=== PATIENT | female | born 1965 | race African-American/Black ===

== ENCOUNTER 2017-07-22 17:46 | Observation (INO) | payer SELFPAY ==
[2017-07-22] MEDS ORDERED: ASPIRIN CHEW 81 MG TABLET PO STA (18:01)
--- NOTE | 2017-07-22 18:03 | ED Physician Documentation ---
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 She has no personal Of coronary disease or other issues. She has had elevated blood pressures before at times intermittently but usually it is actually on the low side.) - Additional information Additional information: Several years ago she was on metformin and hydrochlorothiazide but lost weight and did not need to be on them anymore. Review of Systems Ten Systems: 10 systems reviewed and negative Constitutional: denies: Fever, Chills Cardiac: reports: Chest pain / pressure. denies: Palpitations, Pedal edema, Calf pain Respiratory: denies: Dyspnea, Cough GI: denies: Abdominal Pain, Nausea, Vomiting PD PAST MEDICAL HISTORY - Past Medical History Past Medical History: No - Past Surgical History Past Surgical History: No - Present Medications Home Medications: Ambulatory Orders Medication Instructions Recorded Confirmed Aspirin 07/22/17 - Allergies Allergies/Adverse Reactions: Allergies Allergy/AdvReac Type Severity Reaction Status Date / Time No Known Drug Allergies Allergy Verified 07/22/17 17:54 - Social History Does the pt smoke?: No Smoking Status: Never smoker - Family History Family history: reports: DM (and HTN) PD ED PE NORMAL - Vitals Vital signs reviewed: Yes - General General: Alert and oriented X 3, No acute distress - HEENT HEENT: PERRL, EOMI - Neck Neck: Supple, no meningeal sign, No bony TTP - Cardiac Cardiac: RRR, Other (2 out of 6 decrescendo holosystolic murmur heard best at the left upper sternal border) - Respiratory Respiratory: No respiratory distress, Clear bilaterally - Abdomen Abdomen: Normal bowel sounds, Soft, Non tender - Derm Derm: Normal color, Warm and dry - Extremities Extremities: No edema, No calf tenderness / cord, Other (Equal and strong pedal and radial pulses bilaterally) - Neuro Neuro: Alert and oriented X 3, Normal speech - Psych Psych: Normal mood, Normal affect Results - Vitals Vitals: Vital Signs - 24 hr 07/22/17 07/22/17 17:50 18:27 Temperature 37.1 C Heart Rate 101 H 77 Respiratory 17 18 Rate Blood Pressure 215/110 H 174/94 H O2 Saturation 98 99 Oxygen O2 Source Room air - EKG (time done) 1754 Rate: Rate (enter#) (90) Rhythm: NSR [place]: Normal QRS: LVH Ischemia: Normal ST segments Computer interpretation: Agree with computer - Labs Labs: Laboratory Tests 07/22/17 07/22/17 07/22/17 18:06 18:06 18:06 WBC 9.1 RBC 4.46 Hgb 13.1 Hct 38.9 MCV 87.1 MCH 29.3 MCHC 33.6 RDW 13.3 Plt Count 270 MPV 8.4 Neut # Not Reportable Lymph # Not Reportable Warrick # Not Reportable Eos # Not Reportable Baso # Not Reportable Absolute Nucleated RBC Not Reportable Total Counted 100 Band Neuts % (Manual) 0 Reactive Lymphs % (Man) 7 Abnorm Lymph % (Manual) 0 Nucleated RBC % Not Reportable Neutrophils # (Manual) 5.7 Lymphocytes # (Manual) 3.0 Monocytes # (Manual) 0.3 Eosinophils # (Manual) 0.1 Basophils # (Manual) 0.0 Manual Slide Review Indicated Platelet Estimate NORMAL (130-450,000) Platelet Morphology NORMAL APPEARANCE RBC Morph Micro Appear NORMAL APPEARANCE Sodium 134 L Potassium 3.8 Chloride 94 L Carbon Dioxide 29 Anion Gap 11.0 BUN 14 Creatinine 0.7 Estimated GFR (MDRD) 87 L Glucose 459 H Calcium 9.9 Total Bilirubin 0.3 AST 17 ALT 19 Alkaline Phosphatase 112 Total Creatine Kinase 81 CK-MB (CK-2) 1.2 Troponin I 0.17 Total Protein 7.7 Albumin 4.0 Globulin 3.7 Albumin/Globulin Ratio 1.1 Lipase 57 H 07/22/17 19:10 WBC RBC Hgb Hct MCV MCH MCHC RDW Plt Count MPV Neut # Lymph # Warrick # Eos # Baso # Absolute Nucleated RBC Total Counted Band Neuts % (Manual) Reactive Lymphs % (Man) Abnorm Lymph % (Manual) Nucleated RBC % Neutrophils # (Manual) Lymphocytes # (Manual) Monocytes # (Manual) Eosinophils # (Manual) Basophils # (Manual) Manual Slide Review Platelet Estimate Platelet Morphology RBC Morph Micro Appear Sodium Potassium Chloride Carbon Dioxide Anion Gap BUN Creatinine Estimated GFR (MDRD) Glucose Calcium Total Bilirubin AST ALT Alkaline Phosphatase Total Creatine Kinase CK-MB (CK-2) Troponin I 0.15 Total Protein Albumin Globulin Albumin/Globulin Ratio Lipase - Rads (name of study) CT Angio Radiology: EMP read contemporaneously PD MEDICAL DECISION MAKING - ED course ED course: 52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 Blood pressure came down to about 160-170 systolic without specific intervention. She was administered aspirin. Because of the neurologic symptoms and angiogram of the chest was done, also the murmur, this was negative. Her troponin was in her intermediate at 0.17 and this was repeated in short order to make sure was not shooting up, the second 1 is only 0.15. Her blood sugar is fairly high as well. She was administered IV fluids, insulin, beta blockers. She needs a more formal rule out, but her troponin anemia may be due to her blood pressure. Spoke with Dr. Emerson for observation at 7:51 PM. Departure - Departure Disposition: ED Place in Observation Clinical Impression: Elevated troponin Chest pain Qualifiers: Chest pain type: unspecified Qualified Code(s): R07.9 - Chest pain, unspecified Hypertension Qualifiers: Hypertension type: unspecified Qualified Code(s): I10 - Essential (primary) hypertension Uncontrolled diabetes mellitus Qualifiers: Diabetes mellitus type: type 2 Diabetes mellitus complication status: with hyperglycemia Diabetes mellitus residential insulin use: without spreader operator use Qualified Code(s): E11.65 - Type 2 diabetes mellitus with hyperglycemia Condition: Stable
[2017-07-22 18:11] LABS: HGB - HEMOGLOBIN 13.1 g/dL (12.0-16.0); PLT - PLATELET COUNT 270 10^3/uL (130-450)
[2017-07-22 18:14] LABS: BASOPHILS % (AUTO) 0.8 %; EOSINOPHILS % (AUTO) 2.8 %; LYMPHOCYTES % (AUTO) 32.1 %; MEAN CORPUSCULAR HEMOGLOBIN 29.3 pg (27.0-31.0); MEAN CORPUSCULAR HGB CONC 33.6 g/dL (32.0-36.0); MEAN CORPUSCULAR VOLUME 87.1 fL (81.0-99.0); MEAN PLATELET VOLUME 8.4 fL (7.9-10.8); NEUTROPHILS % (AUTO) 59.3 %; RED BLOOD COUNT 4.46 10^6/uL (4.20-5.40); RED CELL DISTRIBUTION WIDTH 13.3 % (12.0-15.0); WHITE BLOOD COUNT 9.1 x10^3/uL (4.8-10.8)
[2017-07-22] MEDS ORDERED: IOPAMIDOL-300 100 ML VIAL ONE (18:20)
[2017-07-22 18:21] LABS: ALBUMIN/GLOBULIN RATIO 1.1 (1.0-2.2); BILIRUBIN,TOTAL 0.3 mg/dL (0.2-1.0); CALCIUM 9.9 mg/dL (8.5-10.3); CREATININE 0.7 mg/dL (0.4-1.0); TOTAL PROTEIN 7.7 g/dL (6.7-8.2)
[2017-07-22 18:27] LABS: TROPONIN I 0.17 ng/mL (<0.49)
[2017-07-22 18:29] LABS: CREATINE KINASE MB 1.2 ng/mL (0.6-6.3)
[2017-07-22 18:34] LABS: ABNORMAL LYMPHS % (MANUAL) 0 %; BAND NEUTROPHILS % (MANUAL) 0 %
[2017-07-22 18:40] LABS: EOSINOPHILS # (MANUAL) 0.1 10^3/uL (0-0.7); LYMPHOCYTES % (MANUAL) 26 %; MONOCYTES # (MANUAL) 0.3 10^3/uL (0.0-1.0); NEUTROPHILS # (MANUAL) 5.7 10^3/uL (1.5-6.6); NEUTROPHILS % (MANUAL) 63 %
[2017-07-22 18:41] LABS: PLATELET ESTIMATE, MANUAL NORMAL (130-450,000) (NORMAL); PLATELET MORPHOLOGY NORMAL APPEARANCE (NORMAL); RBC MORPHOLOGY (MULTIPLE) NORMAL APPEARANCE (NORMAL)
[2017-07-22] MEDS ORDERED: IOPAMIDOL-300 100 ML VIAL IVP ONE (19:13)
[2017-07-22] MEDS ORDERED: INSULIN REGULAR HUMAN 100 UNIT/1 ML 10 ML MDV IVP STA (19:18)
[2017-07-22] MEDS ORDERED: SODIUM CHLORIDE 0.9% 1,000 ML IV ONE (19:18)
--- NOTE | 2017-07-22 19:31 | CT Report ---
EXAM: CT ANGIOGRAM CHEST EXAM DATE: 07/22/2017 06:45 PM. CLINICAL HISTORY: Chest pain. COMPARISON: None. TECHNIQUE: Routine helical imaging was performed through the chest in the arterial phase. IV Contrast : 100 cc Isovue 300. Reconstructions: Coronal 3-D MIP reconstructions.Sagittal and coronal. In accordance with CT protocol optimization, one or more of the following dose reduction techniques w ere utilized for this exam: automated exposure control, adjustment of mA and/or KV based on patient s ize, or use of iterative reconstructive technique. FINDINGS: Thoracic Aorta: The proximal great vessels are unremarkable. Thoracic aorta is normal in caliber with out evidence of aneurysm or dissection. No periaortic hematoma. Pulmonary artery unremarkable save fo r some slight air in the pulmonary artery, presumed introduced from injection. Lungs/pleura: No consolidation, nodules, or edema. No effusions or pneumothorax. Mediastinum: The thyroid gland is unremarkable. There are no enlarged mediastinal lymph nodes. No per icardial effusion. Other: None. IMPRESSION: Unremarkable CTA chest. No evidence of aneurysm or dissection. [facility] Referring Provider Line: [phone] SITE ID: [id number]
[2017-07-22] MEDS ORDERED: oxyCODONE 5 MG TABLET PO PRN (19:50)
[2017-07-22] MEDS ORDERED: ONDANSETRON ODT 4 MG TABLET TL PRN (19:50)
[2017-07-22] MEDS ORDERED: ONDANSETRON 4 MG/2 ML VIAL IVP PRN (19:50)
[2017-07-22] MEDS ORDERED: SODIUM CHLORIDE FLUSH 0.9% 10 ML SYRINGE IVP PRN (19:50)
--- NOTE | 2017-07-22 19:50 | CT Report ---
EXAM: CT ANGIOGRAM ABDOMEN AND PELVIS WITH CONTRAST EXAM DATE: 07/22/2017 07:13 PM. CLINICAL HISTORY: Chest pain, murmur. COMPARISONS: None. TECHNIQUE: Routine helical CT angiogram imaging was performed through the abdomen and pelvis in the a rterial phase. IV contrast: 100 cc Isovue-300. Enteric contrast: No. Reconstructions: Coronal, sagitt al, and 3D MIP reconstructions. In accordance with CT protocol optimization, one or more of the following dose reduction techniques w ere utilized for this exam: automated exposure control, adjustment of mA and/or KV based on patient s ize, or use of iterative reconstructive technique. FINDINGS: Vasculature: Normal. No aneurysm, dissection, or significant atherosclerotic disease of the abdominal aorta and iliac arteries. The visualized mesenteric and solid organ vascular structures are also wit hin normal limits. Abdominal Solid Organs: Liver is normal in contour without focal intrahepatic lesion. The gallbladder is contracted and unremarkable. The spleen and pancreas are within normal limits. Adrenal glands unr emarkable. Symmetric renal enhancement with mild right pelviectasis. Left renal cyst measuring 12 mm. Peritoneal Cavity: The stomach is unremarkable. There are no dilated loops of large or small intestin e. No focal inflammation. No enlarged mesenteric lymph nodes. Pelvic Organs: Moderate distention of the bladder. Uterus and adnexa unremarkable. Bones: No significant abnormality. Other: None. IMPRESSION: 1. No evidence of abdominal aortic aneurysm or dissection. 2. Essentially unremarkable CTA of the abdomen and pelvis. [facility] Referring Provider Line: [phone] SITE ID: [id number]
--- NOTE | 2017-07-22 19:50 | CT Preliminary Report ---
Exam: CT ABDOMEN/PELVIS ANGIO IMPRESSION: 1. No evidence of abdominal aortic aneurysm or dissection. 2. Essentially unremarkable CTA of the abdomen and pelvis. [facility] SITE ID: [id number]
[2017-07-22] MEDS ORDERED: METOPROLOL 5 MG/5 ML VIAL IVP STA (19:52)
[2017-07-22] MEDS ORDERED: NITROGLYCERIN SL 0.4 MG TABLET SL PRN (19:52)
[2017-07-22] MEDS ORDERED: METOPROLOL TARTRATE 50 MG TABLET PO STA (19:52)
[2017-07-22 20:45] LABS: HEMOGLOBIN A1C 1.85 g/dL; HEMOGLOBIN A1C % 14.2 % (4.6-6.2)
[2017-07-22] MEDS: SODIUM CHLORIDE 0.9% 1,000 ML IV SCH (21:02)
--- NOTE | 2017-07-22 21:14 | HISTORY & PHYSICAL EXAMINATION ---
Chief Complaint - Chief Complaint Chief Complaint: chest pain and burning feet History of Present Illness - Admitted From Admitted From:: ER/Home - History Obtained From Records Reviewed: [facility] History obtained from: Patient, Her , and Dr. 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 She has been on [facility] about 3 or 4 weeks, currently contracted with [facility] doing LTAC ventilator nursing management[place] have a primary care provider. The last time she was seen by physician was in the fall 2016, she thinks it was January. 3 years ago, she had already lost 60-70 pounds in an attempt to control her blood pressure and her diabetes. At that time she was on hydrochlorothiazide, metformin, and potassium. With the weight loss, her A1c became normal, and her medications were stopped. Her sugars have been checked only on a yearly basis with her physician, and her last January 2017 glucose was normal. In the last few weeks she has developed a burning dysesthesia of her feet. 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 She did not lengthen neuropathy with her diabetes. She has not had polyuria, polyphagia, polydipsia. She started developing some left arm aching yesterday. And today, 45 minutes before coming to the hospital, she developed substernal chest pressure. It was nonradiating. There was no shortness of breath, nausea, diaphoresis, or dizziness. No palpitations. She did have an episode of chest pain 3 years ago. She was observed overnight, but no stress test was done. She came to the emergency room and was noted to be hypertensive at 210 systolic. She received metoprolol 25 mg p.o., after receiving metoprolol 5 mg once. Her systolic went from 215/110 diastolic to 167/93. Chest pressure was gone by the time she got to the emergency room. Left arm ache was gone. Her initial troponin was 0.17. Repeat troponin an hour later was 0.15. Random glucose was 459. A1c is 14.2%. She is now placed in observation for rule out NJ. She has significant risk factors including hyperlipidemia, hypertension, diabetes, all of which are uncontrolled. She is not a smoker. She does have a family history with mom and dad both having cardiac issues and one brother dying of a massive heart attack. She is in nondrinker as well. 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 They had DM,HTN, chol, CAD at their deaths. She had 18 siblings. 3 sisters have of cancer; 1 was breast but the other two she doesn't know what kind of cancer. 1 brother of GSW. 1 brother of NJ. Her 3 children are healthy Living arrangement: At home Living Situation: With spouse/s.o. Social History Notes: she was born in [facility] and has lived all over the [facility] bc of work and family. She has been to her 2nd for 17 years. They met at her cousins house one night for dinner on a blind date and have been together even since. Her 3 children live in [facility]. She never smoked, and never really even socially drank since she doesn't like the taste of it. 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 [place] went on and now plan on being in [place] [facility] [place] - Substance History Use: Uses substance without health or social issues: NONE Abuse: Recurrent use of substance despite neg consequences: NONE Dependence: Experiences withdrawal or developed tolerances: NONE - POLST Patient has POLST: No POLST Status: Full Code Meds/Allgy - Home Medications Home Medications: Ambulatory Orders Medication Instructions Recorded Confirmed Aspirin 07/22/17 - Allergies Allergies/Adverse Reactions: Allergies Allergy/AdvReac Type Severity Reaction Status Date / Time No Known Drug Allergies Allergy Verified 07/22/17 17:54 Review of Systems - Constitutional Constitutional: denies: Fatigue, Fever, Chills, Malaise, Weight gain, Weight loss - Eyes Eyes: denies: Pain, Irritation, Blurred vision, Spots in vision, Field loss - Ears, Nose & Throat Ears, Nose & Throat: denies: Ear pain, Hearing loss, Hearing aids, Tinnitus, Vertigo, Nasal congestion, Mouth lesions - Cardiovascular Cariovascular: reports: Chest pain. denies: Irregular heart rate, Palpitations , Edema, Lightheadedness, Syncope, Exertional dyspnea, Decr. exercise tolerance - Respiratory Respiratory: denies: Cough, Sputum production, Wheezing, Snoring - Gastrointestinal Gastrointestinal: reports: Other (has never had a colonscopy). denies: Abdominal pain, Abdominal distention, Constipation, Diarrhea, Change in bowel habits - Genitourinary Genitourinary: denies: Dysuria, Frequency, Urgency, Hematuria - Musculoskeletal Musculoskeletal: reports: Other (" I dance on tables and feel great!"). denies : Muscle pain, Back pain, Muscle aches, Stiffness - Integumentary Integumentary: denies: Rash, Pruritis, Lesions, Dryness - Neurological Neurological: reports: Numbness (of feet these last few weeks). denies: General weakness, Focal weakness, Headache, Dizziness, Abnormal gait - Psychiatric Psychiatric: denies: Depression, Anxiety, Suicidal - Endocrine Endocrine: denies: Polyuria, Polydypsia, Polyphagia, Intolerance to cold - Hematologic/Lymphatic Hematologic/Lymphatic: denies: Anemia, Bruising, Petechiae Exam - Vital Signs Reviewed Vital Signs: Yes Vital Signs: Vital Signs x48h Temp Pulse Pulse Resp BP BP Pulse Ox 07/22/17 20:54 37 C 63 179/86 H 100 07/22/17 20:05 65 14 158/81 H 100 07/22/17 19:53 78 18 167/93 H 100 07/22/17 18:27 77 18 174/94 H 99 07/22/17 17:50 37.1 C 101 H 17 215/110 H 98 - Physical Exam General Appearance: positive: No acute distress, Alert, Other (Cheerful, black female who looks younger than stated age and at the bedside) Eyes Bilateral: positive: PERRL, EOMI ENT: positive: Pharynx nml Neck: positive: No JVD. negative: Stiff neck, Carotid bruit Respiratory: positive: Chest non-tender. negative: Wheezes, Rales, Rhonchi Cardiovascular: positive: Regular rate & rhythm. negative: Systolic murmur, Gallop/S4, Friction rub Peripheral Pulses: positive: 2+ Abdomen: positive: Non-tender, No organomegaly, Nml bowel sounds, No distention Skin: positive: Warm, Dry. negative: Diaphoresis Extremities: positive: Non-tender, Full ROM, No pedal edema Neurologic/Psychiatric: positive: Oriented x3, CN's nml (2-12), Motor nml, Sensation nml, Mood/affect nml Conclusion/Plan - Problem List (1) Chest pain Conclusion/Plan: In a patient who has all the risk factors for coronary artery disease: Diabetes , hypertension, hyperlipidemia, family history. First set of troponins show enzyme leak. May be from the severe hypertension. Plan: Place in observation Cardiac enzymes every 6 hours 2 more sets ECHO in am Check fasting lipid panel and start on a statin Aspirin daily Add lisinopril for blood pressure control Lexiscan stress test tomorrow a.m. If her next set of troponins are higher, I did explain that I may be calling [facility] for possible transfer. She and her are both aware. Subungual nitroglycerin as needed chest pain with morphine as needed chest pain Qualifiers: Chest pain type: unspecified Qualified Code(s): R07.9 - Chest pain, unspecified (2) Uncontrolled type 2 diabetes mellitus with complication, without long-term current use of insulin Conclusion/Plan: she really wants to do oral meds. But I suspect with a glucose of >400 and an A1c that is this high oral meds alone won't get her to her goal of <7% A1c. I will start lantus and SS novolog but will also start amaryl. she will need to establish herself w a PCP and then negotiate what her meds will be but for now it's insulin + oral meds. already has complication of peripheral neuropathy. will check TSH in case. (3) Essential hypertension with goal blood pressure less than 130/80 Conclusion/Plan: she will be started on lisinopril bc of the DM. She may end of needing two meds. I don't know if her previous PCP ever looks for renal artery hyperplasia that can be done as an outpt. Again, will need to be seen by a new PCP in the next 1-2 weeks after discharge. - Lab Results Lab results reviewed: Yes Fish Bones: 07/22/17 18:06 07/22/17 18:06 - Diagnostic Imaging Results Diagnostic Imaging Results: positive: Final report reviewed - EKG Results EKG Interpreted Independently: Yes Core Measures - Anticipated LOS I expect patient to be DC'd or transferred within 96 hours.: Yes - DVT/VTE - Prophylaxis VTE/DVT Device ordered at admit?: Yes - AMI - Statin at Admit Aspirin Prescribed on Admit: Yes
[2017-07-22] MEDS ORDERED: ATORVASTATIN 10 MG TABLET PO SCH (21:33)
[2017-07-22] MEDS: INSULIN GLARGINE 300 UNIT/3 ML PEN SUBQ SCH ×2 (21:54→22:04)
[2017-07-22] MEDS: INSULIN ASPART 300 UNIT/3 ML PEN SUBQ SCH (21:57)
[2017-07-22] MEDS ORDERED: GLIMEPIRIDE 2 MG TABLET PO SCH (22:00)
[2017-07-23] MEDS: SODIUM CHLORIDE FLUSH 0.9% 10 ML SYRINGE IVP SCH ×3 (00:10→17:17)
[2017-07-23] MEDS: MORPHINE 2 MG/ML SYRINGE IVP PRN ×2 (00:43→16:25)
[2017-07-23] MEDS: SODIUM CHLORIDE 0.9% 1,000 ML IV SCH ×2 (03:47→14:42)
[2017-07-23] MEDS ORDERED: GLIMEPIRIDE 2 MG TABLET PO SCH ×2 (07:00→08:30)
[2017-07-23 07:41] LABS: CHOL/HDL RATIO 5.4 (<4.4); CHOLESTEROL 227 mg/dL; HDL CHOLESTEROL 42 mg/dL; LDL CHOLESTEROL,CALCULATED 152 mg/dL; LDL/HDL RATIO 3.6 (<4.4); VLDL CHOLESTEROL 33 mg/dL
[2017-07-23] MEDS: ACETAMINOPHEN 325 MG TABLET PO PRN ×2 (07:57→16:25)
[2017-07-23] MEDS: INSULIN ASPART 300 UNIT/3 ML PEN SUBQ SCH ×3 (08:19→17:17)
[2017-07-23] MEDS ORDERED: LISINOPRIL 5 MG TABLET PO SCH (09:00)
[2017-07-23] MEDS ORDERED: POLYETHYLENE GLYCOL 3350 17 GM PACKET PO SCH (09:00)
[2017-07-23] MEDS ORDERED: ASPIRIN CHEW 81 MG TABLET PO SCH (09:00)
[2017-07-23] MEDS ORDERED: REGADENOSON 0.4 MG/5 ML SYRINGE IVP ONE (10:32)
--- NOTE | 2017-07-23 12:10 | PROCEDURE REPORT ---
Hospitalist Procedure Note - Procedure Note Procedure Note: Patient underwent a Lexiscan EKG stress test. The patient's initial blood pressure was 180/90 with a heart rate of 79 at rest. The patient did have some subtle T-wave inversions in the anterolateral leads and T-wave flattening in the inferior leads at rest. With induction of exercise the patient did not have any significant changes there was some mild worsening of T-wave inversions in V2 and V3. The patient did have chest pain at rest at around 2 out of 10 this chest pain did not worsen during the exercise phase however she did have slight worsening of the chest pain during the recovery phase. The patient had no significant changes in her EKG with worsening of the chest pain. She did however have increase in her blood pressure when she had chest pain. This is an inconclusive EKG stress test and we will await the results of the nuclear study.
--- NOTE | 2017-07-23 14:06 | Nuclear Medicine Prelim Report ---
Exam: NM MYOCARDIAL PERFUSION STR/RST IMPRESSION: 1. No convincing reversible perfusion deficits to indicate stress-induced ischemia. 2. No convincing fixed perfusion deficits. 3. Left ventricular ejection fraction of 61% (normal > 50%). [facility] SITE ID: [id number]
--- NOTE | 2017-07-23 14:06 | Nuclear Medicine Report ---
EXAM: SINGLE-ISOTOPE PHARMACOLOGICAL STRESS TEST WITH LEXISCAN. SINGLE-ISOTOPE AND SAME-DAY REST/STRESS CONRAD CARDIAL PERFUSION SCANS WITH TOMOGRAPHIC IMAGING, QUANTITATIVE ANALYSIS, WALL MOTION ANALYSIS AND CASSANDRA CULATION OF EJECTION FRACTION. EXAM DATE: 07/23/2017 1327 hrs. CLINICAL HISTORY: CHEST PAIN. COMPARISON: None. TECHNIQUE: Following the intravenous administration of 10.3 mCi of Tc-99m sestamibi, a rest myocardia l perfusion scan was done with tomography. Motion correction was applied when appropriate. After a delay of several hours on the same day, a pharmacological stress was performed with the infus ion of 0.4 mg of Lexiscan. According to protocol, 41.8 mCi of Tc-99m sestamibi was injected for stres s myocardial perfusion scan. Stress myocardial perfusion was done with tomography without attenuation correction. Motion correction was applied when appropriate. Gated tomographic images were obtained for wall motion analysis and computation of left ventricular ejection fraction. FINDINGS: Perfusion images: Left ventricular chamber size is normal at rest and unchanged at stress. No convincing fixed perfusion deficits. No convincing reversible perfusion deficits. Gated images: No convincing focal wall motion abnormality. The left ventricular ejection fraction is estimated at 61% (normal > 50%). IMPRESSION: 1. No convincing reversible perfusion deficits to indicate stress-induced ischemia. 2. No convincing fixed perfusion deficits. 3. Left ventricular ejection fraction of 61% (normal > 50%). [facility] Referring Provider Line: [phone] SITE ID: [id number]
[2017-07-23 16:06] VITALS: BP 157/78
--- NOTE | 2017-07-23 16:09 | Discharge Plan ---
Discharge Plan Disposition: 01 Home, Self Care Condition: Fair Prescriptions: Atorvastatin Calcium [Lipitor] 80 mg PO QPM #30 tablet Blood Sugar Diagnostic [Glucometer Strips] 1 each MC TIDWM #90 strip Blood-Glucose Meter [Glucometer] 1 each MC TIDWM #1 each Glimepiride [Amaryl] 2 mg PO DAILYWM #30 tablet Losartan [Cozaar] 50 mg PO DAILY #30 tablet metFORMIN [Glucophage] 850 mg PO TIDWM #90 tablet NIFEdipine [Nifedipine ER] 30 mg PO DAILY #30 tablet.er Diet: Diabetic Activity Restrictions: Activity as Tolerated Shower Restrictions: No Driving Restrictions: No Weight Bearing: Full Weight Additional Instructions or Follow Up instructions: The presents to the emergency department with chest pain. You were placed in observation and underwent serial troponins, telemetry monitoring and a stress test. Your troponins remained stable and your stress test was negative. We did however find that you are very hypertensive and that you are diabetic and your hemoglobin A1c is very poorly controlled. Also I found that you have high cholesterol. You have been prescribed to blood pressure medications nifedipine and Cozaar which you need to take daily. You have also been prescribed 2 medications for your diabetes metformin which she will take 3 times a day and glipizide which she will take once a day. You have also been prescribed 1 medication for your cholesterol called Lipitor which you need to be taking daily. I recommend that you use 1 of the PCPs from the list that was given to you and make an appointment within the next 2 weeks to follow-up. It is very likely that you will need to be started on insulin within the next couple of months if your blood sugars do not improve. Follow-Up Care: [facility] - Diabetes Ed No Smoking: If you smoke, Please STOP! Call for help.
--- NOTE | 2017-07-23 16:31 | DISCHARGE SUMMARY ---
Discharge Summary Admit Date: 07/22/17 Discharge Date: 07/23/17 Discharging Provider: Carlos A Jesus MD Primary Care Provider: None Code Status: Attempt Resuscitation Condition at Discharge: Fair Discharge Disposition: 01 Home, Self Care - DIAGNOSES Admission Diagnoses: 1. Chest pain 2. Uncontrolled type 2 diabetes mellitus with complication, without long-term current use of insulin 3. Essential hypertension with goal blood pressure less than 130/80 Discharge Diagnoses with Status of Each Condition: 1. Chest pain: Stable 2. Uncontrolled type 2 diabetes mellitus with complication, without long-term current use of insulin: Uncontrolled 3. Essential hypertension with goal blood pressure less than 130/80: Uncontrolled 4. 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 not have a primary care provider. The last time she was seen by physician was in the fall 2016, she thinks it was January. 3 years ago, she had already lost 60-70 pounds in an attempt to control her blood pressure and her diabetes. At that time she was on hydrochlorothiazide, metformin, and potassium. With the weight loss, her A1c became normal, and her medications were stopped. Her sugars have been checked only on a yearly basis with her physician, and her last January 2017 glucose was normal. In the last few weeks she has developed a burning dysesthesia of her feet. 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 She did not lengthen neuropathy with her diabetes. She has not had polyuria, polyphagia, polydipsia. She started developing some left arm aching yesterday. And today, 45 minutes before coming to the hospital, she developed substernal chest pressure. It was nonradiating. There was no shortness of breath, nausea, diaphoresis, or dizziness. No palpitations. She did have an episode of chest pain 3 years ago. She was observed overnight, but no stress test was done. She came to the emergency room and was noted to be hypertensive at 210 systolic. She received metoprolol 25 mg p.o., after receiving metoprolol 5 mg once. Her systolic went from 215/110 diastolic to 167/93. Chest pressure was gone by the time she got to the emergency room. Left arm ache was gone. Her initial troponin was 0.17. Repeat troponin an hour later was 0.15. Random glucose was 459. A1c is 14.2%. She is now placed in observation for rule out ND. She has significant risk factors including hyperlipidemia, hypertension, diabetes, all of which are uncontrolled. She is not a smoker. She does have a family history with mom and dad both having cardiac issues and one brother dying of a massive heart attack. She is in nondrinker as well. - HOSPITAL COURSE Hospital Course: Patient was admitted with chest pain her initial troponin was 0 0.17 and subsequent repeat troponins were 0.15. The patient's EKG did not show any ST elevations or acute ischemic changes did show left ventricular hypertrophy. On presentation patient was found to have uncontrolled hypertension with blood pressure of 215/110. Given the patient's risk factors of diabetes, hypertension , hyperlipidemia and family history the patient underwent a stress test. The patient underwent a Lexiscan EKG stress test which was inconclusive. The patient did have chest pain during the test however there was no significant changes on her EKG. The patient also underwent a myocardial perfusion scan which showed no convincing reversible perfusion deficit to indicate stress- induced ischemia. There was no convincing fixed perfusion deficits. In the left ventricular ejection fraction was 61%. The patient was discharged home with a prescription for metformin, glipizide, nifedipine, Cozaar and Lipitor. The patient's hemoglobin A1c was significantly elevated at 14.2. The patient however was not ready to start on insulin therefore we did prescribe metformin and glipizide. The patient will follow up with a primary care physician and will likely need to be started on insulin in the next couple of months. The patient was given a prescription for a glucometer and glucometer strips. The patient's blood pressure was better controlled when she was placed on blood pressure medications. The patient's LDL was elevated at 152 given her risk factors she was placed on Lipitor. It was stressed to the patient that is very important for her to get her medical problems controlled and to be very compliant with medications, diet and exercise. The patient seemed to understand this and seemed motivated to do well. - ALLERGIES Allergies/Adverse Reactions: Allergies Allergy/AdvReac Type Severity Reaction Status Date / Time No Known Drug Allergies Allergy Verified 07/22/17 17:54 - MEDICATIONS Home Medications: Ambulatory Orders Medication Instructions Recorded Confirmed Aspirin 81 mg PO DAILY 07/22/17 07/23/17 Atorvastatin Calcium [Lipitor] 80 mg PO QPM #30 tablet 07/23/17 Blood Sugar Diagnostic [Glucometer 1 each TIDWM #90 strip 07/23/17 Strips] Blood-Glucose Meter [Glucometer] 1 each TIDWM #1 each 07/23/17 Glimepiride [Amaryl] 2 mg PO DAILYWM #30 tablet 07/23/17 Losartan [Cozaar] 50 mg PO DAILY #30 tablet 07/23/17 Multivitamin [Theragran] 1 tab PO DAILY 07/23/17 07/23/17 NIFEdipine [Nifedipine ER] 30 mg PO DAILY #30 tablet.er 07/23/17 metFORMIN [Glucophage] 850 mg PO TIDWM #90 tablet 07/23/17 - PHYSICAL EXAM AT DISCHARGE General Appearance: positive: No acute distress, Alert Eyes Bilateral: positive: Normal inspection, PERRL, EOMI, No lid inflammation, Conjunctivae nml, No scleral icterus ENT: positive: ENT inspection nml, Pharynx nml, No signs of dehydration. negative: Purulent nasal drainage, Pharyngeal erythema, Oral lesions Neck: positive: Nml inspection, Thyroid nml, No JVD, Trachea midline. negative : Thyromegaly, Lymphadenopathy (R), Lymphadenopathy (L), Stiff neck, Carotid bruit, Tracheal deviation Respiratory: positive: Chest non-tender, No respiratory distress, Breath sounds nml. negative: Wheezes, Rales, Rhonchi Cardiovascular: positive: Regular rate & rhythm, No murmur, No gallop Peripheral Pulses: positive: 2+ Abdomen: positive: Non-tender, No organomegaly, Nml bowel sounds, No distention. negative: Guarding, Rebound, Hepatomegaly Skin: positive: Color nml, No rash, Warm Extremities: positive: Non-tender, Full ROM, Nml appearance, No pedal edema Neurologic/Psychiatric: positive: Oriented x3, CN's nml (2-12), Motor nml, Sensation nml - LABS Result Diagrams: 07/22/17 18:06 07/22/17 18:06 Other Lab Results: Laboratory Results WBC 9.1 x10^3/uL (4.8-10.8) 07/22/17 18:06 RBC 4.46 10^6/uL (4.20-5.40) 07/22/17 18:06 Hgb 13.1 g/dL (12.0-16.0) 07/22/17 18:06 Hct 38.9 % (37.0-47.0) 07/22/17 18:06 MCV 87.1 fL (81.0-99.0) 07/22/17 18:06 MCH 29.3 pg (27.0-31.0) 07/22/17 18:06 MCHC 33.6 g/dL (32.0-36.0) 07/22/17 18:06 RDW 13.3 % (12.0-15.0) 07/22/17 18:06 Plt Count 270 10^3/uL (130-450) 07/22/17 18:06 MPV 8.4 fL (7.9-10.8) 07/22/17 18:06 Neut # Not Reportable 07/22/17 18:06 Lymph # Not Reportable 07/22/17 18:06 [place] # Not Reportable 07/22/17 18:06 Eos # Not Reportable 07/22/17 18:06 Baso # Not Reportable 07/22/17 18:06 Absolute Nucleated RBC Not Reportable 07/22/17 18:06 Total Counted 100 07/22/17 18:06 Band Neuts % (Manual) 0 % (0-10) 07/22/17 18:06 Reactive Lymphs % (Man) 7 % 07/22/17 18:06 Abnorm Lymph % (Manual) 0 % 07/22/17 18:06 Nucleated RBC % Not Reportable 07/22/17 18:06 Neutrophils # (Manual) 5.7 10^3/uL (1.5-6.6) 07/22/17 18:06 Lymphocytes # (Manual) 3.0 10^3/uL (1.5-3.5) 07/22/17 18:06 Monocytes # (Manual) 0.3 10^3/uL (0.0-1.0) 07/22/17 18:06 Eosinophils # (Manual) 0.1 10^3/uL (0-0.7) 07/22/17 18:06 Basophils # (Manual) 0.0 10^3/uL (0-0.1) 07/22/17 18:06 Manual Slide Review Indicated 07/22/17 18:06 Platelet Estimate NORMAL (130-450,000) (NORMAL) 07/22/17 18:06 Platelet Morphology NORMAL APPEARANCE (NORMAL) 07/22/17 18:06 RBC Morph Micro Appear NORMAL APPEARANCE (NORMAL) 07/22/17 18:06 Sodium 134 mmol/L (135-145) L 07/22/17 18:06 Potassium 3.8 mmol/L (3.5-5.0) 07/22/17 18:06 Chloride 94 mmol/L (101-111) L 07/22/17 18:06 Carbon Dioxide 29 mmol/L (21-32) 07/22/17 18:06 Anion Gap 11.0 (6-13) 07/22/17 18: BUN 14 mg/dL (6-20) 07/22/17 18:06 Creatinine 0.7 mg/dL (0.4-1.0) 07/22/17 18:06 Estimated GFR (MDRD) 87 (>89) L 07/22/17 18:06 Glucose 459 mg/dL (70-100) H 07/22/17 18:06 POC Whole Bld Glucose 134 mg/dL (70 - 100) H 07/23/17 12:06 Glycated Hemoglobin 14.2 % (4.6-6.2) H 07/22/17 18:00 Estim Average Glucose 361 (70-100) H 07/22/17 18:00 Calcium 9.9 mg/dL (8.5-10.3) 07/22/17 18:06 Total Bilirubin 0.3 mg/dL (0.2-1.0) 07/22/17 18:06 AST 17 IU/L (10-42) 07/22/17 18:06 ALT 19 IU/L (10-60) 07/22/17 18:06 Alkaline Phosphatase 112 IU/L (42-121) 07/22/17 18:06 Total Creatine Kinase 81 IU/L (22-269) 07/22/17 18:06 CK-MB (CK-2) 1.2 ng/mL (0.6-6.3) 07/22/17 18:06 Troponin I 0.15 ng/mL (<0.49) 07/23/17 07:16 Total Protein 7.7 g/dL (6.7-8.2) 07/22/17 18:06 Albumin 4.0 g/dL (3.2-5.5) 07/22/17 18:06 Globulin 3.7 g/dL (2.1-4.2) 07/22/17 18:06 Albumin/Globulin Ratio 1.1 (1.0-2.2) 07/22/17 18:06 Triglycerides 165 mg/dL (-149) H 07/23/17 07:16 Cholesterol 227 mg/dL (-199) H 07/23/17 07:16 LDL Cholesterol, Calc 152 mg/dL (-129) H 07/23/17 07:16 VLDL Cholesterol 33 mg/dL 07/23/17 07:16 HDL Cholesterol 42 mg/dL (60-) L 07/23/17 07:16 LDL/HDL Ratio 3.6 (<4.4) 07/23/17 07:16 Cholesterol/HDL Ratio 5.4 (<4.4) 07/23/17 07:16 Lipase 57 U/L (22-51) H 07/22/17 18:06 - DIAGNOSTIC IMAGING Diagnostic Imaging Results: Final report reviewed Diagnostic Imaging Results Comments: EXAM: [id number] NM/MPS ([id number]) EXAM: SINGLE-ISOTOPE PHARMACOLOGICAL STRESS TEST WITH LEXISCAN. SINGLE-ISOTOPE AND SAME-DAY REST/STRESS MYOCARDIAL PERFUSION SCANS WITH TOMOGRAPHIC IMAGING, QUANTITATIVE ANALYSIS, WALL MOTION ANALYSIS AND CALCULATION OF EJECTION FRACTION. EXAM DATE: 07/23/2017 1327 hrs. CLINICAL HISTORY: CHEST PAIN. COMPARISON: None. TECHNIQUE: Following the intravenous administration of 10.3 mCi of Tc-99m sestamibi, a rest myocardial perfusion scan was done with tomography. Motion correction was applied when appropriate. After a delay of several hours on the same day, a pharmacological stress was performed with the infusion of 0.4 mg of Lexiscan. According to protocol, 41.8 mCi of Tc-99m sestamibi was injected for stress myocardial perfusion scan. Stress myocardial perfusion was done with tomography without attenuation correction. Motion correction was applied when appropriate. Gated tomographic images were obtained for wall motion analysis and computation of left ventricular ejection fraction. FINDINGS: Perfusion images: Left ventricular chamber size is normal at rest and unchanged at stress. No convincing fixed perfusion deficits. No convincing reversible perfusion deficits. Gated images: No convincing focal wall motion abnormality. The left ventricular ejection fraction is estimated at 61% (normal > 50%). IMPRESSION: 1. No convincing reversible perfusion deficits to indicate stress-induced ischemia. 2. No convincing fixed perfusion deficits. 3. Left ventricular ejection fraction of 61% (normal > 50%). EXAM: [id number] CT/TAN ([id number]) EXAM: CT ANGIOGRAM CHEST EXAM DATE: 07/22/2017 06:45 PM. CLINICAL HISTORY: Chest pain. COMPARISON: None. TECHNIQUE: Routine helical imaging was performed through the chest in the arterial phase. IV Contrast: 100 cc Isovue 300. Reconstructions: Coronal 3-D MIP reconstructions.Sagittal and coronal. In accordance with CT protocol optimization, one or more of the following dose reduction techniques were utilized for this exam: automated exposure control, adjustment of mA and/or KV based on patient size, or use of iterative reconstructive technique. FINDINGS: Thoracic Aorta: The proximal great vessels are unremarkable. Thoracic aorta is normal in caliber without evidence of aneurysm or dissection. No periaortic hematoma. Pulmonary artery unremarkable save for some slight air in the pulmonary artery, presumed introduced from injection. Lungs/pleura: No consolidation, nodules, or edema. No effusions or pneumothorax. Mediastinum: The thyroid gland is unremarkable. There are no enlarged mediastinal lymph nodes. No pericardial effusion. Other: None. IMPRESSION: Unremarkable CTA chest. No evidence of aneurysm or dissection. EXAM: [id number] CT/ABPEANG ([id number]) EXAM: CT ANGIOGRAM ABDOMEN AND PELVIS WITH CONTRAST EXAM DATE: 07/22/2017 07:13 PM. CLINICAL HISTORY: Chest pain, murmur. COMPARISONS: None. TECHNIQUE: Routine helical CT angiogram imaging was performed through the abdomen and pelvis in the arterial phase. IV contrast: 100 cc Isovue-300. Enteric contrast: No. Reconstructions: Coronal, sagittal, and 3D MIP reconstructions. In accordance with CT protocol optimization, one or more of the following dose reduction techniques were utilized for this exam: automated exposure control, adjustment of mA and/or KV based on patient size, or use of iterative reconstructive technique. FINDINGS: Vasculature: Normal. No aneurysm, dissection, or significant atherosclerotic disease of the abdominal aorta and iliac arteries. The visualized mesenteric and solid organ vascular structures are also within normal limits. Abdominal Solid Organs: Liver is normal in contour without focal intrahepatic lesion. The gallbladder is contracted and unremarkable. The spleen and pancreas are within normal limits. Adrenal glands unremarkable. Symmetric renal enhancement with mild right pelviectasis. Left renal cyst measuring 12 mm. Peritoneal Cavity: The stomach is unremarkable. There are no dilated loops of large or small intestine. No focal inflammation. No enlarged mesenteric lymph nodes. Pelvic Organs: Moderate distention of the bladder. Uterus and adnexa unremarkable. Bones: No significant abnormality. Other: None. IMPRESSION: 1. No evidence of abdominal aortic aneurysm or dissection. 2. Essentially unremarkable CTA of the abdomen and pelvis. - FOLLOW UP Follow Up: Patient will follow up with a primary care physician in the next 1-2 weeks. She does not currently have a primary care physician as she recently moved to the [place]. [place] realizes it is very important that she follows up given her poorly controlled hypertension and diabetes which may need additional adjustment of medications. - TIME SPENT Time Spent in Discharge (Minutes): 45
== END 2017-07-23 17:29 | disposition home or self-care (01) ==
LOC: ED 17:46 → OBS 19:50
PROVIDERS: ADMIT Specialist; ATTEND Internal Medicine
DX: R07.2 Precordial pain (principal); E11.65 Type 2 diabetes mellitus with hyperglycemia; I11.9 Hypertensive heart disease without heart failure; E78.5 Hyperlipidemia, unspecified; E11.42 Type 2 diabetes mellitus with diabetic polyneuropathy; Z83.3 Family history of diabetes mellitus; Z82.49 Family history of ischemic heart disease and other diseases of the circulatory system
CPT/HCPCS: 36415; 71275; 74174; 78452; 80053; 80061; 82550; 82553; 83036; 83690; 84484; 85025; 93005; 93017; 96361; 96374; 96375; 96376; 99284; 99285; A9270; A9500; G0378; J1815; J2270; J2785; Q9967; 80048; 83721

== ENCOUNTER 2017-10-24 18:54 | Emergency (ER) | payer OTHER ==
[2017-10-24 19:25] LABS: BASOPHILS # (AUTO) 0.1 10^3/uL (0.0-0.1); BASOPHILS % (AUTO) 0.9 %; EOSINOPHILS # (AUTO) 0.6 10^3/uL (0.0-0.7); EOSINOPHILS % (AUTO) 6.1 %; HGB - HEMOGLOBIN 11.4 g/dL (12.0-16.0); LYMPHOCYTES % (AUTO) 32.5 %; MEAN CORPUSCULAR HEMOGLOBIN 30.3 pg (27.0-31.0); MEAN CORPUSCULAR HGB CONC 33.2 g/dL (32.0-36.0); MEAN CORPUSCULAR VOLUME 91.1 fL (81.0-99.0); MEAN PLATELET VOLUME 7.2 fL (7.9-10.8); MONOCYTES # (AUTO) 0.6 10^3/uL (0.0-1.0); MONOCYTES % (AUTO) 6.4 %; NEUTROPHILS % (AUTO) 54.1 %; PLT - PLATELET COUNT 304 10^3/uL (130-450); RED BLOOD COUNT 3.76 10^6/uL (4.20-5.40); WHITE BLOOD COUNT 9.2 x10^3/uL (4.8-10.8)
[2017-10-24 19:38] LABS: ALBUMIN 3.6 g/dL (3.2-5.5); ALBUMIN/GLOBULIN RATIO 0.9 (1.0-2.2); BILIRUBIN,TOTAL 0.5 mg/dL (0.2-1.0); CALCIUM 9.4 mg/dL (8.5-10.3); CREATININE 0.8 mg/dL (0.4-1.0); TOTAL PROTEIN 7.7 g/dL (6.7-8.2)
--- NOTE | 2017-10-24 19:57 | XRAY Report ---
Procedure Date: 10/24/2017 Accession Number: [id number] / [id number] Procedure: XR - Chest 2 View X-Ray CPT Code: 95949 FULL RESULT: EXAM: CHEST RADIOGRAPHY EXAM DATE: 10/24/2017 07:40 PM. CLINICAL HISTORY: Chest pain. COMPARISON: 07/22/2017. TECHNIQUE: 2 views. FINDINGS: Lungs/Pleura: No focal opacities evident. No pleural effusion. No pneumothorax. Normal volumes. Mediastinum: Heart and mediastinal contours are unremarkable. Other: None. IMPRESSION: Normal 2-view chest radiography. RADIA
[2017-10-24] MEDS ORDERED: ASPIRIN CHEW 81 MG TABLET PO STA (21:37)
[2017-10-24] MEDS ORDERED: KETOROLAC 60 MG/2 ML VIAL IVP STA (21:37)
--- NOTE | 2017-10-24 21:38 | ED Physician Documentation ---
PD HPI CHEST PAIN - Stated complaint Stated Complaint: CHEST PX - Chief complaint Chief Complaint: Cardiac - History obtained from History obtained from: Patient, Family - History of Present Illness Timing - onset: How many hours ago (6) Timing - onset during: Rest Timing - duration: Hours (6) Timing - details: Gradual onset Pain level max: 7 Pain level now: 5 Quality: Aching, Sharp, Pain Location: Right chest, Right shoulder/arm Improved by: Rest Worsened by: Movement, Palpation Associated symptoms: No: Shortness of air, Diaphoresis, Nausea, Vomiting, Feeling faint / dizzy, General Weakness, Palpitations, Cough Similar symptoms before: Diagnosis (Chest wall pain) Recently seen: Admitted (Recently admitted for same. Negative cardiac stress test) Review of Systems Ten Systems: 10 systems reviewed and negative Constitutional: denies: Fever, Chills Ears: denies: Ear pain Nose: denies: Rhinorrhea / runny nose, Congestion Respiratory: denies: Dyspnea, Cough, Wheezing GI: denies: Abdominal Pain, Vomiting, Diarrhea Skin: denies: Rash Musculoskeletal: denies: Neck pain, Back pain, Extremity swelling Neurologic: denies: Focal weakness, Numbness PD PAST MEDICAL HISTORY - Past Medical History Past Medical History: Yes Cardiovascular: Hypertension, High cholesterol, Other Respiratory: None Endocrine/Autoimmune: Type 2 diabetes GI: None STRAW BALER: Other : None HEENT: Other Psych: None Musculoskeletal: None Derm: None - Past Surgical History Past Surgical History: Yes General: Other - Present Medications Home Medications: Ambulatory Orders Medication Instructions Recorded Confirmed Blood Sugar Diagnostic [Glucometer 1 each TIDWM #90 strip 07/23/17 Strips] Blood-Glucose Meter [Glucometer] 1 each TIDWM #1 each 07/23/17 Glimepiride [Amaryl] 2 mg PO DAILYWM #30 tablet 07/23/17 Losartan [Cozaar] 50 mg PO DAILY #30 tablet 07/23/17 Multivitamin [Theragran] 1 tab PO DAILY 07/23/17 07/23/17 NIFEdipine [Nifedipine ER] 30 mg PO DAILY #30 tablet.er 07/23/17 Gabapentin 300 mg PO 10/24/17 Meloxicam [Mobic] 7.5 mg PO BID PRN #20 tablet 10/24/17 Simvastatin 40 mg PO 10/24/17 metFORMIN [Glucophage] 1,000 mg PO TIDWM 10/24/17 10/24/17 - Allergies Allergies/Adverse Reactions: Allergies Allergy/AdvReac Type Severity Reaction Status Date / Time No Known Drug Allergies Allergy Verified 10/24/17 19:03 - Social History Does the pt smoke?: No Smoking Status: Never smoker Does the pt drink ETOH?: No Does the pt have substance abuse?: No - Immunizations Immunizations are current?: Yes - POLST Patient has POLST: No POLST Status: Full Code PD ED PE NORMAL - Vitals Vital signs reviewed: Yes - General General: Alert and oriented X 3, No acute distress - HEENT HEENT: Moist mucous membranes - Neck Neck: Supple, no meningeal sign - Cardiac Cardiac: RRR, No murmur, Strong equal pulses - Respiratory Respiratory: No respiratory distress, Clear bilaterally - Abdomen Abdomen: Soft, Non tender, Non distended - Back Back: No CVA TTP, No spinal TTP - Derm Derm: Warm and dry, No rash - Extremities Extremities: No edema, No calf tenderness / cord - Neuro Neuro: Alert and oriented X 3 - Psych Psych: Normal mood, Normal affect - Free text exam Free text exam: Tender to palpation over the right anterior chest wall, reproduces her pain Results - Vitals Vitals: Oxygen O2 Source Room air - EKG (time done) 1901 Rate: Rate (enter#) (80) Rhythm: NSR [place]: Normal Intervals: Normal ND QRS: Normal Ischemia: Non specific changes Compare to prior EKG: Unchanged from prior EKG - Labs Labs: Laboratory Tests 10/24/17 10/24/17 10/24/17 19:21 19:21 19:21 WBC 9.2 RBC 3.76 L Hgb 11.4 L Hct 34.3 L MCV 91.1 MCH 30.3 MCHC 33.2 RDW 14.0 Plt Count 304 MPV 7.2 L Neut # (Auto) 5.0 Lymph # (Auto) 3.0 [place] # (Auto) 0.6 Eos # (Auto) 0.6 Baso # (Auto) 0.1 Absolute Nucleated RBC 0.00 Nucleated RBC % 0.0 Sodium 137 Potassium 3.4 L Chloride 100 L Carbon Dioxide 31 Anion Gap 6.0 BUN 13 Creatinine 0.8 Estimated GFR (MDRD) 91 Glucose 174 H Calcium 9.4 Total Bilirubin 0.5 AST 18 ALT 17 Alkaline Phosphatase 73 Troponin I 0.16 Total Protein 7.7 Albumin 3.6 Globulin 4.1 Albumin/Globulin Ratio 0.9 L Lipase 31 10/24/17 22:11 WBC RBC Hgb Hct MCV MCH MCHC RDW Plt Count MPV Neut # (Auto) Lymph # (Auto) [place] # (Auto) Eos # (Auto) Baso # (Auto) Absolute Nucleated RBC Nucleated RBC % Sodium Potassium Chloride Carbon Dioxide Anion Gap BUN Creatinine Estimated GFR (MDRD) Glucose Calcium Total Bilirubin AST ALT Alkaline Phosphatase Troponin I 0.14 Total Protein Albumin Globulin Albumin/Globulin Ratio Lipase - Rads (name of study) cxr Radiology: Prelim report reviewed, EMP read contemporaneously, See rad report ( Normal) PD MEDICAL DECISION MAKING - ED course Complexity details: reviewed old records, reviewed results, re-evaluated patient , considered differential (No ST elevation KS, no aortic dissection, no PE, no tension pneumothorax, no aortic aneurysm), d/w patient ED course: Patient is a 52-year-old female with atypical right-sided chest pain. Appears to be chest wall pain. Always has a mildly elevated troponin and her troponin 2 are within her normal range. We will have her start on a baby aspirin at home. We will have her follow-up with her doctor. Feels much better after Toradol. Patient counseled regarding signs and symptoms for which I believe and urgent re-evaluation would be necessary. Patient with good understanding of and agreement to plan and is comfortable going home at this time This document was made in part using voice recognition software. While efforts are made to proofread this document, sound alike and grammatical errors may occur. - Sepsis Event Vital Signs: Oxygen O2 Source Room air Departure - Departure Disposition: 01 Home, Self Care Clinical Impression: Chest pain Qualifiers: Chest pain type: unspecified Qualified Code(s): R07.9 - Chest pain, unspecified Condition: Good Instructions: ED Chest Pain Pleurisy Follow-Up: Camila Saha ARNP [Primary Care Provider] - Within 1 week Prescriptions: Meloxicam [Mobic] 7.5 mg PO BID PRN #20 tablet PRN Reason: Pain Comments: Return if you worsen. The cause of your symptoms may be related to inflammation in your ribs/chest wall. This should improve over the next few days. Follow up with your doctor for further care. You should start on aspirin 81mg by mouth daily as well. Forms: Activity restrictions Discharge Date/Time: 10/24/17 23:02
[2017-10-24 22:53] VITALS: BP 163/82
== END 2017-10-24 23:02 | disposition home or self-care (01) ==
LOC: ED 18:54
DX: R07.9 Chest pain, unspecified (principal); I10 Essential (primary) hypertension; E78.00 Pure hypercholesterolemia, unspecified; E11.9 Type 2 diabetes mellitus without complications; Z79.84 Long term (current) use of oral hypoglycemic drugs
CPT/HCPCS: 36415; 71046; 80053; 83690; 84484; 85025; 93005; 96374; 99283; 99284; A9270

== ENCOUNTER 2020-02-12 08:00 | Outpatient (CLI) | payer OTHER ==
[2020-02-12 18:26] LABS: ALBUMIN 3.8 g/dL (3.2-5.5); ALKALINE PHOSPHATASE 114 IU/L (42-121); ALT ALANINE AMINOTRANSFERASE 18 IU/L (10-60); AST ASPARTATE AMINOTRANSFERASE 20 IU/L (10-42); BILIRUBIN,TOTAL 0.8 mg/dL (0.2-1.0); BUN - BLOOD UREA NITROGEN 11 mg/dL (6-20); CALCIUM 9.6 mg/dL (8.5-10.3); CARBON DIOXIDE - CO2 30 mmol/L (21-32); CHLORIDE 96 mmol/L (101-111); CHOL/HDL RATIO 9.2 (<4.4); CHOLESTEROL 359 mg/dL; CREATININE 0.7 mg/dL (0.4-1.0); GLUCOSE 411 mg/dL (70-100); HDL CHOLESTEROL 39 mg/dL; LDL CHOLESTEROL,CALCULATED 245 mg/dL; LDL/HDL RATIO 6.3 (<4.4); SODIUM 136 mmol/L (135-145); TOTAL PROTEIN 7.5 g/dL (6.7-8.2); VLDL CHOLESTEROL 75 mg/dL
[2020-02-12 20:09] LABS: HEMOGLOBIN A1c% 14.8 % (4.27-6.07)
== END 2020-02-12 23:59 | disposition home or self-care (01) ==
LOC: LAB.WCP 08:00
PROVIDERS: ATTEND Internal Medicine
DX: I10 Essential (primary) hypertension (principal); E78.5 Hyperlipidemia, unspecified; E11.40 Type 2 diabetes mellitus with diabetic neuropathy, unspecified
CPT/HCPCS: 36415; 80053; 80061; 83036; 83721

== ENCOUNTER 2020-08-18 12:25 | Inpatient (IN) | payer OTHER ==
--- OUTSIDE RECORDS SUMMARY | 2020-08-18 12:28 | EXTERNAL MEDICAL SUMMARY RPT | Continuity of Care Document ---
:1965 Demographics Phone Unavailable Preferred Language Unknown Marital Status Unknown Rastafarian Affiliation Unknown Race Unknown Ethnic Group Unknown Author Organization [facility] Address [address] [place] [address] Phone Social History date description facility [phone]
[2020-08-18 13:15] LABS: BASOPHILS % (AUTO) 0.4 %; EOSINOPHILS # (AUTO) 0.2 10^3/uL (0.0-0.7); EOSINOPHILS % (AUTO) 1.5 %; HCT - HEMATOCRIT 31.9 % (37.0-47.0); HGB - HEMOGLOBIN 10.3 g/dL (12.0-16.0); LYMPHOCYTES # (AUTO) 1.3 10^3/uL (1.5-3.5); LYMPHOCYTES % (AUTO) 12.1 %; MEAN CORPUSCULAR HEMOGLOBIN 29.6 pg (27.0-31.0); MEAN CORPUSCULAR HGB CONC 32.3 g/dL (32.0-36.0); MEAN CORPUSCULAR VOLUME 91.7 fL (81.0-99.0); MEAN PLATELET VOLUME 10.3 fL (7.9-10.8); MONOCYTES # (AUTO) 1.6 10^3/uL (0.0-1.0); MONOCYTES % (AUTO) 15.1 %; NEUTROPHILS # (AUTO) 7.3 10^3/uL (1.5-6.6); NEUTROPHILS % (AUTO) 70.5 %; PLT - PLATELET COUNT 229 10^3/uL (130-450); RED BLOOD COUNT 3.48 10^6/uL (4.20-5.40); WHITE BLOOD COUNT 10.3 x10^3/uL (4.8-10.8)
--- OUTSIDE RECORDS SUMMARY | 2020-08-18 13:23 | EXTERNAL MEDICAL SUMMARY RPT | Continuity of Care Document ---
:1965 Demographics Phone Unavailable Preferred Language Unknown Marital Status Unknown Gnosticist Affiliation Unknown Race Unknown Ethnic Group Unknown Author Organization [facility] Address [address] [id number] Phone Social History date description facility [phone]
--- NOTE | 2020-08-18 13:27 | XRAY Report ---
PROCEDURE: Chest 1 View X-Ray INDICATIONS: Chest pain TECHNIQUE: One view of the chest was acquired. COMPARISON: 10/24/2017 FINDINGS: Surgical changes and devices: None. Lungs and pleura: No pleural effusions or pneumothorax. Lungs are clear. Mediastinum: Mediastinal contours appear normal. Heart size is normal. Bones and chest wall: No suspicious bony lesions. Overlying soft tissues appear unremarkable. IMPRESSION: No evidence acute pulmonary process. Reviewed by: Chaz Muniz MD on 08/18/2020 1:25 PM PDT Approved by: Chaz Muniz MD on 08/18/2020 1:25 PM PDT Station ID: [id number]
[2020-08-18 13:33] LABS: ALBUMIN 3.2 g/dL (3.2-5.5); ALBUMIN/GLOBULIN RATIO 0.6 (1.0-2.2); BILIRUBIN,TOTAL 0.5 mg/dL (0.2-1.0); CALCIUM 9.2 mg/dL (8.5-10.3); CREATININE 1.1 mg/dL (0.4-1.0); POTASSIUM 3.8 mmol/L (3.5-5.0); TOTAL PROTEIN 8.2 g/dL (6.7-8.2)
[2020-08-18] MEDS ORDERED: SODIUM CHLORIDE 0.9% 1,000 ML IV STA ×2 (13:46)
[2020-08-18 14:04] LABS: VBG HCO3 28.8 mmol/L (23-28); VBG OXYGEN SATURATION 46.8 % (60-80); VBG PCO2 49.2 mmHg (41-51); VBG PH 7.385 (7.31-7.41); VBG PO2 24.2 mmHg (25-47); VBG TOTAL CO2 30.3 mmol/L (24-29)
[2020-08-18] MEDS ORDERED: INSULIN REGULAR HUMAN 100 UNIT/1 ML 10 ML MDV IVP STA (14:12)
--- NOTE | 2020-08-18 14:24 | ED Physician Documentation ---
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 She states it was hard to care for herself and that she also did not eat very well during that time. Patient also notes that she felt as though she could not taste anything a couple of days ago, so she made a number of strong-tasting beverages, such as lemonade, to try to detect some flavor. Patient denies any loss of sense of smell. She did have both her Covid vaccines already. Patient states she began to notice that she was urinating a lot, but did not check her blood sugar. Patient is a diabetes patient and takes Actos, which she has been on for some time. She denies recent dose changes. Today, patient collapsed on the floor and found it hard to get up and her insisted she come to the emergency department. She denies chest pain or shortness of breath. No focal weakness. No nausea or vomiting. No other complaints at this time. Review of Systems Ten Systems: 10 systems reviewed and negative Constitutional: reports: Fatigue Eyes: reports: Reviewed and negative Ears: reports: Reviewed and negative Nose: reports: Reviewed and negative Throat: reports: Reviewed and negative Cardiac: reports: Reviewed and negative Respiratory: reports: Reviewed and negative GI: reports: Reviewed and negative : reports: Reviewed and negative Skin: reports: Reviewed and negative Musculoskeletal: reports: Reviewed and negative Neurologic: reports: Generalized weakness, Near syncope Psychiatric: reports: Reviewed and negative Endocrine: reports: Polyuria Immunocompromised: reports: Reviewed and negative PD PAST MEDICAL HISTORY - Past Medical History Cardiovascular: Hypertension, High cholesterol, Other Respiratory: None Endocrine/Autoimmune: Type 2 diabetes GI: None 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 HEENT: Other Psych: None Musculoskeletal: None Derm: None - Past Surgical History Past Surgical History: Yes General: Other - Present Medications Home Medications: Ambulatory Orders Medication Instructions Recorded Confirmed Glimepiride [Amaryl] 2 mg PO DAILYWM #30 tablet 07/23/17 08/18/20 Losartan [Cozaar] 50 mg PO DAILY #30 tablet 07/23/17 08/18/20 NIFEdipine [Nifedipine ER] 30 mg PO DAILY #30 tablet.er 07/23/17 08/18/20 Gabapentin 1,200 mg PO BID 10/24/17 08/18/20 Simvastatin 40 mg PO QPM 10/24/17 08/18/20 Gabapentin [Neurontin] 600 mg PO 1200 08/18/20 08/18/20 Pioglitazone HCl [Actos] 30 mg PO DAILY 08/18/20 08/18/20 - Allergies Allergies/Adverse Reactions: Allergies Allergy/AdvReac Type Severity Reaction Status Date / Time No Known Drug Allergies Allergy Verified 08/18/20 12:47 - Social History Does the pt smoke?: No Smoking Status: Never smoker Does the pt drink ETOH?: No Does the pt have substance abuse?: No - Immunizations Immunizations are current?: Yes - POLST Patient has POLST: No POLST Status: Full Code PD ED PE NORMAL - Vitals Vital signs reviewed: Yes - General General: Alert and oriented X 3, No acute distress, Well developed/nourished - HEENT HEENT: Atraumatic, PERRL, EOMI, Moist mucous membranes - Neck Neck: Supple, no meningeal sign - Cardiac Cardiac: RRR, No murmur, Strong equal pulses - Respiratory Respiratory: No respiratory distress, Clear bilaterally - Abdomen Abdomen: Soft, Non tender, Non distended - Derm Derm: Normal color, Warm and dry, No rash - Extremities Extremities: No deformity, No edema, No calf tenderness / cord - Neuro Neuro: Alert and oriented X 3, line mover 2-12 intact, Normal speech, Other (Grossly intact otherwise) - Psych Psych: Normal mood, Normal affect Results - Vitals Vitals: Vital Signs - 24 hr 08/18/20 08/18/20 08/18/20 12:40 13:30 14:00 Temperature 36.4 C L Heart Rate 100 100 102 H Respiratory 16 16 16 Rate Blood Pressure 115/102 H 143/79 H 135/109 H O2 Saturation 100 96 96 Oxygen O2 Source Room air - Labs Labs: Laboratory Tests 08/18/20 08/18/20 08/18/20 13:07 13:07 13:07 WBC 10.3 RBC 3.48 L Hgb 10.3 L Hct 31.9 L MCV 91.7 MCH 29.6 MCHC 32.3 RDW 13.0 Plt Count 229 MPV 10.3 Neut # (Auto) 7.3 H Lymph # (Auto) 1.3 L [place] # (Auto) 1.6 H Eos # (Auto) 0.2 Baso # (Auto) 0.0 Absolute Nucleated RBC 0.00 Nucleated RBC % 0.0 PT INR VBG pH VBG pCO2 VBG pO2 VBG HCO3 VBG Total CO2 VBG O2 Saturation VBG Base Excess Sodium 129 L Potassium 3.8 Chloride 90 L Carbon Dioxide 25 Anion Gap 14.0 H BUN 16 Creatinine 1.1 H Estimated GFR (MDRD) 62 L Glucose 710 H* Calcium 9.2 Total Bilirubin 0.5 AST 30 ALT 22 Alkaline Phosphatase 88 Troponin I High Sens 6.1 Total Protein 8.2 Albumin 3.2 Globulin 5.0 H Albumin/Globulin Ratio 0.6 L Lipase 26 Urine Color Urine Clarity Urine pH Ur Specific [place] Urine Protein Urine Glucose (UA) Urine Ketones Urine Occult Blood Urine Nitrite Urine Bilirubin Urine Urobilinogen Ur Leukocyte Esterase Ur Microscopic Review Urine Culture Comments Serum Ketones 08/18/20 08/18/20 08/18/20 13:07 13:07 13:59 WBC RBC Hgb Hct MCV MCH MCHC RDW Plt Count MPV Neut # (Auto) Lymph # (Auto) [place] # (Auto) Eos # (Auto) Baso # (Auto) Absolute Nucleated RBC Nucleated RBC % PT 13.2 H INR 1.2 VBG pH 7.385 VBG pCO2 49.2 VBG pO2 24.2 L VBG HCO3 28.8 H VBG Total CO2 30.3 H VBG O2 Saturation 46.8 L VBG Base Excess 3.0 H Sodium Potassium Chloride Carbon Dioxide Anion Gap BUN Creatinine Estimated GFR (MDRD) Glucose Calcium Total Bilirubin AST ALT Alkaline Phosphatase Troponin I High Sens Total Protein Albumin Globulin Albumin/Globulin Ratio Lipase Urine Color Urine Clarity Urine pH Ur Specific [place] Urine Protein Urine Glucose (UA) Urine Ketones Urine Occult Blood Urine Nitrite Urine Bilirubin Urine Urobilinogen Ur Leukocyte Esterase Ur Microscopic Review Urine Culture Comments Serum Ketones NEGATIVE 08/18/20 14:38 WBC RBC Hgb Hct MCV MCH MCHC RDW Plt Count MPV Neut # (Auto) Lymph # (Auto) [place] # (Auto) Eos # (Auto) Baso # (Auto) Absolute Nucleated RBC Nucleated RBC % PT INR VBG pH VBG pCO2 VBG pO2 VBG HCO3 VBG Total CO2 VBG O2 Saturation VBG Base Excess Sodium Potassium Chloride Carbon Dioxide Anion Gap BUN Creatinine Estimated GFR (MDRD) Glucose Calcium Total Bilirubin AST ALT Alkaline Phosphatase Troponin I High Sens Total Protein Albumin Globulin Albumin/Globulin Ratio Lipase Urine Color YELLOW Urine Clarity CLEAR Urine pH 6.0 Ur Specific [place] <=1.005 Urine Protein NEGATIVE Urine Glucose (UA) >=1000 H Urine Ketones NEGATIVE Urine Occult Blood NEGATIVE Urine Nitrite NEGATIVE Urine Bilirubin NEGATIVE Urine Urobilinogen 0.2 (NORMAL) Ur Leukocyte Esterase NEGATIVE Ur Microscopic Review NOT INDICATED Urine Culture Comments NOT INDICATED Serum Ketones PD MEDICAL DECISION MAKING - ED course Complexity details: reviewed results, re-evaluated patient, considered differential, d/w patient ED course: The patient was worked up with laboratory studies and found to have a blood sugar of 710. Her ABG did not show acidosis, and she did not have an anion gap. Patient was given 2 L of 0.9 normal saline as well as 12 units of regular insulin IV. I discussed the case with Dr. Martinez, who agreed to admit the pt to her service. She requested insulin drip, which was ordered from the ED, and plan will be ICU admission. Departure - Departure Disposition: ED Place in Observation Clinical Impression: Uncontrolled diabetes mellitus Qualifiers: Diabetes mellitus type: type 2 Glycemic state: with hyperglycemia Qualified Code(s): E11.65 - Type 2 diabetes mellitus with hyperglycemia Condition: Serious Discharge Date/Time: 08/18/20 15:25
[2020-08-18] MEDS ORDERED: INSULIN REGULAR HUMAN 100 UNIT in SODIUM CHLORIDE 0.9% 100ML 99 ML IV STA (14:37)
[2020-08-18] MEDS ORDERED: SODIUM CHLORIDE FLUSH 0.9% 10 ML SYRINGE IVP PRN (14:45)
[2020-08-18] MEDS ORDERED: ONDANSETRON 4 MG/2 ML VIAL IVP PRN (14:45)
[2020-08-18] MEDS ORDERED: INSULIN REGULAR HUMAN 100 UNIT in SODIUM CHLORIDE 0.9% 100ML 99 ML IV SCH (15:00)
--- OUTSIDE RECORDS SUMMARY | 2020-08-18 15:07 | EXTERNAL MEDICAL SUMMARY RPT | Continuity of Care Document ---
:1965 Demographics Phone Unavailable Preferred Language Unknown Marital Status Unknown Islam Affiliation Unknown Race Unknown Ethnic Group Unknown Author Organization [facility] Address [address] [id number] Phone Social History date description facility [phone]
[2020-08-18 15:43] LABS: B. PARAPERTUSSIS- RESP PCR PAN NOT DETECTED; B. PERTUSSIS- RESP PCR PANEL NOT DETECTED; C. PNEUMONIAE- RESP PCR PANEL NOT DETECTED; CORONAVIRUS 229E-RESP PCR NOT DETECTED; CORONAVIRUS HKU1-RESP PCR NOT DETECTED; CORONAVIRUS NL63-RESP PCR NOT DETECTED; CORONAVIRUS OC43-RESP PCR NOT DETECTED; HUMAN METAPNEUMOVIRUS NOT DETECTED; INFLUENZA A- RESP PCR PANEL NOT DETECTED; INFLUENZA B - RESP PCR PANEL NOT DETECTED; M. PNEUMONIAE- RESP PCR PANEL NOT DETECTED; PARAINFLUENZA VIRUS 1 NOT DETECTED; PARAINFLUENZA VIRUS 2 NOT DETECTED; PARAINFLUENZA VIRUS 3 NOT DETECTED; PARAINFLUENZA VIRUS 4 NOT DETECTED; RHINOVIRUS/ENTEROVIRUS NOT DETECTED; RSV- RESP PCR PANEL NOT DETECTED; SARS-CoV-2 -RESP PCR PANEL NOT DETECTED
[2020-08-18] MEDS: SODIUM CHLORIDE 0.9% 1,000 ML IV SCH ×2 (15:45→23:33)
[2020-08-18 15:50] LABS: CALCIUM 9.6 mg/dL (8.5-10.3); MAGNESIUM 2.2 mg/dL (1.7-2.8); POTASSIUM 3.2 mmol/L (3.5-5.0)
--- NOTE | 2020-08-18 16:00 | HISTORY & PHYSICAL EXAMINATION ---
Chief Complaint - Chief Complaint Chief Complaint: Weakness and collapse History of Present Illness - Admitted From Admitted From:: ER - History of Present Illness HPI Comment/Other: This is a 55-year-old black female with a history of Diabetes, on metformin, actos and glimiperide, HTN and hyperlipidemia, who has been working 12-hour shifts for 8 days straight, has been feeling very fatigued, has received her 2 Covid vaccines and then noticed a change in her taste. She states her diet of solids has not been its usual because of the loss of taste and she admits to drinking more sodas with sugar and lemonade with sugar than usual, to see if her taste was really affected. At home she collapsed onto the floor today while walking, where she laid for a while, and her had to pick her up and he urged her to come to the ER. There was no syncope. She remembers the entire event. There had been dizziness and weakness especially worse today. She denies a fever, cough, shortness of breath, or chest pain. She has noticed polyuria and was even incontinent of urine twice in the past 3 days, but has had no dysuria. She is compliant with her medications including actos and glimiperide, but she took herself off metformin when Dr Navarro added actos several mos ago, she said, when her last A1c was 14 in 01/2020. She was checking her blood sugars, which were running 180-200, but no checks for 1 week. In the ER she was found to have a serum glucose of 710, normal serum pH of 7.39 and low sodium of 127. She is presented for management of very high glucose and dehydration and is being placed in Observation status. I did discuss her code wishes with her and she wishes to be a DNR, DNI. 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 They had DM,HTN, chol, CAD at their deaths. She had 18 siblings. 3 sisters have of cancer; 1 was breast but the other two she doesn't know what kind of cancer. 1 brother of GSW. 1 brother of AR. Her 3 children are healthy Living arrangement: At home Living Situation: With spouse/s.o. Social History Notes: she was born in [facility] and has lived all over the [facility] bc of work and family. She has been to her 2nd for 17 years. They met at her cousins house one night for dinner on a blind date and have been together even since. Her 3 children live in [facility]. She never smoked, and never really even socially drank since she doesn't like the taste of it. 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 [place] went on and now plan on being in the [facility] for a while. They live on the [place]. - Substance History Use: Uses substance without health or social issues: NONE Abuse: Recurrent use of substance despite neg consequences: NONE - POLST Patient has POLST: No POLST Status: DNR Meds/Allgy - Home Medications Home Medications: Ambulatory Orders Medication Instructions Recorded Confirmed Glimepiride [Amaryl] 2 mg PO DAILYWM #30 tablet 07/23/17 08/18/20 Losartan [Cozaar] 50 mg PO DAILY #30 tablet 07/23/17 08/18/20 NIFEdipine [Nifedipine ER] 30 mg PO DAILY #30 tablet.er 07/23/17 08/18/20 Gabapentin 1,200 mg PO BID 10/24/17 08/18/20 Simvastatin 40 mg PO QPM 10/24/17 08/18/20 Gabapentin [Neurontin] 600 mg PO 1200 08/18/20 08/18/20 Pioglitazone HCl [Actos] 30 mg PO DAILY 08/18/20 08/18/20 - Allergies Allergies/Adverse Reactions: Allergies Allergy/AdvReac Type Severity Reaction Status Date / Time No Known Drug Allergies Allergy Verified 08/18/20 12:47 Review of Systems - Constitutional Constitutional: reports: Fatigue, Weakness, Other (Loss of taste, for which she started drinking more cola and lemonade with sugar than usual.) - Cardiovascular Cariovascular: reports: Other (Had stress test here in 2018 to mevaluate chest pain, was normal) - All Other Systems All Other Systems: reports: Reviewed and negative - Other Findings Other Findings: She never smoked cigarettes, she very rarely drinks any alcohol Exam - Vital Signs Vital Signs: Vital Signs x48h Temp Pulse Pulse Resp BP BP Pulse Ox 08/18/20 15:39 38 C H 102 H 23 135/109 H 99 08/18/20 14:00 102 H 16 135/109 H 96 08/18/20 13:30 100 16 143/79 H 96 08/18/20 12:40 36.4 C L 100 16 115/102 H 100 Conclusion/Plan - Problem List (1) Uncontrolled diabetes mellitus Conclusion/Plan: Etiology for such poor control is unclear, possibly partly because of her increased lemonade and cola intake, or a subtle infection We will look for a possible infection, or acute AR for reason for such high serum glucose. Start low-dose regular insulin drip in the ICU and frequent glu checks, plus before meals and at bedtime glucose checks, start a diabetic diet, transition to iv with D5 when serum glucose is less than 200, and then sliding scale insulin eventually. Will resume her Glimiperide, but hold metformin. Check HbA1c. Since she was already on 3 oral diabetic agents, she may now need insulin dosing going forward after this hospital visit. Will obtain a Policy Analyst consult. Qualifiers: Diabetes mellitus type: type 2 Glycemic state: with hyperglycemia Qualified Code(s): E11.65 - Type 2 diabetes mellitus with hyperglycemia (2) [place] Conclusion/Plan: This occurred after her second Covid vaccination was given, which is not a typical vaccination side effect but rather a side effect after the Covid infection. There are no other focal neurologic changes I will reach out to infectious disease dept regarding this unexpected symptom, since she has tested negative for Covid on the respiratory panel/bio fire test today. (3) Hyponatremia Conclusion/Plan: This is likely pseudohyponatremia, very low because of the extremely high glucose. We will start IV normal saline hydration. Follow BMP daily (4) Collapse Conclusion/Plan: This is likely from dehydration related to the hyperglycemia. Begin IV saline for re hydration. Check orthostatic vital signs. Will check troponin empirically and also obtain a full Echo, to evaluate a reason for her collapse. playground monitor. (5) Hypertension Qualifiers: Hypertension type: unspecified Qualified Code(s): I10 - Essential (primary) hypertension (6) Hypokalemia Conclusion/Plan: Related to poor p.o. intake for 1 week. Replace potassium with K riders and in her rehydration fluids. Follow BMP day (7) Anemia Conclusion/Plan: Her Hemoglobin is already low at 10 despite being dehydrated therefore she is likely very anemic. This may also be adding to her weakness. We will check B12, folate levels and iron stores and replace if low. If iron is low, will check stool guaiac. (8) Abnormal EKG Conclusion/Plan: She had an abnormal EKG at her 2018 stress test, which came out normal. We will obtain a resting echo to evaluate LV and RV contractility - Lab Results Fish Bones: 08/18/20 13:07 08/18/20 17:00 Core Measures - Anticipated LOS I expect patient to be DC'd or transferred within 96 hours.: Yes - DVT/VTE - Prophylaxis VTE/DVT Device ordered at admit?: Yes
--- NOTE | 2020-08-18 16:12 | PHARMACY PROGRESS NOTE ---
- Best Possible Medication History Admit Date and Time: 08/18/20 1444 Processed by: Pharmacy Medication History completed: Yes Patient Interview: Completed Secondary Source(s): Physician records, Pharmacy records, Insurance records (PATIENT INTERVIEWED BY PHARMACY. PATIENT ABLE TO CONFIRM HOME MEDICATIONS ) As the person ultimately responsible for medication therapy, providers are able to order a medication from an existing home medication list in [facility] via the "Reconcile Routine" prior to Confirmation of that medication by application support lead. Such practice is discouraged except when the physician, in their clinical judgment, deems that a medical need exists for a medication without regard to previous use.
[2020-08-18 16:19] LABS: BILIRUBIN,URINE NEGATIVE (NEGATIVE); GLUCOSE, URINE (UA) >=1000 mg/dL (NEGATIVE); KETONES,URINE (UA) NEGATIVE (NEGATIVE); LEUKOCYTE ESTERASE, URINE NEGATIVE (NEGATIVE); NITRITE,URINE NEGATIVE (NEGATIVE); OCCULT BLOOD,URINE NEGATIVE (NEGATIVE); PROTEIN,URINE NEGATIVE (NEGATIVE); UROBILINOGEN,URINE 0.2 (NORMAL) E.U./dL (NORMAL)
[2020-08-18 16:35] LABS: CLARITY,URINE CLEAR (CLEAR)
[2020-08-18] MEDS ORDERED: POTASSIUM CHLOR 10 MEQ/100 ML 10 MEQ/100 ML BAG IV ONE (16:37)
[2020-08-18] MEDS ORDERED: D5NS W/20 MEQ KCL 1,000 ML IV SCH (17:00)
[2020-08-18 17:03] LABS: INR 1.2 (0.8-1.2); PT - PROTHROMBIN TIME 13.2 secs (9.9-12.6)
[2020-08-18] MEDS: SODIUM CHLORIDE FLUSH 0.9% 10 ML SYRINGE IVP SCH (17:07)
[2020-08-18 17:14] LABS: CALCIUM 9.5 mg/dL (8.5-10.3); CREATININE 0.9 mg/dL (0.4-1.0); MAGNESIUM 2.2 mg/dL (1.7-2.8); POTASSIUM 3.3 mmol/L (3.5-5.0)
[2020-08-18 18:38] LABS: CALCIUM 9.1 mg/dL (8.5-10.3); CREATININE 0.8 mg/dL (0.4-1.0); POTASSIUM 3.5 mmol/L (3.5-5.0)
[2020-08-18] MEDS: ethyl alcohoL 62% SWAB AMPULE NAS SCH (20:31)
[2020-08-18] MEDS: FAMOTIDINE 20 MG TABLET PO SCH (20:31)
[2020-08-18] MEDS: GABAPENTIN 300 MG CAPSULE PO SCH (21:32)
[2020-08-18] MEDS: ACETAMINOPHEN 325 MG TABLET PO PRN (21:55)
[2020-08-18] MEDS: INSULIN GLARGINE 300 UNIT/3 ML PEN SUBQ SCH (22:57)
[2020-08-19] MEDS: SODIUM CHLORIDE FLUSH 0.9% 10 ML SYRINGE IVP SCH ×3 (01:27→16:57)
[2020-08-19 05:00] LABS: BASOPHILS % (AUTO) 0.3 %; EOSINOPHILS # (AUTO) 0.4 10^3/uL (0.0-0.7); HCT - HEMATOCRIT 35.5 % (37.0-47.0); HGB - HEMOGLOBIN 11.1 g/dL (12.0-16.0); LYMPHOCYTES # (AUTO) 2.9 10^3/uL (1.5-3.5); LYMPHOCYTES % (AUTO) 24.7 %; MEAN CORPUSCULAR HGB CONC 31.3 g/dL (32.0-36.0); MEAN CORPUSCULAR VOLUME 92.7 fL (81.0-99.0); MEAN PLATELET VOLUME 10.7 fL (7.9-10.8); MONOCYTES # (AUTO) 1.4 10^3/uL (0.0-1.0); NEUTROPHILS # (AUTO) 6.9 10^3/uL (1.5-6.6); NEUTROPHILS % (AUTO) 59.6 %; PLT - PLATELET COUNT 240 10^3/uL (130-450); RED BLOOD COUNT 3.83 10^6/uL (4.20-5.40); RED CELL DISTRIBUTION WIDTH 13.1 % (12.0-15.0); WHITE BLOOD COUNT 11.6 x10^3/uL (4.8-10.8)
[2020-08-19 05:19] LABS: CALCIUM 9.3 mg/dL (8.5-10.3); CREATININE 0.7 mg/dL (0.4-1.0); POTASSIUM 3.7 mmol/L (3.5-5.0)
[2020-08-19 05:38] LABS: FOLATE 17.72 ng/mL (5.90 - >24.8)
[2020-08-19] MEDS: GABAPENTIN 300 MG CAPSULE PO SCH ×3 (08:09→20:01)
[2020-08-19] MEDS: FAMOTIDINE 20 MG TABLET PO SCH ×2 (08:09→20:02)
[2020-08-19] MEDS: ethyl alcohoL 62% SWAB AMPULE NAS SCH ×2 (08:15→20:02)
[2020-08-19] MEDS: INSULIN ASPART 300 UNIT/3 ML PEN SUBQ SCH ×4 (08:25→20:06)
--- NOTE | 2020-08-19 10:18 | PROVIDER PROGRESS NOTE ---
Assessment/Plan - Problem List (1) Fever Assessment/Plan: Her U/A came back after in bed in ICU, as clean. Her WBC rebeka slightly since admission. Today, she has a cough and rhonchi, possible pneumonia. An infection could be the cause of very elevated glu and change in taste. Will order blood cx, sputum cx and get CXR, also will start antibx if she has infiltrate. (2) Uncontrolled diabetes mellitus Qualifiers: Diabetes mellitus type: type 2 Glycemic state: with hyperglycemia Qualified Code(s): E11.65 - Type 2 diabetes mellitus with hyperglycemia Assessment/Plan: The fever and an infection somewhere is the likely cause of her very high glucoses. She is off Insulin drip. Glu running in high 200's-300's. A1c is 12.1 indicating longstanding poor glu control. Will transfer out of ICU to a med-surg bed, telemetry not needed if Echo within normal limits. Cattle Examiner to meet with her today. Started Lantus at hs and I discuss possibly she will need to start tnew Insulin management as an outpt; she will think about it. Cont cc diet, ss Insulin coverage, POC glu checks. (3) [place] Assessment/Plan: Possible Zinc deficit due to poor po intake for 8 days. Zinc level was sent off (but is a send-out and will take several days). Cattle Examiner advised to treat with Zinc empirically. Also, her DM itself may be the cause of taste change, and her covid vaccine timing was just serendipity. (4) Collapse Assessment/Plan: Dehydration from elev glu and a fever are the likley cause of collapse. Orthostatic VS were done this morning and she had slight 10 mmHg drop[ between each position and was tachy (heart rate 96>> 101). Still holding her home BP meds for now. She got iv fluids and transitioning to oral liquids today. Echo still pending. (5) Hypertension Qualifiers: Hypertension type: unspecified Qualified Code(s): I10 - Essential (primary) hypertension Assessment/Plan: Holding her BP meds still today, due to dehydration and borderline orthostasis. (6) Anemia Assessment/Plan: Hgb was 10 at admission and is 11 today, despite iv hydration. B12 and Folate serum levels are normal. Iron panel shows low Iron and low % sat. Will order stool guaic and discuss her menstrual Hx with her. Will start oral Iron. (7) MRSA carrier Assessment/Plan: She is ordered to get alcohol nasal swabs for treatment. (8) Abnormal EKG Assessment/Plan: Awaiting Echo to be done today. (9) Hyponatremia Assessment/Plan: Resolved with lower serum glu. IV fluids stopped as she is taking liquids orally. (10) Hypokalemia Assessment/Plan: Resolved with replacement. Follow BMP daily. - Current Meds Current Meds: Current Medications Generic Name Dose Route Start Last Admin Trade Name Freq PRN Reason Stop Dose Admin Acetaminophen 650 mg 08/18/20 14:45 08/18/20 21:55 Acetaminophen 325 Mg Tablet PO 650 mg Q4HR PRN Administration Pain or Fever > 38C (100.4F) Alcohol 1 amp 08/18/20 21:00 08/19/20 08:15 Ethyl Alcohol 62% Swab Ampule ELIJAH 1 amp BID COLT Administration Famotidine 20 mg 08/18/20 21:00 08/19/20 08:09 Famotidine 20 Mg Tablet PO 20 mg BID COLT Administration Gabapentin 1,200 mg 08/18/20 21:00 08/19/20 08:09 Gabapentin 300 Mg Capsule PO 1,200 mg BID COLT Administration Sodium Chloride 1,000 mls @ 100 mls/hr 08/18/20 15:00 08/18/20 23:33 Normal Saline 0.9% IV Not Given .Q10H COLT Insulin Aspart 1 - 5 unit 08/19/20 08:00 08/19/20 08:25 Insulin Aspart 300 Unit/3 Ml Pen SUBQ 5 unit 0800,1200,1700,2100 COLT Administration Protocol Insulin Glargine 10 unit 08/18/20 22:46 08/18/20 22:57 Insulin Glargine 300 Unit/3 Ml Pen SUBQ 10 unit QPM COLT Administration Sodium Chloride 10 ml 08/18/20 17:00 08/19/20 08:27 Sodium Chloride Flush 0.9% 10 Ml Syringe IVP 10 ml 0100,0900,1700 COLT Administration - Lab Result Fish Bone Diagrams: 08/19/20 04:05 08/19/20 04:05 - Additional Planning My Orders: My Active Orders 08/18/20 14:45 Activity Orders [RC] Q2HR Daily Weight [RC] 0600 IO [RC] Q1HR IV Insert [RC] ONCE Initiate Bowel Care Protocol [RC] QSHIFT Initiate ICU Electrolyte Prot. [RC] .protocol Initiate Line Care Protocol [RC] .protocol Initiate Personal Care Protoco [RC] .protocol Turn and Reposition [RC] PRN Vital Signs [RC] Q3HR Acetaminophen [Tylenol] 650 mg PO Q4HR PRN Ondansetron Inj [Zofran Inj] 4 mg IVP Q6HR PRN Sodium Chloride Flush 0.9% [Normal Saline Flush 0.9%] 10 ml IVP PRN PRN Code Status [OTHERS] Routine Condition of Patient [OTHERS] Routine DVT Prophylaxis [OTHERS] Routine 08/18/20 14:47 Oxygen Therapy [RC] .PRN SCDs [RC] QSHIFT Telemetry- [RC] Q4HR 08/18/20 14:48 Initiate Line Care Protocol [RC] QSHIFT 08/18/20 14:54 Initiate DKA RN Protocol [RC] .protocol Initiate Hypoglycemia Protocol [RC] .protocol Initiate ICU Electrolyte Prot. [RC] .protocol HCG QUALITATIVE, URINE [URIN] Routine 08/18/20 14:59 Notify Provider - Specific Ins [RC] PRN 08/18/20 15:00 Sodium Chloride 0.9% [Normal Saline 0.9%] 1,000 ml IV 100 mls/hr 08/18/20 Dinner Carb-controlled Diet [DIET] 08/18/20 17:00 Sodium Chloride Flush 0.9% [Normal Saline Flush 0.9%] 10 ml IVP 0100,0900,1700 08/18/20 21:00 Famotidine [Pepcid] 20 mg PO BID ethyl alcohoL 62% swab [NoZin] 1 amp ELIJAH BID 08/19/20 04:05 HEMOGLOBIN A1c% [CHEM] Urgent 08/19/20 08:00 Orthostatic [Vital Signs - Orthostatic] [RC] DAILY Echo Transthoracic Complete [ECHO] Routine 08/19/20 08:50 ZINC, PLASMA [REFLAB] Routine 08/19/20 11:00 Zinc Sulfate 220 mg PO DAILY 08/20/20 05:00 BMP - BASIC METABOLIC PANEL [CHEM] DAILYLAB Subjective - Subjective Patient Reports: Resting Comfortably, Cough (feels like she cannot bring anything up), Fatigue, Other Objective Vital Signs: Vital Signs - 24 hr 08/18/20 08/18/20 08/18/20 12:40 13:30 14:00 Temperature 36.4 C L Heart Rate 100 100 102 H Heart Rate [ Monitoring electrodes] Respiratory 16 16 16 Rate Blood Pressure 115/102 H 143/79 H 135/109 H Blood Pressure [Left Brachial artery] Blood Pressure [Right Brachial artery] O2 Saturation 100 96 96 08/18/20 08/18/20 08/18/20 15:39 18:00 21:00 Temperature 38 C H 38.7 C H Heart Rate Heart Rate [ 102 H 108 H 103 H Monitoring electrodes] Respiratory 23 22 22 Rate Blood Pressure Blood Pressure 135/109 H 130/109 H 132/93 H [Left Brachial artery] Blood Pressure [Right Brachial artery] O2 Saturation 99 94 97 08/18/20 08/19/20 08/19/20 22:36 00:00 02:00 Temperature 37.7 C Heart Rate Heart Rate [ 93 96 Monitoring electrodes] Respiratory 19 16 Rate Blood Pressure Blood Pressure 122/68 116/66 [Left Brachial artery] Blood Pressure [Right Brachial artery] O2 Saturation 92 95 08/19/20 08/19/20 08/19/20 03:49 06:00 08:17 Temperature 37.0 C 37.6 C Heart Rate Heart Rate [ 94 93 Monitoring electrodes] Respiratory 22 13 Rate Blood Pressure Blood Pressure 120/82 H [Left Brachial artery] Blood Pressure 138/65 H [Right Brachial artery] O2 Saturation 97 98 Oxygen O2 Source Room air I&O (Last 24 Hrs): Intake and Output Totals x24h 08/17/20 08/18/20 08/19/20 23:59 23:59 23:59 Intake Total 2540.000 600 Output Total 50 Balance 2490.000 600 General: Alert, Oriented x3 HEENT: Mucous membr. moist/pink, Other (appears very tired) Neck: Supple, No JVD Neuro: Alert, Non Focal Cardiovascular: Regular rate, No murmurs Respiratory: Rhonchi (L base posteriorly) Abdomen: Soft, No tenderness Extremities: No edema Skin: No rashes - Results Results: Laboratory Results WBC 11.6 x10^3/uL (4.8-10.8) H 08/19/20 04:05 RBC 3.83 10^6/uL (4.20-5.40) L 08/19/20 04:05 Hgb 11.1 g/dL (12.0-16.0) L 08/19/20 04:05 Hct 35.5 % (37.0-47.0) L 08/19/20 04:05 MCV 92.7 fL (81.0-99.0) 08/19/20 04:05 MCH 29.0 pg (27.0-31.0) 08/19/20 04:05 MCHC 31.3 g/dL (32.0-36.0) L 08/19/20 04:05 RDW 13.1 % (12.0-15.0) 08/19/20 04:05 Plt Count 240 10^3/uL (130-450) 08/19/20 04:05 MPV 10.7 fL (7.9-10.8) 08/19/20 04:05 Neut # (Auto) 6.9 10^3/uL (1.5-6.6) H 08/19/20 04:05 Lymph # (Auto) 2.9 10^3/uL (1.5-3.5) 08/19/20 04:05 [place] # (Auto) 1.4 10^3/uL (0.0-1.0) H 08/19/20 04:05 Eos # (Auto) 0.4 10^3/uL (0.0-0.7) 08/19/20 04:05 Baso # (Auto) 0.0 10^3/uL (0.0-0.1) 08/19/20 04:05 Absolute Nucleated RBC 0.00 x10^3/uL 08/19/20 04:05 Nucleated RBC % 0.0 /100WBC 08/19/20 04:05 PT 13.2 secs (9.9-12.6) H 08/18/20 13:07 INR 1.2 (0.8-1.2) 08/18/20 13:07 VBG pH 7.385 (7.31-7.41) 08/18/20 13:59 VBG pCO2 49.2 mmHg (41-51) 08/18/20 13:59 VBG pO2 24.2 mmHg (25-47) L 08/18/20 13:59 VBG HCO3 28.8 mmol/L (23-28) H 08/18/20 13:59 VBG Total CO2 30.3 mmol/L (24-29) H 08/18/20 13:59 VBG O2 Saturation 46.8 % (60-80) L 08/18/20 13:59 VBG Base Excess 3.0 mmol/L (-2 - +2) H 08/18/20 13:59 Sodium 137 mmol/L (135-145) 08/19/20 04:05 Potassium 3.7 mmol/L (3.5-5.0) 08/19/20 04:05 Chloride 96 mmol/L (101-111) L 08/19/20 04:05 Carbon Dioxide 28 mmol/L (21-32) 08/19/20 04:05 Anion Gap 13.0 (6-13) 08/19/20 04:05 BUN 12 mg/dL (6-20) 08/19/20 04:05 Creatinine 0.7 mg/dL (0.4-1.0) 08/19/20 04:05 Estimated GFR (MDRD) 105 (>89) 08/19/20 04:05 Glucose 215 mg/dL (70-100) H 08/19/20 04:05 POC Whole Bld Glucose 328 mg/dL (70 - 100) H 08/19/20 08:13 Calcium 9.3 mg/dL (8.5-10.3) 08/19/20 04:05 Phosphorus 3.2 mg/dL (2.5-4.6) 08/18/20 15:32 Magnesium 2.0 mg/dL (1.7-2.8) 08/18/20 18:19 Iron 8 ug/dL (28-170) L 08/19/20 04:05 TIBC 300 ug/dL (250-450) 08/19/20 04:05 % Saturation 3 % (20-50) L 08/19/20 04:05 Transferrin 214 mg/dL (192-382) 08/19/20 04:05 Ferritin 154.7 ng/mL (11.0-306.8) 08/19/20 04:05 Total Bilirubin 0.5 mg/dL (0.2-1.0) 08/18/20 13:07 AST 30 IU/L (10-42) 08/18/20 13:07 ALT 22 IU/L (10-60) 08/18/20 13:07 Alkaline Phosphatase 88 IU/L (42-121) 08/18/20 13:07 Troponin I High Sens 8.0 ng/L (2.3-14.8) 08/18/20 17:00 Total Protein 8.2 g/dL (6.7-8.2) 08/18/20 13:07 Albumin 3.2 g/dL (3.2-5.5) 08/18/20 13:07 Globulin 5.0 g/dL (2.1-4.2) H 08/18/20 13:07 Albumin/Globulin Ratio 0.6 (1.0-2.2) L 08/18/20 13:07 Lipase 26 U/L (22-51) 08/18/20 13:07 Vitamin B12 408 pg/mL (180-914) 08/19/20 04:05 Folate 17.72 ng/mL (5.90 - >24.8) 08/19/20 04:05 Urine Color YELLOW 08/18/20 14:38 Urine Clarity CLEAR (CLEAR) 08/18/20 14:38 Urine pH 6.0 PH (5.0-7.5) 08/18/20 14:38 Ur Specific [place] <=1.005 (1.002-1.030) 08/18/20 14:38 Urine Protein NEGATIVE mg/dL (NEGATIVE) 08/18/20 14:38 Urine Glucose (UA) >=1000 mg/dL (NEGATIVE) H 08/18/20 14:38 Urine Ketones NEGATIVE mg/dL (NEGATIVE) 08/18/20 14:38 Urine Occult Blood NEGATIVE (NEGATIVE) 08/18/20 14:38 Urine Nitrite NEGATIVE (NEGATIVE) 08/18/20 14:38 Urine Bilirubin NEGATIVE (NEGATIVE) 08/18/20 14:38 Urine Urobilinogen 0.2 (NORMAL) E.U./dL (NORMAL) 08/18/20 14:38 Ur Leukocyte Esterase NEGATIVE (NEGATIVE) 08/18/20 14:38 Ur Microscopic Review NOT INDICATED 08/18/20 14:38 Urine Culture Comments NOT INDICATED 08/18/20 14:38 Nasal Adenovirus (PCR) NOT DETECTED 08/18/20 14:44 Nasal B. parapertussis DNA (PCR) NOT DETECTED 08/18/20 14:44 Nasal Coronavir 229E PCR NOT DETECTED 08/18/20 14:44 Nasal Coronavir HKU1 PCR NOT DETECTED 08/18/20 14:44 Nasal Coronavir NL63 PCR NOT DETECTED 08/18/20 14:44 Nasal Coronavir OC43 PCR NOT DETECTED 08/18/20 14:44 Nasal Enterovir/Rhinovir PCR NOT DETECTED 08/18/20 14:44 Nasal Influenza B PCR NOT DETECTED 08/18/20 14:44 Nasal Influenza A PCR NOT DETECTED 08/18/20 14:44 Nasal Parainfluen 1 PCR NOT DETECTED 08/18/20 14:44 Nasal Parainfluen 2 PCR NOT DETECTED 08/18/20 14:44 Nasal Parainfluen 3 PCR NOT DETECTED 08/18/20 14:44 Nasal Parainfluen 4 PCR NOT DETECTED 08/18/20 14:44 Nasal RSV (PCR) NOT DETECTED 08/18/20 14:44 Nasal Screen MRSA (PCR) POSITIVE (NEGATIVE) A* 08/18/20 15:30 Nasal B.pertussis DNA PCR NOT DETECTED 08/18/20 14:44 Nasal C.pneumoniae (PCR) NOT DETECTED 08/18/20 14:44 [place] Human Metapneumo PCR NOT DETECTED 08/18/20 14:44 Nasal M.pneumoniae (PCR) NOT DETECTED 08/18/20 14:44 Nasal SARS-CoV-2 (PCR) NOT DETECTED 08/18/20 14:44 Serum Ketones NEGATIVE (NEGATIVE) 08/18/20 13:07
[2020-08-19 10:40] LABS: ESTIMATED AVERAGE GLUCOSE 301 mg/dL (70-100); HEMOGLOBIN A1c% 12.1 % (4.27-6.07)
[2020-08-19] MEDS: ZINC SULFATE 220 MG CAPSULE PO SCH (11:12)
[2020-08-19] MEDS: SODIUM CHLORIDE 0.9% 1,000 ML IV SCH ×2 (11:57→21:29)
--- NOTE | 2020-08-19 13:24 | XRAY Report ---
PROCEDURE: Chest 1 View X-Ray INDICATIONS: fever, new cough TECHNIQUE: One view of the chest was acquired. COMPARISON: 08/18/2020 FINDINGS: Surgical changes and devices: None. Lungs and pleura: No pleural effusions or pneumothorax. Subtle increased opacity in right perihilar region and right upper lung field is seen concerning for developing right-sided infiltrates. Left carolyn g remains clear. Mediastinum: Mediastinal contours appear normal. Heart size is mildly enlarged. Bones and chest wall: No suspicious bony lesions. Overlying soft tissues appear unremarkable. IMPRESSION: Finding is concerning for developing right upper lobe and right perihilar infiltrates. No pleural eff usion or pneumothorax. Reviewed by: Miah Maldonado MD on 08/19/2020 1:23 PM PDT Approved by: Miah Maldonado MD on 08/19/2020 1:23 PM PDT Station ID: [id number]
[2020-08-19] MEDS ORDERED: AZITHROMYCIN 250 MG TABLET PO STA (14:20)
[2020-08-19] MEDS: ACETAMINOPHEN 325 MG TABLET PO PRN (16:10)
[2020-08-19] MEDS: cefTRIAXone 2 GM in SODIUM CHLORIDE 0.9% MINIBAG 100 ML IV SCH (16:30)
[2020-08-19] MEDS: INSULIN GLARGINE 300 UNIT/3 ML PEN SUBQ SCH (20:03)
[2020-08-20] MEDS: SODIUM CHLORIDE FLUSH 0.9% 10 ML SYRINGE IVP SCH ×3 (01:33→17:02)
[2020-08-20] MEDS: ACETAMINOPHEN 325 MG TABLET PO PRN (01:40)
[2020-08-20 05:25] LABS: CALCIUM 9.1 mg/dL (8.5-10.3); CREATININE 0.8 mg/dL (0.4-1.0); POTASSIUM 3.5 mmol/L (3.5-5.0)
[2020-08-20] MEDS: SODIUM CHLORIDE 0.9% 1,000 ML IV SCH (06:25)
[2020-08-20] MEDS: INSULIN ASPART 300 UNIT/3 ML PEN SUBQ SCH ×4 (07:53→21:34)
[2020-08-20] MEDS: FERROUS SULFATE 300 MG/5 ML UDC PO SCH (07:55)
[2020-08-20] MEDS: ethyl alcohoL 62% SWAB AMPULE NAS SCH ×2 (08:00→21:29)
[2020-08-20] MEDS: GABAPENTIN 300 MG CAPSULE PO SCH ×3 (08:01→21:29)
[2020-08-20] MEDS: ZINC SULFATE 220 MG CAPSULE PO SCH (08:01)
[2020-08-20] MEDS: FAMOTIDINE 20 MG TABLET PO SCH ×2 (08:01→21:29)
[2020-08-20] MEDS: cefTRIAXone 2 GM in SODIUM CHLORIDE 0.9% MINIBAG 100 ML IV SCH (08:07)
[2020-08-20] MEDS: AZITHROMYCIN 250 MG TABLET PO SCH (08:17)
[2020-08-20 08:38] LABS: BASOPHILS # (AUTO) 0.1 10^3/uL (0.0-0.1); BASOPHILS % (AUTO) 0.5 %; EOSINOPHILS # (AUTO) 0.3 10^3/uL (0.0-0.7); EOSINOPHILS % (AUTO) 3.2 %; HCT - HEMATOCRIT 33.5 % (37.0-47.0); HGB - HEMOGLOBIN 10.9 g/dL (12.0-16.0); LYMPHOCYTES # (AUTO) 1.5 10^3/uL (1.5-3.5); LYMPHOCYTES % (AUTO) 16.8 %; MEAN CORPUSCULAR HEMOGLOBIN 29.7 pg (27.0-31.0); MEAN CORPUSCULAR HGB CONC 32.5 g/dL (32.0-36.0); MEAN CORPUSCULAR VOLUME 91.3 fL (81.0-99.0); MEAN PLATELET VOLUME 9.8 fL (7.9-10.8); MONOCYTES # (AUTO) 1.1 10^3/uL (0.0-1.0); MONOCYTES % (AUTO) 12.3 %; NEUTROPHILS # (AUTO) 6.1 10^3/uL (1.5-6.6); NEUTROPHILS % (AUTO) 66.9 %; PLT - PLATELET COUNT 287 10^3/uL (130-450); RED BLOOD COUNT 3.67 10^6/uL (4.20-5.40); WHITE BLOOD COUNT 9.1 x10^3/uL (4.8-10.8)
[2020-08-20 08:48] LABS: CALCIUM 9.2 mg/dL (8.5-10.3); CREATININE 0.8 mg/dL (0.4-1.0); PHOSPHORUS 3.7 mg/dL (2.5-4.6); POTASSIUM 3.4 mmol/L (3.5-5.0)
[2020-08-20] MEDS: PIOGLITAZONE 15 MG TABLET PO SCH (11:41)
[2020-08-20] MEDS: GLIMEPIRIDE 2 MG TABLET PO SCH (11:41)
--- NOTE | 2020-08-20 17:42 | PROVIDER PROGRESS NOTE ---
Assessment/Plan - Problem List (1) Fever Assessment/Plan: He spiked a fever again overnight at 0200 today. The source is probably the pneumonia. We now have several sets of blood cultures that are pending. Continue Zithromax and Ceftriaxone She will be admitted from Observation to full Inpatient status. No discharge until she is afebrile for at least 24 hours. (2) CAP (community acquired pneumonia) Assessment/Plan: As above in #1. This infection is probably the cause of the very elevated serum glucose and poor diabetic control We will add Mucinex for expectoration. (3) Uncontrolled diabetes mellitus Qualifiers: Diabetes mellitus type: type 2 Glycemic state: with hyperglycemia Qualified Code(s): E11.65 - Type 2 diabetes mellitus with hyperglycemia Assessment/Plan: A1c is 12.1 indicating longstanding poor glu control. Garden Machinery Mechanic met with her yesterday. We started Lantus at hs. The patient is not interested in starting Insulin, despite such poor 3 mos glu control. Cont cc diet, ss Insulin coverage, POC glu checks. (4) [place] Assessment/Plan: Possible Zinc deficit due to poor po intake for 8 days. Zinc level was sent off (but is a send-out and will take several days). Garden Machinery Mechanic advised to treat with Zinc empirically. Also, her DM itself may be the cause of taste change, and her covid vaccine timing was just serendipity. (5) Collapse Assessment/Plan: Dehydration from elev glu and a fever are the likley cause of collapse. Orthostatic VS were done and she had slight 20 mmHg drop We are still holding her home BP meds for now. She got iv fluids and has transitioned to oral liquids to stay hydrtated. Echo was essentially WNL. (6) Hypertension Qualifiers: Hypertension type: unspecified Qualified Code(s): I10 - Essential (primary) hypertension Assessment/Plan: Holding her BP meds still today, due to orthostasis. (7) Anemia Assessment/Plan: Hgb was 10 at admission B12 and Folate serum levels are normal. Iron panel shows low Iron and low % sat. Will order stool guaic and discuss her menstrual Hx with her. We started oral Iron replacement. (8) MRSA carrier Assessment/Plan: She is ordered to get alcohol nasal swabs for treatment. (9) Abnormal EKG Assessment/Plan: Echo was normal. (10) Hyponatremia Assessment/Plan: Resolved (11) Hypokalemia Assessment/Plan: Resolved - Current Meds Current Meds: Current Medications Generic Name Dose Route Start Last Admin Trade Name Freq PRN Reason Stop Dose Admin Acetaminophen 650 mg 08/18/20 14:45 08/20/20 01:40 Acetaminophen 325 Mg Tablet PO 650 mg Q4HR PRN Administration Pain or Fever > 38C (100.4F) Alcohol 1 amp 08/18/20 21:00 08/20/20 08:00 Ethyl Alcohol 62% Swab Ampule ELIJAH 1 amp BID COLT Administration Azithromycin 250 mg 08/20/20 09:00 08/20/20 08:17 Azithromycin 250 Mg Tablet PO 08/23/20 09:01 250 mg DAILY COLT Administration Famotidine 20 mg 08/18/20 21:00 08/20/20 08:01 Famotidine 20 Mg Tablet PO 20 mg BID COLT Administration Ferrous Sulfate 300 mg 08/20/20 08:00 08/20/20 07:55 Ferrous Sulfate 300 Mg/5 Ml Udc PO 300 mg DAILYWM COLT Administration Gabapentin 1,200 mg 08/18/20 21:00 08/20/20 08:01 Gabapentin 300 Mg Capsule PO 1,200 mg BID COLT Administration Gabapentin 600 mg 08/19/20 12:00 08/20/20 11:40 Gabapentin 300 Mg Capsule PO 600 mg 1200 COLT Administration Glimepiride 2 mg 08/20/20 11:00 08/20/20 11:41 Glimepiride 2 Mg Tablet PO 2 mg DAILYWM COLT Administration Ceftriaxone Sodium 2 gm/ 100 mls @ 200 mls/hr 08/19/20 14:13 08/20/20 08:37 Sodium Chloride IV 08/23/20 09:29 Infused DAILY COLT Infusion Insulin Aspart 2 - 10 unit 08/20/20 17:00 08/20/20 17:37 Insulin Aspart 300 Unit/3 Ml Pen SUBQ 4 unit 0800,1200,1700,2100 COLT Administration Protocol Insulin Glargine 10 unit 08/18/20 22:46 08/19/20 20:03 Insulin Glargine 300 Unit/3 Ml Pen SUBQ 10 unit QPM COLT Administration Ondansetron HCl 4 mg 08/18/20 14:45 08/20/20 17:02 Ondansetron 4 Mg/2 Ml Vial IVP 4 mg Q6HR PRN Administration Nausea / Vomiting Pioglitazone HCl 30 mg 08/20/20 11:00 08/20/20 11:41 Pioglitazone 15 Mg Tablet PO 30 mg DAILY COLT Administration Sodium Chloride 10 ml 08/18/20 17:00 08/20/20 17:02 Sodium Chloride Flush 0.9% 10 Ml Syringe IVP 10 ml 0100,0900,1700 COLT Administration Zinc Sulfate 220 mg 08/19/20 11:00 08/20/20 08:01 Zinc Sulfate 220 Mg Capsule PO 08/24/20 11:00 220 mg DAILY COLT Administration - Lab Result Fish Bone Diagrams: 08/20/20 08:30 08/20/20 08:30 - Additional Planning My Orders: My Active Orders 08/19/20 18:06 CULTURE, BLOOD #1 [RM] Stat 08/19/20 18:16 CULTURE, BLOOD #2 [RM] Stat 08/20/20 08:00 Ferrous Sulfate Liquid [Feosol Liquid] 300 mg PO DAILYWM 08/20/20 09:00 Azithromycin [Zithromax] 250 mg PO DAILY 08/20/20 11:00 Glimepiride [Amaryl] 2 mg PO DAILYWM Pioglitazone [Actos] 30 mg PO DAILY 08/20/20 17:00 Insulin Aspart [NovoLOG] 2 - 10 unit SUBQ 0800,1200,1700,2100 Subjective - Subjective Patient Reports: Feeling Better (Less cough, still tired, after having another fever spike last night), Fatigue Objective Vital Signs: Vital Signs - 24 hr 08/19/20 08/19/20 08/19/20 18:00 19:15 23:32 Temperature 36.9 C 36.8 C 38.1 C H Heart Rate [ 88 83 95 Monitoring electrodes] Respiratory 16 20 20 Rate Blood Pressure 130/66 132/69 H 155/79 H [Right Brachial artery] O2 Saturation 96 95 98 08/20/20 08/20/20 08/20/20 01:41 02:52 03:00 Temperature 38.7 C H 38.5 C H 37.3 C Heart Rate [ 95 88 87 Monitoring electrodes] Respiratory 20 Rate Blood Pressure 135/75 H [Right Brachial artery] O2 Saturation 95 08/20/20 08/20/20 08/20/20 06:00 08:16 11:38 Temperature 37.1 C 36.7 C 36.6 C Heart Rate [ 88 82 85 Monitoring electrodes] Respiratory 10 L 18 18 Rate Blood Pressure 145/85 H 158/71 H 120/57 L [Right Brachial artery] O2 Saturation 97 94 95 08/20/20 08/20/20 11:59 15:00 Temperature 36.6 C 37.7 C Heart Rate [ 85 Monitoring electrodes] Respiratory 18 Rate Blood Pressure 131/61 H [Right Brachial artery] O2 Saturation 96 Oxygen O2 Source Room air I&O (Last 24 Hrs): Intake and Output Totals x24h 08/18/20 08/19/20 08/20/20 23:59 23:59 23:59 Intake Total 2540.000 1680 1150 Output Total 50 0 Balance 2490.000 1680 1150 General: Alert, Oriented x3 HEENT: EOMI, Mucous membr. moist/pink Neck: Supple, No JVD Neuro: Alert, Non Focal Cardiovascular: Regular rate, No murmurs Respiratory: No respiratory distress, Rhonchi (both bases) Abdomen: Soft, No tenderness Extremities: No edema - Results Results: Laboratory Results WBC 9.1 x10^3/uL (4.8-10.8) 08/20/20 08:30 RBC 3.67 10^6/uL (4.20-5.40) L 08/20/20 08:30 Hgb 10.9 g/dL (12.0-16.0) L 08/20/20 08:30 Hct 33.5 % (37.0-47.0) L 08/20/20 08:30 MCV 91.3 fL (81.0-99.0) 08/20/20 08:30 MCH 29.7 pg (27.0-31.0) 08/20/20 08:30 MCHC 32.5 g/dL (32.0-36.0) 08/20/20 08:30 RDW 13.0 % (12.0-15.0) 08/20/20 08:30 Plt Count 287 10^3/uL (130-450) 08/20/20 08:30 MPV 9.8 fL (7.9-10.8) 08/20/20 08:30 Neut # (Auto) 6.1 10^3/uL (1.5-6.6) 08/20/20 08:30 Lymph # (Auto) 1.5 10^3/uL (1.5-3.5) 08/20/20 08:30 [place] # (Auto) 1.1 10^3/uL (0.0-1.0) H 08/20/20 08:30 Eos # (Auto) 0.3 10^3/uL (0.0-0.7) 08/20/20 08:30 Baso # (Auto) 0.1 10^3/uL (0.0-0.1) 08/20/20 08:30 Absolute Nucleated RBC 0.00 x10^3/uL 08/20/20 08:30 Nucleated RBC % 0.0 /100WBC 08/20/20 08:30 PT 13.2 secs (9.9-12.6) H 08/18/20 13:07 INR 1.2 (0.8-1.2) 08/18/20 13:07 VBG pH 7.385 (7.31-7.41) 08/18/20 13:59 VBG pCO2 49.2 mmHg (41-51) 08/18/20 13:59 VBG pO2 24.2 mmHg (25-47) L 08/18/20 13:59 VBG HCO3 28.8 mmol/L (23-28) H 08/18/20 13:59 VBG Total CO2 30.3 mmol/L (24-29) H 08/18/20 13:59 VBG O2 Saturation 46.8 % (60-80) L 08/18/20 13:59 VBG Base Excess 3.0 mmol/L (-2 - +2) H 08/18/20 13:59 Sodium 137 mmol/L (135-145) 08/20/20 08:30 Potassium 3.4 mmol/L (3.5-5.0) L 08/20/20 08:30 Chloride 94 mmol/L (101-111) L 08/20/20 08:30 Carbon Dioxide 29 mmol/L (21-32) 08/20/20 08:30 Anion Gap 14.0 (6-13) H 08/20/20 08:30 BUN 12 mg/dL (6-20) 08/20/20 08:30 Creatinine 0.8 mg/dL (0.4-1.0) 08/20/20 08:30 Estimated GFR (MDRD) 90 (>89) 08/20/20 08:30 Glucose 418 mg/dL (70-100) H 08/20/20 08:30 POC Whole Bld Glucose 201 mg/dL (70 - 100) H 08/20/20 16:51 Estimat Average Glucose 301 mg/dL (70-100) H 08/19/20 04:05 Hemoglobin A1c % 12.1 % (4.27-6.07) H 08/19/20 04:05 Calcium 9.2 mg/dL (8.5-10.3) 08/20/20 08:30 Phosphorus 3.7 mg/dL (2.5-4.6) 08/20/20 08:30 Magnesium 1.9 mg/dL (1.7-2.8) 08/20/20 08:30 Iron 8 ug/dL (28-170) L 08/19/20 04:05 TIBC 300 ug/dL (250-450) 08/19/20 04:05 % Saturation 3 % (20-50) L 08/19/20 04:05 Transferrin 214 mg/dL (192-382) 08/19/20 04:05 Ferritin 154.7 ng/mL (11.0-306.8) 08/19/20 04:05 Total Bilirubin 0.5 mg/dL (0.2-1.0) 08/18/20 13:07 AST 30 IU/L (10-42) 08/18/20 13:07 ALT 22 IU/L (10-60) 08/18/20 13:07 Alkaline Phosphatase 88 IU/L (42-121) 08/18/20 13:07 Troponin I High Sens 8.0 ng/L (2.3-14.8) 08/18/20 17:00 Total Protein 8.2 g/dL (6.7-8.2) 08/18/20 13:07 Albumin 3.2 g/dL (3.2-5.5) 08/18/20 13:07 Globulin 5.0 g/dL (2.1-4.2) H 08/18/20 13:07 Albumin/Globulin Ratio 0.6 (1.0-2.2) L 08/18/20 13:07 Lipase 26 U/L (22-51) 08/18/20 13:07 Vitamin B12 408 pg/mL (180-914) 08/19/20 04:05 Folate 17.72 ng/mL (5.90 - >24.8) 08/19/20 04:05 Urine Color YELLOW 08/18/20 14:38 Urine Clarity CLEAR (CLEAR) 08/18/20 14:38 Urine pH 6.0 PH (5.0-7.5) 08/18/20 14:38 Ur Specific [place] <=1.005 (1.002-1.030) 08/18/20 14:38 Urine Protein NEGATIVE mg/dL (NEGATIVE) 08/18/20 14:38 Urine Glucose (UA) >=1000 mg/dL (NEGATIVE) H 08/18/20 14:38 Urine Ketones NEGATIVE mg/dL (NEGATIVE) 08/18/20 14:38 Urine Occult Blood NEGATIVE (NEGATIVE) 08/18/20 14:38 Urine Nitrite NEGATIVE (NEGATIVE) 08/18/20 14:38 Urine Bilirubin NEGATIVE (NEGATIVE) 08/18/20 14:38 Urine Urobilinogen 0.2 (NORMAL) E.U./dL (NORMAL) 08/18/20 14:38 Ur Leukocyte Esterase NEGATIVE (NEGATIVE) 08/18/20 14:38 Ur Microscopic Review NOT INDICATED 08/18/20 14:38 Urine Culture Comments NOT INDICATED 08/18/20 14:38 Nasal Adenovirus (PCR) NOT DETECTED 08/18/20 14:44 Nasal B. parapertussis DNA (PCR) NOT DETECTED 08/18/20 14:44 Nasal Coronavir 229E PCR NOT DETECTED 08/18/20 14:44 Nasal Coronavir HKU1 PCR NOT DETECTED 08/18/20 14:44 Nasal Coronavir NL63 PCR NOT DETECTED 08/18/20 14:44 Nasal Coronavir OC43 PCR NOT DETECTED 08/18/20 14:44 Nasal Enterovir/Rhinovir PCR NOT DETECTED 08/18/20 14:44 Nasal Influenza B PCR NOT DETECTED 08/18/20 14:44 Nasal Influenza A PCR NOT DETECTED 08/18/20 14:44 Nasal Parainfluen 1 PCR NOT DETECTED 08/18/20 14:44 Nasal Parainfluen 2 PCR NOT DETECTED 08/18/20 14:44 Nasal Parainfluen 3 PCR NOT DETECTED 08/18/20 14:44 Nasal Parainfluen 4 PCR NOT DETECTED 08/18/20 14:44 Nasal RSV (PCR) NOT DETECTED 08/18/20 14:44 Nasal Screen MRSA (PCR) POSITIVE (NEGATIVE) A* 08/18/20 15:30 Nasal B.pertussis DNA PCR NOT DETECTED 08/18/20 14:44 Nasal C.pneumoniae (PCR) NOT DETECTED 08/18/20 14:44 [place] Human Metapneumo PCR NOT DETECTED 08/18/20 14:44 Nasal M.pneumoniae (PCR) NOT DETECTED 08/18/20 14:44 Nasal SARS-CoV-2 (PCR) NOT DETECTED 08/18/20 14:44 Serum Ketones NEGATIVE (NEGATIVE) 08/18/20 13:07
[2020-08-20] MEDS: INSULIN GLARGINE 300 UNIT/3 ML PEN SUBQ SCH (21:33)
[2020-08-21] MEDS: SODIUM CHLORIDE FLUSH 0.9% 10 ML SYRINGE IVP SCH ×3 (04:29→16:52)
[2020-08-21 07:38] LABS: CALCIUM 9.2 mg/dL (8.5-10.3); CREATININE 0.7 mg/dL (0.4-1.0); MAGNESIUM 1.8 mg/dL (1.7-2.8); POTASSIUM 3.6 mmol/L (3.5-5.0)
[2020-08-21 07:55] LABS: BASOPHILS # (AUTO) 0.1 10^3/uL (0.0-0.1); BASOPHILS % (AUTO) 0.5 %; EOSINOPHILS # (AUTO) 0.5 10^3/uL (0.0-0.7); EOSINOPHILS % (AUTO) 4.9 %; HCT - HEMATOCRIT 31.5 % (37.0-47.0); HGB - HEMOGLOBIN 10.4 g/dL (12.0-16.0); LYMPHOCYTES # (AUTO) 1.9 10^3/uL (1.5-3.5); MEAN CORPUSCULAR HEMOGLOBIN 29.4 pg (27.0-31.0); MEAN PLATELET VOLUME 10.6 fL (7.9-10.8); MONOCYTES # (AUTO) 1.1 10^3/uL (0.0-1.0); MONOCYTES % (AUTO) 10.9 %; NEUTROPHILS # (AUTO) 6.3 10^3/uL (1.5-6.6); NEUTROPHILS % (AUTO) 64.1 %; NRBC ABSOLUTE COUNT (AUTO) 0.02 x10^3/uL; NUCLEATED RED BLOOD CELLS AUTO 0.2 /100WBC; PLT - PLATELET COUNT 267 10^3/uL (130-450); RED BLOOD COUNT 3.54 10^6/uL (4.20-5.40); RED CELL DISTRIBUTION WIDTH 12.8 % (12.0-15.0); WHITE BLOOD COUNT 9.8 x10^3/uL (4.8-10.8)
[2020-08-21] MEDS: GABAPENTIN 300 MG CAPSULE PO SCH ×3 (08:09→20:54)
[2020-08-21] MEDS: INSULIN ASPART 300 UNIT/3 ML PEN SUBQ SCH ×4 (08:11→21:19)
[2020-08-21] MEDS: FERROUS SULFATE 300 MG/5 ML UDC PO SCH (08:15)
[2020-08-21] MEDS: PIOGLITAZONE 15 MG TABLET PO SCH (08:15)
[2020-08-21] MEDS: ZINC SULFATE 220 MG CAPSULE PO SCH (08:16)
[2020-08-21] MEDS: GLIMEPIRIDE 2 MG TABLET PO SCH (08:16)
[2020-08-21] MEDS: AZITHROMYCIN 250 MG TABLET PO SCH (08:16)
[2020-08-21] MEDS: FAMOTIDINE 20 MG TABLET PO SCH ×2 (08:16→20:55)
[2020-08-21] MEDS: cefTRIAXone 2 GM in SODIUM CHLORIDE 0.9% MINIBAG 100 ML IV SCH (09:43)
[2020-08-21] MEDS: ethyl alcohoL 62% SWAB AMPULE NAS SCH ×2 (10:33→20:55)
--- NOTE | 2020-08-21 11:42 | PROVIDER PROGRESS NOTE ---
Assessment/Plan - Problem List (1) CAP (community acquired pneumonia) Assessment/Plan: She continues to have good oxygen saturations on room air. She is coughing less and much less short of breath. Continue with empiric IV antibiotics. Will order for her to be overall bed for every meal and walk daily. (2) Uncontrolled diabetes mellitus Qualifiers: Diabetes mellitus type: type 2 Glycemic state: with hyperglycemia Qual ified Code(s): E11.65 - Type 2 diabetes mellitus with hyperglycemia Assessment/Plan: Patient has told us she does not want to start insulin. Her glucose is much better this morning after resuming her to home oral meds on top of the at bedtime Lantus that we have used for several days here. We will stop the Lantus. Continue Actos and Amaryl. Resume metformin twice daily to assess if this is adequate glucose control. Anticipate discharge tomorrow (3) [place] Assessment/Plan: She is getting some of her taste back she said and is taking 100% of her tray. Continue with current plan and management (4) Collapse Assessment/Plan: She was dizzy with getting up to walk to bathroom and sat down, the blood pressure at that point was 109/60. Today her vital signs did show a 27 mmHg drop in systolic blood pressure. Patient not ready for discharge yet. Will give 1 additional liter of saline IV today. Anticipate discharge tomorrow. (5) Hypertension Qualifiers: Hypertension type: unspecified Qualified Code(s): I10 - Essential (primary) hypertension Assessment/Plan: We are still holding her blood pressure meds since she is orthostatic today. (6) Anemia Qualifiers: Anemia type: iron deficiency Assessment/Plan: She was admitted with anemia and found to have iron deficiency. Today guaiac test was finally done which is negative. Continue with oral iron replacement (7) MRSA carrier Assessment/Plan: Adding alcohol nasal swabs for treatment (8) Abnormal EKG Assessment/Plan: As per history. There was a remote stress test which was within normal limits (9) Hyponatremia Assessment/Plan: Resolved (10) Hypokalemia Assessment/Plan: Resolved (11) Fever Assessment/Plan: Resolved - Current Meds Current Meds: Current Medications Generic Name Dose Route Start Last Admin Trade Name Freq PRN Reason Stop Dose Admin Acetaminophen 650 mg 08/18/20 14:45 08/20/20 01:40 Acetaminophen 325 Mg Tablet PO 650 mg Q4HR PRN Administration Pain or Fever > 38C (100.4F) Alcohol 1 amp 08/18/20 21:00 08/21/20 10:33 Ethyl Alcohol 62% Swab Ampule ELIJAH 1 amp BID COLT Administration Azithromycin 250 mg 08/20/20 09:00 08/21/20 08:16 Azithromycin 250 Mg Tablet PO 08/23/20 09:01 250 mg DAILY COLT Administration Famotidine 20 mg 08/18/20 21:00 08/21/20 08:16 Famotidine 20 Mg Tablet PO 20 mg BID COLT Administration Ferrous Sulfate 300 mg 08/20/20 08:00 08/21/20 08:15 Ferrous Sulfate 300 Mg/5 Ml Udc PO 300 mg DAILYWM COLT Administration Gabapentin 1,200 mg 08/18/20 21:00 08/21/20 08:09 Gabapentin 300 Mg Capsule PO 1,200 mg BID COLT Administration Gabapentin 600 mg 08/19/20 12:00 08/20/20 11:40 Gabapentin 300 Mg Capsule PO 600 mg 1200 COLT Administration Glimepiride 2 mg 08/20/20 11:00 08/21/20 08:16 Glimepiride 2 Mg Tablet PO 2 mg DAILYWM COLT Administration Ceftriaxone Sodium 2 gm/ 100 mls @ 200 mls/hr 08/19/20 14:13 08/21/20 10:15 Sodium Chloride IV 08/23/20 09:29 Infused DAILY COLT Infusion Insulin Aspart 2 - 10 unit 08/20/20 17:00 08/21/20 08:11 Insulin Aspart 300 Unit/3 Ml Pen SUBQ 2 unit 0800,1200,1700,2100 COLT Administration Protocol Ondansetron HCl 4 mg 08/18/20 14:45 08/20/20 17:02 Ondansetron 4 Mg/2 Ml Vial IVP 4 mg Q6HR PRN Administration Nausea / Vomiting Pioglitazone HCl 30 mg 08/20/20 11:00 08/21/20 08:15 Pioglitazone 15 Mg Tablet PO 30 mg DAILY COLT Administration Sodium Chloride 10 ml 08/18/20 17:00 08/21/20 08:18 Sodium Chloride Flush 0.9% 10 Ml Syringe IVP 10 ml 0100,0900,1700 COLT Administration Zinc Sulfate 220 mg 08/19/20 11:00 08/21/20 08:16 Zinc Sulfate 220 Mg Capsule PO 08/24/20 11:00 220 mg DAILY COLT Administration - Lab Result Fish Bone Diagrams: 08/21/20 07:26 08/21/20 07:26 - Additional Planning My Orders: My Active Orders 08/20/20 11:00 Glimepiride [Amaryl] 2 mg PO DAILYWM Pioglitazone [Actos] 30 mg PO DAILY 08/20/20 17:00 Insulin Aspart [NovoLOG] 2 - 10 unit SUBQ 0800,1200,1700,2100 08/21/20 12:00 metFORMIN [Glucophage] 500 mg PO BIDWM Objective Vital Signs: Vital Signs - 24 hr 08/20/20 08/20/20 08/20/20 11:59 15:00 18:00 Temperature 36.6 C 37.7 C 37.4 C Heart Rate [ 85 88 Monitoring electrodes] Respiratory 18 18 Rate Blood Pressure 131/61 H 156/76 H [Right Brachial artery] O2 Saturation 96 94 08/20/20 08/21/20 08/21/20 21:00 00:00 05:40 Temperature 36.8 C 36.9 C 37.5 C Heart Rate [ 76 87 Monitoring electrodes] Respiratory 16 15 Rate Blood Pressure 142/80 H 136/73 H [Right Brachial artery] O2 Saturation 94 93 08/21/20 08/21/20 08:00 11:39 Temperature 36.4 C L 36.8 C Heart Rate [ 81 79 Monitoring electrodes] Respiratory 16 18 Rate Blood Pressure 139/71 H 134/64 H [Right Brachial artery] O2 Saturation 94 94 Oxygen O2 Source Room air I&O (Last 24 Hrs): Intake and Output Totals x24h 08/19/20 08/20/20 08/21/20 23:59 23:59 23:59 Intake Total 1680 1630 340 Output Total 0 Balance 1680 1630 340 - Results Results: Laboratory Results WBC 9.8 x10^3/uL (4.8-10.8) 08/21/20 07:26 RBC 3.54 10^6/uL (4.20-5.40) L 08/21/20 07:26 Hgb 10.4 g/dL (12.0-16.0) L 08/21/20 07:26 Hct 31.5 % (37.0-47.0) L 08/21/20 07:26 MCV 89.0 fL (81.0-99.0) 08/21/20 07: MCH 29.4 pg (27.0-31.0) 08/21/20 07: MCHC 33.0 g/dL (32.0-36.0) 08/21/20 07: RDW 12.8 % (12.0-15.0) 08/21/20 07:26 Plt Count 267 10^3/uL (130-450) 08/21/20 07: MPV 10.6 fL (7.9-10.8) 08/21/20 07: Neut # (Auto) 6.3 10^3/uL (1.5-6.6) 08/21/20 07: Lymph # (Auto) 1.9 10^3/uL (1.5-3.5) 08/21/20 07: Fleming # (Auto) 1.1 10^3/uL (0.0-1.0) H 08/21/20 07: Eos # (Auto) 0.5 10^3/uL (0.0-0.7) 08/21/20 07: Baso # (Auto) 0.1 10^3/uL (0.0-0.1) 08/21/20 07: Absolute Nucleated RBC 0.02 x10^3/uL 08/21/20 07: Nucleated RBC % 0.2 /100WBC 08/21/20 07: PT 13.2 secs (9.9-12.6) H 08/18/20 13:07 INR 1.2 (0.8-1.2) 08/18/20 13:07 VBG pH 7.385 (7.31-7.41) 08/18/20 13:59 VBG pCO2 49.2 mmHg (41-51) 08/18/20 13:59 VBG pO2 24.2 mmHg (25-47) L 08/18/20 13:59 VBG HCO3 28.8 mmol/L (23-28) H 08/18/20 13:59 VBG Total CO2 30.3 mmol/L (24-29) H 08/18/20 13:59 VBG O2 Saturation 46.8 % (60-80) L 08/18/20 13:59 VBG Base Excess 3.0 mmol/L (-2 - +2) H 08/18/20 13:59 Sodium 140 mmol/L (135-145) 08/21/20 07:26 Potassium 3.6 mmol/L (3.5-5.0) 08/21/20 07:26 Chloride 99 mmol/L (101-111) L 08/21/20 07:26 Carbon Dioxide 30 mmol/L (21-32) 08/21/20 07:26 Anion Gap 11.0 (6-13) 08/21/20 07:26 BUN 13 mg/dL (6-20) 08/21/20 07:26 Creatinine 0.7 mg/dL (0.4-1.0) 08/21/20 07:26 Estimated GFR (MDRD) 105 (>89) 08/21/20 07:26 Glucose 180 mg/dL (70-100) H 08/21/20 07:26 POC Whole Bld Glucose 397 mg/dL (70 - 100) H 08/21/20 11:20 Estimat Average Glucose 301 mg/dL (70-100) H 08/19/20 04:05 Hemoglobin A1c % 12.1 % (4.27-6.07) H 08/19/20 04:05 Calcium 9.2 mg/dL (8.5-10.3) 08/21/20 07:26 Phosphorus 3.7 mg/dL (2.5-4.6) 08/20/20 08:30 Magnesium 1.8 mg/dL (1.7-2.8) 08/21/20 07:26 Iron 8 ug/dL (28-170) L 08/19/20 04:05 TIBC 300 ug/dL (250-450) 08/19/20 04:05 % Saturation 3 % (20-50) L 08/19/20 04:05 Transferrin 214 mg/dL (192-382) 08/19/20 04:05 Ferritin 154.7 ng/mL (11.0-306.8) 08/19/20 04:05 Total Bilirubin 0.5 mg/dL (0.2-1.0) 08/18/20 13:07 AST 30 IU/L (10-42) 08/18/20 13:07 ALT 22 IU/L (10-60) 08/18/20 13:07 Alkaline Phosphatase 88 IU/L (42-121) 08/18/20 13:07 Troponin I High Sens 8.0 ng/L (2.3-14.8) 08/18/20 17:00 Total Protein 8.2 g/dL (6.7-8.2) 08/18/20 13:07 Albumin 3.2 g/dL (3.2-5.5) 08/18/20 13:07 Globulin 5.0 g/dL (2.1-4.2) H 08/18/20 13:07 Albumin/Globulin Ratio 0.6 (1.0-2.2) L 08/18/20 13:07 Lipase 26 U/L (22-51) 08/18/20 13:07 Vitamin B12 408 pg/mL (180-914) 08/19/20 04:05 Folate 17.72 ng/mL (5.90 - >24.8) 08/19/20 04:05 Urine Color YELLOW 08/18/20 14:38 Urine Clarity CLEAR (CLEAR) 08/18/20 14:38 Urine pH 6.0 PH (5.0-7.5) 08/18/20 14:38 Ur Specific [place] <=1.005 (1.002-1.030) 08/18/20 14:38 Urine Protein NEGATIVE mg/dL (NEGATIVE) 08/18/20 14:38 Urine Glucose (UA) >=1000 mg/dL (NEGATIVE) H 08/18/20 14:38 Urine Ketones NEGATIVE mg/dL (NEGATIVE) 08/18/20 14:38 Urine Occult Blood NEGATIVE (NEGATIVE) 08/18/20 14:38 Urine Nitrite NEGATIVE (NEGATIVE) 08/18/20 14:38 Urine Bilirubin NEGATIVE (NEGATIVE) 08/18/20 14:38 Urine Urobilinogen 0.2 (NORMAL) E.U./dL (NORMAL) 08/18/20 14:38 Ur Leukocyte Esterase NEGATIVE (NEGATIVE) 08/18/20 14:38 Ur Microscopic Review NOT INDICATED 08/18/20 14:38 Urine Culture Comments NOT INDICATED 08/18/20 14:38 Nasal Adenovirus (PCR) NOT DETECTED 08/18/20 14:44 Nasal B. parapertussis DNA (PCR) NOT DETECTED 08/18/20 14:44 Nasal Coronavir 229E PCR NOT DETECTED 08/18/20 14:44 Nasal Coronavir HKU1 PCR NOT DETECTED 08/18/20 14:44 Nasal Coronavir NL63 PCR NOT DETECTED 08/18/20 14:44 Nasal Coronavir OC43 PCR NOT DETECTED 08/18/20 14:44 Nasal Enterovir/Rhinovir PCR NOT DETECTED 08/18/20 14:44 Nasal Influenza B PCR NOT DETECTED 08/18/20 14:44 Nasal Influenza A PCR NOT DETECTED 08/18/20 14:44 Nasal Parainfluen 1 PCR NOT DETECTED 08/18/20 14:44 Nasal Parainfluen 2 PCR NOT DETECTED 08/18/20 14:44 Nasal Parainfluen 3 PCR NOT DETECTED 08/18/20 14:44 Nasal Parainfluen 4 PCR NOT DETECTED 08/18/20 14:44 Nasal RSV (PCR) NOT DETECTED 08/18/20 14:44 Nasal Screen MRSA (PCR) POSITIVE (NEGATIVE) A* 08/18/20 15:30 Nasal B.pertussis DNA PCR NOT DETECTED 08/18/20 14:44 Nasal C.pneumoniae (PCR) NOT DETECTED 08/18/20 14:44 Elijah Human Metapneumo PCR NOT DETECTED 08/18/20 14:44 Nasal M.pneumoniae (PCR) NOT DETECTED 08/18/20 14:44 Nasal SARS-CoV-2 (PCR) NOT DETECTED 08/18/20 14:44 Serum Ketones NEGATIVE (NEGATIVE) 08/18/20 13:07
[2020-08-21] MEDS: metFORMIN 500 MG TABLET PO SCH ×2 (12:12→16:51)
[2020-08-21] MEDS ORDERED: SODIUM CHLORIDE 0.9% 1,000 ML IV SCH (18:00)
[2020-08-22] MEDS: SODIUM CHLORIDE FLUSH 0.9% 10 ML SYRINGE IVP SCH ×2 (01:35→09:35)
[2020-08-22] MEDS: GABAPENTIN 300 MG CAPSULE PO SCH ×2 (08:03→11:41)
[2020-08-22] MEDS: FERROUS SULFATE 300 MG/5 ML UDC PO SCH (08:06)
[2020-08-22] MEDS: GLIMEPIRIDE 2 MG TABLET PO SCH (08:06)
[2020-08-22] MEDS: metFORMIN 500 MG TABLET PO SCH (08:06)
[2020-08-22] MEDS: INSULIN ASPART 300 UNIT/3 ML PEN SUBQ SCH ×2 (08:07→11:41)
--- NOTE | 2020-08-22 09:07 | Discharge Plan ---
Discharge Plan Problem Reviewed?: Yes Disposition: Home, Self Care Condition: Stable Prescriptions: Amox/Clav 875/125 [Augmentin 875/125 Tab] 1 tablet PO Q12H #8 tablet Ferric Citrate [Auryxia] 210 mg PO DAILY #30 tablet Metformin HCl [Metformin ER Osmotic] 500 mg PO DAILY #30 tab.sr Diet: Diabetic Activity Restrictions: Activity as Tolerated (No return to work until Sun08/27/20 at the earliest) Shower Restrictions: No Driving Restrictions: No Instruction Topics: Pneumonia, Diabetes Penitentiary Complications, Blood Sugar Check, Diabetes Healthy Meals Health Concerns: You were admitted for management of very high glucose over 700. We found that you had significant dehydration and fevers began and we found you had a pneumonia. You have completed several days of IV antibiotics and are being discharged to take several more days of oral antibiotics. We used Insulin while you were here for better glucose control. Because you do not want to start Insulin therapy as an outpatient, please continue your previous oral diabetic medications and restart taking Metformin (the long-acting form has been prescribed for you). We found that you have iron deficiency and are being prescribed iron replacement therapy. Your blood pressure was still low yesterday, and you needed IV hydration. Please do NOT resume taking your blood pressure medications for about another 5 days. All new prescriptions were electronically sent to your [facility] in [place]. A release from work has been provided for you. Please see your PCP in the upcoming week for hospital follow-up. Plan of Treatment: As above. Care Goals: Improvement in symptoms and stabilization are the goals. Assessment: Patient understands and is agreeable with the plan. Additional Instructions or Follow Up instructions: If you have new or worsening symptoms, call your PCP for advice or come to the ER. No Smoking: If you smoke, Please STOP! Call for help. Follow-up with: Kobe Navarro MD [Primary Care Provider] -
[2020-08-22] MEDS: PIOGLITAZONE 15 MG TABLET PO SCH (09:25)
[2020-08-22] MEDS: FAMOTIDINE 20 MG TABLET PO SCH (09:26)
[2020-08-22] MEDS: AZITHROMYCIN 250 MG TABLET PO SCH (09:26)
[2020-08-22] MEDS: ZINC SULFATE 220 MG CAPSULE PO SCH (09:26)
[2020-08-22] MEDS: ethyl alcohoL 62% SWAB AMPULE NAS SCH (09:26)
[2020-08-22] MEDS: cefTRIAXone 2 GM in SODIUM CHLORIDE 0.9% MINIBAG 100 ML IV SCH (09:27)
--- NOTE | 2020-08-22 11:07 | DISCHARGE SUMMARY ---
Discharge Summary Admit Date: 08/18/20 Discharge Date: 08/22/20 Discharging Provider: Dr Suellen Martinez Primary Care Provider: Dr Kobe Navarro Code Status: Do Not Attempt Resuscitation Condition at Discharge: Stable Discharge Disposition: 01 Home, Self Care - HPI History of Present Illness: This is a 55-year-old black female with a history of Diabetes, on metformin, actos and glimiperide, HTN and hyperlipidemia, who has been working 12-hour shifts for 8 days straight, has been feeling very fatigued, has received her 2 Covid vaccines and then noticed a loss of her taste. She states her diet of solids has not been its usual because of the loss of taste and she admits to drinking more sodas with sugar and lemonade with sugar than usual, to see if her taste was really affected. At home she collapsed onto the floor today while walking, where she laid for a while, and her had to pick her up and he urged her to come to the ER. There was no syncope. She remembers the entire event. There had been dizziness and weakness especially worse today. She denies a fever, cough, shortness of breath, or chest pain. She has noticed polyuria and was even incontinent of urine twice in the past 3 days, but has had no dysuria. She is compliant with her medications including actos and glimiperide, but she took herself off metformin when Dr Navarro added actos several mos ago, she said, when her last A1c was 14 in 01/2020. She was checking her blood sugars, which were running 180-200, but no checks for 1 week. In the ER she was found to have a serum glucose of 710, normal serum pH of 7.39 and low sodium of 127. She is presented for management of very high glucose and dehydration and is being placed in Observation status. I did discuss her code wishes with her and she wishes to be a DNR, DNI (there is no POLST however). - HOSPITAL COURSE Hospital Course: (1) Uncontrolled diabetes mellitus She received iv Insulin drip for 1 day. We also started Lantus Insulin at [facility] for glu control. Her A1c result was 12.1, indicating poor chcf control, not just recent. Patient told us she does not want to start Insulin use, therefore she was restarted on her Actos and Amaryl and agreed to restart Metformin long acting (which has less diarrhea side effects, which was why she had stopped Metformin on her own several months ago). She was discharged with a new prescription for Metformin ER 500 mg once a day. (2) CAP (community acquired pneumonia) On her second day, she spiked a fever, was lethargic and had a cough. CXR showed R upper lobe and perihilar infiltrates, which had blossomed after iv hydration. She had no desaturations on room air. She was started on empiric IV antibiotics Zithromax and Rocephin for a community acquired pneumonia. There were further fevers, blood cultures were done and remained neg. She was discharged to take several more days of Augmentin (since she reported sinus congestion). (3) [place] She started getting some of her taste back she said and was taking in 100% of her tray, and felt stronger. (4) Collapse Several days into her course, she was dizzy with getting up to walk to bathroom needed to sit down, and her blood pressure was 109/60. Her vital signs did show a 27 mmHg drop in systolic blood pressure and she was not ready for discharge yet. She received 1 additional liter of saline IV. Her BP meds were only resumed on the day of discharge. (5) Hypertension We were holding her blood pressure meds due to dehydration and orthostasis, which could be resumed only on the day of discharge. (6) Anemia, iron deficiency She was admitted with anemia, Hgb was 10.3 despite being dehydrated. We found her to have iron deficiency. A guaiac test was done which is negative. She was started on and discharged on oral iron replacement. (7) MRSA carrier She got topical alcohol nasal swabs for treatment. (8) Abnormal EKG As per history. There was a remote stress test which was within normal limits. (9) Hyponatremia Resolved when glu was controlled and with replacement using iv NS. (10) Hypokalemia Resolved with replacement. (11) Fever Resolved with treatment of pneumonia. - ALLERGIES Allergies/Adverse Reactions: Allergies Allergy/AdvReac Type Severity Reaction Status Date / Time No Known Drug Allergies Allergy Verified 08/18/20 12:47 - MEDICATIONS Home Medications: Ambulatory Orders Medication Instructions Recorded Confirmed Glimepiride [Amaryl] 2 mg PO DAILYWM #30 tablet 07/23/17 08/18/20 NIFEdipine [Nifedipine ER] 30 mg PO DAILY #30 tablet.er 07/23/17 08/18/20 Gabapentin 1,200 mg PO BID 10/24/17 08/18/20 Simvastatin 40 mg PO QPM 10/24/17 08/18/20 Gabapentin [Neurontin] 600 mg PO 1200 08/18/20 08/18/20 Pioglitazone HCl [Actos] 30 mg PO DAILY 08/18/20 08/18/20 Amox/Clav 875/125 [Augmentin 1 tablet PO Q12H #8 tablet 08/22/20 875/125 Tab] Ferric Citrate [Auryxia] 210 mg PO DAILY #30 tablet 08/22/20 Losartan [Cozaar] 50 mg PO DAILY #30 tablet 08/22/20 08/18/20 Metformin HCl [Metformin ER 500 mg PO DAILY #30 tab.sr 08/22/20 Osmotic] - PHYSICAL EXAM AT DISCHARGE General Appearance: positive: No acute distress, Alert Eyes Bilateral: positive: Normal inspection, EOMI ENT: positive: ENT inspection nml, No signs of dehydration Neck: positive: Nml inspection, No JVD Respiratory: positive: Chest non-tender, No respiratory distress, Breath sounds nml Cardiovascular: positive: Regular rate & rhythm, No murmur Abdomen: positive: Non-tender, Nml bowel sounds, No distention Skin: positive: Warm, Dry Extremities: positive: Non-tender, No pedal edema Neurologic/Psychiatric: positive: Oriented x3 (Non-focal ) - LABS Result Diagrams: 08/21/20 07:26 08/21/20 07:26 - DIAGNOSTIC IMAGING Diagnostic Imaging Results: Final report reviewed - FOLLOW UP Follow Up: See PCP in about 1 week for hospital follow-up. - TIME SPENT Time Spent in Discharge (Minutes): 60
[2020-08-22 12:54] VITALS: BP 138/83
[2020-08-22] MEDS ORDERED: ATORVASTATIN 10 MG TABLET PO SCH (21:00)
== END 2020-08-22 13:10 | disposition home or self-care (01) | DRG 194 ==
LOC: ED 12:25 → ICU 14:44 → MS2 08-20 06:01 → OBSVTOIN 08-20 10:18
PROVIDERS: ADMIT Internal Medicine; ATTEND Internal Medicine
DX: J18.9 Pneumonia, unspecified organism (principal); E87.1 Hypo-osmolality and hyponatremia; E11.65 Type 2 diabetes mellitus with hyperglycemia; R43.2 Parageusia; I10 Essential (primary) hypertension; E86.0 Dehydration; I95.1 Orthostatic hypotension; E87.6 Hypokalemia; D50.9 Iron deficiency anemia, unspecified; R94.31 Abnormal electrocardiogram [ECG] [EKG]; E78.00 Pure hypercholesterolemia, unspecified; Z20.822 Contact with and (suspected) exposure to COVID-19; Z22.322 Carrier or suspected carrier of Methicillin resistant Staphylococcus aureus; Z79.84 Long term (current) use of oral hypoglycemic drugs; Z79.899 Other long term (current) drug therapy
CPT/HCPCS: 0202U; 36415; 71045; 80048; 80053; 81003; 82009; 82272; 82607; 82728; 82746; 82803; 83036; 83540; 83690; 83735; 84100; 84132; 84466; 84484; 84630; 85025; 85610; 87040; 87150; 93005; 93306; 96361; 96365; 96366; 96367; 99285; A9270; G0378; J1815; J8499; 81001; 82947; 87086

== ENCOUNTER 2020-08-30 15:59 | Outpatient (CLI) | payer OTHER ==
[2020-08-30 19:21] LABS: ALBUMIN 3.5 g/dL (3.2-5.5); ALBUMIN/GLOBULIN RATIO 0.7 (1.0-2.2); BILIRUBIN,TOTAL 0.4 mg/dL (0.2-1.0); CALCIUM 9.8 mg/dL (8.5-10.3); CREATININE 0.8 mg/dL (0.4-1.0); POTASSIUM 3.8 mmol/L (3.5-5.0); TOTAL PROTEIN 8.3 g/dL (6.7-8.2)
[2020-08-30 19:28] LABS: BASOPHILS # (AUTO) 0.1 10^3/uL (0.0-0.1); BASOPHILS % (AUTO) 0.8 %; EOSINOPHILS # (AUTO) 0.3 10^3/uL (0.0-0.7); EOSINOPHILS % (AUTO) 3.7 %; HCT - HEMATOCRIT 34.1 % (37.0-47.0); HGB - HEMOGLOBIN 10.7 g/dL (12.0-16.0); LYMPHOCYTES # (AUTO) 2.7 10^3/uL (1.5-3.5); LYMPHOCYTES % (AUTO) 28.9 %; MEAN CORPUSCULAR HEMOGLOBIN 28.9 pg (27.0-31.0); MEAN CORPUSCULAR HGB CONC 31.4 g/dL (32.0-36.0); MEAN CORPUSCULAR VOLUME 92.2 fL (81.0-99.0); MEAN PLATELET VOLUME 10.8 fL (7.9-10.8); MONOCYTES # (AUTO) 0.5 10^3/uL (0.0-1.0); MONOCYTES % (AUTO) 5.1 %; NEUTROPHILS # (AUTO) 5.7 10^3/uL (1.5-6.6); NEUTROPHILS % (AUTO) 61.2 %; PLT - PLATELET COUNT 413 10^3/uL (130-450); RED CELL DISTRIBUTION WIDTH 13.2 % (12.0-15.0); WHITE BLOOD COUNT 9.3 x10^3/uL (4.8-10.8)
== END 2020-08-30 16:00 | disposition home or self-care (01) ==
LOC: LAB.N 15:59
PROVIDERS: ATTEND Internal Medicine
DX: I10 Essential (primary) hypertension (principal); D64.9 Anemia, unspecified
CPT/HCPCS: 36415; 80053; 82728; 83540; 84466; 85025

== ENCOUNTER 2020-09-01 11:24 | Outpatient (CLI) | payer OTHER | END 2020-09-01 11:25 | disposition critical access hospital (66) | LOC: EMS 11:24 | DX: R41.82 Altered mental status, unspecified (principal) | CPT/HCPCS: A0425; A0427 ==

== ENCOUNTER 2020-09-01 11:40 | Observation (INO) | payer OTHER ==
[2020-09-01 12:22] LABS: BASOPHILS # (AUTO) 0.1 10^3/uL (0.0-0.1); BASOPHILS % (AUTO) 0.8 %; EOSINOPHILS # (AUTO) 0.2 10^3/uL (0.0-0.7); EOSINOPHILS % (AUTO) 2.9 %; HCT - HEMATOCRIT 36.5 % (37.0-47.0); HGB - HEMOGLOBIN 11.5 g/dL (12.0-16.0); LYMPHOCYTES # (AUTO) 2.1 10^3/uL (1.5-3.5); LYMPHOCYTES % (AUTO) 26.6 %; MEAN CORPUSCULAR HEMOGLOBIN 28.4 pg (27.0-31.0); MEAN CORPUSCULAR HGB CONC 31.5 g/dL (32.0-36.0); MEAN CORPUSCULAR VOLUME 90.1 fL (81.0-99.0); MEAN PLATELET VOLUME 10.7 fL (7.9-10.8); MONOCYTES # (AUTO) 0.4 10^3/uL (0.0-1.0); MONOCYTES % (AUTO) 5.1 %; NEUTROPHILS # (AUTO) 5.1 10^3/uL (1.5-6.6); NEUTROPHILS % (AUTO) 64.2 %; PLT - PLATELET COUNT 202 10^3/uL (130-450); RED BLOOD COUNT 4.05 10^6/uL (4.20-5.40); RED CELL DISTRIBUTION WIDTH 13.3 % (12.0-15.0); WHITE BLOOD COUNT 7.9 x10^3/uL (4.8-10.8)
[2020-09-01 12:39] LABS: ALBUMIN 3.7 g/dL (3.2-5.5); ALBUMIN/GLOBULIN RATIO 0.7 (1.0-2.2); BILIRUBIN,TOTAL 0.6 mg/dL (0.2-1.0); CALCIUM 9.6 mg/dL (8.5-10.3); CREATININE 0.9 mg/dL (0.4-1.0); POTASSIUM 3.8 mmol/L (3.5-5.0); TOTAL PROTEIN 8.7 g/dL (6.7-8.2)
--- NOTE | 2020-09-01 12:52 | XRAY Report ---
PROCEDURE: Chest 1 View X-Ray INDICATIONS: Chest Pain TECHNIQUE: One view of the chest was acquired. COMPARISON: 08/19/2020 single view chest. FINDINGS: Surgical changes and devices: None. Lungs and pleura: No pleural effusions or pneumothorax. Lungs are clear. Mediastinum: Mediastinal contours appear normal. Heart size is normal. Bones and chest wall: No suspicious bony lesions. Overlying soft tissues appear unremarkable. IMPRESSION: Source of pain is not seen. Reviewed by: Felix Palencia MD on 09/01/2020 12:51 PM PDT Approved by: Felix Palencia MD on 09/01/2020 12:51 PM PDT Station ID: [id number]
[2020-09-01 12:59] LABS: VBG BASE EXCESS 2.2 mmol/L ({null, -2 - +2}); VBG HCO3 28.8 mmol/L (23-28); VBG PCO2 53.5 mmHg (41-51); VBG PH 7.349 (7.31-7.41); VBG PO2 30.8 mmHg (25-47); VBG TOTAL CO2 30.4 mmol/L (24-29)
[2020-09-01 13:00] LABS: VBG OXYGEN SATURATION 57.9 % (60-80)
--- NOTE | 2020-09-01 13:00 | CT Report ---
PROCEDURE: HEAD WO INDICATIONS: headache, syncope, +HT TECHNIQUE: Noncontrast 4.5 mm thick angled axial sections acquired from the foramen magnum to the vertex. For r adiation dose reduction, the following was used: automated exposure control, adjustment of mA and/or kV according to patient size. COMPARISON: None. FINDINGS: Image quality: Excellent. CSF spaces: Basal cisterns are patent. No extra-axial fluid collections. Ventricles are normal in size and shape. Brain: No midline shift. No intracranial masses or hemorrhage. Tello-white matter interface is norm al. Skull and face: Calvarium and visualized facial bones are intact, without suspicious lesions. Sinuses: Visualized sinuses and mastoids are clear. IMPRESSION: No source of severe headache is identified. Reviewed by: Felix Palencia MD on 09/01/2020 12:59 PM PDT Approved by: Felix Palencia MD on 09/01/2020 12:59 PM PDT Station ID: [id number]
[2020-09-01] MEDS ORDERED: SODIUM CHLORIDE 0.9% 1,000 ML IV STA (13:14)
--- NOTE | 2020-09-01 13:36 | ED Physician Documentation ---
History of Present Illness - Stated complaint Stated Complaint: WEAKNESS - Chief complaint Chief Complaint: Neuro - History obtained from History obtained from: Patient - Additonal information Additional information: 55-year-old woman with history of diabetes, high blood pressure, recent admission here to the ICU for uncontrolled blood sugar and MRSA pneumonia, presents with lightheadedness since discharge with syncopal episode at [facility] today during which she hit her head on the wall according to bystanders. She is now back to baseline but endorses a mild bilateral frontal headache that is nonradiating, aching, constant. No focal neurological deficits. She does have associated mild photophobia. 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 HEENT: Other Psych: None Musculoskeletal: None Derm: None - Past Surgical History Past Surgical History: Yes General: Other - Present Medications Home Medications: Ambulatory Orders Medication Instructions Recorded Confirmed Glimepiride [Amaryl] 2 mg PO DAILYWM #30 tablet 07/23/17 09/01/20 NIFEdipine [Nifedipine ER] 30 mg PO DAILY #30 tablet.er 07/23/17 09/01/20 Gabapentin 1,200 mg PO BID 10/24/17 09/01/20 Simvastatin 40 mg PO QPM 10/24/17 09/01/20 Gabapentin [Neurontin] 600 mg PO 1200 08/18/20 09/01/20 Pioglitazone HCl [Actos] 30 mg PO DAILY 08/18/20 09/01/20 Amox/Clav 875/125 [Augmentin 1 tablet PO Q12H #8 tablet 08/22/20 09/01/20 875/125 Tab] Ferric Citrate [Auryxia] 210 mg PO DAILY #30 tablet 08/22/20 09/01/20 Losartan [Cozaar] 50 mg PO DAILY #30 tablet 08/22/20 09/01/20 Metformin HCl [Metformin ER 500 mg PO DAILY #30 tab.sr 08/22/20 09/01/20 Osmotic] - Allergies Allergies/Adverse Reactions: Allergies Allergy/AdvReac Type Severity Reaction Status Date / Time No Known Drug Allergies Allergy Verified 09/01/20 11:46 - Social History Does the pt smoke?: No Smoking Status: Never smoker Does the pt drink ETOH?: No Does the pt have substance abuse?: No - Immunizations Immunizations are current?: Yes - POLST Patient has POLST: No POLST Status: Full Code PD ED PE NORMAL - Vitals Vital signs reviewed: Yes - General General: Alert and oriented X 3, No acute distress, Well developed/nourished - HEENT HEENT: Atraumatic, PERRL, EOMI - Neck Neck: Supple, no meningeal sign - Cardiac Cardiac: RRR - Respiratory Respiratory: No respiratory distress, Clear bilaterally - Abdomen Abdomen: Non tender, Non distended - Derm Derm: Normal color, Warm and dry - Extremities Extremities: No deformity - Neuro Neuro: Alert and oriented X 3, 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 kept her eyes closed unless asked to open them. ) Results - Vitals Vitals: Vital Signs - 24 hr 09/01/20 09/01/20 09/01/20 11:48 12:42 13:32 Temperature 36.8 C Heart Rate 80 75 85 Respiratory 18 15 16 Rate Blood Pressure 178/85 H 156/82 H 121/67 O2 Saturation 100 100 100 09/01/20 14:07 Temperature Heart Rate 83 Respiratory 14 Rate Blood Pressure 145/77 H O2 Saturation 99 Oxygen O2 Source Room air - Labs Labs: Laboratory Tests 09/01/20 09/01/20 09/01/20 12:03 12:03 12:03 WBC RBC Hgb Hct MCV MCH MCHC RDW Plt Count MPV Neut # (Auto) Lymph # (Auto) [place] # (Auto) Eos # (Auto) Baso # (Auto) Absolute Nucleated RBC Nucleated RBC % VBG pH VBG pCO2 VBG pO2 VBG HCO3 VBG Total CO2 VBG O2 Saturation VBG Base Excess Sodium 138 Potassium 3.8 Chloride 97 L Carbon Dioxide 27 Anion Gap 14.0 H BUN 17 Creatinine 0.9 Estimated GFR (MDRD) 78 L Glucose 352 H Estimat Average Glucose Hemoglobin A1c % Lactic Acid Calcium 9.6 Total Bilirubin 0.6 AST 16 ALT 19 Alkaline Phosphatase 91 Troponin I High Sens 3.9 Total Protein 8.7 H Albumin 3.7 Globulin 5.0 H Albumin/Globulin Ratio 0.7 L Lipase 112 H Nasal Adenovirus (PCR) Nasal B. parapertussis DNA (PCR) Nasal Coronavir 229E PCR Nasal Coronavir HKU1 PCR Nasal Coronavir NL63 PCR Nasal Coronavir OC43 PCR Nasal Enterovir/Rhinovir PCR Nasal Influenza B PCR Nasal Influenza A PCR Nasal Parainfluen 1 PCR Nasal Parainfluen 2 PCR Nasal Parainfluen 3 PCR Nasal Parainfluen 4 PCR Nasal RSV (PCR) Nasal B.pertussis DNA PCR Nasal C.pneumoniae (PCR) Adriano Human Metapneumo PCR Nasal M.pneumoniae (PCR) Nasal SARS-CoV-2 (PCR) Ethyl Alcohol Serum Ketones NEGATIVE 09/01/20 09/01/20 09/01/20 12:03 12:06 12:15 WBC 7.9 RBC 4.05 L Hgb 11.5 L Hct 36.5 L MCV 90.1 MCH 28.4 MCHC 31.5 L RDW 13.3 Plt Count 202 MPV 10.7 Neut # (Auto) 5.1 Lymph # (Auto) 2.1 [place] # (Auto) 0.4 Eos # (Auto) 0.2 Baso # (Auto) 0.1 Absolute Nucleated RBC 0.00 Nucleated RBC % 0.0 VBG pH VBG pCO2 VBG pO2 VBG HCO3 VBG Total CO2 VBG O2 Saturation VBG Base Excess Sodium Potassium Chloride Carbon Dioxide Anion Gap BUN Creatinine Estimated GFR (MDRD) Glucose Estimat Average Glucose Hemoglobin A1c % Lactic Acid Calcium Total Bilirubin AST ALT Alkaline Phosphatase Troponin I High Sens Total Protein Albumin Globulin Albumin/Globulin Ratio Lipase Nasal Adenovirus (PCR) NOT DETECTED Nasal B. parapertussis DNA (PCR) NOT DETECTED Nasal Coronavir 229E PCR NOT DETECTED Nasal Coronavir HKU1 PCR NOT DETECTED Nasal Coronavir NL63 PCR NOT DETECTED Nasal Coronavir OC43 PCR NOT DETECTED Nasal Enterovir/Rhinovir PCR NOT DETECTED Nasal Influenza B PCR NOT DETECTED Nasal Influenza A PCR NOT DETECTED Nasal Parainfluen 1 PCR NOT DETECTED Nasal Parainfluen 2 PCR NOT DETECTED Nasal Parainfluen 3 PCR NOT DETECTED Nasal Parainfluen 4 PCR NOT DETECTED Nasal RSV (PCR) NOT DETECTED Nasal B.pertussis DNA PCR NOT DETECTED Nasal C.pneumoniae (PCR) NOT DETECTED Adriano Human Metapneumo PCR NOT DETECTED Nasal M.pneumoniae (PCR) NOT DETECTED Nasal SARS-CoV-2 (PCR) NOT DETECTED Ethyl Alcohol 5.2 Serum Ketones 09/01/20 09/01/20 09/01/20 12:15 12:33 12:33 WBC RBC Hgb Hct MCV MCH MCHC RDW Plt Count MPV Neut # (Auto) Lymph # (Auto) [place] # (Auto) Eos # (Auto) Baso # (Auto) Absolute Nucleated RBC Nucleated RBC % VBG pH 7.349 VBG pCO2 53.5 H VBG pO2 30.8 VBG HCO3 28.8 H VBG Total CO2 30.4 H VBG O2 Saturation 57.9 L VBG Base Excess 2.2 H Sodium Potassium Chloride Carbon Dioxide Anion Gap BUN Creatinine Estimated GFR (MDRD) Glucose Estimat Average Glucose 301 H Hemoglobin A1c % 12.1 H Lactic Acid 2.7 H Calcium Total Bilirubin AST ALT Alkaline Phosphatase Troponin I High Sens Total Protein Albumin Globulin Albumin/Globulin Ratio Lipase Nasal Adenovirus (PCR) Nasal B. parapertussis DNA (PCR) Nasal Coronavir 229E PCR Nasal Coronavir HKU1 PCR Nasal Coronavir NL63 PCR Nasal Coronavir OC43 PCR Nasal Enterovir/Rhinovir PCR Nasal Influenza B PCR Nasal Influenza A PCR Nasal Parainfluen 1 PCR Nasal Parainfluen 2 PCR Nasal Parainfluen 3 PCR Nasal Parainfluen 4 PCR Nasal RSV (PCR) Nasal B.pertussis DNA PCR Nasal C.pneumoniae (PCR) Adriano Human Metapneumo PCR Nasal M.pneumoniae (PCR) Nasal SARS-CoV-2 (PCR) Ethyl Alcohol Serum Ketones PD MEDICAL DECISION MAKING - ED course ED course: approved for admission/obs by Dr. Wood Departure - Departure Disposition: ED Place in Observation Clinical Impression: Syncope, Headache Discharge Date/Time: 09/01/20 15:02
[2020-09-01] MEDS ORDERED: ACETAMINOPHEN 325 MG TABLET PO PRN (14:32)
[2020-09-01] MEDS ORDERED: ONDANSETRON 4 MG/2 ML VIAL IVP PRN (14:32)
[2020-09-01] MEDS ORDERED: SODIUM CHLORIDE FLUSH 0.9% 10 ML SYRINGE IVP PRN (14:32)
--- NOTE | 2020-09-01 14:44 | HISTORY & PHYSICAL EXAMINATION ---
Chief Complaint - Chief Complaint Chief Complaint: dizziness History of Present Illness - Admitted From Admitted From:: ER - History Obtained From Records Reviewed: [facility] History obtained from: Pt Exam Limitations: no - History of Present Illness HPI Comment/Other: This is a 55-year-old female with a history of uncontrolled Diabetes on metformin, actos and glimiperide, HTN and hyperlipidemia, who prese nt ER complain of dizziness in her PCP office. pt report she has been feeling not well for couple of days. she feel " I am like old lady to walk." Today she was in walk in clinic to check out. she feel very dizziness then she lean down the one side of her sitting chair. she report she was not lost consciousness. she report she know everything happened. she denies focal neurological deficits. CT of her head on today was unremarkable. pt was recent admitted here to the ICU for uncontrolled blood sugar, then she developed pneumonia. Also pt was found to have similar dizziness and collapse in the hospital which pt was found to have orthostatic hypotension. After pt was given IVF, her orthostatic hypotension was resolved. Today in ER, ER provider report she did orthostatic check for pt, pt has no orthostatic hypotension or intolerance. Remarkable, pt still present hyperglycemia in ER route lab test with mild elevated lactic acid. Patient's chest x-ray and urinalysis was not indication for infection. Patient has normal range WBC, patient has no fever. Patient did take Metformin in the home which could cause mild elevated lactic acid. Patient had a history of uncontrolled diabetic. Patient declined taking insulin in the before. She had A1c at the 14 then 12 in the before about 10 days. Also patient take 3000 mg gabapentin for her neuropathy. Gabapentin has side effect to cause people dizziness. Patient denies chest pain, fever, chill, shortness of breathing. Medical team was called by by ER provider for admission. Patient is at observation unit. 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 They had DM,HTN, chol, CAD at their deaths. She had 18 siblings. 3 sisters have of cancer; 1 was breast but the other two she doesn't know what kind of cancer. 1 brother of GSW. 1 brother of ID. Her 3 children are healthy Living Situation: With spouse/s.o. Social History Notes: she was born in [facility] and has lived all over the [facility] bc of work and family. She has been to her 2nd for 17 years. They met at her cousins house one night for dinner on a blind date and have been together even since. Her 3 children live in [facility]. She never smoked, and never really even socially drank since she doesn't like the taste of it. 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 [place] went on and now plan on being in the [facility] [place] - Substance History Use: Uses substance without health or social issues: NONE - POLST Patient has POLST: No POLST Status: Full Code Meds/Allgy - Home Medications Home Medications: Ambulatory Orders Medication Instructions Recorded Confirmed Glimepiride [Amaryl] 2 mg PO DAILYWM #30 tablet 07/23/17 09/01/20 NIFEdipine [Nifedipine ER] 30 mg PO DAILY #30 tablet.er 07/23/17 09/01/20 Gabapentin 1,200 mg PO BID 10/24/17 09/01/20 Simvastatin 40 mg PO QPM 10/24/17 09/01/20 Gabapentin [Neurontin] 600 mg PO 1200 08/18/20 09/01/20 Pioglitazone HCl [Actos] 30 mg PO DAILY 08/18/20 09/01/20 Amox/Clav 875/125 [Augmentin 1 tablet PO Q12H #8 tablet 08/22/20 09/01/20 875/125 Tab] Ferric Citrate [Auryxia] 210 mg PO DAILY #30 tablet 08/22/20 09/01/20 Losartan [Cozaar] 50 mg PO DAILY #30 tablet 08/22/20 09/01/20 Metformin HCl [Metformin ER 500 mg PO DAILY #30 tab.sr 08/22/20 09/01/20 Osmotic] - Allergies Allergies/Adverse Reactions: Allergies Allergy/AdvReac Type Severity Reaction Status Date / Time No Known Drug Allergies Allergy Verified 09/01/20 11:46 Review of Systems - Constitutional Constitutional: denies: Fatigue, Fever, Chills, Poor appetite, Diaphoresis - Eyes Eyes: denies: Pain, Blurred vision, Field loss, Vision loss - Ears, Nose & Throat Ears, Nose & Throat: denies: Ear pain, Tinnitus, Nosebleeds, Bleeding gums - Cardiovascular Cariovascular: reports: Lightheadedness. denies: Irregular heart rate, Palpitations, Chest pain, Syncope, Exertional dyspnea, Decr. exercise tolerance - Respiratory Respiratory: denies: Cough, Wheezing, Hemoptysis, Orthopnea, SOB at rest, SOB with exertion - Gastrointestinal Gastrointestinal: denies: Abdominal pain, Constipation, Diarrhea, Rectal bleeding, Black stools, Bloody stools, Nausea, Vomiting - Genitourinary Genitourinary: denies: Dysuria, Urgency, Incontinence - Musculoskeletal Musculoskeletal: denies: Muscle pain, Muscle aches, Limited range of motion - Integumentary Integumentary: denies: Rash, Lesions, Lumps - Neurological Neurological: reports: Dizziness. 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 negative: Lethargic Eyes Bilateral: positive: Normal inspection, PERRL, No lid inflammation ENT: positive: ENT inspection nml, No signs of dehydration. negative: Purulent nasal drainage Neck: positive: Nml inspection, Trachea midline. negative: Thyromegaly, Tracheal deviation Respiratory: positive: Chest non-tender, No respiratory distress, Breath sounds nml. negative: Wheezes, Rales Cardiovascular: positive: Regular rate & rhythm, No murmur. negative: Tachycardia, Bradycardia, Systolic murmur, Diastolic murmur Peripheral Pulses: positive: 2+ Abdomen: positive: Non-tender, Nml bowel sounds, No distention. negative: Tenderness Back: positive: Nml inspection Skin: positive: Color nml, Warm, Dry. negative: Cyanosis, Diaphoresis Extremities: positive: Non-tender, Full ROM, Nml appearance. negative: Calf tenderness Neurologic/Psychiatric: positive: Oriented x3, Motor nml, Sensation nml, Moo d/affect nml. negative: Weakness, Sensory loss, Facial droop, Slurred/abnml speech, Depressed mood/affect Sepsis Event Note (H) - Evaluation Current Stage of Sepsis: Ruled out Conclusion/Plan - Problem List (1) Dizziness, nonspecific Conclusion/Plan: Patient reported she feel dizziness and collapse but she denied loss of consciousness. This happened in the before in the hospital. she Had significantly elevated glucose level 352 today, she takes 3000 mg gabapentin in the home. Patient had echo done about 10 days ago Which was unremarkable. Troponin test is negative, EKG without significant change from previous. Patient had a negative orthostatic hypotension or intolerance in the ER per provider report. Plan:Patient had a 1 L normal saline intravenous in the ER, We will continue hydration with intravenous IV fluids for patient, We will give patient insulin to control patient hyperglycemia, We will reduce the patient gabapentin dosage after discussed with the patient for the side effect of gabapentin to cause people dizziness. (2) Uncontrolled diabetes mellitus Conclusion/Plan: Patient had A1c 14 then A1c become 12 reported 10 days ago. Patient declined take insulin in the home before. After discussed with the patient for Diabetic control, She agreed take insulin and possible take insulin d/c to home. We will put the patient in Lantus, sliding scale, check glucose level, hypoglycemia protocol (3) Elevated lactic acid level Conclusion/Plan: Patient had a lactic acid 2.7, after intravenous IV fluids lactic acid acid become normal range. Patient urinalysis and chest x-ray are not indicated infection. Patient had no fever, patient had a normal range WBC. Patient denies dysuria, clinically did not show patient has pneumonia symptoms. It is likely From patient recently take the Metformin which could have caused mild elevated lactic acid. We will hold Metformin, continue give patient intravenous IV fluids. 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
[2020-09-01] MEDS ORDERED: INSULIN ASPART 300 UNIT/3 ML PEN SUBQ ONE (15:00)
[2020-09-01 15:21] LABS: B. PARAPERTUSSIS- RESP PCR PAN NOT DETECTED; B. PERTUSSIS- RESP PCR PANEL NOT DETECTED; C. PNEUMONIAE- RESP PCR PANEL NOT DETECTED; CORONAVIRUS 229E-RESP PCR NOT DETECTED; CORONAVIRUS HKU1-RESP PCR NOT DETECTED; CORONAVIRUS NL63-RESP PCR NOT DETECTED; CORONAVIRUS OC43-RESP PCR NOT DETECTED; HUMAN METAPNEUMOVIRUS NOT DETECTED; INFLUENZA A- RESP PCR PANEL NOT DETECTED; INFLUENZA B - RESP PCR PANEL NOT DETECTED; M. PNEUMONIAE- RESP PCR PANEL NOT DETECTED; PARAINFLUENZA VIRUS 1 NOT DETECTED; PARAINFLUENZA VIRUS 2 NOT DETECTED; PARAINFLUENZA VIRUS 3 NOT DETECTED; PARAINFLUENZA VIRUS 4 NOT DETECTED; RHINOVIRUS/ENTEROVIRUS NOT DETECTED; RSV- RESP PCR PANEL NOT DETECTED; SARS-CoV-2 -RESP PCR PANEL NOT DETECTED
[2020-09-01 15:43] LABS: MUDS CUTOFF CONCENTRATIONS CUTOFF CONC BELOW:
[2020-09-01 15:46] LABS: BILIRUBIN,URINE NEGATIVE (NEGATIVE); GLUCOSE, URINE (UA) >=1000 mg/dL (NEGATIVE); KETONES,URINE (UA) NEGATIVE (NEGATIVE); LEUKOCYTE ESTERASE, URINE NEGATIVE (NEGATIVE); NITRITE,URINE NEGATIVE (NEGATIVE); OCCULT BLOOD,URINE NEGATIVE (NEGATIVE); PROTEIN,URINE NEGATIVE (NEGATIVE); UROBILINOGEN,URINE 0.2 (NORMAL) E.U./dL (NORMAL)
[2020-09-01] MEDS: SODIUM CHLORIDE 0.9% 1,000 ML IV SCH (15:48)
[2020-09-01 15:49] LABS: CLARITY,URINE CLEAR (CLEAR)
[2020-09-01 16:06] LABS: AMPHETAMINE SCREEN,URINE NEGATIVE (NEGATIVE); BARBITURATE SCREEN,UR NEGATIVE (NEGATIVE); BENZODIAZEPINES SCREEN, URINE NEGATIVE (NEGATIVE); COCAINE SCREEN URINE NEGATIVE (NEGATIVE); METHADONE SCREEN, URINE NEGATIVE (NEGATIVE); METHAMPHETAMINES SCREEN, URINE NEGATIVE (NEGATIVE); OPIATE SCREEN, URINE NEGATIVE (NEGATIVE); THC CANNABINOID SCREEN, URINE NEGATIVE (NEGATIVE); TRICYCLIC ANTIDEPRESSANT,URINE NEGATIVE (NEGATIVE)
[2020-09-01 16:07] LABS: OXYCODONE SCREEN, URINE NEGATIVE (NEGATIVE); PROPOXYPHENE SCREEN, URINE NEGATIVE (NEGATIVE)
[2020-09-01] MEDS: INSULIN ASPART 300 UNIT/3 ML PEN SUBQ SCH ×2 (17:46→20:47)
[2020-09-01] MEDS: SODIUM CHLORIDE FLUSH 0.9% 10 ML SYRINGE IVP SCH (17:46)
[2020-09-01] MEDS: GABAPENTIN 300 MG CAPSULE PO SCH ×4 (19:34→20:47)
[2020-09-01 19:41] LABS: ESTIMATED AVERAGE GLUCOSE 301 mg/dL (70-100); HEMOGLOBIN A1c% 12.1 % (4.27-6.07)
[2020-09-01] MEDS: INSULIN GLARGINE 300 UNIT/3 ML PEN SUBQ SCH (20:47)
[2020-09-01] MEDS ORDERED: GABAPENTIN 300 MG CAPSULE PO SCH (21:00)
[2020-09-02] MEDS: SODIUM CHLORIDE FLUSH 0.9% 10 ML SYRINGE IVP SCH ×6 (00:05→23:38)
[2020-09-02] MEDS: SODIUM CHLORIDE 0.9% 1,000 ML IV SCH ×3 (00:05→19:49)
[2020-09-02 05:16] LABS: BASOPHILS # (AUTO) 0.1 10^3/uL (0.0-0.1); BASOPHILS % (AUTO) 0.8 %; EOSINOPHILS # (AUTO) 0.3 10^3/uL (0.0-0.7); EOSINOPHILS % (AUTO) 4.2 %; HCT - HEMATOCRIT 32.7 % (37.0-47.0); HGB - HEMOGLOBIN 10.3 g/dL (12.0-16.0); LYMPHOCYTES # (AUTO) 2.8 10^3/uL (1.5-3.5); LYMPHOCYTES % (AUTO) 36.5 %; MEAN CORPUSCULAR HEMOGLOBIN 28.9 pg (27.0-31.0); MEAN CORPUSCULAR HGB CONC 31.5 g/dL (32.0-36.0); MEAN CORPUSCULAR VOLUME 91.9 fL (81.0-99.0); MEAN PLATELET VOLUME 9.7 fL (7.9-10.8); MONOCYTES # (AUTO) 0.4 10^3/uL (0.0-1.0); MONOCYTES % (AUTO) 5.2 %; PLT - PLATELET COUNT 348 10^3/uL (130-450); RED BLOOD COUNT 3.56 10^6/uL (4.20-5.40); RED CELL DISTRIBUTION WIDTH 13.5 % (12.0-15.0); WHITE BLOOD COUNT 7.6 x10^3/uL (4.8-10.8)
[2020-09-02 05:23] LABS: CALCIUM 8.8 mg/dL (8.5-10.3); CREATININE 0.7 mg/dL (0.4-1.0); POTASSIUM 3.5 mmol/L (3.5-5.0)
[2020-09-02] MEDS: INSULIN ASPART 300 UNIT/3 ML PEN SUBQ SCH ×4 (08:37→21:14)
[2020-09-02] MEDS: ENOXAPARIN 40 MG/0.4 ML SYRINGE SUBQ SCH (08:38)
[2020-09-02] MEDS: GLIMEPIRIDE 2 MG TABLET PO SCH (08:42)
[2020-09-02] MEDS: GABAPENTIN 300 MG CAPSULE PO SCH ×3 (08:42→19:45)
[2020-09-02] MEDS: FERRIC CITRATE 210 MG PO SCH (09:00)
[2020-09-02] MEDS: PIOGLITAZONE 15 MG TABLET PO SCH (09:53)
--- NOTE | 2020-09-02 12:14 | PROVIDER PROGRESS NOTE ---
Assessment/Plan - Problem List (1) Orthostatic intolerance Assessment/Plan: 5/6 Pt present orthostatic intolerance. pt has hx of uncontrolled diabetic, it is likely vasovagal. pt had ECHO done about 10 days ago which was unremarkable. EKG and troponin are unremarkable at this time. hold pt's BP meds, IVF for pt, fall precaution. tried to reduce pt's Gabapentin dosage but pt declined to do that. (2) Dizziness, nonspecific Conclusion/Plan: 09/02 pt still complain of dizziness when she try to stand up. pt has orthostatic intolerance. hold pt's BP meds, IVF for pt, fall precaution. tried to reduce pt's Gabapentin dosage but pt declined to do that. pt had ECHO done about 10 days ago which was unremarkable. Patient reported she feel dizziness and collapse but she denied loss of consciousness. This happened in the before in the hospital. she Had significantly elevated glucose level 352 today, she takes 3000 mg gabapentin in the home. Patient had echo done about 10 days ago Which was unremarkable. Troponin test is negative, EKG without significant change from previous. Patient had a negative orthostatic hypotension or intolerance in the ER per provider re port. Plan:Patient had a 1 L normal saline intravenous in the ER, We will continue hydration with intravenous IV fluids for patient, We will give patient insulin to control patient hyperglycemia, We will reduce the patient gabapentin dosage after discussed with the patient for the side effect of gabapentin to cause people dizziness. (3) Uncontrolled diabetes mellitus Conclusion/Plan: 09/02 her glucose is good control, today she has glucose 168, will continue lantus and slide scale. pt agree to have insulin for d/c Patient had A1c 14 then A1c become 12 reported 10 days ago. Patient declined take insulin in the home before. After discussed with the patient for Diabetic control, She agreed take insulin and possible take insulin d/c to home. We will put the patient in Lantus, sliding scale, check glucose level, hypoglycemia protocol (4) Elevated lactic acid level Conclusion/Plan: 09/02 resolved. Patient had a lactic acid 2.7, after intravenous IV fluids lactic acid acid become normal range. Patient urinalysis and chest x-ray are not indicated infection. Patient had no fever, patient had a normal range WBC. Patient denies dysuria, clinically did not show patient has pneumonia symptoms. It is likely From patient recently take the Metformin which could have caused mild elevated lactic acid. We will hold Metformin, continue give patient intravenous IV fluids. 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 (5) HTN (hypertension) Conclusion/Plan: Patient blood pressure is stable, patient takes her blood pressure medicine in the home, we will resume - Current Meds Current Meds: Current Medications Generic Name Dose Route Start Last Admin Trade Name Freq PRN Reason Stop Dose Admin Enoxaparin Sodium 40 mg 09/02/20 09:00 09/02/20 08:38 Enoxaparin 40 Mg/0.4 Ml Syringe SUBQ 40 mg DAILY COLT Administration Gabapentin 600 mg 09/01/20 19:30 09/01/20 20:47 Gabapentin 300 Mg Capsule PO 600 mg 1200 COLT Administration Gabapentin 1,200 mg 09/02/20 10:00 09/02/20 09:53 Gabapentin 300 Mg Capsule PO 1,200 mg BID COLT Administration Glimepiride 2 mg 09/02/20 08:00 09/02/20 08:42 Glimepiride 2 Mg Tablet PO 2 mg DAILYWM COLT Administration Sodium Chloride 1,000 mls @ 100 mls/hr 09/01/20 15:00 09/02/20 09:52 Normal Saline 0.9% IV 100 mls/hr .Q10H COLT Administration Insulin Aspart 2 - 10 unit 09/01/20 17:00 09/02/20 11:38 Insulin Aspart 300 Unit/3 Ml Pen SUBQ 6 unit 0800,1200,1700,2100 COLT Administration Protocol Insulin Glargine 10 unit 09/01/20 21:00 09/01/20 20:47 Insulin Glargine 300 Unit/3 Ml Pen SUBQ 10 unit QPM COLT Administration Ondansetron HCl 4 mg 09/01/20 14:32 09/02/20 08:31 Ondansetron 4 Mg/2 Ml Vial IVP 4 mg Q6HR PRN Administration Nausea / Vomiting Ferric Citrate [ 1 each 09/02/20 09:00 09/02/20 09:00 Auryxia] 210 Mg Tab PO Not Given DAILY COLT Pioglitazone HCl 30 mg 09/02/20 09:00 09/02/20 09:53 Pioglitazone 15 Mg Tablet PO 30 mg DAILY COLT Administration Sodium Chloride 10 ml 09/01/20 17:00 09/02/20 08:45 Sodium Chloride Flush 0.9% 10 Ml Syringe IVP 10 ml 0100,0900,1700 [facility] Administration - Lab Result Fish Bone Diagrams: 09/02/20 04:45 09/02/20 04:45 - Additional Planning My Orders: My Active Orders 09/01/20 14:32 Activity Orders [RC] Q2HR IO [RC] IOSHIFT Initiate Bowel Care Protocol [RC] .protocol Initiate Line Care Protocol [RC] QSHIFT Initiate Personal Care Protoco [RC] .protocol Telemetry- [RC] Q4HR Vital Signs [RC] Q4HR Acetaminophen [Tylenol] 650 mg PO Q4HR PRN Ondansetron Inj [Zofran Inj] 4 mg IVP Q6HR PRN Sodium Chloride Flush 0.9% [Normal Saline Flush 0.9%] 10 ml IVP PRN PRN Code Status [OTHERS] Routine Condition of Patient [OTHERS] Routine DVT Prophylaxis [OTHERS] Routine 09/01/20 14:36 IV Insert [RC] .ONCE SCDs [RC] QSHIFT 09/01/20 14:38 Blood Glucose Checks - Eating [RC] 0800,1200,1700,2100 Initiate Hypoglycemia Protocol [RC] .protocol 09/01/20 14:43 Orthostatic [Vital Signs - Orthostatic] [RC] DAILY 09/01/20 15:00 Sodium Chloride 0.9% [Normal Saline 0.9%] 1,000 ml IV 100 mls/hr 09/01/20 16:05 Code Status [OTHERS] Routine 09/01/20 Dinner Carb-controlled Diet [DIET] 09/01/20 17:00 Insulin Aspart [NovoLOG] 2 - 10 unit SUBQ 0800,1200,1700,2100 Sodium Chloride Flush 0.9% [Normal Saline Flush 0.9%] 10 ml IVP 0100,0900,1700 09/01/20 17:08 Out of bed 3+ hours today [RC] TID 09/01/20 19:30 Gabapentin [Neurontin] 600 mg PO 1200 09/01/20 21:00 Insulin Glargine [Lantus Solostar] 10 unit SUBQ QPM 09/02/20 international account executive Consult [CONS] Routine 09/02/20 07:47 Diabetic Education [RC] Q8H 09/02/20 08:00 Glimepiride [Amaryl] 2 mg PO DAILYWM 09/02/20 09:00 Enoxaparin [Lovenox] 40 mg SUBQ DAILY Patient Own Med [Patient Own Medication] 1 each PO DAILY Pioglitazone [Actos] 30 mg PO DAILY 09/02/20 10:00 Gabapentin [Neurontin] 1,200 mg PO BID 09/02/20 21:00 ethyl alcohoL 62% swab [NoZin] 1 amp ELIJAH BID 09/03/20 05:00 BMP - BASIC METABOLIC PANEL [CHEM] DAILYLAB CBC - COMP BLD CT W/AUTO DIFF [HEME] DAILYLAB 09/04/20 05:00 BMP - BASIC METABOLIC PANEL [CHEM] DAILYLAB CBC - COMP BLD CT W/AUTO DIFF [HEME] DAILYLAB 09/05/20 05:00 BMP - BASIC METABOLIC PANEL [CHEM] DAILYLAB CBC - COMP BLD CT W/AUTO DIFF [HEME] DAILYLAB 09/06/20 05:00 BMP - BASIC METABOLIC PANEL [CHEM] DAILYLAB CBC - COMP BLD CT W/AUTO DIFF [HEME] DAILYLAB Subjective - Subjective Patient Reports: Feeling Better Objective Vital Signs: Vital Signs - 24 hr 09/01/20 09/01/20 09/01/20 12:42 13:32 14:07 Temperature Heart Rate 75 85 83 Heart Rate [ Brachial] Respiratory 15 16 14 Rate Blood Pressure 156/82 H 121/67 145/77 H Blood Pressure [Right Brachial artery] O2 Saturation 100 100 99 09/01/20 09/01/20 09/01/20 14:38 15:10 23:53 Temperature 36.9 C 36.9 C 36.8 C Heart Rate 78 Heart Rate [ 81 79 Brachial] Respiratory 12 16 15 Rate Blood Pressure 137/71 H Blood Pressure 131/97 H 132/71 H [Right Brachial artery] O2 Saturation 97 96 95 09/02/20 09/02/20 09/02/20 05:00 07:32 11:20 Temperature 36.8 C 37.8 C 36.8 C Heart Rate Heart Rate [ 76 74 72 Brachial] Respiratory 17 16 16 Rate Blood Pressure Blood Pressure 148/71 H 148/82 H 153/75 H [Right Brachial artery] O2 Saturation 96 97 98 Oxygen O2 Source Room air I&O (Last 24 Hrs): Intake and Output Totals x24h 08/31/20 09/01/20 09/02/20 23:59 23:59 23:59 Intake Total 1390 2246.666 Output Total 1600 1200 Balance -210 1046.666 General: Alert, Oriented x3, Cooperative, No acute distress HEENT: Atraumatic Neck: Supple Lymphatic: no adenopathy Neuro: Alert, Non Focal, Oriented Times 3 Cardiovascular: Regular rate, Normal S1, Normal S2 Respiratory: Chest non-tender, No respiratory distress, Breath sounds nml Abdomen: Normal bowel sounds, Soft Extremities: Normal pulses - Results Results: Laboratory Results WBC 7.6 x10^3/uL (4.8-10.8) 09/02/20 04:45 RBC 3.56 10^6/uL (4.20-5.40) L 09/02/20 04:45 Hgb 10.3 g/dL (12.0-16.0) L 09/02/20 04:45 Hct 32.7 % (37.0-47.0) L 09/02/20 04:45 MCV 91.9 fL (81.0-99.0) 09/02/20 04:45 MCH 28.9 pg (27.0-31.0) 09/02/20 04:45 MCHC 31.5 g/dL (32.0-36.0) L 09/02/20 04:45 RDW 13.5 % (12.0-15.0) 09/02/20 04:45 Plt Count 348 10^3/uL (130-450) 09/02/20 04:45 MPV 9.7 fL (7.9-10.8) 09/02/20 04:45 Neut # (Auto) 4.0 10^3/uL (1.5-6.6) 09/02/20 04:45 Lymph # (Auto) 2.8 10^3/uL (1.5-3.5) 09/02/20 04:45 Roberts # (Auto) 0.4 10^3/uL (0.0-1.0) 09/02/20 04:45 Eos # (Auto) 0.3 10^3/uL (0.0-0.7) 09/02/20 04:45 Baso # (Auto) 0.1 10^3/uL (0.0-0.1) 09/02/20 04:45 Absolute Nucleated RBC 0.00 x10^3/uL 09/02/20 04:45 Nucleated RBC % 0.0 /100WBC 09/02/20 04:45 VBG pH 7.349 (7.31-7.41) 09/01/20 12:33 VBG pCO2 53.5 mmHg (41-51) H 09/01/20 12:33 VBG pO2 30.8 mmHg (25-47) 09/01/20 12:33 VBG HCO3 28.8 mmol/L (23-28) H 09/01/20 12:33 VBG Total CO2 30.4 mmol/L (24-29) H 09/01/20 12:33 VBG O2 Saturation 57.9 % (60-80) L 09/01/20 12:33 VBG Base Excess 2.2 mmol/L (-2 - +2) H 09/01/20 12:33 Sodium 141 mmol/L (135-145) 09/02/20 04:45 Potassium 3.5 mmol/L (3.5-5.0) 09/02/20 04:45 Chloride 103 mmol/L (101-111) 09/02/20 04:45 Carbon Dioxide 29 mmol/L (21-32) 09/02/20 04:45 Anion Gap 9.0 (6-13) 09/02/20 04:45 BUN 14 mg/dL (6-20) 09/02/20 04:45 Creatinine 0.7 mg/dL (0.4-1.0) 09/02/20 04:45 Estimated GFR (MDRD) 105 (>89) 09/02/20 04:45 Glucose 168 mg/dL (70-100) H 09/02/20 04:45 Estimat Average Glucose 301 mg/dL (70-100) H 09/01/20 12:15 Hemoglobin A1c % 12.1 % (4.27-6.07) H 09/01/20 12:15 Lactic Acid 1.8 mmol/L (0.5-2.2) 09/01/20 15:39 Calcium 8.8 mg/dL (8.5-10.3) 09/02/20 04:45 Total Bilirubin 0.6 mg/dL (0.2-1.0) 09/01/20 12:03 AST 16 IU/L (10-42) 09/01/20 12:03 ALT 19 IU/L (10-60) 09/01/20 12:03 Alkaline Phosphatase 91 IU/L (42-121) 09/01/20 12:03 Troponin I High Sens 3.9 ng/L (2.3-14.8) 09/01/20 12:03 Total Protein 8.7 g/dL (6.7-8.2) H 09/01/20 12:03 Albumin 3.7 g/dL (3.2-5.5) 09/01/20 12:03 Globulin 5.0 g/dL (2.1-4.2) H 09/01/20 12:03 Albumin/Globulin Ratio 0.7 (1.0-2.2) L 09/01/20 12:03 Lipase 112 U/L (22-51) H 09/01/20 12:03 Urine Color YELLOW 09/01/20 15:42 Urine Clarity CLEAR (CLEAR) 09/01/20 15:42 Urine pH 7.0 PH (5.0-7.5) 09/01/20 15:42 Ur Specific [place] 1.015 (1.002-1.030) 09/01/20 15:42 Urine Protein NEGATIVE mg/dL (NEGATIVE) 09/01/20 15:42 Urine Glucose (UA) >=1000 mg/dL (NEGATIVE) H 09/01/20 15:42 Urine Ketones NEGATIVE mg/dL (NEGATIVE) 09/01/20 15:42 Urine Occult Blood NEGATIVE (NEGATIVE) 09/01/20 15:42 Urine Nitrite NEGATIVE (NEGATIVE) 09/01/20 15:42 Urine Bilirubin NEGATIVE (NEGATIVE) 09/01/20 15:42 Urine Urobilinogen 0.2 (NORMAL) E.U./dL (NORMAL) 09/01/20 15:42 Ur Leukocyte Esterase NEGATIVE (NEGATIVE) 09/01/20 15:42 Ur Microscopic Review NOT INDICATED 09/01/20 15:42 Nasal Adenovirus (PCR) NOT DETECTED 09/01/20 12:06 Nasal B. parapertussis DNA (PCR) NOT DETECTED 09/01/20 12:06 Nasal Coronavir 229E PCR NOT DETECTED 09/01/20 12:06 Nasal Coronavir HKU1 PCR NOT DETECTED 09/01/20 12:06 Nasal Coronavir NL63 PCR NOT DETECTED 09/01/20 12:06 Nasal Coronavir OC43 PCR NOT DETECTED 09/01/20 12:06 Nasal Enterovir/Rhinovir PCR NOT DETECTED 09/01/20 12:06 Nasal Influenza B PCR NOT DETECTED 09/01/20 12:06 Nasal Influenza A PCR NOT DETECTED 09/01/20 12:06 Nasal Parainfluen 1 PCR NOT DETECTED 09/01/20 12:06 Nasal Parainfluen 2 PCR NOT DETECTED 09/01/20 12:06 Nasal Parainfluen 3 PCR NOT DETECTED 09/01/20 12:06 Nasal Parainfluen 4 PCR NOT DETECTED 09/01/20 12:06 Nasal RSV (PCR) NOT DETECTED 09/01/20 12:06 Nasal Screen MRSA (PCR) POSITIVE (NEGATIVE) A* 09/01/20 18:00 Nasal B.pertussis DNA PCR NOT DETECTED 09/01/20 12:06 Nasal C.pneumoniae (PCR) NOT DETECTED 09/01/20 12:06 Elijah Human Metapneumo PCR NOT DETECTED 09/01/20 12:06 Nasal M.pneumoniae (PCR) NOT DETECTED 09/01/20 12:06 Nasal SARS-CoV-2 (PCR) NOT DETECTED 09/01/20 12:06 Urine Opiates Screen NEGATIVE (NEGATIVE) 09/01/20 15:42 Ur Oxycodone Screen NEGATIVE (NEGATIVE) 09/01/20 15:42 Urine Methadone Screen NEGATIVE (NEGATIVE) 09/01/20 15:42 Ur Propoxyphene Screen NEGATIVE (NEGATIVE) 09/01/20 15:42 Ur Barbiturates Screen NEGATIVE (NEGATIVE) 09/01/20 15:42 Ur Tricyclics Screen NEGATIVE (NEGATIVE) 09/01/20 15:42 Ur Phencyclidine Scrn NEGATIVE (NEGATIVE) 09/01/20 15:42 Ur Amphetamine Screen NEGATIVE (NEGATIVE) 09/01/20 15:42 U Methamphetamines Scrn NEGATIVE (NEGATIVE) 09/01/20 15:42 U Benzodiazepines Scrn NEGATIVE (NEGATIVE) 09/01/20 15:42 Urine Cocaine Screen NEGATIVE (NEGATIVE) 09/01/20 15:42 U Cannabinoids Screen NEGATIVE (NEGATIVE) 09/01/20 15:42 Ethyl Alcohol 5.2 mg/dL 09/01/20 12:03 Serum Ketones NEGATIVE (NEGATIVE) 09/01/20 12:03 Sepsis Event Note (H) - Evaluation Current Stage of Sepsis: Ruled out ABX Reporting Has patient been on IV antibiotics over the past 48 hours?: No Current Medications - Current Medications Current Medications: Active Medications Acetaminophen (Acetaminophen 325 Mg Tablet) 650 mg PO Q4HR PRN PRN Reason: Pain 1 to 4 Alcohol (Ethyl Alcohol 62% Swab Ampule) 1 amp ELIJAH BID [facility] Enoxaparin Sodium (Enoxaparin 40 Mg/0.4 Ml Syringe) 40 mg SUBQ DAILY [facility] Last Admin: 09/02/20 08:38 Dose: 40 mg Documented by: Gabapentin (Gabapentin 300 Mg Capsule) 600 mg PO 1200 [facility] Last Admin: 09/01/20 20:47 Dose: 600 mg Documented by: Gabapentin (Gabapentin 300 Mg Capsule) 1,200 mg PO BID [facility] Last Admin: 09/02/20 09:53 Dose: 1,200 mg Documented by: Glimepiride (Glimepiride 2 Mg Tablet) 2 mg PO DAILYWM [facility] Last Admin: 09/02/20 08:42 Dose: 2 mg Documented by: Sodium Chloride (Normal Saline 0.9%) 1,000 mls @ 100 mls/hr IV .Q10H [facility] Last Admin: 09/02/20 09:52 Dose: 100 mls/hr Documented by: Insulin Aspart (Insulin Aspart 300 Unit/3 Ml Pen) 2 - 10 unit SUBQ 0800,1200,1700,2100 [facility]; Protocol Last Admin: 09/02/20 11:38 Dose: 6 unit Documented by: Insulin Glargine (Insulin Glargine 300 Unit/3 Ml Pen) 10 unit SUBQ QPM [facility] Last Admin: 09/01/20 20:47 Dose: 10 unit Documented by: Ondansetron HCl (Ondansetron 4 Mg/2 Ml Vial) 4 mg IVP Q6HR PRN PRN Reason: Nausea / Vomiting Last Admin: 09/02/20 08:31 Dose: 4 mg Documented by: Ferric Citrate [ (Auryxia] 210 Mg Tab) 1 each PO DAILY [facility] Last Admin: 09/02/20 09:00 Dose: Not Given Documented by: Pioglitazone HCl (Pioglitazone 15 Mg Tablet) 30 mg PO DAILY [facility] Last Admin: 09/02/20 09:53 Dose: 30 mg Documented by: Sodium Chloride (Sodium Chloride Flush 0.9% 10 Ml Syringe) 10 ml IVP PRN PRN PRN Reason: NEEDED PER PROVIDER ORDERS Sodium Chloride (Sodium Chloride Flush 0.9% 10 Ml Syringe) 10 ml IVP 0100,0900,1700 COLT Last Admin: 09/02/20 08:45 Dose: 10 ml Documented by: Gabapentin 1,200 mg PO BID 10/24/17 Simvastatin 40 mg PO QPM 10/24/17 Gabapentin [Neurontin] 600 mg PO 1200 08/18/20 Pioglitazone HCl [Actos] 30 mg PO DAILY 08/18/20
[2020-09-02] MEDS: ethyl alcohoL 62% SWAB AMPULE NAS SCH (21:14)
[2020-09-02] MEDS: INSULIN GLARGINE 300 UNIT/3 ML PEN SUBQ SCH (21:15)
[2020-09-03 05:05] LABS: BASOPHILS # (AUTO) 0.1 10^3/uL (0.0-0.1); BASOPHILS % (AUTO) 0.9 %; EOSINOPHILS # (AUTO) 0.5 10^3/uL (0.0-0.7); EOSINOPHILS % (AUTO) 7.6 %; HCT - HEMATOCRIT 33.6 % (37.0-47.0); HGB - HEMOGLOBIN 10.9 g/dL (12.0-16.0); LYMPHOCYTES # (AUTO) 2.6 10^3/uL (1.5-3.5); LYMPHOCYTES % (AUTO) 41.3 %; MEAN CORPUSCULAR HEMOGLOBIN 29.3 pg (27.0-31.0); MEAN CORPUSCULAR HGB CONC 32.4 g/dL (32.0-36.0); MEAN CORPUSCULAR VOLUME 90.3 fL (81.0-99.0); MEAN PLATELET VOLUME 9.7 fL (7.9-10.8); MONOCYTES # (AUTO) 0.4 10^3/uL (0.0-1.0); MONOCYTES % (AUTO) 6.8 %; NEUTROPHILS # (AUTO) 2.7 10^3/uL (1.5-6.6); NEUTROPHILS % (AUTO) 43.2 %; PLT - PLATELET COUNT 326 10^3/uL (130-450); RED BLOOD COUNT 3.72 10^6/uL (4.20-5.40); RED CELL DISTRIBUTION WIDTH 13.2 % (12.0-15.0); WHITE BLOOD COUNT 6.3 x10^3/uL (4.8-10.8)
[2020-09-03 05:09] LABS: CALCIUM 8.9 mg/dL (8.5-10.3); CREATININE 0.7 mg/dL (0.4-1.0); POTASSIUM 3.5 mmol/L (3.5-5.0)
[2020-09-03] MEDS: SODIUM CHLORIDE 0.9% 1,000 ML IV SCH (05:50)
[2020-09-03] MEDS: ethyl alcohoL 62% SWAB AMPULE NAS SCH (08:00)
[2020-09-03] MEDS: GLIMEPIRIDE 2 MG TABLET PO SCH (08:01)
[2020-09-03] MEDS: ENOXAPARIN 40 MG/0.4 ML SYRINGE SUBQ SCH (08:01)
[2020-09-03] MEDS: GABAPENTIN 300 MG CAPSULE PO SCH ×2 (08:01→11:46)
[2020-09-03] MEDS: SODIUM CHLORIDE FLUSH 0.9% 10 ML SYRINGE IVP SCH (08:02)
[2020-09-03] MEDS: INSULIN ASPART 300 UNIT/3 ML PEN SUBQ SCH ×2 (08:02→11:42)
[2020-09-03] MEDS: PIOGLITAZONE 15 MG TABLET PO SCH (08:18)
[2020-09-03] MEDS: FERRIC CITRATE 210 MG PO SCH (08:19)
[2020-09-03] MEDS ORDERED: polyethylene glycoL 3350 17 GM PACKET PO SCH (09:00)
[2020-09-03 11:36] VITALS: BP 130/73
--- NOTE | 2020-09-03 11:51 | Discharge Plan ---
Discharge Plan Problem Reviewed?: Yes Disposition: Home, Self Care Condition: Stable Prescriptions: Blood-Glucose Meter [Glucometer] 1 each QID #1 each Blood Sugar Diagnostic [Glucometer Strips] 1 each QID #200 strip Lancets 1 each QID #200 each Insulin Glargine [Lantus Solostar] 10 unit SUBQ QPM #5 Insulin Aspart [NovoLOG] 2 - 10 unit SUBQ 0800,1200,1700,2100 #10 Diet: Diabetic Activity Restrictions: Activity as Tolerated Shower Restrictions: No (fall precaution) Instruction Topics: Dizziness Balance Probs Fainting, Dizziness Fainting Poss Causes, ED Near Syncope Vasovagal, ED Dizziness Syncope Fainting W Pre, Log Blood Sugar, 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 you may keep hydration at home, hold your home BP meds Nifidipine now, fall precaution. You agree to start insulin for your diabetes. Insulin and device for insulin injection are prescribed for you, and you are educated how to use insulin management of your diabetes. You may hold your Metformin for your increased lactic acid. You may followup with your PCP in one week to continue management of your diabetes. Care Goals: stabilization and improvement of your medical conditions Assessment: discussed the care plan in detail with you, answered your questions, you understood and agreed. Additional Instructions or Follow Up instructions: You may followup with your PCP in one week. Should your symptoms return or worsen, you may present ER or call 911 for help. Follow-Up Care: [facility] [place] [facility] - Diabetes Ed No Smoking: If you smoke, Please STOP! Call for help. Follow-up with: Kobe Navarro MD [Primary Care Provider] -
--- NOTE | 2020-09-03 12:29 | DISCHARGE SUMMARY ---
Discharge Summary Admit Date: 09/01/20 Discharge Date: 09/03/20 Discharging Provider: Sam Bateman Primary Care Provider: Uvaldo Toure Condition at Discharge: Stable Discharge Disposition: 01 Home, Self Care Discharge Facility Name: home - DIAGNOSES Discharge Diagnoses with Status of Each Condition: (1) Orthostatic intolerance resolved. PT/OT also evaluated and treat pt. pt walked, good balance, and no dizziness. BP check show orthostatic intolerance is resolved. pt's home Nifidipine is hold, continue Losartan. (2) Dizziness, nonspecific resolved. pt had good balance to walk, no dizziness. keep hydration at home. BP check show orthostatic intolerance is resolved. pt's home Nifidipine is hold, continue Losartan. (3) Uncontrolled diabetes mellitus pt had A1C 12.1. pt agree to start insulin therapy. insulin, and insulin management device are all prescribed for pt. pt had education for insulin management in the hospital. pt may hold Metformin which is likely cause pt's elevated lactic acid level. (4) Elevated lactic acid level resolved. pt may hold Metformin which is likely cause pt's elevated lactic acid level. (5) HTN (hypertension) stable. - HPI History of Present Illness: This is a 55-year-old female with a history of uncontrolled Diabetes on metformin, actos and glimiperide, HTN and hyperlipidemia, who present ER complain of dizziness in her PCP office. pt report she has been feeling not well for couple of days. she feel " I am like old lady to walk." Today she was in walk in clinic to check out. she feel very dizziness then she lean down the one side of her sitting chair. she report she was not lost consciousness. she report she know everything happened. she denies focal neurological deficits. CT of her head on today was unremarkable. pt was recent admitted here to the ICU for uncontrolled blood sugar, then she developed pneumonia. Also pt was found to have similar dizziness and collapse in the hospital which pt was found to have orthostatic hypotension. After pt was given IVF, her orthostatic hypotension was resolved. Today in ER, ER provider report she did orthostatic check for pt, pt has no orthostatic hypotension or int olerance. Remarkable, pt still present hyperglycemia in ER route lab test with mild elevated lactic acid. Patient's chest x-ray and urinalysis was not indication for infection. Patient has normal range WBC, patient has no fever. Patient did take Metformin in the home which could cause mild elevated lactic acid. Patient had a history of uncontrolled diabetic. Patient declined taking insulin in the before. She had A1c at the 14 then 12 in the before about 10 days. Also patient take 3000 mg gabapentin for her neuropathy. Gabapentin has side effect to cause people dizziness. Patient denies chest pain, fever, chill, shortness of breathing. Medical team was called by by ER provider for admission. Patient is at observation unit. Discussed the care goal with the patient, patient clearly state she want DNR - HOSPITAL COURSE Hospital Course: Patient was admitted for dizziness, orthostatic intolerance, uncontrolled diabetic. After the patient was treated with intravenous IV fluids, hold patient blood pressure medications, sliding scale and Lantus insulins for patient, And PT and OT evaluation and treatment. Patient's dizziness and orthostatic intolerance was resolved. Patient walk with good balance and no dizziness. Patient agree to start with the insulin for her diabetic management. Patient is prescribed insulin, insulin management device, and pt had education for insulin management. - ALLERGIES Allergies/Adverse Reactions: Allergies Allergy/AdvReac Type Severity Reaction Status Date / Time No Known Drug Allergies Allergy Verified 09/01/20 11:46 - MEDICATIONS Home Medications: Ambulatory Orders Medication Instructions Recorded Confirmed Glimepiride [Amaryl] 2 mg PO DAILYWM #30 tablet 07/23/17 09/01/20 Gabapentin 1,200 mg PO BID 10/24/17 09/01/20 Simvastatin 40 mg PO QPM 10/24/17 09/01/20 Gabapentin [Neurontin] 600 mg PO 1200 08/18/20 09/01/20 Pioglitazone HCl [Actos] 30 mg PO DAILY 08/18/20 09/01/20 Amox/Clav 875/125 [Augmentin 1 tablet PO Q12H #8 tablet 08/22/20 09/01/20 875/125 Tab] Ferric Citrate [Auryxia] 210 mg PO DAILY #30 tablet 08/22/20 09/01/20 Losartan [Cozaar] 50 mg PO DAILY #30 tablet 08/22/20 09/01/20 Blood Sugar Diagnostic [Glucometer 1 each QID #200 strip 09/03/20 Strips] Blood-Glucose Meter [Glucometer] 1 each QID #1 each 09/03/20 Insulin Aspart [NovoLOG] 2 - 10 unit SUBQ 09/03/20 0800,1200,1700,2100 #10 Insulin Glargine [Lantus Solostar] 10 unit SUBQ QPM #5 09/03/20 Lancets 1 each QID #200 each 09/03/20 - PHYSICAL EXAM AT DISCHARGE General Appearance: positive: No acute distress, Alert. negative: Lethargic Eyes Bilateral: positive: Normal inspection, PERRL, No lid inflammation ENT: positive: ENT inspection nml, No signs of dehydration. negative: Purulent nasal drainage Neck: positive: Nml inspection, Trachea midline. negative: Thyromegaly, Tracheal deviation Respiratory: positive: Chest non-tender, No respiratory distress, Breath sounds nml. negative: Wheezes, Rales Cardiovascular: positive: Regular rate & rhythm, No murmur. negative: Tachycardia, Bradycardia, Systolic murmur, Diastolic murmur Peripheral Pulses: positive: 2+ Abdomen: positive: Non-tender, Nml bowel sounds, No distention. negative: Tenderness, Guarding Back: positive: Nml inspection Skin: positive: Color nml, Warm, Dry. negative: Cyanosis, Diaphoresis Extremities: positive: Non-tender, Full ROM, Nml appearance. negative: Calf tenderness Neurologic/Psychiatric: positive: Oriented x3, Motor nml, Sensation nml, Mood/affect nml. negative: Weakness, Sensory loss, Facial droop, Slurred/abnml speech, Depressed mood/affect - LABS Result Diagrams: 09/03/20 04:45 09/03/20 04:45 - SEPSIS Current Stage of Sepsis: Ruled out - FOLLOW UP Follow Up: your dizziness is resolved. you may keep hydration at home, hold your home BP meds Nifidipine now, fall precaution. You agree to start insulin for your diabetes. Insulin and device for insulin injection are prescribed for you, and you are educated how to use insulin management of your diabetes. You may hold your Metformin for your increased lactic acid. You may followup with your PCP in one week to continue management of your diabetes. You may followup with your PCP in one week. Should your symptoms return or worsen, you may present ER or call 911 for help. - TIME SPENT Time Spent in Discharge (Minutes): 30
== END 2020-09-03 13:55 | disposition home or self-care (01) ==
LOC: EDUNIT# → ED 11:40 → MS2 14:32
PROVIDERS: ADMIT Nurse Practitioner Gerontology; ATTEND Nurse Practitioner Gerontology
DX: I95.1 Orthostatic hypotension (principal); R42 Dizziness and giddiness; E11.65 Type 2 diabetes mellitus with hyperglycemia; R51.9 Headache, unspecified; E11.40 Type 2 diabetes mellitus with diabetic neuropathy, unspecified; I10 Essential (primary) hypertension; E78.5 Hyperlipidemia, unspecified; Z20.822 Contact with and (suspected) exposure to COVID-19; R74.02 Elevation of levels of lactic acid dehydrogenase [LDH]; Z66 Do not resuscitate; Z87.891 Personal history of nicotine dependence; Z79.899 Other long term (current) drug therapy; Z79.84 Long term (current) use of oral hypoglycemic drugs
CPT/HCPCS: 0202U; 36415; 70450; 71045; 80048; 80053; 80306; 80320; 81003; 82009; 82803; 83036; 83605; 83690; 84484; 85025; 87040; 87640; 93005; 96372; 96374; 97161; 97165; 99284; 99285; A9270; G0378; J1650; J1815; J8499; 81001

== ENCOUNTER 2020-09-09 05:28 | Observation (INO) | payer OTHER ==
[2020-09-09] MEDS ORDERED: SODIUM CHLORIDE 0.9% 1,000 ML IV STA (05:32)
[2020-09-09 05:48] LABS: BASOPHILS % (AUTO) 0.5 %; EOSINOPHILS # (AUTO) 0.5 10^3/uL (0.0-0.7); EOSINOPHILS % (AUTO) 5.9 %; HGB - HEMOGLOBIN 10.8 g/dL (12.0-16.0); LYMPHOCYTES # (AUTO) 2.6 10^3/uL (1.5-3.5); LYMPHOCYTES % (AUTO) 33.8 %; MEAN CORPUSCULAR HEMOGLOBIN 29.5 pg (27.0-31.0); MEAN CORPUSCULAR HGB CONC 31.8 g/dL (32.0-36.0); MEAN CORPUSCULAR VOLUME 92.9 fL (81.0-99.0); MEAN PLATELET VOLUME 12.8 fL (7.9-10.8); MONOCYTES # (AUTO) 0.6 10^3/uL (0.0-1.0); MONOCYTES % (AUTO) 7.1 %; NEUTROPHILS # (AUTO) 4.1 10^3/uL (1.5-6.6); NEUTROPHILS % (AUTO) 52.4 %; PLT - PLATELET COUNT 101 10^3/uL (130-450); RED BLOOD COUNT 3.66 10^6/uL (4.20-5.40); RED CELL DISTRIBUTION WIDTH 14.5 % (12.0-15.0); WHITE BLOOD COUNT 7.8 x10^3/uL (4.8-10.8)
[2020-09-09] MEDS ORDERED: IPRATROPIUM/ALBUTEROL 3 ML NEB INH STA (05:50)
[2020-09-09 06:04] LABS: BILIRUBIN,TOTAL 0.6 mg/dL (0.2-1.0); CALCIUM 9.3 mg/dL (8.5-10.3); CREATININE 0.7 mg/dL (0.4-1.0); POTASSIUM 3.8 mmol/L (3.5-5.0); TOTAL PROTEIN 8.2 g/dL (6.7-8.2)
[2020-09-09] MEDS ORDERED: DEXAMETHASONE 10 MG/ML VIAL IV STA (06:17)
--- NOTE | 2020-09-09 06:20 | ED Physician Documentation ---
PD HPI DYSPNEA - Stated complaint Stated Complaint: SOA - Chief complaint Chief Complaint: Resp - History obtained from History obtained from: Patient, Family - Additional information Additional information: Patient comes emergency department chief complaint of shortness of breath for the last 3 hours. She is not really sure what brought it on, although her states that she has recently had "fluid on her lungs" which was diagnosed here. Patient was actually seen here on August 18 for elevated blood sugar and was admitted for the same. At that point in time, she was found to have what appeared to be some small areas of pneumonia on chest x-ray and was treated for this. Patient then returned after a weeklong admission and discharge on September 01, due to a syncopal episode. At that point in time, patient had no respiratory complaints. The patient denies any history of asthma or COPD. No known cardiac issues. She has not been coughing or febrile recently. Patient states that she has not had any swelling down in her legs. No calf pain. Patient denies any other complaints at this time. Review of Systems Ten Systems: 10 systems reviewed and negative Constitutional: reports: Reviewed and negative Eyes: reports: Reviewed and negative Ears: reports: Reviewed and negative Nose: reports: Reviewed and negative Throat: reports: Reviewed and negative Cardiac: reports: Reviewed and negative Respiratory: reports: Dyspnea, Wheezing GI: reports: Reviewed and negative : reports: Reviewed and negative Skin: reports: Reviewed and negative Musculoskeletal: reports: Reviewed and negative. 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 HEENT: Other Psych: None Musculoskeletal: None Derm: None - Past Surgical History Past Surgical History: Yes General: Other - Present Medications Home Medications: Ambulatory Orders Medication Instructions Recorded Confirmed Glimepiride [Amaryl] 2 mg PO DAILYWM #30 tablet 07/23/17 09/09/20 Gabapentin 1,200 mg PO BID 10/24/17 09/09/20 Simvastatin 40 mg PO QPM 10/24/17 09/09/20 Gabapentin [Neurontin] 600 mg PO 1200 08/18/20 09/09/20 Pioglitazone HCl [Actos] 30 mg PO DAILY 08/18/20 09/09/20 Ferric Citrate [Auryxia] 210 mg PO DAILY #30 tablet 08/22/20 09/09/20 Losartan [Cozaar] 50 mg PO DAILY #30 tablet 08/22/20 09/09/20 Blood Sugar Diagnostic [Glucometer 1 each QID #200 strip 09/03/20 09/09/20 Strips] Blood-Glucose Meter [Glucometer] 1 each QID #1 each 09/03/20 09/09/20 Insulin Aspart [NovoLOG] 2 - 10 unit SUBQ 09/03/20 09/09/20 0800,1200,1700,2100 #10 Insulin Glargine [Lantus Solostar] 10 unit SUBQ QPM #5 09/03/20 09/09/20 Lancets 1 each QID #200 each 09/03/20 09/09/20 - Allergies Allergies/Adverse Reactions: Allergies Allergy/AdvReac Type Severity Reaction Status Date / Time No Known Drug Allergies Allergy Verified 09/09/20 05:52 - Social History Does the pt smoke?: No Smoking Status: Never smoker Does the pt drink ETOH?: No Does the pt have substance abuse?: No - Immunizations Immunizations are current?: Yes - POLST Patient has POLST: No POLST Status: Full Code PD ED PE NORMAL - Vitals Vital signs reviewed: Yes - General General: Alert and oriented X 3, Well developed/nourished, Other (Moderate respiratory distress.) - HEENT HEENT: Atraumatic, PERRL, EOMI, Moist mucous membranes - Neck Neck: Supple, no meningeal sign - Cardiac Cardiac: RRR, No murmur, Strong equal pulses - Respiratory Respiratory: Other (Bilateral wheezes/rhonchi, moderately decreased air movement, mild crackles throughout lower lung boyd bilaterally. Increased work of breathing, the patient can speak a few words at a time.) - Abdomen Abdomen: Soft, Non tender, Non distended - Derm Derm: Normal color, Warm and dry, No rash - Extremities Extremities: No deformity, No edema, No calf tenderness / cord - Neuro Neuro: Other (Patient is awake and answers questions appropriately, but lays in bed with eyes closed. Remainder of neuro exam grossly intact.) - Psych Psych: Normal mood, Normal affect Results - Vitals Vitals: Vital Signs - 24 hr 09/09/20 09/09/20 09/09/20 05:35 05:45 05:52 Temperature 37.4 C Heart Rate 88 82 87 Respiratory 16 27 H 28 H Rate Blood Pressure 204/101 H 196/92 H O2 Saturation 96 96 Oxygen O2 Source Room air - EKG (time done) 0557 Rate: Rate (enter#) (79) Rhythm: NSR [place]: Normal Intervals: Normal MA QRS: Low voltage Ischemia: ST elevation c/w repol Compare to prior EKG: Old EKG unavailable Computer interpretation: Agree with computer - Labs Labs: Laboratory Tests 09/09/20 09/09/20 09/09/20 05:42 05:42 05:42 WBC 7.8 RBC 3.66 L Hgb 10.8 L Hct 34.0 L MCV 92.9 MCH 29.5 MCHC 31.8 L RDW 14.5 Plt Count 101 L MPV 12.8 H Neut # (Auto) 4.1 Lymph # (Auto) 2.6 Baker # (Auto) 0.6 Eos # (Auto) 0.5 Baso # (Auto) 0.0 Absolute Nucleated RBC 0.00 Nucleated RBC % 0.0 APTT 31.1 Sodium 140 Potassium 3.8 Chloride 102 Carbon Dioxide 28 Anion Gap 10.0 BUN 13 Creatinine 0.7 Estimated GFR (MDRD) 105 Glucose 276 H Calcium 9.3 Total Bilirubin 0.6 AST 31 ALT 31 Alkaline Phosphatase 100 Troponin I High Sens B-Natriuretic Peptide Total Protein 8.2 Albumin 4.0 Globulin 4.2 Albumin/Globulin Ratio 1.0 Lipase 40 09/09/20 09/09/20 05:42 05:42 WBC RBC Hgb Hct MCV MCH MCHC RDW Plt Count MPV Neut # (Auto) Lymph # (Auto) Baker # (Auto) Eos # (Auto) Baso # (Auto) Absolute Nucleated RBC Nucleated RBC % APTT Sodium Potassium Chloride Carbon Dioxide Anion Gap BUN Creatinine Estimated GFR (MDRD) Glucose Calcium Total Bilirubin AST ALT Alkaline Phosphatase Troponin I High Sens 3.6 B-Natriuretic Peptide 99 Total Protein Albumin Globulin Albumin/Globulin Ratio Lipase PD MEDICAL DECISION MAKING - ED course Complexity details: reviewed results, re-evaluated patient, considered d ifferential, d/w patient ED course: The patient was worked up with labs, EKG, and chest x-ray, and was treated symptomatically initially with a DuoNeb and Decadron. Other than a moderately elevated blood sugar, remainder of labs were unremarkable, including a normal BNP and troponin. Patient reported feeling a little bit better after the DuoNeb. She was signed out to Dr. Talbert, pending remainder of symptomatic treatment and final disposition.
[2020-09-09] MEDS ORDERED: FUROSEMIDE 40 MG/4 ML VIAL IVP STA (06:27)
--- NOTE | 2020-09-09 06:33 | ED Physician Documentation ---
PD HPI DYSPNEA - Stated complaint Stated Complaint: SOA - Chief complaint Chief Complaint: Resp - History obtained from History obtained from: Patient, Family - History of Present Illness Timing - onset: Today Timing - onset during: Rest Timing - duration: Hours Timing - details: Abrupt onset, Still present Inciting event(s): URI Improved by: O2, Inhaler/neb, Rest, Sitting up Associated symptoms: Cough, Wheezing. No: Fever, Bilateral edema, Unilateral edema Similar symptoms before: Diagnosis (pneumonia) Recently seen: Admitted - Additional information Additional information: 55-year-old female with a history of type 2 diabetes has recently been admitted into the hospital for uncontrolled diabetes with a blood sugar of 710 in July of this year. She took 5 days in the hospital to clear and while she was here in the hospital she developed a pneumonia which was subsequently treated as MRSA. She subsequently has come back to the hospital with a syncopal episode was admitted again and treated for diabetes. This morning she developed acute shortness of breath with wheezing and has come to the ED with wheezing. 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: Other Psych: None Musculoskeletal: None Derm: None - Past Surgical History Past Surgical History: Yes General: Other - Present Medications Home Medications: Ambulatory Orders Medication Instructions Recorded Confirmed Glimepiride [Amaryl] 2 mg PO DAILYWM #30 tablet 07/23/17 09/09/20 Gabapentin 1,200 mg PO BID 10/24/17 09/09/20 Simvastatin 40 mg PO QPM 10/24/17 09/09/20 Gabapentin [Neurontin] 600 mg PO 1200 08/18/20 09/09/20 Pioglitazone HCl [Actos] 30 mg PO DAILY 08/18/20 09/09/20 Ferric Citrate [Auryxia] 210 mg PO DAILY #30 tablet 08/22/20 09/09/20 Losartan [Cozaar] 50 mg PO DAILY #30 tablet 08/22/20 09/09/20 Blood Sugar Diagnostic [Glucometer 1 each QID #200 strip 09/03/20 09/09/20 Strips] Blood-Glucose Meter [Glucometer] 1 each QID #1 each 09/03/20 09/09/20 Insulin Aspart [NovoLOG] 2 - 10 unit SUBQ 09/03/20 09/09/20 0800,1200,1700,2100 #10 Insulin Glargine [Lantus Solostar] 10 unit SUBQ QPM #5 09/03/20 09/09/20 Lancets 1 each QID #200 each 09/03/20 09/09/20 - Allergies Allergies/Adverse Reactions: Allergies Allergy/AdvReac Type Severity Reaction Status Date / Time No Known Drug Allergies Allergy Verified 09/09/20 05:52 - Social History Does the pt smoke?: No Smoking Status: Never smoker Does the pt drink ETOH?: No Does the pt have substance abuse?: No - Immunizations Immunizations are current?: Yes - POLST Patient has POLST: No POLST Status: Full Code PD ED PE NORMAL - Vitals Vital signs reviewed: Yes (Hypertensive marked) - General General: Alert and oriented X 3, Well developed/nourished, Other (Anxious with audible wheeze and respiratory distress.) - HEENT HEENT: Atraumatic, PERRL, EOMI - Neck Neck: Supple, no meningeal sign, No bony TTP, Other (There is jugular venous distention present. 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, No motor deficit, No sensory deficit, Normal speech Eye Opening: Spontaneous Motor: Obeys Commands Verbal: Oriented GCS Score: 15 - Psych Psych: Normal mood, Normal affect Results - Vitals Vitals: Vital Signs - 24 hr 09/09/20 09/09/20 09/09/20 05:35 05:45 05:52 Temperature 37.4 C Heart Rate 88 82 87 Respiratory 16 27 H 28 H Rate Blood Pressure 204/101 H 196/92 H O2 Saturation 96 96 09/09/20 09/09/20 09/09/20 06:13 06:33 07:13 Temperature 35.9 C L 36.5 C Heart Rate 90 88 87 Respiratory 26 H 29 H 28 H Rate Blood Pressure 185/84 H 195/100 H 188/96 H O2 Saturation 97 94 94 09/09/20 09/09/20 09/09/20 07:30 08:00 08:30 Temperature 36.5 C Heart Rate 78 84 80 Respiratory 16 16 16 Rate Blood Pressure 175/86 H 192/94 H 203/91 H O2 Saturation 96 97 96 09/09/20 09/09/20 09/09/20 08:37 09:00 09:30 Temperature 36.8 C Heart Rate 79 81 Respiratory 16 16 Rate Blood Pressure 177/93 H 188/90 H 182/82 H O2 Saturation 97 97 09/09/20 10:00 Temperature 36.8 C Heart Rate 84 Respiratory 16 Rate Blood Pressure 174/114 H O2 Saturation 95 Oxygen O2 Source Room air - Labs Labs: Laboratory Tests 09/09/20 09/09/20 09/09/20 05:42 05:42 05:42 WBC 7.8 RBC 3.66 L Hgb 10.8 L Hct 34.0 L MCV 92.9 MCH 29.5 MCHC 31.8 L RDW 14.5 Plt Count 101 L MPV 12.8 H Neut # (Auto) 4.1 Lymph # (Auto) 2.6 [place] # (Auto) 0.6 Eos # (Auto) 0.5 Baso # (Auto) 0.0 Absolute Nucleated RBC 0.00 Nucleated RBC % 0.0 APTT 31.1 D-Dimer Sodium 140 Potassium 3.8 Chloride 102 Carbon Dioxide 28 Anion Gap 10.0 BUN 13 Creatinine 0.7 Estimated GFR (MDRD) 105 Glucose 276 H Estimat Average Glucose Hemoglobin A1c % Calcium 9.3 Total Bilirubin 0.6 AST 31 ALT 31 Alkaline Phosphatase 100 Troponin I High Sens B-Natriuretic Peptide Total Protein 8.2 Albumin 4.0 Globulin 4.2 Albumin/Globulin Ratio 1.0 Lipase 40 05/13/21 05/13/21 05/13/21 05:42 05:42 05:42 WBC RBC Hgb Hct MCV MCH MCHC RDW Plt Count MPV Neut # (Auto) Lymph # (Auto) [place] # (Auto) Eos # (Auto) Baso # (Auto) Absolute Nucleated RBC Nucleated RBC % APTT D-Dimer < 200.0 L Sodium Potassium Chloride Carbon Dioxide Anion Gap BUN Creatinine Estimated GFR (MDRD) Glucose Estimat Average Glucose Hemoglobin A1c % Calcium Total Bilirubin AST ALT Alkaline Phosphatase Troponin I High Sens 3.6 B-Natriuretic Peptide 99 Total Protein Albumin Globulin Albumin/Globulin Ratio Lipase 09/09/20 05:42 WBC RBC Hgb Hct MCV MCH MCHC RDW Plt Count MPV Neut # (Auto) Lymph # (Auto) [place] # (Auto) Eos # (Auto) Baso # (Auto) Absolute Nucleated RBC Nucleated RBC % APTT D-Dimer Sodium Potassium Chloride Carbon Dioxide Anion Gap BUN Creatinine Estimated GFR (MDRD) Glucose Estimat Average Glucose 278 H Hemoglobin A1c % 11.3 H Calcium Total Bilirubin AST ALT Alkaline Phosphatase Troponin I High Sens B-Natriuretic Peptide Total Protein Albumin Globulin Albumin/Globulin Ratio Lipase - Rads (name of study) Chest x-ray Radiology: Prelim report reviewed (Impression: 1. Right lower lung zone airspace process. Consider pneumonia.), EMP read indepedently, See rad report Procedures - IVC sono (time) 0624 Bedside IVC sono: IVC measures (cm) (2.45), IVC collapsed c insp (cm) (1.88), Collapsibility index (0.23), High CVP 0818 Bedside IVC sono: IVC measures (cm) (1.81) PD MEDICAL DECISION MAKING - ED course Complexity details: reviewed old records, reviewed results, re-evaluated patient, considered differential, d/w patient, d/w family ED course: 55-year-old female who comes into the emergency department with a recent admission for uncontrolled diabetes with a blood sugar over 710 and a subsequent admission for syncope again with elevated blood sugar and dehydration. The patient on her initial admission stayed in the hospital for 5 days and had pneumonia on her exam as well. She was treated for pneumonia and returned to her home had a syncopal episode return to the hospital was admitted for 3 days and has returned. She has not returned to work and she is scheduled to return to work in 3 days. This morning she has developed acute shortness of breath and cough she is unable to lay flat and on presentation to the emergency department she is tachypneic and wheezing. She has mild improvement with use of a DuoNeb treatment chest x-ray shows what appears to be an infiltrate in the right base and the patient appears to be struggling for for air.The patient's care was turned over to me by Dr. Duarte this morning at shift change and on my initial evaluation the patient was in distress and evaluation of the inferior vena cava indicated the patient was in failure. This is directly opposed to what she has had previously with volume collapse. She was administered intravenous Lasix and promptly improved. On reevaluation her IVC has changed from 2.45 cm to 1.81 cm. She is breathing well has diminished rhonchi but continues to have bibasilar rhonchi. Her BNP and troponin were both negative. I am uncertain why the patient developed acute failure (had elevated blood pressure?) but she continues to have pneumonia and admission to observation is sought. Dr. Salas is consulted at 0850 and recommends ambulation and repeat CXR as there does not seem to be anything to admit the patient to the hospital for. Departure - Departure Disposition: ED Place in Observation Clinical Impression: HTN (hypertension) Qualifiers: Hypertension type: essential hypertension Qualified Code(s): I10 - Essential (primary) hypertension Pneumonia Qualifiers: Pneumonia type: due to unspecified organism Laterality: right Lung location: lower lobe of lung Qualified Code(s): J18.9 - Pneumonia, unspecified organism Congestive heart failure Qualifiers: Heart failure type: unspecified Heart failure chronicity: acute Qualified Code(s): I50.9 - Heart failure, unspecified Discharge Date/Time: 09/09/20 10:58
--- NOTE | 2020-09-09 09:11 | XRAY Report ---
PROCEDURE: Chest 1 View X-Ray INDICATIONS: Chest Pain TECHNIQUE: One view of the chest was acquired. COMPARISON: 09/01/2020 chest x-ray FINDINGS: Surgical changes and devices: None. Lungs and pleura: No pleural effusions or pneumothorax. Mild diffuse bilateral perihilar and right g reater than left bibasilar airspace opacities. Mediastinum: Mediastinal contours appear normal. Heart size is normal. Bones and chest wall: No suspicious bony lesions. Overlying soft tissues appear unremarkable. IMPRESSION: Mild atypical pneumonia. Concordant with preliminary interpretation. Reviewed by: Arvin Bonilla MD on 09/09/2020 9:09 AM PDT Approved by: Arvin Bonilla MD on 09/09/2020 9:09 AM PDT Station ID: [id number]
[2020-09-09] MEDS ORDERED: GABAPENTIN 100 MG CAPSULE PO STA (09:22)
[2020-09-09] MEDS ORDERED: cefTRIAXone 1 GM in SODIUM CHLORIDE 0.9% MINIBAG 100 ML IV STA (09:25)
--- NOTE | 2020-09-09 09:27 | XRAY Report ---
PROCEDURE: Chest 1 View X-Ray INDICATIONS: chest pain TECHNIQUE: One view of the chest was acquired. COMPARISON: 09/09/2020 chest rate at 0530 hours. FINDINGS: Surgical changes and devices: None. Lungs and pleura: No pleural effusions or pneumothorax. Decreased, mild bilateral perihilar and righ t greater than left bibasilar opacities. Mediastinum: Mediastinal contours appear normal. Heart size is normal. Bones and chest wall: No suspicious bony lesions. Overlying soft tissues appear unremarkable. IMPRESSION: Resolving bilateral pulmonary opacities, suggestive of resolving edema. Reviewed by: Arvin Bonilla MD on 09/09/2020 9:26 AM PDT Approved by: Arvin Bonilla MD on 09/09/2020 9:26 AM PDT Station ID: [id number]
[2020-09-09] MEDS ORDERED: ACETAMINOPHEN 325 MG TABLET PO PRN (10:11)
[2020-09-09] MEDS ORDERED: ONDANSETRON 4 MG/2 ML VIAL IVP PRN (10:11)
[2020-09-09] MEDS ORDERED: hydrALAZINE INJ 20 MG/ML VIAL IVP PRN (10:16)
--- NOTE | 2020-09-09 10:22 | HISTORY & PHYSICAL EXAMINATION ---
Chief Complaint - Chief Complaint Chief Complaint: dyspnea History of Present Illness - Admitted From Admitted From:: ER - History Obtained From Records Reviewed: [facility] History obtained from: Pt Exam Limitations: no - History of Present Illness HPI Comment/Other: This is a 55-year-old female with a history of uncontrolled Diabetes on metformin, actos and glimiperide, HTN and hyperlipidemia, who present ER complain of dyspnea. pt report she Woke up at 3 am today morning, she felt shortness of breath, with cough and wheezing. pt report she has never smoking. she was not diagnosis of asthma and COPD before. Pt report she did feel better after she was treated with Lasix and Duoneb. pt had two CXR which first show mild atypical pneumonia, second CXR reveals resolving bilateral pulmonary edema, suggestive of resolving edema. In the exam, pt has no cough or wheezing now, she denies chest pain, fever or chill. pt has normal arrange of WBC and pt has no fever. Pt had ECHO done about one month ago which show unremarkable with normal EF and normal right pressure. Lab test show pt has normal arrange WBC, normal arrange of troponin, BNP and D-dimer <200. In ER, patient Is afebrile, but has elevated blood pressure with tachypnea at RR 27 and has 96% on room air. Medical team was consulted for management her dysnpea in observation unit. Discussed the care goal with patient, patient clearly state DNR/DNI. 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 They had DM,HTN, chol, CAD at their deaths. She had 18 siblings. 3 sisters have of cancer; 1 was breast but the other two she doesn't know what kind of cancer. 1 brother of GSW. 1 brother of [place]. Her 3 children are healthy Living Situation: With spouse/s.o. Social History Notes: she was born in [facility] and has lived all over the [facility] bc of work and family. She has been to her 2nd for 17 years. They met at her cousins house one night for dinner on a blind date and have been together even since. Her 3 children live in [facility]. She never smoked, and never really even socially drank since she doesn't like the taste of it. 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 [place] went on and now plan on being in the [facility] [place] - Substance History Use: Uses substance without health or social issues: NONE - POLST Patient has POLST: No POLST Status: Full Code Meds/Allgy - Home Medications Home Medications: Ambulatory Orders Medication Instructions Recorded Confirmed Glimepiride [Amaryl] 2 mg PO DAILYWM #30 tablet 07/23/17 09/09/20 Gabapentin 1,200 mg PO BID 10/24/17 09/09/20 Simvastatin 40 mg PO QPM 10/24/17 09/09/20 Gabapentin [Neurontin] 600 mg PO 1200 08/18/20 09/09/20 Pioglitazone HCl [Actos] 30 mg PO DAILY 08/18/20 09/09/20 Ferric Citrate [Auryxia] 210 mg PO DAILY #30 tablet 08/22/20 09/09/20 Losartan [Cozaar] 50 mg PO DAILY #30 tablet 08/22/20 09/09/20 Blood Sugar Diagnostic [Glucometer 1 each QID #200 strip 09/03/20 09/09/20 Strips] Blood-Glucose Meter [Glucometer] 1 each QID #1 each 09/03/20 09/09/20 Insulin Aspart [NovoLOG] 2 - 10 unit SUBQ 09/03/20 09/09/20 0800,1200,1700,2100 #10 Insulin Glargine [Lantus Solostar] 10 unit SUBQ QPM #5 09/03/20 09/09/20 Lancets 1 each QID #200 each 09/03/20 09/09/20 - Allergies Allergies/Adverse Reactions: Allergies Allergy/AdvReac Type Severity Reaction Status Date / Time No Known Drug Allergies Allergy Verified 05/13/21 05:52 Review of Systems - Constitutional Constitutional: denies: Fever, Chills, Poor appetite, Diaphoresis - Eyes Eyes: denies: Pain, Blurred vision, Field loss, Vision loss - Ears, Nose & Throat Ears, Nose & Throat: denies: Ear pain, Hearing aids, Nosebleeds - Cardiovascular Cariovascular: reports: Exertional dyspnea, Decr. exercise tolerance. denies: Irregular heart rate, Palpitations, Chest pain, Edema, Lightheadedness, Syncope - Respiratory Respiratory: reports: Cough, Wheezing, SOB at rest, SOB with exertion. denies: Sputum production, Snoring, Hemoptysis, Orthopnea - Gastrointestinal Gastrointestinal: denies: Abdominal pain, Constipation, Diarrhea, Rectal bleeding, Black stools, Bloody stools, Nausea, Vomiting - Genitourinary Genitourinary: denies: Dysuria, Urgency, Incontinence - Musculoskeletal Musculoskeletal: denies: Muscle pain, Muscle aches, Limited range of motion - Integumentary Integumentary: denies: Rash, Lesions, Lumps - Neurological Neurological: denies: General weakness, Focal weakness, Headache, Dizziness, Numbness, Pre-existing deficit, Abnormal gait, Seizures, Incoordination, Slurred speech - Psychiatric Psychiatric: denies: Depression, Suicidal, Delusions - Endocrine Endocrine: denies: Polyuria, Polyphagia - Hematologic/Lymphatic Hematologic/Lymphatic: denies: Anemia, Blood clots Prior Level of Functionality: 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, 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 Exam - Vital Signs Vital Signs: Vital Signs x48h Temp Pulse Resp BP Pulse Ox 09/09/20 10:00 36.8 C 84 16 174/114 H 95 09/09/20 09:30 36.8 C 81 16 182/82 H 97 09/09/20 09:00 79 16 188/90 H 97 09/09/20 08:37 177/93 H 09/09/20 08:30 80 16 203/91 H 96 09/09/20 08:00 36.5 C 84 16 192/94 H 97 09/09/20 07:30 78 16 175/86 H 96 09/09/20 07:13 87 28 H 188/96 H 94 09/09/20 06:33 36.5 C 88 29 H 195/100 H 94 09/09/20 06:13 35.9 C L 90 26 H 185/84 H 97 09/09/20 05:52 87 28 H 09/09/20 05:45 82 27 H 196/92 H 96 09/09/20 05:35 37.4 C 88 16 204/101 H 96 - Physical Exam General Appearance: positive: No acute distress, Alert. negative: Lethargic Eyes Bilateral: positive: Normal inspection, PERRL, No lid inflammation ENT: positive: ENT inspection nml, No signs of dehydration. negative: Purulent nasal drainage Neck: positive: Nml inspection, Trachea midline. negative: Thyromegaly, Tracheal deviation Respiratory: positive: Chest non-tender, No respiratory distress. negative: Wheezes, Rales Cardiovascular: positive: Regular rate & rhythm, No murmur. negative: Tachycardia, Bradycardia, Systolic murmur, Diastolic murmur Peripheral Pulses: positive: 2+ Abdomen: positive: Non-tender, Nml bowel sounds, No distention. negative: Tenderness Back: positive: Nml inspection Skin: positive: Color nml, Warm, Dry. negative: Cyanosis Extremities: positive: Non-tender, Full ROM, Nml appearance. negative: Calf tenderness Neurologic/Psychiatric: positive: Oriented x3, Motor nml, Sensation nml, Mood/affect nml. negative: Weakness, Sensory loss, Facial droop, Slurred/abnml speech, Depressed mood/affect Conclusion/Plan - Problem List (1) Dyspnea Conclusion/Plan: Patient present dyspnea with RR 27 at ER. After the patient was given Lasix and DuoNeb, Patient did feel significantly improved from her SOB. D-dimer is less than 200. Repeated chest x-ray show patient had resolving pulmonary edema. BNP is in the normal range. Patient had recent echo which show normal EF and normal right heart pressure.Pt has normal arrange WBC, pt has no fever and did not present pneumonia symptoms. pt's dyspnea is likely caused by pulmonary edema. We will continue intravenous Lasix, continue breath treat with albuterol and Duoneb as needed, and vital and lab monitor (2) Hypertensive emergency Conclusion/Plan: pt's SBP was elevated to over 200 then around 180. pt denies chest pain or headche. will resume her home meds Losartan, add Norvasc, and PRN IV hydralazine. continue vital monitor (3) Uncontrolled diabetes mellitus Conclusion/Plan: pt has hx of uncontrolled and just started to have insulin on last d/c. today pt still has elevated glucose level, will add Lantus to 15 unites and slide scale. (4) HLD (hyperlipidemia) Conclusion/Plan: will resume home Lipitor - Lab Results Fish Bones: 09/09/20 05:42 09/09/20 05:42 Core Measures - Anticipated LOS I expect patient to be DC'd or transferred within 96 hours.: Yes - DVT/VTE - Prophylaxis VTE/DVT Device ordered at admit?: Yes VTE/DVT Prophylaxis med ordered at admit?: Yes
[2020-09-09] MEDS ORDERED: amLODIPine 5 MG TABLET PO SCH (11:00)
[2020-09-09 11:17] LABS: ESTIMATED AVERAGE GLUCOSE 278 mg/dL (70-100); HEMOGLOBIN A1c% 11.3 % (4.27-6.07)
[2020-09-09] MEDS ORDERED: IPRATROPIUM/ALBUTEROL 3 ML NEB INH PRN (11:23)
[2020-09-09] MEDS ORDERED: ALBUTEROL NEB 2.5 MG/3 ML INH PRN (11:23)
[2020-09-09] MEDS: GABAPENTIN 300 MG CAPSULE PO SCH (11:27)
[2020-09-09] MEDS: LOSARTAN 50 MG TABLET PO SCH (11:27)
[2020-09-09] MEDS: GLIMEPIRIDE 2 MG TABLET PO SCH (11:27)
[2020-09-09] MEDS: INSULIN ASPART 300 UNIT/3 ML PEN SUBQ SCH ×3 (11:28→21:21)
[2020-09-09] MEDS ORDERED: INSULIN ASPART 300 UNIT/3 ML PEN SUBQ ONE ×2 (11:37→16:58)
[2020-09-09 11:38] LABS: B. PARAPERTUSSIS- RESP PCR PAN NOT DETECTED; B. PERTUSSIS- RESP PCR PANEL NOT DETECTED; C. PNEUMONIAE- RESP PCR PANEL NOT DETECTED; CORONAVIRUS 229E-RESP PCR NOT DETECTED; CORONAVIRUS HKU1-RESP PCR NOT DETECTED; CORONAVIRUS NL63-RESP PCR NOT DETECTED; CORONAVIRUS OC43-RESP PCR NOT DETECTED; HUMAN METAPNEUMOVIRUS NOT DETECTED; INFLUENZA A- RESP PCR PANEL NOT DETECTED; INFLUENZA B - RESP PCR PANEL NOT DETECTED; M. PNEUMONIAE- RESP PCR PANEL NOT DETECTED; PARAINFLUENZA VIRUS 1 NOT DETECTED; PARAINFLUENZA VIRUS 2 NOT DETECTED; PARAINFLUENZA VIRUS 3 NOT DETECTED; PARAINFLUENZA VIRUS 4 NOT DETECTED; RHINOVIRUS/ENTEROVIRUS NOT DETECTED; RSV- RESP PCR PANEL NOT DETECTED; SARS-CoV-2 -RESP PCR PANEL NOT DETECTED
[2020-09-09] MEDS: amLODIPine 5 MG TABLET PO SCH (11:55)
[2020-09-09] MEDS: SODIUM CHLORIDE FLUSH 0.9% 10 ML SYRINGE IVP SCH (16:52)
[2020-09-09] MEDS: SODIUM CHLORIDE FLUSH 0.9% 10 ML SYRINGE IVP PRN ×2 (19:00→21:33)
[2020-09-09] MEDS: MORPHINE 2 MG/ML CARPUJECT IVP PRN ×2 (19:01→21:32)
[2020-09-09] MEDS ORDERED: INSULIN GLARGINE 300 UNIT/3 ML PEN SUBQ SCH ×3 (21:00)
[2020-09-09] MEDS ORDERED: ATORVASTATIN 10 MG TABLET PO SCH (21:00)
[2020-09-09] MEDS: GABAPENTIN 400 MG CAPSULE PO SCH (21:21)
[2020-09-10 04:58] LABS: BASOPHILS % (AUTO) 0.1 %; HCT - HEMATOCRIT 34.1 % (37.0-47.0); HGB - HEMOGLOBIN 10.9 g/dL (12.0-16.0); LYMPHOCYTES # (AUTO) 1.4 10^3/uL (1.5-3.5); LYMPHOCYTES % (AUTO) 9.2 %; MEAN CORPUSCULAR HEMOGLOBIN 29.3 pg (27.0-31.0); MEAN CORPUSCULAR VOLUME 91.7 fL (81.0-99.0); MEAN PLATELET VOLUME 10.6 fL (7.9-10.8); MONOCYTES # (AUTO) 0.7 10^3/uL (0.0-1.0); NEUTROPHILS # (AUTO) 12.6 10^3/uL (1.5-6.6); NEUTROPHILS % (AUTO) 85.3 %; PLT - PLATELET COUNT 213 10^3/uL (130-450); RED BLOOD COUNT 3.72 10^6/uL (4.20-5.40); RED CELL DISTRIBUTION WIDTH 14.3 % (12.0-15.0); WHITE BLOOD COUNT 14.8 x10^3/uL (4.8-10.8)
[2020-09-10 05:09] LABS: CALCIUM 9.2 mg/dL (8.5-10.3); CREATININE 0.9 mg/dL (0.4-1.0); POTASSIUM 3.7 mmol/L (3.5-5.0)
[2020-09-10] MEDS: SODIUM CHLORIDE FLUSH 0.9% 10 ML SYRINGE IVP SCH ×2 (05:13→10:16)
--- NOTE | 2020-09-10 07:22 | PHARMACY PROGRESS NOTE ---
- Best Possible Medication History Admit Date and Time: 09/09/20 1011 Processed by: Pharmacy Medication History completed: Yes Secondary Source(s): Previous admit records As the person ultimately responsible for medication therapy, providers are able to order a medication from an existing home medication list in [facility] via the "Reconcile Routine" prior to Confirmation of that medication by practice support specialist. Such practice is discouraged except when the physician, in their clinical judgment, deems that a medical need exists for a medication without regard to previous use.
[2020-09-10] MEDS ORDERED: INSULIN GLARGINE 300 UNIT/3 ML PEN SUBQ SCH (08:00)
[2020-09-10] MEDS ORDERED: INSULIN ASPART 300 UNIT/3 ML PEN SUBQ ONE ×2 (08:10→11:56)
[2020-09-10 08:40] LABS: BILIRUBIN,URINE NEGATIVE (NEGATIVE); GLUCOSE, URINE (UA) >=1000 mg/dL (NEGATIVE); KETONES,URINE (UA) NEGATIVE (NEGATIVE); LEUKOCYTE ESTERASE, URINE NEGATIVE (NEGATIVE); NITRITE,URINE NEGATIVE (NEGATIVE); OCCULT BLOOD,URINE NEGATIVE (NEGATIVE); PROTEIN,URINE NEGATIVE (NEGATIVE); UROBILINOGEN,URINE 0.2 (NORMAL) E.U./dL (NORMAL)
[2020-09-10 08:45] LABS: CLARITY,URINE CLEAR (CLEAR)
[2020-09-10 08:48] LABS: RBC,URINE 0-5 /HPF (0-5); WBC,URINE 0-3 /HPF (0-5)
[2020-09-10 08:49] LABS: BACTERIA,URINE Rare /HPF (None Seen); SQUAMOUS EPITHELIAL CELL,UR RARE Squamous (<= Few)
[2020-09-10] MEDS ORDERED: ENOXAPARIN 40 MG/0.4 ML SYRINGE SUBQ SCH (09:00)
[2020-09-10] MEDS ORDERED: Ferric Citrate [Auryxia] 210 MG Tablet PO SCH (09:00)
[2020-09-10] MEDS ORDERED: ethyl alcohoL 62% SWAB AMPULE NAS SCH (09:00)
[2020-09-10] MEDS ORDERED: FUROSEMIDE 20 MG/2 ML VIAL IVP SCH (09:00)
[2020-09-10] MEDS ORDERED: PIOGLITAZONE 15 MG TABLET PO SCH (09:00)
[2020-09-10] MEDS: GABAPENTIN 400 MG CAPSULE PO SCH (10:07)
[2020-09-10] MEDS: LOSARTAN 50 MG TABLET PO SCH (10:09)
[2020-09-10] MEDS: GLIMEPIRIDE 2 MG TABLET PO SCH (10:09)
[2020-09-10] MEDS: amLODIPine 5 MG TABLET PO SCH (10:09)
[2020-09-10] MEDS: INSULIN ASPART 300 UNIT/3 ML PEN SUBQ SCH ×4 (10:12→12:10)
--- NOTE | 2020-09-10 10:19 | CT Report ---
PROCEDURE: HEAD WO INDICATIONS: Headache TECHNIQUE: Noncontrast 4.5 mm thick angled axial sections acquired from the foramen magnum to the vertex. For r adiation dose reduction, the following was used: automated exposure control, adjustment of mA and/or kV according to patient size. COMPARISON: 09/01/2020. FINDINGS: Image quality: Excellent. CSF spaces: Basal cisterns are patent. No extra-axial fluid collections. Ventricles are normal in size and shape. Brain: No midline shift. No intracranial masses or hemorrhage. Tello-white matter interface is norm al. Skull and face: Calvarium and visualized facial bones are intact, without suspicious lesions. Sinuses: Visualized sinuses and mastoids are clear. IMPRESSION: No acute intracranial abnormality. Reviewed by: Efe Craig MD on 09/10/2020 10:18 AM PDT Approved by: Efe Craig MD on 09/10/2020 10:18 AM PDT Station ID: [id number]
[2020-09-10] MEDS: SODIUM CHLORIDE FLUSH 0.9% 10 ML SYRINGE IVP PRN (10:26)
[2020-09-10] MEDS: MORPHINE 2 MG/ML CARPUJECT IVP PRN (10:26)
[2020-09-10] MEDS: GABAPENTIN 300 MG CAPSULE PO SCH (12:11)
--- NOTE | 2020-09-10 17:32 | Discharge Plan ---
Discharge Plan Problem Reviewed?: Yes Disposition: Home, Self Care Condition: Stable Prescriptions: Losartan [Cozaar] 100 mg PO DAILY #60 tablet Diet: Diabetic Activity Restrictions: Activity as Tolerated Shower Restrictions: No (fall precaution) Instruction Topics: Losartan tablets Health Concerns: shortness of breath Plan of Treatment: Your shortness of breath is resolved. You may set up a PCP to continue management of your HTN and diabetes. Your home Losartan dosage increased to 100mg daily. Care Goals: stabilization and improvement of your medical conditions Assessment: discussed the care plan with you, you understood and agreed Additional Instructions or Follow Up instructions: You may followup with your PCP in one to two weeks. Should your symptom return or worsen, you may present ER or call 911 for help Follow-Up Care: Outpatient Rehab - PT, Outpatient Rehab - OT No Smoking: If you smoke, Please STOP! Call for help. Follow-up with: Kobe Navarro MD [Primary Care Provider] -
--- NOTE | 2020-09-10 17:41 | DISCHARGE SUMMARY ---
Discharge Summary Admit Date: 09/09/20 Discharge Date: 09/10/20 Discharging Provider: Sam Bateman Primary Care Provider: Saad Toure Condition at Discharge: Stable Discharge Disposition: 01 Home, Self Care Discharge Facility Name: home - DIAGNOSES Discharge Diagnoses with Status of Each Condition: (1) Dyspnea resolved. pt has no more shortness of breath. pt had 96-97% sats on room air. pt has no respiratory distress. CXR reveal pulmonary edema is resolving. pt had unremarkable ECHO done about 08/20/20. (2) Hypertensive emergency resolved. pt's home Losartan dosage increased to 100mg daily. pt may followup with her PCP management of her HTN (3) Uncontrolled diabetes mellitus improved. A1C is 11.3 from 12.1 one week ago. pt may followup with PCP continue management of diabetes. (4) HLD (hyperlipidemia) stable, resume home Lipitor (5)hyperglycemia-induced by steroid pt had elevated glucose level, likely caused by steroid given at ER. after treatment, her glucose level is controlled. resume home diabetes meds regimen. - HPI History of Present Illness: This is a 55-year-old female with a history of uncontrolled Diabetes on metformin, actos and glimiperide, HTN and hyperlipidemia, who present ER complain of dyspnea. pt report she Woke up at 3 am today morning, she felt shortness of breath, with cough and wheezing. pt report she has never smoking. she was not diagnosis of asthma and COPD before. Pt report she did feel better after she was treated with Lasix and Duoneb. pt had two CXR which first show mild atypical pneumonia, second CXR reveals resolving bilateral pulmonary edema, suggestive of resolving edema. In the exam, pt has no cough or wheezing now, she denies chest pain, fever or chill. pt has normal arrange of WBC and pt has no fever. Pt had ECHO done about one month ago which show unremarkable with normal EF and normal right pressure. Lab test show pt has normal arrange WBC, normal arrange of troponin, BNP and D-dimer <200. In ER, patient Is afebrile, but has elevated blood pressure with tachypnea at RR 27 and has 96% on room air. Medical team was consulted for management her dysnpea in observation unit. Discussed the care goal with patient, patient clearly state DNR/DNI. - HOSPITAL COURSE Hospital Course: pt was admitted for shortness of breath. pt was given IV lasix in ER and in observation. CXR revealed resolving pulmonary edema. pt has no more shortness of breath after treatment. Pt had 97% sats on room air. - ALLERGIES Allergies/Adverse Reactions: Allergies Allergy/AdvReac Type Severity Reaction Status Date / Time No Known Drug Allergies Allergy Verified 09/09/20 05:52 - MEDICATIONS Home Medications: Ambulatory Orders Medication Instructions Recorded Confirmed Glimepiride [Amaryl] 2 mg PO DAILYWM #30 tablet 07/23/17 09/09/20 Gabapentin 1,200 mg PO BID 10/24/17 09/09/20 Simvastatin 40 mg PO QPM 10/24/17 09/09/20 Gabapentin [Neurontin] 600 mg PO 1200 08/18/20 09/09/20 Pioglitazone HCl [Actos] 30 mg PO DAILY 08/18/20 09/09/20 Ferric Citrate [Auryxia] 210 mg PO DAILY #30 tablet 08/22/20 09/09/20 Blood Sugar Diagnostic [Glucometer 1 each QID #200 strip 09/03/20 09/09/20 Strips] Blood-Glucose Meter [Glucometer] 1 each QID #1 each 09/03/20 09/09/20 Insulin Aspart [NovoLOG] 2 - 10 unit SUBQ 09/03/20 09/09/20 0800,1200,1700,2100 #10 Insulin Glargine [Lantus Solostar] 10 unit SUBQ QPM #5 09/03/20 09/09/20 Lancets 1 each QID #200 each 09/03/20 09/09/20 Losartan [Cozaar] 100 mg PO DAILY #60 tablet 09/10/20 - PHYSICAL EXAM AT DISCHARGE General Appearance: positive: No acute distress, Alert. negative: Lethargic Eyes Bilateral: positive: Normal inspection, PERRL, No lid inflammation ENT: positive: ENT inspection nml, No signs of dehydration. negative: Dry mucous membranes Neck: positive: Nml inspection, Trachea midline. negative: Thyromegaly, Tracheal deviation Respiratory: positive: Chest non-tender, No respiratory distress. negative: Wheezes, Rales, Rhonchi Cardiovascular: positive: Regular rate & rhythm, No murmur. negative: Tachycardia, Bradycardia, Systolic murmur, Diastolic murmur Peripheral Pulses: positive: 2+ Abdomen: positive: Non-tender, Nml bowel sounds, No distention. negative: Tenderness Back: positive: Nml inspection Skin: positive: Color nml, Warm, Dry. negative: Cyanosis Extremities: positive: Non-tender, Full ROM, Nml appearance. negative: Calf tenderness Neurologic/Psychiatric: positive: Oriented x3, Motor nml, Sensation nml, Mood/affect nml. negative: Weakness, Sensory loss, Facial droop, Slurred/abnml speech, Depressed mood/affect - LABS Result Diagrams: 09/10/20 04:35 09/10/20 04:35 - FOLLOW UP Follow Up: Your shortness of breath is resolved. You may set up a PCP to continue management of your HTN and diabetes. Your home Losartan dosage increased to 100mg daily. You may followup with your PCP in one to two weeks. Should your symptom return or worsen, you may present ER or call 911 for help - TIME SPENT Time Spent in Discharge (Minutes): 30
[2020-09-10 18:23] VITALS: BP 112/60
== END 2020-09-10 19:00 | disposition home or self-care (01) ==
LOC: ED 05:28 → MS2 10:11
PROVIDERS: ADMIT Nurse Practitioner Gerontology; ATTEND Nurse Practitioner Gerontology
DX: J81.1 Chronic pulmonary edema (principal); I16.1 Hypertensive emergency; E11.65 Type 2 diabetes mellitus with hyperglycemia; T38.0X5A Adverse effect of glucocorticoids and synthetic analogues, initial encounter; Z79.4 Long term (current) use of insulin; E78.5 Hyperlipidemia, unspecified; Z66 Do not resuscitate; Z87.01 Personal history of pneumonia (recurrent); I10 Essential (primary) hypertension; Z20.822 Contact with and (suspected) exposure to COVID-19
CPT/HCPCS: 0202U; 36415; 70450; 71045; 80048; 80053; 81001; 83036; 83690; 83880; 84484; 85025; 85379; 85730; 87640; 93005; 94640; 96365; 96372; 96375; 96376; 97161; 99285; A9270; G0378; J1650; J1815; J8499; 87086

== ENCOUNTER 2020-09-26 04:51 | Inpatient (IN) | payer OTHER ==
--- OUTSIDE RECORDS SUMMARY | 2020-09-26 04:54 | EXTERNAL MEDICAL SUMMARY RPT | Continuity of Care Document ---
:1965 Demographics Phone Unavailable Preferred Language Unknown Marital Status Unknown Religion Affiliation Unknown Race Unknown Ethnic Group Unknown Author Organization [facility] Address [address] [phone] Phone Allergies Encounters Medications Problems Results
--- OUTSIDE RECORDS SUMMARY | 2020-09-26 04:58 | EXTERNAL MEDICAL SUMMARY RPT | Continuity of Care Document ---
:1965 Demographics Phone Unavailable Preferred Language Unknown Marital Status Unknown Mosque Affiliation Unknown Race Unknown Ethnic Group Unknown Author Organization [facility] Address [address] [phone] Phone Allergies Encounters Medications Problems Results
--- NOTE | 2020-09-26 05:10 | ED Physician Documentation ---
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 says she was well all day yesterday, although he also says patient has had varying degree of shortness of breath since being admitted to [facility] last month for pneumonia; she has had two previous [facility] ED visits this month, as well, and was admitted on those two visits (thus three admissions over past 5 weeks). says prior to last month's admission, she did not have any pulmonary problems nor diagnoses. Patient provides limited contribution to HPI/ROS due to respiratory distress Review of Systems Unable to obtain: Other (limited due to respiratory distress) Constitutional: denies: Fever Cardiac: reports: Pedal edema. denies: Chest pain / pressure, Palpitations Respiratory: reports: Dyspnea, Cough. 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: Other - Present Medications Home Medications: Ambulatory Orders Medication Instructions Recorded Confirmed Glimepiride [Amaryl] 2 mg PO DAILYWM #30 tablet 07/23/17 09/26/20 Gabapentin 1,200 mg PO BID 10/24/17 09/26/20 Simvastatin 40 mg PO QPM 10/24/17 09/26/20 Gabapentin [Neurontin] 600 mg PO 1200 08/18/20 09/26/20 Pioglitazone HCl [Actos] 30 mg PO DAILY 08/18/20 09/26/20 Ferric Citrate [Auryxia] 210 mg PO DAILY #30 tablet 08/22/20 09/26/20 Blood Sugar Diagnostic [Glucometer 1 each QID #200 strip 09/03/20 09/26/20 Strips] Blood-Glucose Meter [Glucometer] 1 each QID #1 each 09/03/20 09/26/20 Insulin Aspart [NovoLOG] 2 - 10 unit SUBQ 09/03/20 09/26/20 0800,1200,1700,2100 #10 Insulin Glargine [Lantus Solostar] 10 unit SUBQ QPM #5 09/03/20 09/26/20 Lancets 1 each QID #200 each 09/03/20 09/26/20 Losartan [Cozaar] 100 mg PO DAILY #60 tablet 09/10/20 09/26/20 - Allergies Allergies/Adverse Reactions: Allergies Allergy/AdvReac Type Severity Reaction Status Date / Time No Known Drug Allergies Allergy Verified 09/09/20 05:52 - Social History Does the pt smoke?: No Smoking Status: Never smoker Does the pt drink ETOH?: No Does the pt have substance abuse?: No - Immunizations Immunizations are current?: Yes - POLST Patient has POLST: No POLST Status: Full Code PD ED PE NORMAL - Vitals Vital signs reviewed: Yes - General General: Well developed/nourished - HEENT HEENT: Moist mucous membranes - Neck Neck: Supple, no meningeal sign, No JVD - Cardiac Cardiac: RRR, No murmur - Abdomen Abdomen: Soft, Non tender - Derm Derm: Normal color, Warm and dry PD ED PE EXPANDED - Respiratory Respiratory: Distress (moderate respiratory distress, answers some ROS/HPI questions with nod/shake of head; tachypneic), Rales (bilateral, 1/2 up from bases), Decreased breath sounds - Extremities Extremities: Pedal edema bilateral (1+ bilateral pitting) Results - Vitals Vitals: Vital Signs - 24 hr 09/26/20 09/26/20 09/26/20 04:55 05:21 05:34 Temperature 36.4 C L Heart Rate 100 92 95 Respiratory 32 H 26 H 18 Rate Blood Pressure 210/103 H 195/105 H 194/100 H O2 Saturation 96 98 15 L 09/26/20 09/26/20 09/26/20 06:05 06:09 06:11 Temperature Heart Rate 85 87 84 Respiratory 22 26 H Rate Blood Pressure 152/79 H O2 Saturation 99 09/26/20 09/26/20 09/26/20 06:26 06:47 06:51 Temperature 36.4 C L Heart Rate 80 82 82 Respiratory 17 92 H 45 H Rate Blood Pressure 117/87 H 150/81 H O2 Saturation 99 100 09/26/20 07:05 Temperature Heart Rate 80 Respiratory Rate Blood Pressure O2 Saturation Oxygen O2 Source BIPAP Oxygen Flow Rate 3 - EKG (time done) No standard instances Rate: Rate (enter#) (85) Rhythm: NSR [place]: Normal Intervals: Normal [place] QRS: Normal Ischemia: Normal ST segments - Labs Labs: Laboratory Tests 09/26/20 09/26/20 09/26/20 05:09 05:29 05:29 WBC 9.0 RBC 3.62 L Hgb 10.9 L Hct 34.6 L MCV 95.6 MCH 30.1 MCHC 31.5 L RDW 15.2 H Plt Count 279 MPV 10.1 Neut # (Auto) 5.9 Lymph # (Auto) 2.0 Lewis # (Auto) 0.6 Eos # (Auto) 0.4 Baso # (Auto) 0.1 Absolute Nucleated RBC 0.02 Nucleated RBC % 0.2 Sodium 139 Potassium 3.6 Chloride 101 Carbon Dioxide 28 Anion Gap 10.0 BUN 15 Creatinine 0.7 Estimated GFR (MDRD) 105 Glucose 211 H POC Whole Bld Glucose 208 H Lactic Acid Calcium 9.3 Total Bilirubin 0.8 AST 29 ALT 37 Alkaline Phosphatase 88 Troponin I High Sens B-Natriuretic Peptide Total Protein 7.8 Albumin 3.5 Globulin 4.3 H Albumin/Globulin Ratio 0.8 L Lipase 21 L Nasal Adenovirus (PCR) Nasal B. parapertussis DNA (PCR) Nasal Coronavir 229E PCR Nasal Coronavir HKU1 PCR Nasal Coronavir NL63 PCR Nasal Coronavir OC43 PCR Nasal Enterovir/Rhinovir PCR Nasal Influenza B PCR Nasal Influenza A PCR Nasal Parainfluen 1 PCR Nasal Parainfluen 2 PCR Nasal Parainfluen 3 PCR Nasal Parainfluen 4 PCR Nasal RSV (PCR) Nasal B.pertussis DNA PCR Nasal C.pneumoniae (PCR) Adriano Human Metapneumo PCR Nasal M.pneumoniae (PCR) Nasal SARS-CoV-2 (PCR) 09/26/20 09/26/20 09/26/20 05:29 05:29 06:17 WBC RBC Hgb Hct MCV MCH MCHC RDW Plt Count MPV Neut # (Auto) Lymph # (Auto) Lewis # (Auto) Eos # (Auto) Baso # (Auto) Absolute Nucleated RBC Nucleated RBC % Sodium Potassium Chloride Carbon Dioxide Anion Gap BUN Creatinine Estimated GFR (MDRD) Glucose POC Whole Bld Glucose Lactic Acid Calcium Total Bilirubin AST ALT Alkaline Phosphatase Troponin I High Sens 6.3 B-Natriuretic Peptide 128 H Total Protein Albumin Globulin Albumin/Globulin Ratio Lipase Nasal Adenovirus (PCR) NOT DETECTED Nasal B. parapertussis DNA (PCR) NOT DETECTED Nasal Coronavir 229E PCR NOT DETECTED Nasal Coronavir HKU1 PCR NOT DETECTED Nasal Coronavir NL63 PCR NOT DETECTED Nasal Coronavir OC43 PCR NOT DETECTED Nasal Enterovir/Rhinovir PCR NOT DETECTED Nasal Influenza B PCR NOT DETECTED Nasal Influenza A PCR NOT DETECTED Nasal Parainfluen 1 PCR NOT DETECTED Nasal Parainfluen 2 PCR NOT DETECTED Nasal Parainfluen 3 PCR NOT DETECTED Nasal Parainfluen 4 PCR NOT DETECTED Nasal RSV (PCR) NOT DETECTED Nasal B.pertussis DNA PCR NOT DETECTED Nasal C.pneumoniae (PCR) NOT DETECTED Adriano Human Metapneumo PCR NOT DETECTED Nasal M.pneumoniae (PCR) NOT DETECTED Nasal SARS-CoV-2 (PCR) NOT DETECTED 09/26/20 06:18 WBC RBC Hgb Hct MCV MCH MCHC RDW Plt Count MPV Neut # (Auto) Lymph # (Auto) Lewis # (Auto) Eos # (Auto) Baso # (Auto) Absolute Nucleated RBC Nucleated RBC % Sodium Potassium Chloride Carbon Dioxide Anion Gap BUN Creatinine Estimated GFR (MDRD) Glucose POC Whole Bld Glucose Lactic Acid 1.6 Calcium Total Bilirubin AST ALT Alkaline Phosphatase Troponin I High Sens B-Natriuretic Peptide Total Protein Albumin Globulin Albumin/Globulin Ratio Lipase Nasal Adenovirus (PCR) Nasal B. parapertussis DNA (PCR) Nasal Coronavir 229E PCR Nasal Coronavir HKU1 PCR Nasal Coronavir NL63 PCR Nasal Coronavir OC43 PCR Nasal Enterovir/Rhinovir PCR Nasal Influenza B PCR Nasal Influenza A PCR Nasal Parainfluen 1 PCR Nasal Parainfluen 2 PCR Nasal Parainfluen 3 PCR Nasal Parainfluen 4 PCR Nasal RSV (PCR) Nasal B.pertussis DNA PCR Nasal C.pneumoniae (PCR) Adriano Human Metapneumo PCR Nasal M.pneumoniae (PCR) Nasal SARS-CoV-2 (PCR) - Rads (name of study) cxr Radiology: Prelim report reviewed, See rad report PD MEDICAL DECISION MAKING - ED course Complexity details: reviewed old records, reviewed results, re-evaluated patient, considered differential, d/w patient, d/w family ED course: patient presents with obvious respiratory distress, tachypneic with decreased breath sounds bilaterally and rales jail up from both bases. She has had three [facility] admissions over past 5 weeks for respiratory problems including pneumonia. She had an echo last month with EF 65-70%. Patient's says he is unaware of any h/o asthma or COPD. She shows gradual improvement after duoneb and then albuterol neb, IV lasix, and bipap. d/w Dr. Salas, will admit to [facility]. CXR interpreted by radiologist as multilobar pneumonia. Given patient's recent hospital stay, will cover with IV vancomycin and cefepime. Departure - Departure Disposition: 66 [facility] DC/Xfer Clinical Impression: Pneumonia Qualifiers: Pneumonia type: due to unspecified organism Laterality: bilateral Lung location: unspecified part of lung Qualified Code(s): J18.9 - Pneumonia, unspecified organism Condition: Stable
[2020-09-26] MEDS ORDERED: IPRATROPIUM/ALBUTEROL 3 ML NEB INH STA (05:19)
[2020-09-26 05:34] LABS: BASOPHILS # (AUTO) 0.1 10^3/uL (0.0-0.1); BASOPHILS % (AUTO) 0.6 %; EOSINOPHILS # (AUTO) 0.4 10^3/uL (0.0-0.7); EOSINOPHILS % (AUTO) 4.1 %; HCT - HEMATOCRIT 34.6 % (37.0-47.0); HGB - HEMOGLOBIN 10.9 g/dL (12.0-16.0); LYMPHOCYTES % (AUTO) 22.5 %; MEAN CORPUSCULAR HEMOGLOBIN 30.1 pg (27.0-31.0); MEAN CORPUSCULAR HGB CONC 31.5 g/dL (32.0-36.0); MEAN CORPUSCULAR VOLUME 95.6 fL (81.0-99.0); MEAN PLATELET VOLUME 10.1 fL (7.9-10.8); MONOCYTES # (AUTO) 0.6 10^3/uL (0.0-1.0); MONOCYTES % (AUTO) 6.7 %; NEUTROPHILS # (AUTO) 5.9 10^3/uL (1.5-6.6); NRBC ABSOLUTE COUNT (AUTO) 0.02 x10^3/uL; NUCLEATED RED BLOOD CELLS AUTO 0.2 /100WBC; PLT - PLATELET COUNT 279 10^3/uL (130-450); RED BLOOD COUNT 3.62 10^6/uL (4.20-5.40); RED CELL DISTRIBUTION WIDTH 15.2 % (12.0-15.0)
[2020-09-26] MEDS ORDERED: FUROSEMIDE 40 MG/4 ML VIAL IVP STA (05:46)
[2020-09-26] MEDS ORDERED: ALBUTEROL NEB 2.5 MG/3 ML INH STA (05:46)
[2020-09-26 05:48] LABS: ALBUMIN 3.5 g/dL (3.2-5.5); ALBUMIN/GLOBULIN RATIO 0.8 (1.0-2.2); BILIRUBIN,TOTAL 0.8 mg/dL (0.2-1.0); CALCIUM 9.3 mg/dL (8.5-10.3); CREATININE 0.7 mg/dL (0.4-1.0); POTASSIUM 3.6 mmol/L (3.5-5.0); TOTAL PROTEIN 7.8 g/dL (6.7-8.2)
[2020-09-26] MEDS ORDERED: VANCOMYCIN INJ 1 GM in SODIUM CHLORIDE 0.9% 500 ML IV STA (07:14)
[2020-09-26] MEDS ORDERED: CEFEPIME 1 GM in SODIUM CHLORIDE 0.9% MINIBAG 100 ML IV STA (07:15)
[2020-09-26 07:16] LABS: B. PARAPERTUSSIS- RESP PCR PAN NOT DETECTED; B. PERTUSSIS- RESP PCR PANEL NOT DETECTED; C. PNEUMONIAE- RESP PCR PANEL NOT DETECTED; CORONAVIRUS 229E-RESP PCR NOT DETECTED; CORONAVIRUS HKU1-RESP PCR NOT DETECTED; CORONAVIRUS NL63-RESP PCR NOT DETECTED; CORONAVIRUS OC43-RESP PCR NOT DETECTED; HUMAN METAPNEUMOVIRUS NOT DETECTED; INFLUENZA A- RESP PCR PANEL NOT DETECTED; INFLUENZA B - RESP PCR PANEL NOT DETECTED; M. PNEUMONIAE- RESP PCR PANEL NOT DETECTED; PARAINFLUENZA VIRUS 1 NOT DETECTED; PARAINFLUENZA VIRUS 2 NOT DETECTED; PARAINFLUENZA VIRUS 3 NOT DETECTED; PARAINFLUENZA VIRUS 4 NOT DETECTED; RHINOVIRUS/ENTEROVIRUS NOT DETECTED; RSV- RESP PCR PANEL NOT DETECTED; SARS-CoV-2 -RESP PCR PANEL NOT DETECTED
[2020-09-26] MEDS ORDERED: CEFEPIME 2 GM in SODIUM CHLORIDE 0.9% MINIBAG 100 ML IV STA (07:19)
[2020-09-26] MEDS ORDERED: ACETAMINOPHEN 325 MG TABLET PO PRN (07:23)
[2020-09-26] MEDS ORDERED: SODIUM CHLORIDE FLUSH 0.9% 10 ML SYRINGE IVP PRN (07:23)
[2020-09-26] MEDS ORDERED: VANCOMYCIN INJ 2 GM in SODIUM CHLORIDE 0.9% 500 ML IV STA (07:25)
[2020-09-26] MEDS ORDERED: IOVERSOL 320 100 ML VIAL IVP ONE (07:46)
--- OUTSIDE RECORDS SUMMARY | 2020-09-26 07:58 | EXTERNAL MEDICAL SUMMARY RPT | Continuity of Care Document ---
:1965 Demographics Phone Unavailable Preferred Language Unknown Marital Status Unknown Restoration Affiliation Unknown Race Unknown Ethnic Group Unknown Author Organization [facility] Address [address] [phone] Phone Allergies Encounters Medications Problems Results
--- NOTE | 2020-09-26 08:07 | XRAY Report ---
PROCEDURE: Chest 1 View X-Ray INDICATIONS: dyspnea TECHNIQUE: One view of the chest was acquired. COMPARISON: 09/09/2020, 08/19/2020, 08/18/2020 FINDINGS: Surgical changes and devices: None. Lungs and pleura: Abnormal interstitial prominence is seen. Trace blunting of the costophrenic angle s can be seen. No pneumothorax is seen. Mediastinum: Mediastinal contours appear normal. Heart size is normal. Bones and chest wall: No suspicious bony lesions. Overlying soft tissues appear unremarkable. IMPRESSION: Interstitial prominence is seen. 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 Likely small bilateral pleural effusions. Note: No significant discrepancy from the preliminary report. Reviewed by: Amrit Mott MD on 09/26/2020 7:06 AM JANET Approved by: Amrit Mott MD on 09/26/2020 7:06 AM JANET Station ID: [id number]
--- NOTE | 2020-09-26 08:54 | CT Report ---
PROCEDURE: CHEST WO INDICATIONS: WORSENING BILATERAL INFILTRATES ON CXR TECHNIQUE: Noncontrast 5 mm thick sections acquired from the pulmonary apices to the posterior costophrenic angl es. 7 mm thick coronal and sagittal MIP reformats were then acquired. For radiation dose reduction, the following was used: automated exposure control, adjustment of mA and/or kV according to patient size. COMPARISON: Chest radiograph, 09/26/2020. Prior chest CT, 07/22/2017. FINDINGS: Image quality: Excellent. Lungs and pleura: Small bilateral pleural effusions are seen, right larger than left. Consolidated kamilla ng can be seen at the lung bases, including air bronchograms. Patchy infiltrates are seen, right wors e than left and primarily inferiorly. Mild groundglass type opacities are also seen. No pneumothorax is seen. Mediastinum: Heart size is normal. No pericardial effusion. No mediastinal adenopathy by size crit eria. Thoracic aorta and central pulmonary arteries are normal in size. Esophagus is normal in cinda maria c. No hiatal hernia. Bones and chest wall: No suspicious bony lesions. No vertebral body compression fractures. There i s accentuated thoracic kyphosis. No axillary or supraclavicular adenopathy by size criteria. The t hyroid is normal in size and there are no incidental findings. Abdomen: Visualized upper abdominal solid organs and bowel loops appear normal in the absence of con trast. IMPRESSION: Consolidated infiltrates at the lung bases, including air bronchograms. Milder, patchy infiltrates as well as groundglass opacities can be seen elsewhere. Infection is suspected. A history of MRSA pneum onia is given. Small bilateral pleural effusions are seen, right larger than left. Reviewed by: Amrit Mott MD on 09/26/2020 7:52 AM JANET Approved by: Amrit Mott MD on 09/26/2020 7:52 AM AKPAMELA Station ID: [id number]
[2020-09-26] MEDS: ENOXAPARIN 40 MG/0.4 ML SYRINGE SUBQ SCH (11:11)
[2020-09-26] MEDS: SODIUM CHLORIDE FLUSH 0.9% 10 ML SYRINGE IVP SCH ×2 (11:11→18:53)
--- NOTE | 2020-09-26 11:49 | PHARMACY PROGRESS NOTE ---
- Best Possible Medication History Admit Date and Time: 09/26/20 0723 Processed by: Nursing Medication History completed: Yes Patient Interview: Completed Secondary Source(s): Pharmacy records, Insurance records, Previous admit records As the person ultimately responsible for medication therapy, providers are able to order a medication from an existing home medication list in [facility] via the "Reconcile Routine" prior to Confirmation of that medication by server support technician. Such practice is discouraged except when the physician, in their clinical judgment, deems that a medical need exists for a medication without regard to previous use.
[2020-09-26] MEDS ORDERED: GABAPENTIN 300 MG CAPSULE PO SCH ×2 (12:00→21:00)
--- NOTE | 2020-09-26 12:49 | HISTORY & PHYSICAL EXAMINATION ---
Chief Complaint - Chief Complaint Chief Complaint: acute sob History of Present Illness - Admitted From Admitted From:: Home via EMS - History Obtained From Records Reviewed: [facility] History obtained from: patient and sign out from Dr. 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 This is her fourth admission since August 18. In July she was admitted as a community-acquired pneumonia and presented as already being vaccinated, and was not feeling well. In the emergency room she was hypotensive, required fluid resuscitation, responded to that and and evaluation she had a chest x-ray with "pneumonia". With that admission, her white cell count was normal. And with all subsequent admissions her white cell count continues to be normal except for September 10 when she was 14.8. She does have chest x-rays dating to 2018 in our EMR. As such a chest x-ray with her first admission August 18 was compared to September 2017 chest x-ray and there is no evidence of acute pulmonary process. When she developed a fever, a repeat chest x-ray was done and she was found to have a new right upper lobe and right p erihilar infiltrate. As such she was treated as pneumonia with azithromycin and Rocephin. She had a fever over multiple days. Blood cultures were negative. Echocardiogram done during that stay showed to have an ejection fraction of 60 to 65% with a normal RVSP and only minimal tricuspid regurgitation. LA was 39 mm/m2 and just at the cut off indicating diastolic heart failure (40 mm). Her BP was 130s to 140s systolic. Diastolic, however, was up to 109. During her stay she developed orthostatic dizziness and almost collapsed walking in her room to the bathroom. As such she was given a liter of fluid, blood pressure medications were held, but they were resumed at discharge.Blood pressure at discharge was 138/83. She was discharged to complete antibiotic therapy With Augmentin. She saw her primary care provider in follow-up. He cleared her to go back to work. She let them know that she was still really dizzy and did not feel well. He felt that she was stable, and scheduled her for routine follow-up as well as routine preventative exam follow-up such as a colonoscopy. Return to the emergency room September 01 complaining of dizziness worse with standing. At one point she was dizzy enough she went to the urgent care clinic. While there she passed out and EMS was called to bring her to ER. She was found to have uncontrolled diabetes, orthostatic hypotension. Blood pressure was 178/85. However with checking orthostatic vital signs her supine blood pressure was 148/82 with a pulse of 74. Sitting blood pressure was 138/73 with a heart rate of 80. Standing blood pressure was 109/57 with a heart rate of 89. She responded to IV fluids and stopping some of her blood pressure medications. And she was sent home. Blood pressure at discharge was 130/73. Chest x-ray with M ay 5 evaluation showed her to have no pleural effusions or pneumothorax and her lungs were clear. She then returned September 09 acutely short of breath, with wheezing. In the emergency room her inferior vena cava was engorged. DuoNeb resulted in minimal improvement in her symptoms. Because of the inferior vena cava engorgement she was given Lasix and had almost immediate response and felt immensely better. Blood pressure when she presented was 204/101. However BNP and troponins were negative and did not coorelated with this diagnosis of pulmonary edema. Chest x-ray showed resolving opacities. Bilateral. There were perihilar with right greater than left. This was suggestive of resolving edema. Orthostatic blood pressure was done during that stay and she was not orthostatic. Blood pressure at discharge was 112/60. She now returns to us on September 26. She states that she has been feeling good enough to go back to work. She was actually scheduled to return to work today. But for the last week she has been having increasing leg edema. Her thighs were starting to feel exceedingly heavy especially yesterday. When she would lay down at night, she would feel short of breath and start to wheeze so she have to sit up for a while until she felt better and then fall back asleep. She denies fever, chills. Cough is daily and is not productive. The cough will get worse the more work she does. Since she is not working, she has become very detail oriented about cleaning her house. So she has been cleaning her windows, dusting all the furniture, picking up furniture and mopping the floors, cleaning out her closets. She has been able to do all of that and the cough accompanies that work. When she sits down and eats dinner or is watching TV the cough goes away. She does not describe it as dyspnea on exertion. She lives in her own home. No pets. No birds. Not exposed to farm life. She began having severe shortness of breath that woke her up from her sleep approximately 30 minutes prior to admission in the fund controller hours. She had been well all day yesterday, and she has had varying degrees of shortness of breath since she had been admitted for pneumonia. was the historian because she was in severe respiratory distress. Because she is a [facility] patient, she actually tried calling the [facility] nurse before coming in. The [facility] nurse was alarmed because the patient could not even speak normally with her shortness of breath. And she instructed the patient to come to the emergency room. Blood pressure on her presentation was 210/103 with a respiratory rate of 32. 3 L mask resulted in a 96% O2 sat. Chest x-ray shows interstitial prominence that is abnormal. Trace blunting of the costophrenic angles. Small bilateral pleural effusions. The radiologist states that "a history of MRSA pneumonia is given and the appearance is consistent with such".The emergency room provider gave her albuterol, Lasix 40 mg IV push, DuoNeb, albuterol. She has felt substantially better. We transferred to the ICU thinking she was going to need BiPAP but she is now on just nasal cannula, 2 L. Blood pressure is still significantly elevated at 202- 207 systolic. 88-102 diastolic. Because the chest x-ray showed questionable pneumonia, we did a CT of the chest. The ER physician gave her cefepime and vancomycin. CT of the chest has consolidated infiltrates at the lung bases including air bronchograms. Milder patchy infiltrates as well as groundglass opacities are seen elsewhere. Infection is suspected. A history of MRSA pneumonia is given. History - Past Medical History Cardiovascular: reports: Hypertension, High cholesterol, Other Respiratory: reports: Pneumonia, Shortness of breath Neuro: reports: Peripheral neuropathy Endocrine/Autoimmune: reports: Type 2 diabetes (For only 4 years. She went from oral hypoglycemics to insulin in the last visit. 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 PID s/p surgery) : reports: None HEENT: reports: Other (cataracts, lasik) Psych: reports: None Musculoskeletal: reports: None Derm: reports: None MRSA Hx?: Yes - Family & Social History Family History: Mother: , Father: Family History Comment/Other: Dad and Mom both in their late 60's. They had DM,HTN, chol, CAD at their deaths. She had 19 siblings. 3 sisters have of cancer; 1 was breast but the other two she doesn't know what kind of cancer. 1 brother of GSW. 1 brother of MD. All of her siblings except 2 have DM. Her 3 children are healthy Living arrangement: At home Living Situation: With spouse/s.o. Social History Notes: she was [place] in [facility] and has lived all over the [facility] bc of work and family. She has been to her 2nd for 19 years with anniversary in next month. They met at her cousins house one night for dinner on a blind date and have been together even since. Her 3 children live in [facility] [place]. She never smoked, and never really even socially drank since she doesn't like the taste of it. 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 [place] moving [place] as time went on and her fell in love with [place] MARY. The only way she would stay is if he bought her a house, and he did. So they live in [place]. She laughs and says it's "still too cold here!". Non smoker and no hx of alcohol abuse or any recreational substance abuse. Today was to be her first day back at work. - Substance History Use: Uses substance without health or social issues: NONE Abuse: Recurrent use of substance despite neg consequences: NONE Dependence: Experiences withdrawal or developed tolerances: NONE - POLST Patient has POLST: No POLST Status: DNR Meds/Allgy - Home Medications Home Medications: Ambulatory Orders Medication Instructions Recorded Confirmed Glimepiride [Amaryl] 2 mg PO DAILYWM #30 tablet 07/23/17 09/26/20 Gabapentin 1,200 mg PO BID 10/24/17 09/26/20 Simvastatin 40 mg PO QPM 10/24/17 09/26/20 Gabapentin [Neurontin] 600 mg PO 1200 08/18/20 09/26/20 Pioglitazone HCl [Actos] 30 mg PO DAILY 08/18/20 09/26/20 Ferric Citrate [Auryxia] 210 mg PO DAILY #30 tablet 08/22/20 09/26/20 Blood Sugar Diagnostic [Glucometer 1 each QID #200 strip 09/03/20 09/26/20 Strips] Blood-Glucose Meter [Glucometer] 1 each QID #1 each 09/03/20 09/26/20 Insulin Aspart [NovoLOG] 2 - 10 unit SUBQ 09/03/20 09/26/20 0800,1200,1700,2100 #10 Insulin Glargine [Lantus Solostar] 10 unit SUBQ QPM #5 09/03/20 09/26/20 Lancets 1 each QID #200 each 09/03/20 09/26/20 Losartan [Cozaar] 100 mg PO DAILY #60 tablet 09/10/20 09/26/20 - Allergies Allergies/Adverse Reactions: Allergies Allergy/AdvReac Type Severity Reaction Status Date / Time No Known Drug Allergies Allergy Verified 09/09/20 05:52 Review of Systems - Constitutional Constitutional: reports: Poor appetite (ate yesterday am but just doesn't want to eat much). denies: Fatigue, Fever, Chills, Malaise, Weakness, Diaphoresis, Night sweats - Eyes Eyes: reports: Blurred vision (left eye from cataract), Vision loss (with age). denies: Pain, Irritation, Spots in vision, Field loss - Ears, Nose & Throat Ears, Nose & Throat: denies: Ear pain, Hearing loss, Hearing aids, Nasal obstruction, Nasal congestion, Postnasal drainage, Sore throat, Hoarseness - Cardiovascular Cariovascular: reports: Edema, Syncope, Exertional dyspnea, Decr. exercise tolerance, Orthopnea. denies: Irregular heart rate, Palpitations, Chest pain - Respiratory Respiratory: reports: Cough, Wheezing, Orthopnea, SOB with exertion. denies: Sputum production, Snoring, Hemoptysis, SOB at rest - Gastrointestinal Gastrointestinal: reports: Abdominal pain (just now. severe cramping w BM). denies: Abdominal distention, Constipation, Diarrhea, Black stools, Bloody stools, Nausea, Vomiting, Coffee grounds emesis, Reflux/heartburn - Genitourinary Genitourinary: denies: Dysuria, Frequency, Urgency, Hematuria, Incontinence, Flank pain - Musculoskeletal Musculoskeletal: reports: Back pain (mild and occasional), Joint pain (left hip sometimes when she stands on her feet at work or works at home). denies: Muscle pain, Muscle aches, Stiffness, Limited range of motion, Joint swelling - Integumentary Integumentary: denies: Rash, Lesions, Dryness, Lumps - Neurological Neurological: reports: Numbness (both legs). denies: General weakness, Focal weakness, Headache, Dizziness, Memory problems, Pre-existing deficit, Seizures - Psychiatric Psychiatric: denies: Depression, Anxiety, Suicidal, Hallucinations - Endocrine Endocrine: denies: Polyuria, Polydypsia, Polyphagia - Hematologic/Lymphatic Hematologic/Lymphatic: denies: Anemia, Bruising, Petechiae, Blood clots Prior Level of Functionality: Completely independent with activities of daily living. She just cleaned her house from top to bottom including windows, rugs, furniture over the last 2 days. Drives a car. Works full-time and plan to going to work today until this happened. Exam - Vital Signs Reviewed Vital Signs: Yes Vital Signs: Vital Signs x48h Temp Pulse Pulse Resp BP BP Pulse Ox 09/26/20 12:00 86 23 206/98 H 96 09/26/20 11:00 36.6 C 82 24 207/102 H 95 09/26/20 10:00 94 22 202/104 H 95 09/26/20 09:00 87 24 203/88 H 97 09/26/20 07:05 80 09/26/20 06:51 82 45 H 150/81 H 100 09/26/20 06:47 36.4 C L 82 92 H 117/87 H 99 09/26/20 06:26 80 17 09/26/20 06:11 84 26 H 152/79 H 99 09/26/20 06:09 87 22 09/26/20 06:05 85 09/26/20 05:34 95 18 194/100 H 15 L 09/26/20 05:21 92 26 H 195/105 H 98 09/26/20 04:55 36.4 C L 100 32 H 210/103 H 96 - Physical Exam General Appearance: positive: No acute distress, Alert, Other (She is already received Lasix and antibiotics, and is on facemask and only down to nasal cannul a. Breathing comfortably. Urine output at this moment is 2600 cc. So far she is -1940 cc overall.) Eyes Bilateral: positive: PERRL, EOMI ENT: positive: No signs of dehydration Neck: positive: No JVD. negative: Stiff neck Respiratory: positive: No respiratory distress, Rales. negative: Wheezes, Rhonchi Cardiovascular: positive: Regular rate & rhythm. negative: Systolic murmur, Gallop/S4, Friction rub Peripheral Pulses: positive: 1+ Abdomen: positive: Non-tender, No organomegaly, Nml bowel sounds, No distention Skin: positive: Warm, Dry Extremities: positive: Non-tender, Pedal edema Neurologic/Psychiatric: positive: Oriented x3, CN's nml (2-12), Motor nml Conclusion/Plan - Problem List (1) Pneumonia Conclusion/Plan: Female has not been hospitalized 4 times in the last 4 to 5 weeks. I do not think this is a simple community-acquired pneumonia. However I do think she may be developing pneumonia in response to heart failure with preserved ejection fraction causing atelectasis or edema that then leads to pneumonia. She does not have an elevated WBC or fever now. However the CT of the chest that I ordered does show bilateral consolidation, on top of pulmonary edema and groundglass opacities. Plan: She has been treated with cefepime and vancomycin in the ER with the assumption that she has a recurrent pneumonia and would be at risk for staph, Pseudomonas. I believe that in the past, the thought process was that because she had MRSA swab positive, we should worry about MRSA pneumonia. So far there is been no clinical indication for this with this admission. Sputum cultures will definitely help us. And as such I will obtain sputum cultures. Continue cefepime and vancomycin until cultures come back. I am leaning toward stopping her abx depending on her response to lowering her blood pressure. Qualifiers: Pneumonia type: due to unspecified organism Laterality: bilateral Lung location: unspecified part of lung Qualified Code(s): J18.9 - Pneumonia, unspecified organism (2) Acute heart failure with preserved ejection fraction Conclusion/Plan: Literature states that a black female over 50, with uncontrolled hypertension, is at high risk for this. Her echocardiogram from July shows a borderline enlarged left atrium. She would be meeting the cutoff criteria at 40 mm, and she is only 39. Clinically, I think she fits the scenario. Plan: Aggressive blood pressure control Add hydralazine and if this does not work, can consider IV drip medications Resume her usual losartan Diuretics She is already shown to us that her blood pressure is very sensitive to our treatment. She will get orthostatic hypotension. (3) Diabetes mellitus type 2, uncontrolled, with complications Conclusion/Plan: Complications include peripheral neuropathy. She presented as uncontrolled diabetes with her last 2 admissions. But she states that her fasting glucose is between 70 and 200 in the morning. Her lunch glucose is always low in the 70s and 90s. That has been for the last 2 weeks. In the outpatient setting she is on Actos which be contraindicated in congestive heart failure. Sulfonylurea in the form of Amaryl. Lantus and short acting insulin were prescribed September 03.As a [facility] patient, this patient is only allowed NPH unless they have changed their formulary. So she has been paying for medication that is outside the [facility] formulary. Plan: Lantus with sliding scale insulin for right now. I will verify the formulary coverage for Lemus and switch her to NPH if that is what their formulary covers. No Actos Check A1c (4) Uncontrolled hypertension Conclusion/Plan: On her losartan. I have resumed that. Start hydralazine 10 mg IV push 3 times daily as needed high blood pressure. If she does not respond to the hydralazine, consider this a hypertensive urgency and start IV drip. (5) Anemia Conclusion/Plan: Iron level on August 19 was 8. It had risen to 39, normal, by August 30. TIBC was 303 22. Percent saturation was 3 and 12. Transferrin 214 and 230. Ferritin 154 and 127. B12 normal at 408. Qualifiers: Anemia type: iron deficiency (6) Peripheral neuropathy Conclusion/Plan: Due to diabetes mellitus. Patient takes gabapentin high doses. 1200 mg twice daily with 600 mg at lunch. She really wants us to make sure that we order that for her and that will be done. Qualifiers: Peripheral neuropathy type: polyneuropathy associated with underlying disease Qualified Code(s): G63 - Polyneuropathy in diseases classified elsewhere - Lab Results Lab results reviewed: Yes Fish Bones: 09/26/20 05:29 09/26/20 05:29 - Diagnostic Imaging Results Diagnostic Imaging Results: positive: Final report reviewed - EKG Results EKG Interpreted Independently: No EKG Comparison: Unchanged from prior EKG Core Measures - Anticipated LOS I expect patient to be DC'd or transferred within 96 hours.: Yes - DVT/VTE - Prophylaxis VTE/DVT Device ordered at admit?: Yes
[2020-09-26] MEDS: LOSARTAN 50 MG TABLET PO SCH (13:08)
[2020-09-26] MEDS: GABAPENTIN 300 MG CAPSULE PO SCH (13:09)
[2020-09-26] MEDS: hydrALAZINE INJ 20 MG/ML VIAL IVP SCH ×2 (14:41→22:22)
--- NOTE | 2020-09-26 15:33 | ADVANCE CARE PLANNING NOTE ---
Advance Care Planning - Planning Encounter Date: 09/26/20 Time: 15:00 Purpose: confirm code status Parties in Attendance: Hospitalist, SUPERVISOR PILE DRIVING, Patient Decisional Capacity of the Patient: An alert oriented female who was still completely independent in her life, makes her own decisions, still works full-time. - Diagnosis for Encounter (1) Do not resuscitate Summary: Patient wants to make sure we document this. She says that even of her counterman's this, we are not to let him do so - Encounter Subjective/Patient's Story: She is a krissy 55-year-old female who [place] living [place] the [place] about 4 years. 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 Traveling all over the country from the [facility] and gradually made her way to the [facility] a little over 4 years ago. Her follow- up with that here, and they were spending more more time here. He is her second . She says "do not even get me started on my first ". Apparently there was adultery, and he ended up marrying her best friend. She has 3 children with her first . All of them are grown, either graduating college or in full-time jobs. They are all stable and happy and she is a very proud mom and a very proud grandmom. She met her second when she was w orking a nursing job at a [facility]. Her is a [employer] flavor tank tender and they were spending more more time together with community health issues. He eventually asked her to him. While she is always had high blood pressure, the diabetes she has is a relatively new diagnosis. Even before she was a diabetic she had already developed peripheral neuropathy. Insulin was started in the last 4 months. She regards her self as independent, feisty, opinionated, with a lot of energy. The last month has been a little bit daunting on how much is affected her health. She has been in the hospital now for times since August 18. She has a chronic cough, intermittent leg edema, intermittent orthopnea. She just wants all of this to be controlled and taken care of. She is exasperated with the medical system. She is in the midst of changing primary care providers to get stable opinion in stable care. Without all that being said, she wants us to make sure that everyone knows that she is a DO NOT RESUSCITATE. 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 And even if you do survive, the 10% that is alive is not really alive and what she considers a "good way". So she never wants to be resuscitated. She warns me that her may contraband that, and if she is unconscious he will be her power of transactional attorney, but under no circumstances to do what he says. Objective/Medical Story: An absolutely krissy 55-year-old black female who we are admitting for the fourth time. August 18 she was admitted for probable mild preserved ejection heart failure which subsequently was complicated by community-acquired pneumonia during her stay. Second admission was for syncope and orthostatic dizziness requiring fluid resuscitation. Change in her medication. Third admission was September 09 for acute shortness of breath in the face of severely elevated blood pressure that responded nicely to Lasix. Chest x-ray showed resolving pulmonary infiltrates from August 18 admission. She is now admitted today with acute heart failure superimposed on chronic orthopnea, cough, leg edema for the last week or so. Her blood pressure is severely elevated with systolic over 200s and diastolic over 100s. She does not have a fever or white cell count. CT was done of the chest, and she has bilateral consolidations at the bases, groundglass opacities, interstitial edema. I am thinking that she has chronic preserved ejection fraction heart failure and atelectasis and edema has resulted in a subsequent pneumonia. Goals of Care: 1. To get through this acute episode of care and go back home so she can get back to work. She would like me to do a letter of return to work in the next 1 to 2 weeks. 2. She is a black female over the age of 50 with diabetes and hypertension. She is at high risk for this stiff heart and preserved ejection fraction heart failure. Echocardiogram shows a left atrium of 39 mm where the cut off identifying her risk would be more at 40 mm. But she has all the risk factors. I have asked her to please make sure that she gets referred to a barrel bander that specializes in exquisite blood pressure control. She is already demonstrated that if we overtreat her she gets orthostatic with syncope. But if we back off on her blood pressure she gets hypertensive urgency. Plan: DO NOT RESUSCITATE. POLST form will be filled out. Code Status: Do Not Attempt Resuscitation Time spent on advance care plannin minutes
[2020-09-26] MEDS: INSULIN ASPART 300 UNIT/3 ML PEN SUBQ SCH ×3 (17:28→21:43)
[2020-09-26] MEDS ORDERED: VANCOMYCIN INJ 1.5 GM in SODIUM CHLORIDE 0.9% 500 ML IV SCH (21:00)
[2020-09-26] MEDS: ATORVASTATIN 10 MG TABLET PO SCH (21:31)
[2020-09-26] MEDS: ethyl alcohoL 62% SWAB AMPULE NAS SCH (21:31)
[2020-09-26] MEDS: GABAPENTIN 400 MG CAPSULE PO SCH (21:31)
[2020-09-26] MEDS: INSULIN GLARGINE 300 UNIT/3 ML PEN SUBQ SCH (21:43)
[2020-09-26] MEDS ORDERED: oxyCODONE 5 MG TABLET PO PRN (21:51)
[2020-09-26] MEDS: CEFEPIME 2 GM in SODIUM CHLORIDE 0.9% MINIBAG 100 ML IV SCH (22:28)
[2020-09-27] MEDS: SODIUM CHLORIDE FLUSH 0.9% 10 ML SYRINGE IVP SCH ×3 (01:24→15:53)
[2020-09-27 04:49] LABS: BASOPHILS % (AUTO) 0.2 %; EOSINOPHILS # (AUTO) 0.2 10^3/uL (0.0-0.7); EOSINOPHILS % (AUTO) 1.9 %; HCT - HEMATOCRIT 32.9 % (37.0-47.0); HGB - HEMOGLOBIN 10.1 g/dL (12.0-16.0); LYMPHOCYTES % (AUTO) 10.6 %; MEAN CORPUSCULAR HEMOGLOBIN 29.3 pg (27.0-31.0); MEAN CORPUSCULAR HGB CONC 30.7 g/dL (32.0-36.0); MEAN CORPUSCULAR VOLUME 95.4 fL (81.0-99.0); MEAN PLATELET VOLUME 10.6 fL (7.9-10.8); MONOCYTES # (AUTO) 0.4 10^3/uL (0.0-1.0); MONOCYTES % (AUTO) 4.8 %; NEUTROPHILS # (AUTO) 7.5 10^3/uL (1.5-6.6); NEUTROPHILS % (AUTO) 82.1 %; PLT - PLATELET COUNT 255 10^3/uL (130-450); RED BLOOD COUNT 3.45 10^6/uL (4.20-5.40); RED CELL DISTRIBUTION WIDTH 15.6 % (12.0-15.0); WHITE BLOOD COUNT 9.2 x10^3/uL (4.8-10.8)
[2020-09-27 05:04] LABS: CALCIUM 8.8 mg/dL (8.5-10.3); CREATININE 0.8 mg/dL (0.4-1.0); MAGNESIUM 1.8 mg/dL (1.7-2.8); PHOSPHORUS 3.8 mg/dL (2.5-4.6); POTASSIUM 3.4 mmol/L (3.5-5.0)
[2020-09-27] MEDS: hydrALAZINE INJ 20 MG/ML VIAL IVP SCH ×3 (05:06→22:33)
[2020-09-27] MEDS: CEFEPIME 2 GM in SODIUM CHLORIDE 0.9% MINIBAG 100 ML IV SCH ×3 (05:13→22:57)
[2020-09-27] MEDS ORDERED: POTASSIUM CHLORIDE 20 MEQ TABLET PO ONE (05:42)
[2020-09-27] MEDS: ONDANSETRON 4 MG/2 ML VIAL IVP PRN ×2 (08:37→15:52)
[2020-09-27] MEDS: INSULIN ASPART 300 UNIT/3 ML PEN SUBQ SCH ×7 (08:52→20:35)
[2020-09-27] MEDS: ENOXAPARIN 40 MG/0.4 ML SYRINGE SUBQ SCH (08:57)
[2020-09-27] MEDS: VANCOMYCIN INJ 1 GM, VANCOMYCIN INJ 250 MG in SODIUM CHLORIDE 0.9% 250 ML IV SCH ×2 (08:57→21:10)
[2020-09-27] MEDS: ethyl alcohoL 62% SWAB AMPULE NAS SCH ×2 (08:57→20:39)
[2020-09-27] MEDS: GABAPENTIN 400 MG CAPSULE PO SCH ×2 (09:32→20:38)
[2020-09-27] MEDS: MORPHINE 2 MG/ML CARPUJECT IVP PRN ×2 (12:24→16:21)
[2020-09-27] MEDS: GABAPENTIN 300 MG CAPSULE PO SCH (12:24)
[2020-09-27] MEDS: LOSARTAN 50 MG TABLET PO SCH (12:24)
[2020-09-27] MEDS: GLIMEPIRIDE 2 MG TABLET PO SCH (12:27)
[2020-09-27 13:15] LABS: ESTIMATED AVERAGE GLUCOSE 237 mg/dL (70-100); HEMOGLOBIN A1c% 9.9 % (4.27-6.07)
--- NOTE | 2020-09-27 15:58 | PROVIDER PROGRESS NOTE ---
Progress Note September 27, 2020 3:40 PM She is miserable. We had her blood pressure under control last night, she is on antibiotics for pneumonia, and this morning she had emesis of her breakfast. From that point on she is just been miserable with nausea, profound fatigue, and a terrible headache. Headache is global, a 7 out of a 10. Is been nonstop. It does not affect vision, speech, strength. But she just wants the lights out and to sleep. She did tolerate a little bit of lunch. Yesterday her glucose is 123, 131, 288. Today glucose has been 249, 255, and 226. She threw up her Amaryl so did not get that. She is getting 5 units 3 times daily with meals but it was not given at lunch because she was not eating. She is also getting Lantus 10 units in the evening. Blood pressure is in the 150s to 160s systolic. Just now when I woke her up her blood pressure was 128/77. She denies chest pain, shortness of breath. Medications are Tylenol as needed, nose and, Lipitor, cefepime, vancomycin, Lovenox subcu for DVT, Neurontin 3 times a day, Amaryl daily, hydralazine 10 3 times daily with parameters, Lantus, subcu insulin before meals as well as sliding scale, losartan 100, morphine IV as needed, Zofran, oxycodone as needed. She received 1 dose of potassium this morning for a potassium level of 3.4. Temperature is 37.5. Heart rates 91. Blood pressure 128/77. Respirations 15. 95% on 1 L. On room air she is 86%. Fatigued appearing lethargic black female who is still oriented to person place and time. Neck is supple Lungs are with fine crackles at the bases, overall diminished breath sounds. But no acute respiratory distress, no use of accessory muscles. Regular rate and rhythm. She has been consistently tachycardic yesterday and today. By this afternoon she is now 91. Abdomen is soft, nontender, last BM was yesterday and she is having flatus. Extremities have minimal, trace edema. Yesterday she had 1-2+ edema. Assessment/plan 1. Pneumonia 2. Acute heart failure with preserved ejection fraction 3. Type 2 diabetes mellitus, uncontrolled, with complications of peripheral neuropathy 4. Uncontrolled hypertension resolved. Controlled now. 5. Anemia stable. Previous history of iron deficiency anemia. 6. Headache. She is on day 2 of antibiotics. So far blood culture is negative after 1 day. White cell count remains normal. She still hypoxic but that would be more due to the heart failure than the pneumonia. I would think about stopping antibiotics tomorrow if she continues to have no fever or elevated white cell count. Blood pressure is now controlled. With 1 dose of Lasix yesterday her urine output was 4625 cc. Today her output without Lasix is 1575 cc. If she goes home with diuretic therapy, she may need something as low as 20 mg every other day. I still strongly recommend that she be seen by cardiology in the outpatient setting for a review of her echo, hypertension, and control. For her diabetes I will increase her Lantus to 14 units at night. I would like her glucose to be in the mid 100 range. We stopped giving her her fixed dose of insulin with meals since she did not eat lunch. She is still on sliding scale. Headache is her most current complaint. She is absolutely miserable with it. She has had Tylenol, but she is declining morphine at this time. She does not want to take oxycodone because she did take it this morning and it just caused her to vomit. Continue to monitor and offer pain medication relief.
[2020-09-27] MEDS: METOCLOPRAMIDE 10 MG/2 ML VIAL IVP PRN (18:31)
[2020-09-27] MEDS: ALBUTEROL NEB 2.5 MG/3 ML INH PRN (18:32)
[2020-09-27] MEDS ORDERED: FUROSEMIDE 20 MG/2 ML VIAL IVP STA (18:37)
[2020-09-27] MEDS ORDERED: NITROGLYCERIN 2% PASTE TOP ONE (18:38)
[2020-09-27] MEDS: INSULIN GLARGINE 300 UNIT/3 ML PEN SUBQ SCH (20:36)
[2020-09-27] MEDS: ATORVASTATIN 10 MG TABLET PO SCH (21:10)
[2020-09-27] MEDS ORDERED: SODIUM CHLORIDE 0.9% 250 ML IV ONE (23:03)
[2020-09-28 04:40] LABS: BASOPHILS % (AUTO) 0.4 %; EOSINOPHILS # (AUTO) 0.5 10^3/uL (0.0-0.7); HCT - HEMATOCRIT 33.3 % (37.0-47.0); HGB - HEMOGLOBIN 10.2 g/dL (12.0-16.0); LYMPHOCYTES # (AUTO) 2.2 10^3/uL (1.5-3.5); MEAN CORPUSCULAR HEMOGLOBIN 28.9 pg (27.0-31.0); MEAN CORPUSCULAR HGB CONC 30.6 g/dL (32.0-36.0); MEAN CORPUSCULAR VOLUME 94.3 fL (81.0-99.0); MEAN PLATELET VOLUME 9.6 fL (7.9-10.8); MONOCYTES # (AUTO) 0.7 10^3/uL (0.0-1.0); NEUTROPHILS # (AUTO) 4.7 10^3/uL (1.5-6.6); NEUTROPHILS % (AUTO) 57.4 %; PLT - PLATELET COUNT 254 10^3/uL (130-450); RED BLOOD COUNT 3.53 10^6/uL (4.20-5.40); RED CELL DISTRIBUTION WIDTH 15.5 % (12.0-15.0); WHITE BLOOD COUNT 8.2 x10^3/uL (4.8-10.8)
[2020-09-28 04:53] LABS: CALCIUM 9.1 mg/dL (8.5-10.3); CREATININE 0.7 mg/dL (0.4-1.0); PHOSPHORUS 3.9 mg/dL (2.5-4.6); POTASSIUM 3.3 mmol/L (3.5-5.0)
[2020-09-28] MEDS: CEFEPIME 2 GM in SODIUM CHLORIDE 0.9% MINIBAG 100 ML IV SCH (06:45)
[2020-09-28] MEDS: SODIUM CHLORIDE FLUSH 0.9% 10 ML SYRINGE IVP SCH ×3 (06:46→15:19)
[2020-09-28] MEDS: hydrALAZINE INJ 20 MG/ML VIAL IVP SCH ×3 (07:42→22:00)
[2020-09-28] MEDS: METOCLOPRAMIDE 10 MG/2 ML VIAL IVP PRN (08:11)
[2020-09-28] MEDS: INSULIN ASPART 300 UNIT/3 ML PEN SUBQ SCH ×7 (08:14→21:24)
[2020-09-28] MEDS: GABAPENTIN 400 MG CAPSULE PO SCH ×2 (08:15→20:57)
[2020-09-28] MEDS: LOSARTAN 50 MG TABLET PO SCH (08:15)
[2020-09-28] MEDS: ethyl alcohoL 62% SWAB AMPULE NAS SCH ×2 (08:16→20:57)
[2020-09-28] MEDS ORDERED: POTASSIUM CHLORIDE 20 MEQ TABLET PO ONE (08:19)
[2020-09-28] MEDS: ALBUTEROL NEB 2.5 MG/3 ML INH PRN ×2 (08:31→14:33)
[2020-09-28] MEDS ORDERED: FUROSEMIDE 20 MG/2 ML VIAL IVP STA ×2 (08:35→16:20)
--- NOTE | 2020-09-28 08:40 | PROVIDER PROGRESS NOTE ---
Assessment/Plan - Problem List (1) Pneumonia Qualifiers: Pneumonia type: due to unspecified organism Laterality: bilateral Lung location: unspecified part of lung Qualified Code(s): J18.9 - Pneumonia, unspecified organism Assessment/Plan: Patient has been afebrile for the past 2 days and white blood cell count has been normal. Blood cultures are no growth to date. Consequently vancomycin and cefepime been discontinued. Suspect patient's hypoxia is likely due to fluid with CHF. Patient was given Lasix 20 mg IV x1. We will continue to monitor. (2) Acute heart failure with preserved ejection fraction Assessment/Plan: Patient had a 2D echocardiogram done on 08/20/2020 which showed an ejection fraction of 60 to 65%. She still has some mild crackles on auscultation. Lasix 20mg IV X1 ordered Pt advised to discontinue actos upon discharge She is to follow up with cardiology outpatient (3) Diabetes mellitus type 2, uncontrolled, with complications Assessment/Plan: On Lantus 10 units every afternoon. Low dose sliding scale insulin. Glimepiride 2 mg p.o. daily with meals. Patient's hemoglobin A1c on 08/19/20 was 12.1. Today it is 9.9. We will continue current regimen. She was on Metformin which was discontinued during her last visit due to unexplained lactic acidosis. (4) Uncontrolled hypertension Assessment/Plan: On losartan 100 mg p.o. daily. Hydralazine 10 mg IV 3 times daily. Patient given Lasix 20 mg IV x1 today. (5) Anemia Qualifiers: Anemia type: iron deficiency Assessment/Plan: Stable. Hemoglobin has been around 10 throughout this hospital stay. (6) Headache Assessment/Plan: Improved. Pain management with Tylenol, oxycodone and all morphine as needed - Current Meds Current Meds: Current Medications Generic Name Dose Route Start Last Admin Trade Name Freq PRN Reason Stop Dose Admin Acetaminophen 650 mg 09/26/20 07:23 09/26/20 18:58 Acetaminophen 325 Mg Tablet PO 650 mg Q4HR PRN Administration Pain 1 to 4 Albuterol 2.5 mg 09/27/20 18:26 09/28/20 08:31 Albuterol Neb 2.5 Mg/3 Ml INH 2.5 mg RTQ4H PRN Administration Wheezing Alcohol 1 amp 09/26/20 21:00 09/28/20 08:16 Ethyl Alcohol 62% Swab Ampule ELIJAH 1 amp BID [facility] Administration Atorvastatin Calcium 20 mg 09/26/20 21:00 09/27/20 21:10 Atorvastatin 10 Mg Tablet PO 20 mg QPM [facility] Administration Enoxaparin Sodium 40 mg 09/26/20 09:00 09/27/20 08:57 Enoxaparin 40 Mg/0.4 Ml Syringe SUBQ 40 mg DAILY COLT Administration Gabapentin 1,200 mg 09/26/20 21:00 09/28/20 08:15 Gabapentin 400 Mg Capsule PO 1,200 mg BID COLT Administration Gabapentin 600 mg 09/26/20 12:00 09/27/20 12:24 Gabapentin 300 Mg Capsule PO 600 mg 1200 [facility] Administration Glimepiride 2 mg 09/27/20 08:00 09/27/20 12:27 Glimepiride 2 Mg Tablet PO 2 mg DAILYWM [facility] Administration Hydralazine HCl 10 mg 09/26/20 14:00 09/28/20 07:42 Hydralazine Inj 20 Mg/Ml Vial IVP Not Given TID [facility] Vancomycin HCl 1 gm/ 250 mls @ 166.667 mls/hr 09/27/20 09:00 09/27/20 22:55 Vancomycin HCl 250 mg/ Sodium IV Infused Chloride Q12H [facility] Infusion Insulin Aspart 5 unit 09/26/20 17:00 09/28/20 08:15 Insulin Aspart 300 Unit/3 Ml Pen SUBQ Not Given TIDWM [facility] Protocol Insulin Aspart 1 - 5 unit 09/26/20 17:00 09/28/20 08:14 Insulin Aspart 300 Unit/3 Ml Pen SUBQ Not Given 0800,1200,1700,2100 [facility] Protocol Insulin Glargine 10 unit 09/26/20 21:00 09/27/20 20:36 Insulin Glargine 300 Unit/3 Ml Pen SUBQ 300 unit QPM [facility] Administration Losartan Potassium 100 mg 09/26/20 12:00 09/28/20 08:15 Losartan 50 Mg Tablet PO 100 mg DAILY [facility] Administration Metoclopramide HCl 5 mg 09/27/20 17:56 09/28/20 08:11 Metoclopramide 10 Mg/2 Ml Vial IVP 5 mg Q6HR PRN Administration Nausea / Vomiting Morphine Sulfate 1 mg 09/26/20 21:51 09/27/20 16:21 Morphine 2 Mg/Ml Carpuject IVP 1 mg Q4HR PRN Administration PAIN Ondansetron HCl 4 mg 09/26/20 07:23 09/27/20 15:52 Ondansetron 4 Mg/2 Ml Vial IVP 4 mg Q6HR PRN Administration Nausea / Vomiting Oxycodone HCl 5 mg 09/26/20 21:51 09/26/20 22:20 Oxycodone 5 Mg Tablet PO 5 mg Q4HR PRN Administration PAIN Sodium Chloride 10 ml 09/26/20 09:00 09/28/20 08:16 Sodium Chloride Flush 0.9% 10 Ml Syringe IVP 10 ml 0100,0900,1700 COLT Administration - Lab Result Fish Bone Diagrams: 09/28/20 04:35 09/28/20 04:35 - Additional Planning My Orders: My Active Orders 09/28/20 08:35 FUROSEMIDE INJ 20mg VIAL [LASIX INJ 20mg VIAL] 20 mg IVP ONCE STA Subjective - Subjective Patient Reports: Other (Patient was resting comfortably in bed. She reported significant improvement in her headache. She rated the pain 1 out of 10 scale. She has mild crackles but no conversational dyspnea, no lower extremity edema or JVD. Off supplemental oxygen her oxygen saturation drop to the 80's) Objective Vital Signs: Vital Signs - 24 hr 09/27/20 09/27/20 09/27/20 09:00 10:00 11:00 Temperature Heart Rate Heart Rate [ 107 H 100 96 Monitoring electrodes] Respiratory 20 15 15 Rate Blood Pressure Blood Pressure 131/89 H 175/81 H 141/74 H [Right Brachial artery] O2 Saturation 94 97 96 09/27/20 09/27/20 09/27/20 11:41 12:00 13:00 Temperature 37.5 C Heart Rate Heart Rate [ 104 H 100 Monitoring electrodes] Respiratory 18 19 Rate Blood Pressure Blood Pressure 155/74 H 155/74 H [Right Brachial artery] O2 Saturation 97 97 09/27/20 09/27/20 09/27/20 14:00 15:00 15:50 Temperature 37.2 C Heart Rate Heart Rate [ 95 91 Monitoring electrodes] Respiratory 21 15 Rate Blood Pressure Blood Pressure 167/86 H 128/77 [Right Brachial artery] O2 Saturation 94 95 09/27/20 09/27/20 09/27/20 16:00 17:00 18:00 Temperature 37.4 C Heart Rate Heart Rate [ 93 94 93 Monitoring electrodes] Respiratory 19 17 17 Rate Blood Pressure Blood Pressure 147/72 H 157/80 H 162/92 H [Right Brachial artery] O2 Saturation 96 97 95 09/27/20 09/27/20 09/27/20 18:30 19:00 20:00 Temperature Heart Rate 101 H Heart Rate [ 91 92 Monitoring electrodes] Respiratory 32 H 16 14 Rate Blood Pressure Blood Pressure 142/74 H 122/66 [Right Brachial artery] O2 Saturation 95 95 09/27/20 09/27/20 09/27/20 21:00 22:00 22:33 Temperature 37.2 C Heart Rate Heart Rate [ 89 91 Monitoring electrodes] Respiratory 26 H 26 H Rate Blood Pressure 154/90 H Blood Pressure 149/79 H 154/90 H [Right Brachial artery] O2 Saturation 95 95 09/27/20 09/28/20 09/28/20 23:00 00:00 01:00 Temperature 37.1 C Heart Rate Heart Rate [ 87 86 86 Monitoring electrodes] Respiratory 14 13 18 Rate Blood Pressure Blood Pressure 149/80 H 125/68 118/62 [Right Brachial artery] O2 Saturation 95 96 95 09/28/20 09/28/20 09/28/20 02:00 03:00 04:00 Temperature 37.0 C Heart Rate Heart Rate [ 80 81 77 Monitoring electrodes] Respiratory 14 13 13 Rate Blood Pressure Blood Pressure 131/69 H 151/81 H 119/71 [Right Brachial artery] O2 Saturation 95 99 95 09/28/20 09/28/20 05:00 06:00 Temperature Heart Rate Heart Rate [ 83 80 Monitoring electrodes] Respiratory 8 L 12 Rate Blood Pressure Blood Pressure 167/84 H 125/71 [Right Brachial artery] O2 Saturation 97 94 Oxygen O2 Source Nasal cannula Oxygen Flow Rate 3 I&O (Last 24 Hrs): Intake and Output Totals x24h 09/26/20 09/27/20 09/28/20 23:59 23:59 23:59 Intake Total 900 2009 65 Output Total 4642 5 Balance -1215 -165 655 General: Alert, Oriented x3, Mild distress (headache) HEENT: PERRLA, EOMI Neck: Supple, No JVD Neuro: Alert, Non Focal, Oriented Times 3 Cardiovascular: Regular rate, No murmurs Respiratory: Chest non-tender, Other (mild crackles) Abdomen: Normal bowel sounds, Soft, No tenderness Extremities: No clubbing, No cyanosis, No edema Skin: No rashes, No breakdown - Results Results: Laboratory Results WBC 8.2 x10^3/uL (4.8-10.8) 09/28/20 04:35 RBC 3.53 10^6/uL (4.20-5.40) L 09/28/20 04:35 Hgb 10.2 g/dL (12.0-16.0) L 09/28/20 04:35 Hct 33.3 % (37.0-47.0) L 09/28/20 04:35 MCV 94.3 fL (81.0-99.0) 09/28/20 04:35 MCH 28.9 pg (27.0-31.0) 09/28/20 04:35 MCHC 30.6 g/dL (32.0-36.0) L 09/28/20 04:35 RDW 15.5 % (12.0-15.0) H 09/28/20 04:35 Plt Count 254 10^3/uL (130-450) 09/28/20 04:35 MPV 9.6 fL (7.9-10.8) 09/28/20 04:35 Neut # (Auto) 4.7 10^3/uL (1.5-6.6) 09/28/20 04:35 Lymph # (Auto) 2.2 10^3/uL (1.5-3.5) 09/28/20 04:35 [place] # (Auto) 0.7 10^3/uL (0.0-1.0) 09/28/20 04:35 Eos # (Auto) 0.5 10^3/uL (0.0-0.7) 09/28/20 04:35 Baso # (Auto) 0.0 10^3/uL (0.0-0.1) 09/28/20 04:35 Absolute Nucleated RBC 0.00 x10^3/uL 09/28/20 04:35 Nucleated RBC % 0.0 /100WBC 09/28/20 04:35 Sodium 141 mmol/L (135-145) 09/28/20 04:35 Potassium 3.3 mmol/L (3.5-5.0) L 09/28/20 04:35 Chloride 102 mmol/L (101-111) 09/28/20 04:35 Carbon Dioxide 27 mmol/L (21-32) 09/28/20 04:35 Anion Gap 12.0 (6-13) 09/28/20 04:35 BUN 14 mg/dL (6-20) 09/28/20 04:35 Creatinine 0.7 mg/dL (0.4-1.0) 09/28/20 04:35 Estimated GFR (MDRD) 105 (>89) 09/28/20 04:35 Glucose 107 mg/dL (70-100) H 09/28/20 04:35 POC Whole Bld Glucose 120 mg/dL (70 - 100) H 09/28/20 08:02 Estimat Average Glucose 237 mg/dL (70-100) H 09/27/20 04:42 Hemoglobin A1c % 9.9 % (4.27-6.07) H 09/27/20 04:42 Lactic Acid 1.6 mmol/L (0.5-2.2) 09/26/20 06:18 Calcium 9.1 mg/dL (8.5-10.3) 09/28/20 04:35 Phosphorus 3.9 mg/dL (2.5-4.6) 09/28/20 04:35 Magnesium 2.0 mg/dL (1.7-2.8) 09/28/20 04:35 Total Bilirubin 0.8 mg/dL (0.2-1.0) 09/26/20 05:29 AST 29 IU/L (10-42) 09/26/20 05:29 ALT 37 IU/L (10-60) 09/26/20 05:29 Alkaline Phosphatase 88 IU/L (42-121) 09/26/20 05:29 Troponin I High Sens 6.3 ng/L (2.3-14.8) 09/26/20 05:29 B-Natriuretic Peptide 128 pg/mL (5-100) H 09/26/20 05:29 Total Protein 7.8 g/dL (6.7-8.2) 09/26/20 05:29 Albumin 3.5 g/dL (3.2-5.5) 09/26/20 05:29 Globulin 4.3 g/dL (2.1-4.2) H 09/26/20 05:29 Albumin/Globulin Ratio 0.8 (1.0-2.2) L 09/26/20 05:29 Lipase 21 U/L (22-51) L 09/26/20 05:29 Nasal Adenovirus (PCR) NOT DETECTED 09/26/20 06:17 Nasal B. parapertussis DNA (PCR) NOT DETECTED 09/26/20 06:17 Nasal Coronavir 229E PCR NOT DETECTED 09/26/20 06:17 Nasal Coronavir HKU1 PCR NOT DETECTED 09/26/20 06:17 Nasal Coronavir NL63 PCR NOT DETECTED 09/26/20 06:17 Nasal Coronavir OC43 PCR NOT DETECTED 09/26/20 06:17 Nasal Enterovir/Rhinovir PCR NOT DETECTED 09/26/20 06:17 Nasal Influenza B PCR NOT DETECTED 09/26/20 06:17 Nasal Influenza A PCR NOT DETECTED 09/26/20 06:17 Nasal Parainfluen 1 PCR NOT DETECTED 09/26/20 06:17 Nasal Parainfluen 2 PCR NOT DETECTED 09/26/20 06:17 Nasal Parainfluen 3 PCR NOT DETECTED 09/26/20 06:17 Nasal Parainfluen 4 PCR NOT DETECTED 09/26/20 06:17 Nasal RSV (PCR) NOT DETECTED 09/26/20 06:17 Nasal Screen MRSA (PCR) POSITIVE (NEGATIVE) A* 09/26/20 09:30 Nasal B.pertussis DNA PCR NOT DETECTED 09/26/20 06:17 Nasal C.pneumoniae (PCR) NOT DETECTED 09/26/20 06:17 Elijah Human Metapneumo PCR NOT DETECTED 09/26/20 06:17 Nasal M.pneumoniae (PCR) NOT DETECTED 09/26/20 06:17 Nasal SARS-CoV-2 (PCR) NOT DETECTED 09/26/20 06:17 ABX Reporting Has patient been on IV antibiotics over the past 48 hours?: No
[2020-09-28] MEDS: ENOXAPARIN 40 MG/0.4 ML SYRINGE SUBQ SCH (08:52)
[2020-09-28] MEDS: GLIMEPIRIDE 2 MG TABLET PO SCH (08:52)
[2020-09-28] MEDS: VANCOMYCIN INJ 1 GM, VANCOMYCIN INJ 250 MG in SODIUM CHLORIDE 0.9% 250 ML IV SCH (10:34)
[2020-09-28] MEDS: GABAPENTIN 300 MG CAPSULE PO SCH (12:04)
[2020-09-28] MEDS: LACTOBACILLUS RHAMNOSUS GG CAPSULE PO SCH (15:08)
[2020-09-28] MEDS: ATORVASTATIN 10 MG TABLET PO SCH (20:56)
[2020-09-28] MEDS: INSULIN GLARGINE 300 UNIT/3 ML PEN SUBQ SCH (21:25)
[2020-09-29 04:31] LABS: BASOPHILS % (AUTO) 0.6 %; EOSINOPHILS # (AUTO) 0.5 10^3/uL (0.0-0.7); HCT - HEMATOCRIT 33.6 % (37.0-47.0); HGB - HEMOGLOBIN 10.4 g/dL (12.0-16.0); LYMPHOCYTES % (AUTO) 29.3 %; MEAN CORPUSCULAR HEMOGLOBIN 29.1 pg (27.0-31.0); MEAN CORPUSCULAR VOLUME 94.1 fL (81.0-99.0); MEAN PLATELET VOLUME 9.5 fL (7.9-10.8); MONOCYTES # (AUTO) 0.7 10^3/uL (0.0-1.0); NEUTROPHILS # (AUTO) 3.7 10^3/uL (1.5-6.6); NEUTROPHILS % (AUTO) 52.8 %; PLT - PLATELET COUNT 255 10^3/uL (130-450); RED BLOOD COUNT 3.57 10^6/uL (4.20-5.40); RED CELL DISTRIBUTION WIDTH 15.3 % (12.0-15.0)
[2020-09-29 04:43] LABS: CALCIUM 9.1 mg/dL (8.5-10.3); CREATININE 0.6 mg/dL (0.4-1.0); PHOSPHORUS 3.9 mg/dL (2.5-4.6); POTASSIUM 3.9 mmol/L (3.5-5.0)
[2020-09-29] MEDS: hydrALAZINE INJ 20 MG/ML VIAL IVP SCH (06:13)
[2020-09-29] MEDS: SODIUM CHLORIDE FLUSH 0.9% 10 ML SYRINGE IVP SCH ×2 (07:15→08:39)
[2020-09-29] MEDS: INSULIN ASPART 300 UNIT/3 ML PEN SUBQ SCH ×4 (07:56→12:07)
[2020-09-29 08:23] VITALS: BP 170/94
[2020-09-29] MEDS: GLIMEPIRIDE 2 MG TABLET PO SCH (08:28)
[2020-09-29] MEDS: ethyl alcohoL 62% SWAB AMPULE NAS SCH (08:29)
[2020-09-29] MEDS: ENOXAPARIN 40 MG/0.4 ML SYRINGE SUBQ SCH (08:29)
[2020-09-29] MEDS: GABAPENTIN 400 MG CAPSULE PO SCH (08:29)
[2020-09-29] MEDS: LACTOBACILLUS RHAMNOSUS GG CAPSULE PO SCH (08:30)
[2020-09-29] MEDS: LOSARTAN 50 MG TABLET PO SCH (08:30)
--- NOTE | 2020-09-29 10:41 | DISCHARGE SUMMARY ---
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 This is her fourth admission since August 18. In July she was admitted as a community-acquired pneumonia and presented as already being vaccinated, and was not feeling well. In the emergency room she was hypotensive, required fluid resuscitation, responded to that and and evaluation she had a chest x-ray with "pneumonia". With that admission, her white cell count was normal. And with all subsequent admissions her white cell count continues to be normal except for September 10 when she was 14.8. She does have chest x-rays dating to 2017 in our EMR. As such a chest x-ray with her first admission August 18 was compared to September 2017 chest x-ray and there is no evidence of acute pulmonary process. When she developed a fever, a repeat chest x-ray was done and she was found to have a new right upper lobe and right perihilar infiltrate. As such she was treated as pneumonia with azithromycin and Rocephin. She had a fever over multiple days. Blood cultures were negative. Echocardiogram done during that stay showed to have an ejection fraction of 60 to 65% with a normal RVSP and only minimal tricuspid regurgitation. LA was 39 mm/m2 and just at the cut off indicating diastolic heart failure (40 mm). Her BP was 130s to 140s systolic. Diastolic, however, was up to 109. During her stay she developed orthostatic dizziness and almost collapsed walking in her room to the bathroom. As such she was given a liter of fluid, blood pressure medications were held, but they were resumed at discharge.Blood pressure at discharge was 138/83. She was discharged to complete antibiotic therapy With Augmentin. She saw her primary care provider in follow-up. He cleared her to go back to work. She let them know that she was still really dizzy and did not feel well. He felt that she was stable, and scheduled her for routine follow-up as well as routine preventative exam follow-up such as a colonoscopy. Return to the emergency room September 01 complaining of dizziness worse with standing. At one point she was dizzy enough she went to the urgent care clinic. While there she passed out and EMS was called to bring her to ER. She was found to have uncontrolled diabetes, orthostatic hypotension. Blood pressure was 178/85. However with checking orthostatic vital signs her supine blood pressure was 1 48/82 with a pulse of 74. Sitting blood pressure was 138/73 with a heart rate of 80. Standing blood pressure was 109/57 with a heart rate of 89. She responded to IV fluids and stopping some of her blood pressure medications. And she was sent home. Blood pressure at discharge was 130/73. Chest x-ray with September 01 evaluation showed her to have no pleural effusions or pneumothorax and her lungs were clear. She then returned September 09 acutely short of breath, with wheezing. In the emergency room her inferior vena cava was engorged. DuoNeb resulted in minimal improvement in her symptoms. Because of the inferior vena cava engorgement she was given Lasix and had almost immediate response and felt immensely better. Blood pressure when she presented was 204/101. However BNP and troponins were negative and did not coorelated with this diagnosis of pulmonary edema. Chest x-ray showed resolving opacities. Bilateral. There were perihilar with right greater than left. This was suggestive of resolving edema. Orthostatic blood pressure was done during that stay and she was not orthostatic. Blood pressure at discharge was 112/60. She now returns to us on September 26. She states that she has been feeling good enough to go back to work. She was actually scheduled to return to work today. But for the last week she has been having increasing leg edema. Her thighs were starting to feel exceedingly heavy especially yesterday. When she would lay down at night, she would feel short of breath and start to wheeze so she have to sit up for a while until she felt better and then fall back asleep. She denies fever, chills. Cough is daily and is not productive. The cough will get worse the more work she does. Since she is not working, she has become very detail oriented about cleaning her house. So she has been cleaning her windows, dusting all the furniture, picking up furniture and mopping the floors, cleaning out her closets. She has been able to do all of that and the cough accompanies that work. When she sits down and eats dinner or is watching TV the cough goes away. She does not describe it as dyspnea on exertion. She lives in her own home. No pets. No birds. Not exposed to farm life. 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 She had been well all day yesterday, and she has had varying degrees of shortness of breath since she had been admitted for pneumonia. was the historian because she was in severe respiratory distress. Because she is a [facility] patient, she actually tried calling the [place] nurse before coming in. The [place] nurse was alarmed because the patient could not even speak normally with her shortness of breath. And she instructed the patient to come to the emergency room. Blood pressure on her presentation was 210/103 with a respiratory rate of 32. 3 L mask resulted in a 96% O2 sat. Chest x-ray shows interstitial prominence that is abnormal. Trace blunting of the costophrenic angles. Small bilateral pleural effusions. The radiologist states that "a history of MRSA pneumonia is given and the appearance is consistent with such".The emergency room provider gave her albuterol, Lasix 40 mg IV push, DuoNeb, albuterol. She has felt substantially better. We transferred to the ICU thinking she was going to need BiPAP but she is now on just nasal cannula, 2 L. Blood pressure is still significantly elevated at 202- 207 systolic. 88-102 diastolic. Because the chest x-ray showed questionable pneumonia, we did a CT of the chest. The ER physician gave her cefepime and vancomycin. CT of the chest has consolidated infiltrates at the lung bases including air bronchograms. Milder patchy infiltrates as well as groundglass opacities are seen elsewhere. Infection is suspected. A history of MRSA pneumonia is given. Patient remained afebrile after 2 days. Her white blood cell count also remained normal. Blood cultures were no growth to date x3 days. As a result antibiotics were discontinued. Patient was diuresed with Lasix intermittently through the course of her hospital stay. She put out about 10 L of urine over 3-day hospital stay. At admission she was on BiPAP. Her oxygen requirement steadily decreased and she was weaned off oxygen by the time of discharge. She had a 2D echocardiogram done on 08/19/20. As a result it was not repeated during this admission. It showed an ejection fraction of 60 to 65%. Overall left ventricular systolic function was normal. The right ventricle was normal in size and function. There was no significant valvular disease.Upon discharge the following changes was made to the patient's med rec. Actos was discontinued due to heart failure. Lantus was discontinued due to insurance coverage and cost. The patient's Metformin XL 500 mg p.o. daily was resumed. She will continue taking Amaryl 2 mg p.o. daily. Humulin 70/30 8 units twice daily was ordered. The hope is that patient's blood glucose will be appropriately controlled on this regimen and she would not require extra correction. So far her hemoglobin A1c has improved from 14 down to 9 She is to keep her blood glucose record 3 times daily. She was advised about symptoms of hypoglycemia and to check her blood sugar if she starts feeling foggy, jittery, confused or diaphoretic. She is to drink orange juice and all eat crackers and peanut butter if her blood sugar is low. She was also prescribed Lasix 20 mg p.o. daily for 7 days. Hydralazine 25 mg p.o. 4 times daily was ordered. The patient is already on losartan 100 mg p.o. daily. She has not appointment with her primary care physician tomorrow which she was advised to keep. It is expected that her primary care physician will make our cardiology referral. Is also expected that her primary care physician will order basic metabolic p lashell and a lactic acid level in 7 days. - ALLERGIES Allergies/Adverse Reactions: Allergies Allergy/AdvReac Type Severity Reaction Status Date / Time No Known Drug Allergies Allergy Verified 09/09/20 05:52 - MEDICATIONS Home Medications: Ambulatory Orders Medication Instructions Recorded Confirmed Glimepiride [Amaryl] 2 mg PO DAILYWM #30 tablet 07/23/17 09/26/20 Gabapentin 1,200 mg PO BID 10/24/17 09/26/20 Simvastatin 40 mg PO QPM 10/24/17 09/26/20 Gabapentin [Neurontin] 600 mg PO 1200 08/18/20 09/26/20 Ferric Citrate [Auryxia] 210 mg PO DAILY #30 tablet 08/22/20 09/26/20 Blood Sugar Diagnostic [Glucometer 1 each QID #200 strip 09/03/20 09/26/20 Strips] Blood-Glucose Meter [Glucometer] 1 each QID #1 each 09/03/20 09/26/20 Insulin Aspart [NovoLOG] 2 - 10 unit SUBQ 09/03/20 09/26/20 0800,1200,1700,2100 #10 Lancets 1 each QID #200 each 09/03/20 09/26/20 Losartan [Cozaar] 100 mg PO DAILY #60 tablet 09/10/20 09/26/20 Furosemide [Lasix] 20 mg PO DAILY #7 tablet 09/29/20 Insulin NPH Hum/Reg Insulin Hm 8 unit SUBQ BID #3 each 09/29/20 [Humulin 70/30 Kwikpen] Metformin HCl [Metformin ER 500 mg PO DAILY #30 09/29/20 Gastric] hydrALAZINE [Apresoline] 25 mg PO QID 30 Days #120 tablet 09/29/20 - PHYSICAL EXAM AT DISCHARGE General Appearance: positive: No acute distress, Alert Eyes Bilateral: positive: PERRL, EOMI ENT: positive: No signs of dehydration Neck: positive: No JVD, Trachea midline Respiratory: positive: Chest non-tender, No respiratory distress, Breath sounds nml, Other (Coarse breath sounds but no significant crackles or rales) Cardiovascular: positive: Regular rate & rhythm, No murmur Abdomen: positive: Non-tender, No organomegaly, Nml bowel sounds, No distention. negative: Guarding, Rebound Skin: positive: Color nml, No rash, Warm, Dry Extremities: positive: Non-tender, Full ROM, Nml appearance, No pedal edema Neurologic/Psychiatric: positive: Oriented x3, Mood/affect nml - LABS Result Diagrams: 09/29/20 04:10 09/29/20 04:10 - TIME SPENT Time Spent in Discharge (Minutes): 30
--- NOTE | 2020-09-29 10:55 | Discharge Plan ---
Discharge Plan Problem Reviewed?: Yes Disposition: Home, Self Care Condition: Stable Prescriptions: hydrALAZINE [Apresoline] 25 mg PO QID 30 Days #120 tablet Insulin NPH Hum/Reg Insulin Hm [Humulin 70/30 Kwikpen] 8 unit SUBQ BID #3 each Furosemide [Lasix] 20 mg PO DAILY #7 tablet Metformin HCl [Metformin ER Gastric] 500 mg PO DAILY #30 Diet: Diabetic Activity Restrictions: Activity as Tolerated Shower Restrictions: No Weight Bearing: Full Weight Health Concerns: You were admitted for difficulty breathing for which it was suspected that you had pneumonia and acute heart failure with preserved ejection fraction. You were started on antibiotics which was maintained for 2 days. This included vancomycin and cefepime. In this time you are white blood cell count remained normal and you did not have a fever. Also your blood cultures were no growth to date for 3 days. As a result the antibiotics were discontinued. Last echocardiogram was done on 08/19/20. This showed an ejection fraction of 60 to 65%. Overall left ventricular systolic function was normal. The right ventricle was normal in size and function. There was no significant valvular disease. A 2D echocardiogram was not repeated during this admission. You received Lasix IV intermittently to your hospital because with significant fluid output. You required supplemental oxygen which was steadily decreased and weaned off by the day of discharge. At discharge there were some changes made to your medications as follows. You were started on hydralazine 25 mg p.o. 4 times daily. Lasix 20 mg p.o. daily for 7 days then stop. Metformin XL 500 mg p.o. daily. Humulin 70/30 8 unit SQ twice daily. Actos was discontinued due to effects of heart failure. Lantus was discontinued due to insurance cost. You are instructed to keep your blood sugar readings 3 times daily for a week. This will enable evaluation of the new prescription of Humulin and adjustment of the dosage accordingly. The hope will be to eventually not need additional correction (Sliding scale insulin). It is expected that your primary care physician will manage this. Also it is expected that your primary care physician will order a Basic Metabolic Panel and lactic acid in a week to assess your renal function in light of Lasix and lactic acid level given resumption of Metformin. You will need a referral to cardiology by your primary care physician. The above was explained to you. You expressed understanding and are in agreement. Plan of Treatment: You were admitted for difficulty breathing for which it was suspected that you had pneumonia and acute heart failure with preserved ejection fraction. You were started on antibiotics which was maintained for 2 days. This included vancomycin and cefepime. In this time you are white blood cell count remained normal and you did not have a fever. Also your blood cultures were no growth to date for 3 days. As a result the antibiotics were discontinued. Last echocardiogram was done on 08/19/20. This showed an ejection fraction of 60 to 65%. Overall left ventricular systolic function was normal. The right v entricle was normal in size and function. There was no significant valvular disease. A 2D echocardiogram was not repeated during this admission. You received Lasix IV intermittently to your hospital because with significant fluid output. You required supplemental oxygen which was steadily decreased and weaned off by the day of discharge. At discharge there were some changes made to your medications as follows. You were started on hydralazine 25 mg p.o. 4 times daily. Lasix 20 mg p.o. daily for 7 days then stop. Metformin XL 500 mg p.o. daily. Humulin 70/30 8 unit SQ twice daily. Actos was discontinued due to effects of heart failure. Lantus was discontinued due to insurance cost. You are instructed to keep your blood sugar readings 3 times daily for a week. This will enable evaluation of the new prescription of Humulin and adjustment of the dosage accordingly. The hope will be to eventually not need additional correction (Sliding scale insulin). It is expected that your primary care physician will manage this. Also it is expected that your primary care physician will order a Basic Metabolic Panel and lactic acid in a week to assess your renal function in light of Lasix and lactic acid level given resumption of Metformin. You will need a referral to cardiology by your primary care physician. The above was explained to you. You expressed understanding and are in agreement. Care Goals: You were admitted for difficulty breathing for which it was suspected that you had pneumonia and acute heart failure with preserved ejection fraction. You were started on antibiotics which was maintained for 2 days. This included vancomycin and cefepime. In this time you are white blood cell count remained normal and you did not have a fever. Also your blood cultures were no growth to date for 3 days. As a result the antibiotics were discontinued. Last echocardiogram was done on 08/19/20. This showed an ejection fraction of 60 to 65%. Overall left ventricular systolic function was normal. The right ventricle was normal in size and function. There was no significant valvular disease. A 2D echocardiogram was not repeated during this admission. You received Lasix IV intermittently to your hospital because with significant fluid output. You required supplemental oxygen which was steadily decreased and weaned off by the day of discharge. At discharge there were some changes made to your medications as follows. You were started on hydralazine 25 mg p.o. 4 times daily. Lasix 20 mg p.o. daily for 7 days then stop. Metformin XL 500 mg p.o. daily. Humulin 70/30 8 unit SQ twice daily. Actos was discontinued due to effects of heart failure. Lantus was discontinued due to insurance cost. You are instructed to keep your blood sugar readings 3 times daily for a week. This will enable evaluation of the new prescription of Humulin and adjustment of the dosage accordingly. The hope will be to eventually not need additional correction (Sliding scale insulin). It is expected that your primary care physician will manage this. Also it is expected that your primary care physician will order a Basic Metabolic Panel and lactic acid in a week to assess your renal function in light of Lasix and lactic acid level given resumption of Metformin. You will need a referral to cardiology by your primary care physician. The above was explained to you. You expressed understanding and are in agreement. Assessment: You were admitted for difficulty breathing for which it was suspected that you had pneumonia and acute heart failure with preserved ejection fraction. You were started on antibiotics which was maintained for 2 days. This included vancomycin and cefepime. In this time you are white blood cell count remained normal and you did not have a fever. Also your blood cultures were no growth to date for 3 days. As a result the antibiotics were discontinued. Last echocardiogram was done on 08/19/20. This showed an ejection fraction of 60 to 65%. Overall left ventricular systolic function was normal. The right ventricle was normal in size and function. There was no significant valvular disease. A 2D echocardiogram was not repeated during this admission. You received Lasix IV intermittently to your hospital because with significant fluid output. You required supplemental oxygen which was steadily decreased and weaned off by the day of discharge. At discharge there were some changes made to your medications as follows. You were started on hydralazine 25 mg p.o. 4 times daily. Lasix 20 mg p.o. daily for 7 days then stop. Metformin XL 500 mg p.o. daily. Humulin 70/30 8 unit SQ twice daily. Actos was discontinued due to effects of heart failure. Lantus was discontinued due to insurance cost. You are instructed to keep your blood sugar readings 3 times daily for a week. This will enable evaluation of the new prescription of Humulin and adjustment of the dosage accordingly. The hope will be to eventually not need additional correction (Sliding scale insulin). It is expected that your primary care physician will manage this. Also it is expected that your primary care physician will order a Basic Metabolic Panel and lactic acid in a week to assess your renal function in light of Lasix and lactic acid level given resumption of Metformin. You will need a referral to cardiology by your primary care physician. The above was explained to you. You expressed understanding and are in agreement. Additional Instructions or Follow Up instructions: You have a follow-up visit with your primary care physician tomorrow. You have been advised to keep the appointment. No Smoking: If you smoke, Please STOP! Call for help.
[2020-09-29] MEDS: GABAPENTIN 300 MG CAPSULE PO SCH (11:50)
== END 2020-09-29 12:10 | disposition home or self-care (01) | DRG 291 ==
LOC: ED 04:51 → ICU 07:23
PROVIDERS: ADMIT Internal Medicine; ATTEND Internal Medicine
DX: I50.31 Acute diastolic (congestive) heart failure (principal); J18.9 Pneumonia, unspecified organism; I11.0 Hypertensive heart disease with heart failure; E11.65 Type 2 diabetes mellitus with hyperglycemia; E11.42 Type 2 diabetes mellitus with diabetic polyneuropathy; Z79.4 Long term (current) use of insulin; D50.9 Iron deficiency anemia, unspecified; R51.9 Headache, unspecified; Z66 Do not resuscitate; Z87.01 Personal history of pneumonia (recurrent); Z79.899 Other long term (current) drug therapy; Z86.14 Personal history of Methicillin resistant Staphylococcus aureus infection; Z20.822 Contact with and (suspected) exposure to COVID-19
CPT/HCPCS: 0202U; 36415; 71045; 71250; 80048; 80053; 83036; 83605; 83690; 83735; 83880; 84100; 84484; 85025; 87040; 87150; 93005; 94640; 94660; 96374; 99284; 99285; A9270; J1650; J1815; J2765; J3370

== ENCOUNTER 2020-10-01 08:41 | Outpatient (CLI) | payer OTHER ==
--- NOTE | 2020-10-01 09:22 | XRAY Report ---
PROCEDURE: Chest 2 View X-Ray INDICATIONS: BACTERIAL PNEUMONIA TECHNIQUE: 2 view(s) of the chest. COMPARISON: 09/26/2020. FINDINGS: Surgical changes and devices: None. Lungs and pleura: No pleural effusions or pneumothorax. Mildly increased bronchovascular markings in bilateral hilar region are seen with mild bronchial wall thickening. No focal infiltrate is seen on the current study. Mediastinum: Mediastinal contours are normal. Heart size is normal. Bones and chest wall: No suspicious bony abnormalities. Soft tissues appear unremarkable. IMPRESSION: Interval complete resolution of previously noted bilateral pulmonary infiltrates. No foc al infiltrate is seen on the current study. No pleural effusion or pneumothorax. Reviewed by: Miah Maldonado MD on 10/01/2020 9:21 AM PDT Approved by: Miah Maldonado MD on 10/01/2020 9:21 AM PDT Station ID: [id number]
== END 2020-10-01 08:42 | disposition home or self-care (01) ==
LOC: DI.N 08:41
PROVIDERS: ATTEND Orthopaedic Surgery
DX: J15.9 Unspecified bacterial pneumonia (principal)

== ENCOUNTER 2020-10-01 08:44 | Outpatient (CLI) | payer OTHER ==
[2020-10-01 12:15] LABS: BASOPHILS # (AUTO) 0.1 10^3/uL (0.0-0.1); BASOPHILS % (AUTO) 0.7 %; EOSINOPHILS # (AUTO) 0.4 10^3/uL (0.0-0.7); EOSINOPHILS % (AUTO) 5.1 %; HGB - HEMOGLOBIN 10.8 g/dL (12.0-16.0); LYMPHOCYTES # (AUTO) 1.8 10^3/uL (1.5-3.5); LYMPHOCYTES % (AUTO) 23.9 %; MEAN CORPUSCULAR HEMOGLOBIN 28.9 pg (27.0-31.0); MEAN CORPUSCULAR VOLUME 96.3 fL (81.0-99.0); MEAN PLATELET VOLUME 10.7 fL (7.9-10.8); MONOCYTES # (AUTO) 0.6 10^3/uL (0.0-1.0); MONOCYTES % (AUTO) 7.7 %; NEUTROPHILS # (AUTO) 4.7 10^3/uL (1.5-6.6); NEUTROPHILS % (AUTO) 62.2 %; PLT - PLATELET COUNT 240 10^3/uL (130-450); RED BLOOD COUNT 3.74 10^6/uL (4.20-5.40); RED CELL DISTRIBUTION WIDTH 15.4 % (12.0-15.0); WHITE BLOOD COUNT 7.5 x10^3/uL (4.8-10.8)
[2020-10-01 12:22] LABS: BILIRUBIN,URINE NEGATIVE (NEGATIVE); GLUCOSE, URINE (UA) 100 mg/dL (NEGATIVE); KETONES,URINE (UA) NEGATIVE (NEGATIVE); LEUKOCYTE ESTERASE, URINE TRACE (NEGATIVE); NITRITE,URINE NEGATIVE (NEGATIVE); OCCULT BLOOD,URINE NEGATIVE (NEGATIVE); PROTEIN,URINE NEGATIVE (NEGATIVE); UROBILINOGEN,URINE 1 (NORMAL) E.U./dL (NORMAL)
[2020-10-01 12:23] LABS: CLARITY,URINE CLEAR (CLEAR)
[2020-10-01 12:28] LABS: BACTERIA,URINE Rare /HPF (None Seen); RBC,URINE 0-5 /HPF (0-5); SQUAMOUS EPITHELIAL CELL,UR RARE Squamous (<= Few); WBC,URINE 0-3 /HPF (0-5)
[2020-10-01 12:29] LABS: ESTIMATED AVERAGE GLUCOSE 220 mg/dL (70-100); HEMOGLOBIN A1c% 9.3 % (4.27-6.07)
[2020-10-01 12:30] LABS: ALBUMIN 3.9 g/dL (3.2-5.5); ALKALINE PHOSPHATASE 88 IU/L (42-121); ALT ALANINE AMINOTRANSFERASE 27 IU/L (10-60); AST ASPARTATE AMINOTRANSFERASE 19 IU/L (10-42); BILIRUBIN,TOTAL 0.4 mg/dL (0.2-1.0); BUN - BLOOD UREA NITROGEN 22 mg/dL (6-20); CALCIUM 9.3 mg/dL (8.5-10.3); CARBON DIOXIDE - CO2 30 mmol/L (21-32); CHLORIDE 100 mmol/L (101-111); CHOL/HDL RATIO 3.7 (<4.4); CHOLESTEROL 173 mg/dL; CREATININE 0.8 mg/dL (0.4-1.0); GFR - MDRD 90 (>89); GLUCOSE 144 mg/dL (70-100); HDL CHOLESTEROL 47 mg/dL; LDL CHOLESTEROL,CALCULATED 87 mg/dL; LDL/HDL RATIO 1.9 (<4.4); POTASSIUM 4.1 mmol/L (3.5-5.0); SODIUM 141 mmol/L (135-145); TOTAL PROTEIN 7.8 g/dL (6.7-8.2); TRIGLYCERIDES 194 mg/dL; VLDL CHOLESTEROL 39 mg/dL
== END 2020-10-01 08:45 | disposition home or self-care (01) ==
LOC: LAB.N 08:44
PROVIDERS: ATTEND Orthopaedic Surgery
DX: I11.0 Hypertensive heart disease with heart failure (principal); I50.30 Unspecified diastolic (congestive) heart failure; E78.00 Pure hypercholesterolemia, unspecified; E10.65 Type 1 diabetes mellitus with hyperglycemia; J15.9 Unspecified bacterial pneumonia; R60.9 Edema, unspecified; Z79.899 Other long term (current) drug therapy
CPT/HCPCS: 36415; 80053; 80061; 81001; 83036; 83721; 83880; 84443; 85025; 85379; 87040; 87640

== ENCOUNTER 2020-10-01 13:18 | Emergency (ER) | payer OTHER ==
--- OUTSIDE RECORDS SUMMARY | 2020-10-01 13:22 | EXTERNAL MEDICAL SUMMARY RPT | Continuity of Care Document ---
:1965 Demographics Phone Unavailable Preferred Language Unknown Marital Status Unknown Cheondoism Affiliation Unknown Race Unknown Ethnic Group Unknown Author Organization [place] Address [address] [phone] Phone Allergies Encounters Medications Problems Results
--- OUTSIDE RECORDS SUMMARY | 2020-10-01 13:47 | EXTERNAL MEDICAL SUMMARY RPT | Continuity of Care Document ---
:1965 Demographics Phone Unavailable Preferred Language Unknown Marital Status Unknown Faith Affiliation Unknown Race Unknown Ethnic Group Unknown Author Organization [facility] Address [address] [phone] Phone Allergies Encounters Medications Problems Results
[2020-10-01] MEDS ORDERED: IOVERSOL 320 100 ML VIAL IVP ONE ×2 (14:20→15:20)
--- NOTE | 2020-10-01 15:33 | ED Physician Documentation ---
History of Present Illness - Stated complaint Stated Complaint: F/U BLOOD WORK - Chief complaint Chief Complaint: General - History obtained from History obtained from: Patient - Additonal information Additional information: Recent inpatient admission for pneumonia and sepsis. Her physician saw her in follow-up and performed a D-dimer and it was positive for so was sent here to rule out PE. She has no leg symptoms. No chest pain or trouble breathing. Review of Systems Constitutional: denies: Fever, Chills Cardiac: denies: Chest pain / pressure, Palpitations Respiratory: denies: Dyspnea PD PAST MEDICAL HISTORY - Past Medical History Past Medical History: Yes Cardiovascular: Hypertension, High cholesterol, Other Respiratory: Pneumonia, Shortness of breath Neuro: Peripheral neuropathy Endocrine/Autoimmune: Type 2 diabetes GI: None HIMS MANAGER: Other : None HEENT: Other Psych: None Musculoskeletal: None Derm: None - Past Surgical History Past Surgical History: Yes General: Other /HIMS MANAGER: Other - Present Medications Home Medications: Ambulatory Orders Medication Instructions Recorded Confirmed Glimepiride [Amaryl] 2 mg PO DAILYWM #30 tablet 07/23/17 10/01/20 Gabapentin 1,200 mg PO BID 10/24/17 10/01/20 Simvastatin 40 mg PO QPM 10/24/17 10/01/20 Gabapentin [Neurontin] 600 mg PO 1200 08/18/20 10/01/20 Insulin Aspart [NovoLOG] 2 - 10 unit SUBQ 09/03/20 10/01/20 0800,1200,1700,2100 #10 Lancets 1 each MC QID #200 each 09/03/20 10/01/20 Losartan [Cozaar] 100 mg PO DAILY #60 tablet 09/10/20 10/01/20 Furosemide [Lasix] 20 mg PO DAILY #7 tablet 09/29/20 10/01/20 Insulin NPH Hum/Reg Insulin Hm 8 unit SUBQ BID #3 each 09/29/20 10/01/20 [Humulin 70/30 Kwikpen] hydrALAZINE [Apresoline] 25 mg PO QID 30 Days #120 tablet 09/29/20 10/01/20 Blood Sugar Diagnostic [Glucometer 1 each MC TID 10/01/20 10/01/20 Strips] Blood-Glucose Meter [Glucometer] 1 each MC TID 10/01/20 10/01/20 Metformin HCl [Metformin ER 500 mg PO BID 10/01/20 10/01/20 Gastric] - Allergies Allergies/Adverse Reactions: Allergies Allergy/AdvReac Type Severity Reaction Status Date / Time No Known Drug Allergies Allergy Verified 10/01/20 13:26 - Social History Does the pt smoke?: No Smoking Status: Never smoker Does the pt drink ETOH?: No Does the pt have substance abuse?: No - Immunizations Immunizations are current?: Yes - POLST Patient has POLST: No POLST Status: DNR PD ED PE NORMAL - Vitals Vital signs reviewed: Yes - General General: Alert and oriented X 3, No acute distress - HEENT HEENT: PERRL, EOMI - Neck Neck: Supple, no meningeal sign, No bony TTP - Cardiac Cardiac: RRR, No murmur - Respiratory Respiratory: No respiratory distress, Other (Crackles at right greater than left base) - Extremities Extremities: No edema, No calf tenderness / cord - Neuro Neuro: Alert and oriented X 3, Normal speech Results - Vitals Vitals: Vital Signs - 24 hr 10/01/20 10/01/20 13:26 15:48 Temperature 36.7 C 37.1 C Heart Rate 82 79 Respiratory 16 14 Rate Blood Pressure 164/78 H 165/84 H O2 Saturation 99 97 Oxygen O2 Source Room air PD MEDICAL DECISION MAKING - ED course ED course: 55-year-old woman here for high D-dimer done in the outpatient setting. Concern for PE given recent inpatient admission for pneumonia. CTPA done without evidence of thromotic disease. Departure - Departure Disposition: 01 Home, Self Care Clinical Impression: Pneumonia Qualifiers: Pneumonia type: due to unspecified organism Laterality: unspecified laterality Lung location: unspecified part of lung Qualified Code(s): J18.9 - Pneumonia, unspecified organism Condition: Good Record reviewed to determine appropriate education?: Yes Comments: No blood clot evidence in your lungs. You do have improving changes from prior pneumonia. Follow-up with your primary care physician. Return for new or worsening symptoms.
[2020-10-01 15:51] VITALS: BP 165/84
--- NOTE | 2020-10-01 15:52 | CT Report ---
PROCEDURE: ANGIO CHEST W/WO INDICATIONS: dyspnea, high dimer, pe protocol CONTRAST: IV CONTRAST: Optiray 320 ml: 80 PO CONTRAST: *NO PO CONTRAST TECHNIQUE: After the administration of intravenous contrast, 2 mm thick sections acquired from the pulmonary api sergio to the posterior costophrenic angles. 3-dimensional maximum intensity projection (MIP) coronal a nd sagittal reformats were then acquired through the thorax. For radiation dose reduction, the follow ing was used: automated exposure control, adjustment of mA and/or kV according to patient size. COMPARISON: CT chest dated 09/26/2020 FINDINGS: Image quality: Excellent. Pulmonary arteries: Pulmonary arteries are normal in size, and demonstrate no intraluminal filling d efects to suggest central pulmonary embolism. Lungs and pleura: There is interval decrease in amount of bilateral pleural effusion with small to mo derate residual pleural effusion or prominent on the right side. Adjacent compressive atelectasis in posterior aspect of bilateral lung boyd are seen. Scattered small airspace opacities are seen in po sterior aspect of bilateral lower lobes improved since previous study. Small scattered opacities in p osterior lateral aspect of right upper lobe is also seen suggestive of resolving pulmonary infiltrate s. There is no pneumothorax. Central and peripheral airways are patent. Mediastinum: Heart size is normal, without pericardial effusion. Mildly prominent mediastinal lymph nodes are seen and measures up to 8 to 9 mm in short axis diameter in right paratracheal space. Thora cic aorta is normal in caliber and enhancement. Esophagus is normal in caliber, without hiatal herni a. Bones and chest wall: No suspicious bony lesions. Ribs and thoracic spine appear intact throughout. No axillary or supraclavicular adenopathy. The thyroid is normal in size and there are no incident al findings. Abdomen: Visualized upper abdominal solid organs appear normal in the early arterial phase of enhanc ement. IMPRESSION: 1. No evidence of pulmonary emboli. No thoracic aortic aneurysm. 2. Small to moderate bilateral pleural effusion more prominent on the right side decreased since prev ious study. 3. Interval improvement in bilateral lung aeration with scattered residual infiltrate/atelectasis in posterior aspect of bilateral lower lobes and posterior lateral aspect of right upper lobe. No pneumo thorax. Airway is patent. 4. Underlying enlarged mediastinal lymph nodes concerning for mild reactive inflammatory lymphadenopa thy. Reviewed by: Miah Maldonado MD on 10/01/2020 3:50 PM PDT Approved by: Miah Maldonado MD on 10/01/2020 3:50 PM PDT Station ID: [id number]
== END 2020-10-01 16:18 | disposition home or self-care (01) ==
LOC: ED 13:18
DX: J15.9 Unspecified bacterial pneumonia (principal); R79.1 Abnormal coagulation profile; E11.42 Type 2 diabetes mellitus with diabetic polyneuropathy; Z79.4 Long term (current) use of insulin; Z66 Do not resuscitate; I11.0 Hypertensive heart disease with heart failure; I50.30 Unspecified diastolic (congestive) heart failure; E78.00 Pure hypercholesterolemia, unspecified; R06.9 Unspecified abnormalities of breathing; Z79.899 Other long term (current) drug therapy
CPT/HCPCS: 36415; 71046; 71275; 80053; 80061; 81001; 83036; 83880; 84443; 85025; 85379; 87040; 87640; 99282; 99284; Q9967; 83721

== ENCOUNTER 2020-12-09 15:37 | Outpatient (CLI) | payer OTHER | END 2020-12-09 15:38 | disposition critical access hospital (66) | LOC: EMS 15:37 | DX: R40.4 Transient alteration of awareness (principal) | CPT/HCPCS: A0425; A0427 ==

== ENCOUNTER 2020-12-09 15:51 | Emergency (ER) | payer OTHER ==
[2020-12-09] MEDS ORDERED: PROPOFOL 200 MG/20 ML VIAL IVP ONE (15:59)
[2020-12-09] MEDS ORDERED: ROCURONIUM 50 MG/5 ML VIAL IVP STA (15:59)
[2020-12-09] MEDS ORDERED: PROPOFOL 200 MG/20 ML VIAL IVP STA (15:59)
[2020-12-09] MEDS ORDERED: PROPOFOL 500 MG/50 ML 500 MG/50 ML VIAL IV STA ×4 (15:59→23:49)
[2020-12-09] MEDS ORDERED: ROCURONIUM 50 MG/5 ML VIAL ONE (16:00)
[2020-12-09 16:05] LABS: MEAN CORPUSCULAR HEMOGLOBIN 28.8 pg (27.0-31.0); NEUTROPHILS % (AUTO) 61.9 %
[2020-12-09 16:09] LABS: INR 1.2 (0.8-1.2); PT - PROTHROMBIN TIME 13.5 secs (9.9-12.6)
[2020-12-09 16:11] LABS: BASOPHILS % (AUTO) 0.5 %; EOSINOPHILS # (AUTO) 0.2 10^3/uL (0.0-0.7); EOSINOPHILS % (AUTO) 2.4 %; HCT - HEMATOCRIT 34.7 % (37.0-47.0); HGB - HEMOGLOBIN 11.4 g/dL (12.0-16.0); LYMPHOCYTES # (AUTO) 2.3 10^3/uL (1.5-3.5); LYMPHOCYTES % (AUTO) 27.6 %; MEAN CORPUSCULAR HGB CONC 32.9 g/dL (32.0-36.0); MEAN CORPUSCULAR VOLUME 87.6 fL (81.0-99.0); MEAN PLATELET VOLUME 10.8 fL (7.9-10.8); MONOCYTES # (AUTO) 0.6 10^3/uL (0.0-1.0); MONOCYTES % (AUTO) 7.4 %; NEUTROPHILS # (AUTO) 5.1 10^3/uL (1.5-6.6); RED BLOOD COUNT 3.96 10^6/uL (4.20-5.40); RED CELL DISTRIBUTION WIDTH 13.4 % (12.0-15.0); WHITE BLOOD COUNT 8.3 x10^3/uL (4.8-10.8)
--- NOTE | 2020-12-09 16:15 | ED Physician Documentation ---
PD HPI FOCAL NEURO - Stated complaint Stated Complaint: AMS/GLF - Chief complaint Chief Complaint: Neuro - History obtained from History obtained from: EMS - Additional information Additional information: 55-year-old woman with chronic MRSA and type 2 diabetes reportedly had a fall in the shower today but it sounds like she was getting somewhat altered even before that. She went to the clinic and was found to have altered mental status and referred here for further evaluation and treatment. On arrival GCS is 6. No history is available from the patient. Blood sugar prior to arrival was in the three hundreds. Review of Systems Unable to obtain: AMS PD PAST MEDICAL HISTORY - Past Medical History Cardiovascular: Hypertension, High cholesterol, Other Respiratory: Pneumonia, Shortness of breath Neuro: Peripheral neuropathy Endocrine/Autoimmune: Type 2 diabetes GI: None MANAGER RETIREMENT: Other : None HEENT: Other Psych: None Musculoskeletal: None Derm: None - Past Surgical History Past Surgical History: Yes General: Other /MANAGER RETIREMENT: Other - Present Medications Home Medications: Ambulatory Orders Medication Instructions Recorded Confirmed Glimepiride [Amaryl] 2 mg PO DAILYWM #30 tablet 07/23/17 10/01/20 Gabapentin 1,200 mg PO BID 10/24/17 10/01/20 Simvastatin 40 mg PO QPM 10/24/17 10/01/20 Gabapentin [Neurontin] 600 mg PO 1200 08/18/20 10/01/20 Insulin Aspart [NovoLOG] 2 - 10 unit SUBQ 09/03/20 10/01/20 0800,1200,1700,2100 #10 Lancets 1 each MC QID #200 each 09/03/20 10/01/20 Losartan [Cozaar] 100 mg PO DAILY #60 tablet 09/10/20 10/01/20 Furosemide [Lasix] 20 mg PO DAILY #7 tablet 09/29/20 10/01/20 Insulin NPH Hum/Reg Insulin Hm 8 unit SUBQ BID #3 each 09/29/20 10/01/20 [Humulin 70/30 Kwikpen] hydrALAZINE [Apresoline] 25 mg PO QID 30 Days #120 tablet 09/29/20 10/01/20 Blood Sugar Diagnostic [Glucometer 1 each MC TID 10/01/20 10/01/20 Strips] Blood-Glucose Meter [Glucometer] 1 each MC TID 10/01/20 10/01/20 Metformin HCl [Metformin ER 500 mg PO BID 10/01/20 10/01/20 Gastric] - Allergies Allergies/Adverse Reactions: Allergies Allergy/AdvReac Type Severity Reaction Status Date / Time No Known Drug Allergies Allergy Verified 10/01/20 13:26 - Social History Does the pt smoke?: No Smoking Status: Never smoker Does the pt drink ETOH?: No Does the pt have substance abuse?: No - Immunizations Immunizations are current?: Yes - POLST Patient has POLST: No POLST Status: DNR PD ED PE NORMAL - Vitals Vital signs reviewed: Yes - General General: Other (She is unresponsive with small pupils but they are symmetric, no evidence of trauma) - Cardiac Cardiac: RRR, No murmur - Respiratory Respiratory: No respiratory distress, Clear bilaterally - Abdomen Abdomen: Normal bowel sounds, Soft, Non tender - Back Back: No CVA TTP, No spinal TTP - Derm Derm: Normal color, Warm and dry - Extremities Extremities: No edema, No calf tenderness / cord - Neuro Eye Opening: None Motor: Withdraws to Pain Verbal: None GCS Score: 6 Results - Vitals Vitals: Vital Signs - 24 hr 12/09/20 12/09/20 12/09/20 15:51 15:58 16:11 Temperature 36.3 C L Heart Rate 100 109 H 101 H Respiratory 12 17 Rate Blood Pressure 176/87 H 219/118 H O2 Saturation 99 100 12/09/20 12/09/20 12/09/20 16:32 17:42 17:50 Temperature Heart Rate 105 H 99 95 Respiratory 16 14 14 Rate Blood Pressure 215/110 H 194/95 H 190/104 H O2 Saturation 100 100 100 12/09/20 12/09/20 12/09/20 18:00 18:25 18:44 Temperature Heart Rate 94 91 90 Respiratory 15 15 16 Rate Blood Pressure 181/87 H 182/80 H 175/86 H O2 Saturation 100 100 100 12/09/20 12/09/20 12/09/20 19:00 20:02 20:10 Temperature 37.5 C Heart Rate 95 91 91 Respiratory 14 15 14 Rate Blood Pressure 184/99 H 192/86 H 177/84 H O2 Saturation 100 100 100 12/09/20 12/09/20 12/09/20 20:32 20:42 20:46 Temperature Heart Rate 91 94 98 Respiratory 14 14 15 Rate Blood Pressure 188/91 H 202/93 H 203/96 H O2 Saturation 100 100 100 12/09/20 12/09/20 12/09/20 20:54 20:55 20:58 Temperature Heart Rate 90 91 89 Respiratory 16 15 13 Rate Blood Pressure 198/87 H 165/80 H 169/80 H O2 Saturation 100 100 100 12/09/20 12/09/20 12/09/20 21:01 21:11 21:15 Temperature Heart Rate 89 90 90 Respiratory 14 18 18 Rate Blood Pressure 168/84 H 174/88 H 181/81 H O2 Saturation 100 100 99 12/09/20 12/09/20 12/09/20 21:30 21:45 22:00 Temperature Heart Rate 90 89 83 Respiratory 15 15 15 Rate Blood Pressure 171/83 H 147/76 H 129/64 O2 Saturation 100 100 100 12/09/20 12/09/20 12/09/20 22:09 22:15 22:22 Temperature Heart Rate 87 89 88 Respiratory 15 15 15 Rate Blood Pressure 113/66 111/65 111/65 O2 Saturation 100 100 100 12/09/20 12/09/20 12/09/20 22:30 22:45 23:00 Temperature 37.3 C Heart Rate 88 85 85 Respiratory 14 15 14 Rate Blood Pressure 149/73 H 136/74 H 140/70 H O2 Saturation 100 100 100 12/09/20 12/09/20 23:15 23:30 Temperature Heart Rate 89 89 Respiratory 15 15 Rate Blood Pressure 170/89 H 170/80 H O2 Saturation 100 100 Oxygen O2 Source Room air - EKG (time done) 1626 Rate: Rate (enter#) (103) Rhythm: Sinus tachycardia [place]: Normal Intervals: Normal [place] QRS: LVH Ischemia: Non specific changes Computer interpretation: Agree with computer - Labs Labs: Laboratory Tests 12/09/20 12/09/20 12/09/20 15:55 15:55 15:55 WBC 8.3 RBC 3.96 L Hgb 11.4 L Hct 34.7 L MCV 87.6 MCH 28.8 MCHC 32.9 RDW 13.4 Plt Count TNP MPV 10.8 Neut # (Auto) 5.1 Lymph # (Auto) 2.3 Swisher # (Auto) 0.6 Eos # (Auto) 0.2 Baso # (Auto) 0.0 Absolute Nucleated RBC 0.00 Nucleated RBC % 0.0 Platelet Estimate NORMAL (130-450,000) Platelet Morphology PLATELET CLUMPING RBC Morph Micro Appear NORMAL APPEARANCE PT INR Bld Gas Analysis Time Sample Site ABG pH ABG pCO2 ABG pO2 ABG HCO3 ABG Total CO2 ABG O2 Saturation ABG Base Excess Ojse Test Respiration Rate O2 Delivery Device Vent Mode FiO2 Tidal Volume PEEP Pressure Support Vent Sodium 137 Potassium 3.7 Chloride 99 L Carbon Dioxide 26 Anion Gap 12.0 BUN 15 Creatinine 1.3 H Estimated GFR (MDRD) 51 L Glucose 297 H Calcium 9.5 Total Bilirubin 0.6 AST 22 ALT 23 Alkaline Phosphatase 90 Total Protein 8.0 Albumin 3.9 Globulin 4.1 Albumin/Globulin Ratio 1.0 Lipase 22 TSH 0.96 Urine Color Urine Clarity Urine pH Ur Specific Trade Urine Protein Urine Glucose (UA) Urine Ketones Urine Occult Blood Urine Nitrite Urine Bilirubin Urine Urobilinogen Ur Leukocyte Esterase Urine RBC Urine WBC Ur Squamous Epith Cells Urine Bacteria Ur Microscopic Review Urine Culture Comments Nasal Adenovirus (PCR) Nasal B. parapertussis DNA (PCR) Nasal Coronavir 229E PCR Nasal Coronavir HKU1 PCR Nasal Coronavir NL63 PCR Nasal Coronavir OC43 PCR Nasal Enterovir/Rhinovir PCR Nasal Influenza B PCR Nasal Influenza A PCR Nasal Parainfluen 1 PCR Nasal Parainfluen 2 PCR Nasal Parainfluen 3 PCR Nasal Parainfluen 4 PCR Nasal RSV (PCR) Nasal B.pertussis DNA PCR Nasal C.pneumoniae (PCR) Adriano Human Metapneumo PCR Nasal M.pneumoniae (PCR) Nasal SARS-CoV-2 (PCR) Salicylates < 6.0 Urine Opiates Screen Ur Oxycodone Screen Urine Methadone Screen Ur Propoxyphene Screen Acetaminophen < 10 L Ur Barbiturates Screen Ur Tricyclics Screen Ur Phencyclidine Scrn Ur Amphetamine Screen U Methamphetamines Scrn U Benzodiazepines Scrn Urine Cocaine Screen U Cannabinoids Screen Ethyl Alcohol < 5.0 12/09/20 12/09/20 12/09/20 15:55 16:27 17:10 WBC RBC Hgb Hct MCV MCH MCHC RDW Plt Count MPV Neut # (Auto) Lymph # (Auto) Swisher # (Auto) Eos # (Auto) Baso # (Auto) Absolute Nucleated RBC Nucleated RBC % Platelet Estimate Platelet Morphology RBC Morph Micro Appear PT 13.5 H INR 1.2 Bld Gas Analysis Time 1717 Sample Site LEFT RADIAL ABG pH 7.52 H ABG pCO2 30 L ABG pO2 127 H ABG HCO3 23.8 ABG Total CO2 24.7 ABG O2 Saturation 99 H ABG Base Excess 1.9 Jose Test POSITIVE Respiration Rate 16 O2 Delivery Device VENTILATOR Vent Mode SIMV FiO2 40.00 Tidal Volume 500 PEEP 5 Pressure Support Vent 10 Sodium Potassium Chloride Carbon Dioxide Anion Gap BUN Creatinine Estimated GFR (MDRD) Glucose Calcium Total Bilirubin AST ALT Alkaline Phosphatase Total Protein Albumin Globulin Albumin/Globulin Ratio Lipase TSH Urine Color Urine Clarity Urine pH Ur Specific Trade Urine Protein Urine Glucose (UA) Urine Ketones Urine Occult Blood Urine Nitrite Urine Bilirubin Urine Urobilinogen Ur Leukocyte Esterase Urine RBC Urine WBC Ur Squamous Epith Cells Urine Bacteria Ur Microscopic Review Urine Culture Comments Nasal Adenovirus (PCR) NOT DETECTED Nasal B. parapertussis DNA (PCR) NOT DETECTED Nasal Coronavir 229E PCR NOT DETECTED Nasal Coronavir HKU1 PCR NOT DETECTED Nasal Coronavir NL63 PCR NOT DETECTED Nasal Coronavir OC43 PCR NOT DETECTED Nasal Enterovir/Rhinovir PCR NOT DETECTED Nasal Influenza B PCR NOT DETECTED Nasal Influenza A PCR NOT DETECTED Nasal Parainfluen 1 PCR NOT DETECTED Nasal Parainfluen 2 PCR NOT DETECTED Nasal Parainfluen 3 PCR NOT DETECTED Nasal Parainfluen 4 PCR NOT DETECTED Nasal RSV (PCR) NOT DETECTED Nasal B.pertussis DNA PCR NOT DETECTED Nasal C.pneumoniae (PCR) NOT DETECTED Adriano Human Metapneumo PCR NOT DETECTED Nasal M.pneumoniae (PCR) NOT DETECTED Nasal SARS-CoV-2 (PCR) NOT DETECTED Salicylates Urine Opiates Screen Ur Oxycodone Screen Urine Methadone Screen Ur Propoxyphene Screen Acetaminophen Ur Barbiturates Screen Ur Tricyclics Screen Ur Phencyclidine Scrn Ur Amphetamine Screen U Methamphetamines Scrn U Benzodiazepines Scrn Urine Cocaine Screen U Cannabinoids Screen Ethyl Alcohol 12/09/20 17:25 WBC RBC Hgb Hct MCV MCH MCHC RDW Plt Count MPV Neut # (Auto) Lymph # (Auto) Swisher # (Auto) Eos # (Auto) Baso # (Auto) Absolute Nucleated RBC Nucleated RBC % Platelet Estimate Platelet Morphology RBC Morph Micro Appear PT INR Bld Gas Analysis Time Sample Site ABG pH ABG pCO2 ABG pO2 ABG HCO3 ABG Total CO2 ABG O2 Saturation ABG Base Excess Jose Test Respiration Rate O2 Delivery Device Vent Mode FiO2 Tidal Volume PEEP Pressure Support Vent Sodium Potassium Chloride Carbon Dioxide Anion Gap BUN Creatinine Estimated GFR (MDRD) Glucose Calcium Total Bilirubin AST ALT Alkaline Phosphatase Total Protein Albumin Globulin Albumin/Globulin Ratio Lipase TSH Urine Color YELLOW Urine Clarity CLEAR Urine pH 7.5 Ur Specific Trade 1.015 Urine Protein NEGATIVE Urine Glucose (UA) 250 H Urine Ketones NEGATIVE Urine Occult Blood SMALL H Urine Nitrite NEGATIVE Urine Bilirubin NEGATIVE Urine Urobilinogen 0.2 (NORMAL) Ur Leukocyte Esterase NEGATIVE Urine RBC 0-5 Urine WBC 0-3 Ur Squamous Epith Cells NONE SEEN Urine Bacteria None Seen Ur Microscopic Review INDICATED Urine Culture Comments NOT INDICATED Nasal Adenovirus (PCR) Nasal B. parapertussis DNA (PCR) Nasal Coronavir 229E PCR Nasal Coronavir HKU1 PCR Nasal Coronavir NL63 PCR Nasal Coronavir OC43 PCR Nasal Enterovir/Rhinovir PCR Nasal Influenza B PCR Nasal Influenza A PCR Nasal Parainfluen 1 PCR Nasal Parainfluen 2 PCR Nasal Parainfluen 3 PCR Nasal Parainfluen 4 PCR Nasal RSV (PCR) Nasal B.pertussis DNA PCR Nasal C.pneumoniae (PCR) Adriano Human Metapneumo PCR Nasal M.pneumoniae (PCR) Nasal SARS-CoV-2 (PCR) Salicylates Urine Opiates Screen NEGATIVE Ur Oxycodone Screen NEGATIVE Urine Methadone Screen NEGATIVE Ur Propoxyphene Screen NEGATIVE Acetaminophen Ur Barbiturates Screen NEGATIVE Ur Tricyclics Screen NEGATIVE Ur Phencyclidine Scrn NEGATIVE Ur Amphetamine Screen NEGATIVE U Methamphetamines Scrn NEGATIVE U Benzodiazepines Scrn NEGATIVE Urine Cocaine Screen NEGATIVE U Cannabinoids Screen NEGATIVE Ethyl Alcohol - Rads (name of study) CT Head/Cspine Radiology: EMP read contemporaneously (NAD) CTA Head Radiology: EMP read contemporaneously (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 It took several attempts to get her intubated.) Tube: Size-enter number (7.0) Confirmation: Direct visualization, Bilateral breath sounds, End tidal CO2, Pulse ox Complications: No compications PD MEDICAL DECISION MAKING - ED course ED course: On arrival given 0.4mg narcan IVP (EMS stock) followed by 1.6mg IVP without change. On arrival she was placed in a c-collar given history of trauma. Since she still had no response to Narcan and GCS was less than 8 decision was made to intubate. She was a very difficult airway, very very anterior and it took several attempts. She never had desaturation though. arrived and we spoke around 5 PM. She had a stressful day at work yesterday but was in her usual state of health this morning around 230 or so she started staggering like she was drunk but she was not altered like she was drunk. She was just having difficulty walking straight. He took her to the doctor's office which was for another issue, and while there evidently became obtunded. He was not aware of any trauma. Given the above history and lack of findings on noncontrast head CT, toxicologic etiologies are still in the differential, but the has low suspicion for that. Also significantly possible would be acute brainstem CVA. Given the initial uncertainty in diagnosis and history of trauma TPA was not considered. Spoke with Dr Goodman at [facility] about 5:27pm. He called [facility], subsequently they called back and asked us to activate telestroke. Spoke with Dr. Iverson, neurologist with telestroke. He will review the CT angiography images. And he may call [facility] to see if she is an interventional candidate given the finding of severe occlusion of the TOOL AND FIXTURE REPAIRER. This was around [address] Iverson called me back at around 7:45 PM and he has a neuro interventional radiologist look at the CT angiography and she is not a code IR/LVO thrombectomy candidate. Subsequently attended accepted by Dr. Pike to [facility] ICU at approximately 8:30 PM. No bed available yet but they will call back with the bed - Critical Care Time(min): 55 Time Includes: Direct patient care, Review records, Reassess patient, Document care, Coordinate care, Medical consult, Family consult for [facility] Data interpretation: Labs, Pulse ox Procedures included in critical care time: Peripheral IV Procedures excluded from critical care time: Intubation, EKG Departure - Departure Disposition: 02 Transfer Acute Care Hosp Clinical Impression: Diabetes mellitus type 2, uncontrolled, with complications Altered mental status Qualifiers: Altered mental status type: coma Coma depth: [place] coma 3-8 Coma timing: in the field (EMT or ambulance) Qualified Code(s): R40.2431 - [place] coma scale score 3-8, in the field [EMT or ambulance] Coma Qualifiers: Coma depth: [place] coma 3-8 Coma timing: in the field (EMT or ambulance) Qualified Code(s): R40.2431 - [place] coma scale score 3-8, in the field [EMT or ambulance] Respiratory failure Qualifiers: Chronicity: acute Respiratory failure complication: unspecified whether with hypoxia or hypercapnia Qualified Code(s): J96.00 - Acute respiratory failure, unspecified whether with hypoxia or hypercapnia Condition: Critical Discharge Date/Time: 12/10/20 00:23
[2020-12-09 16:20] LABS: ACETAMINOPHEN < 10 ug/mL (10-30); ALBUMIN 3.9 g/dL (3.2-5.5); ALKALINE PHOSPHATASE 90 IU/L (42-121); ALT ALANINE AMINOTRANSFERASE 23 IU/L (10-60); AST ASPARTATE AMINOTRANSFERASE 22 IU/L (10-42); BILIRUBIN,TOTAL 0.6 mg/dL (0.2-1.0); BUN - BLOOD UREA NITROGEN 15 mg/dL (6-20); CALCIUM 9.5 mg/dL (8.5-10.3); CARBON DIOXIDE - CO2 26 mmol/L (21-32); CHLORIDE 99 mmol/L (101-111); CREATININE 1.3 mg/dL (0.4-1.0); ETOH - ETHANOL < 5.0 mg/dL; GFR - MDRD 51 (>89); GLUCOSE 297 mg/dL (70-100); LIPASE 22 U/L (22-51); POTASSIUM 3.7 mmol/L (3.5-5.0); SALICYLATE < 6.0 mg/dL; SODIUM 137 mmol/L (135-145)
[2020-12-09 16:28] LABS: PLATELET ESTIMATE, MANUAL NORMAL (130-450,000) (NORMAL); PLATELET MORPHOLOGY PLATELET CLUMPING (NORMAL); RBC MORPHOLOGY (MULTIPLE) NORMAL APPEARANCE (NORMAL)
--- NOTE | 2020-12-09 16:35 | XRAY Report ---
PROCEDURE: Chest for Line Placement INDICATIONS: POST INTUBATION TECHNIQUE: One view of the chest was acquired. COMPARISON: Chest x-ray 10/01/2020 FINDINGS: Surgical changes and devices: Endotracheal tube is present approximately 7 mm appeared to the addie. Lungs and pleura: Appearance of overall increased pulmonary opacities. Mediastinum: Mediastinal contours appear normal. Heart size is enlarged. Bones and chest wall: No suspicious bony lesions. Overlying soft tissues appear unremarkable. IMPRESSION: Mild appearance of increased bilateral opacities which could represent increased vascularity versus e ama appearance of bilateral infiltrate such as pneumonia. Reviewed by: Lynette Parada MD on 12/09/2020 4:33 PM PDT Approved by: Lynette Parada MD on 12/09/2020 4:33 PM PDT Station ID: [id number]
--- NOTE | 2020-12-09 17:04 | CT Report ---
PROCEDURE: CERVICAL SPINE WO INDICATIONS: Fall, head injury TECHNIQUE: Noncontrast 3 mm thick sections acquired from the skull base to the T4 level. Sagittal and coronal r eformats were then constructed. For radiation dose reduction, the following was used: automated exp osure control, adjustment of mA and/or kV according to patient size. COMPARISON: None. FINDINGS: Image quality: Excellent. Bones: No fractures or dislocations. Intervertebral disc spaces are congruent and maintained. Facet joint spaces are congruent and bilaterally symmetric. Normal configuration of the craniocervical lupe ction. Visualized superior ribs are intact. Soft tissues: Prevertebral soft tissues are normal in thickness. No paravertebral hematomas. No ap ical pneumothoraces. IMPRESSION: No CT evidence of acute traumatic cervical spine injury. Reviewed by: Efe Craig MD on 12/09/2020 5:03 PM PDT Approved by: Efe Craig MD on 12/09/2020 5:03 PM PDT Station ID: [id number]
--- NOTE | 2020-12-09 17:05 | CT Report ---
PROCEDURE: HEAD WO INDICATIONS: HEAD INJ TECHNIQUE: Noncontrast 4.5 mm thick angled axial sections acquired from the foramen magnum to the vertex. For r adiation dose reduction, the following was used: automated exposure control, adjustment of mA and/or kV according to patient size. COMPARISON: 09/10/2020, 09/01/2020 Correlation is made with the accompanying cervical spine CT, FINDINGS: Image quality: There is streak artifact seen through the skull base. CSF spaces: Basal cisterns are patent. No extra-axial fluid collections. Ventricles are normal in size and shape. Brain: No midline shift. No intracranial masses or hemorrhage. Tello-white matter interface is norm al. Symmetric calcification of the basal ganglia is seen, which is considered to be within normal li mits for a patient of this age. Skull and face: Calvarium and visualized facial bones are intact, without suspicious lesions. Hyper ostosis frontalis is incidentally noted, which is not frankly abnormal for a female patient of this a ge. Sinuses: Visualized sinuses and mastoids are clear. IMPRESSION: No intracranial hemorrhage is seen. No significant intracranial abnormality is seen. Reviewed by: Amrit Mott MD on 12/09/2020 4:04 PM JANET Approved by: Amrit Mott MD on 12/09/2020 4:04 PM JANET Station ID: [id number]
[2020-12-09] MEDS ORDERED: LABETALOL 20 MG/4 ML SYRINGE IVP STA ×3 (17:07→20:46)
[2020-12-09 17:18] LABS: ABG PH 7.52 (7.35-7.45)
[2020-12-09 17:19] LABS: ABG BASE EXCESS 1.9 mmol/L (-2.0-3.0); ABG HCO3 23.8 mmol/L (22.0-26.0); ABG OXYGEN SATURATION 99 % (94-98); ABG PCO2 30 mmHg (34-45); ABG PO2 127 mmHg (80-100); ABG TCO2 24.7 MMOL/L (21.0-29.0); ALLEN TEST POSITIVE
[2020-12-09 17:20] LABS: ABG MODE OF VENTILATION SIMV; ABG RESPIRATORY RATE 16 b/min
[2020-12-09] MEDS ORDERED: ASPIRIN 300 MG SUPP PR STA (17:35)
[2020-12-09] MEDS ORDERED: IOPAMIDOL-300 100 ML VIAL ONE (17:48)
[2020-12-09 17:55] LABS: B. PARAPERTUSSIS- RESP PCR PAN NOT DETECTED; B. PERTUSSIS- RESP PCR PANEL NOT DETECTED; C. PNEUMONIAE- RESP PCR PANEL NOT DETECTED; CORONAVIRUS 229E-RESP PCR NOT DETECTED; CORONAVIRUS HKU1-RESP PCR NOT DETECTED; CORONAVIRUS NL63-RESP PCR NOT DETECTED; CORONAVIRUS OC43-RESP PCR NOT DETECTED; HUMAN METAPNEUMOVIRUS NOT DETECTED; INFLUENZA A- RESP PCR PANEL NOT DETECTED; INFLUENZA B - RESP PCR PANEL NOT DETECTED; M. PNEUMONIAE- RESP PCR PANEL NOT DETECTED; PARAINFLUENZA VIRUS 1 NOT DETECTED; PARAINFLUENZA VIRUS 2 NOT DETECTED; PARAINFLUENZA VIRUS 3 NOT DETECTED; PARAINFLUENZA VIRUS 4 NOT DETECTED; RHINOVIRUS/ENTEROVIRUS NOT DETECTED; RSV- RESP PCR PANEL NOT DETECTED; SARS-CoV-2 -RESP PCR PANEL NOT DETECTED
[2020-12-09 18:13] LABS: MUDS CUTOFF CONCENTRATIONS CUTOFF CONC BELOW:
[2020-12-09 18:16] LABS: BILIRUBIN,URINE NEGATIVE (NEGATIVE); GLUCOSE, URINE (UA) 250 mg/dL (NEGATIVE); KETONES,URINE (UA) NEGATIVE (NEGATIVE); LEUKOCYTE ESTERASE, URINE NEGATIVE (NEGATIVE); NITRITE,URINE NEGATIVE (NEGATIVE); OCCULT BLOOD,URINE SMALL (NEGATIVE); PH,URINE 7.5 PH (5.0-7.5); PROTEIN,URINE NEGATIVE (NEGATIVE); UROBILINOGEN,URINE 0.2 (NORMAL) E.U./dL (NORMAL)
[2020-12-09 18:18] LABS: CLARITY,URINE CLEAR (CLEAR)
[2020-12-09 18:30] LABS: AMPHETAMINE SCREEN,URINE NEGATIVE (NEGATIVE); BARBITURATE SCREEN,UR NEGATIVE (NEGATIVE); BENZODIAZEPINES SCREEN, URINE NEGATIVE (NEGATIVE); COCAINE SCREEN URINE NEGATIVE (NEGATIVE); METHADONE SCREEN, URINE NEGATIVE (NEGATIVE); METHAMPHETAMINES SCREEN, URINE NEGATIVE (NEGATIVE); OPIATE SCREEN, URINE NEGATIVE (NEGATIVE); OXYCODONE SCREEN, URINE NEGATIVE (NEGATIVE); PROPOXYPHENE SCREEN, URINE NEGATIVE (NEGATIVE); THC CANNABINOID SCREEN, URINE NEGATIVE (NEGATIVE); TRICYCLIC ANTIDEPRESSANT,URINE NEGATIVE (NEGATIVE)
[2020-12-09] MEDS ORDERED: IOPAMIDOL-300 100 ML VIAL IVP ONE (18:37)
[2020-12-09 18:40] LABS: BACTERIA,URINE None Seen /HPF (None Seen); RBC,URINE 0-5 /HPF (0-5); SQUAMOUS EPITHELIAL CELL,UR NONE SEEN (<= Few); WBC,URINE 0-3 /HPF (0-5)
--- NOTE | 2020-12-09 18:51 | CT Report ---
PROCEDURE: ANGIO HEAD W/WO INDICATIONS: obtunded, ?CVA CONTRAST: IV CONTRAST: Isovue 300 ml: 80 PO CONTRAST: *NO PO CONTRAST TECHNIQUE: Precontrast 4.5 mm thick angled axial sections acquired from the foramen magnum to the vertex. Afte r the administration of intravenous contrast, 1 mm thick sections acquired through the [place] of [place] is. Postcontrast 4.5 mm thick sections then re-acquired from the foramen magnum to the vertex. 3-di mensional hrlhfhc-eselpoipv-yawdphnjra (MIP) and/or volume rendering reformats were acquired of the c entral intracranial vasculature. For radiation dose reduction, the following was used: automated ex posure control, adjustment of mA and/or kV according to patient size. COMPARISON: None FINDINGS: Image quality: Excellent. Anterior circulation: Intracranial internal carotid arteries are normal in size and flow. The flow within the paired anterior cerebral arteries is normal and symmetric. The flow within the middle cer ebral arteries is normal and symmetric. The anterior communicating artery is seen. No aneurysms are seen. Posterior circulation: Visualized portions of the vertebral arteries demonstrate normal caliber, and join to form a normal appearing basilar artery. No aneurysms are seen. There is a severe stenosis in the perimesencephalic right posterior cerebral artery noted without complete occlusion. There is f low in the distal branches noted. CSF spaces: Ventricles are normal in size and shape. Basal cisterns are patent. No extra-axial flu id collections. Brain: No midline shift. No intracranial bleeds or masses. Tello-white matter interface appears int act. Skull and face: Calvarium and facial bones appear intact, without suspicious lesions. Incidental ri ght intraocular lens replacements noted. Sinuses: Visualized sinuses and mastoids are clear. 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 No evidence of intracranial aneurysm or vascular malformation Reviewed by: Mega Calderon MD on 12/09/2020 5:50 PM AKDT Approved by: Mega Calderon MD on 12/09/2020 5:50 PM AKDT Station ID: [id number]
--- NOTE | 2020-12-09 18:56 | CT Report ---
PROCEDURE: ANGIO NECK W INDICATIONS: obtunded, ?CVA CONTRAST: IV CONTRAST: Isovue 300 ml: 80 PO CONTRAST: *NO PO CONTRAST TECHNIQUE: After the administration of intravenous contrast, 1.5 mm axial sections acquired from the aortic arch to the [place]. Coronal 3-D maximum intensity projection (MIP) and/or volume rendering ref ormats were then performed. For radiation dose reduction, the following was used: automated exposur e control, adjustment of mA and/or kV according to patient size. COMPARISON: None. FINDINGS: Image quality: Excellent. Carotid system: The great vessels demonstrate a conventional anatomy as they arise from the aortic [facility]. The origins of the common carotid arteries appear patent. The common carotid arteries demonstr ate normal calibers and courses. The bifurcation regions appear normal bilaterally. The internal ca rotid arteries demonstrate normal caliber and course. Mild atherosclerotic plaque noted in both prox imal internal carotid arteries Posterior circulation: The origins of the vertebral arteries appear patent. The more superior porti ons of the vertebral arteries demonstrate normal course and caliber. They join to form a normal appe aring basilar artery. Soft tissues: Visualized neck soft tissues demonstrate no suspicious abnormalities. The thyroid is normal in size and there are no incidental findings. Endotracheal tube in place Bones: No suspicious bony lesions. Visualized cervical spine appears normally aligned. IMPRESSION: Mild atherosclerotic plaque in both proximal ICA without stenosis utilizing NASCET criteria. Endotracheal tube in place. Both lung apices clear. The estimate of stenosis included in the report of the imaging study was calculated using the NASCET method Reviewed by: Mega Calderon MD on 12/09/2020 5:55 PM JANET Approved by: Mega Calderon MD on 12/09/2020 5:55 PM AKPAMELA Station ID: [id number]
[2020-12-09] MEDS ORDERED: fentaNYL 100 MCG/2 ML VIAL IVP STA ×3 (19:51→23:30)
[2020-12-09 23:41] VITALS: BP 170/80
== END 2020-12-10 00:23 | disposition short-term general hospital (02) ==
LOC: EDUNIT# → ED 15:51
DX: I66.21 Occlusion and stenosis of right posterior cerebral artery (principal); I10 Essential (primary) hypertension; J96.91 Respiratory failure, unspecified with hypoxia; E11.42 Type 2 diabetes mellitus with diabetic polyneuropathy; Z79.4 Long term (current) use of insulin; Z20.822 Contact with and (suspected) exposure to COVID-19; Z66 Do not resuscitate
CPT/HCPCS: 0202U; 31500; 36415; 36600; 51702; 70450; 70496; 70498; 71045; 72125; 80053; 80306; 80307; 80320; 80329; 81001; 82803; 83690; 84443; 85025; 85610; 93005; 96374; 96375; 96376; 99291; A9270; Q9967; 81003; 87086

== ENCOUNTER 2021-06-13 12:49 | Outpatient (CLI) | payer SELFPAY | END 2021-06-13 12:50 | disposition critical access hospital (66) | LOC: EMS 12:49 | DX: R53.1 Weakness (principal); R42 Dizziness and giddiness | CPT/HCPCS: A0425; A0427 ==

== ENCOUNTER 2021-06-13 13:07 | Emergency (ER) | payer SELFPAY ==
[2021-06-13] MEDS ORDERED: MECLIZINE 12.5 MG TABLET PO STA (13:22)
[2021-06-13] MEDS ORDERED: INSULIN REGULAR HUMAN 100 UNIT/1 ML 10 ML MDV IVP STA (13:22)
[2021-06-13] MEDS ORDERED: SODIUM CHLORIDE 0.9% 1,000 ML IV STA (13:22)
--- NOTE | 2021-06-13 13:24 | ED Physician Documentation ---
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 States she has spinning dizziness only while she is trying to walk. When she is supine or sitting she does not have it. It makes it difficult to walk but she still can walk. There is no associated headache or other focal neurologic symptoms. It is associated with some tunnel vision and kaleidoscope's in her vision she states. At the doctor's office her blood sugar was about 500. She states she is compliant with her medication is not sure why her blood sugar is so high. Of note I saw her in November of last year with respiratory failure and decreased mental status. She required intubation which of note was difficult due to anatomy and she was sent to [facility]. The outcome is not completely known, but since her physician's office continues to carry the diagnosis of ischemic stroke, presume that was the issue then. 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 GEOLOGIST: Other : None HEENT: Other Psych: None Musculoskeletal: None Derm: None - Past Surgical History Past Surgical History: Yes General: Other /ENGINEERING GEOLOGIST: Other - Present Medications Home Medications: Ambulatory Orders Medication Instructions Recorded Confirmed Glimepiride [Amaryl] 2 mg PO DAILYWM #30 tablet 07/23/17 10/01/20 Gabapentin 1,200 mg PO BID 10/24/17 10/01/20 Simvastatin 40 mg PO QPM 10/24/17 10/01/20 Gabapentin [Neurontin] 600 mg PO 1200 08/18/20 10/01/20 Insulin Aspart [NovoLOG] 2 - 10 unit SUBQ 09/03/20 10/01/20 0800,1200,1700,2100 #10 Lancets 1 each MC QID #200 each 09/03/20 10/01/20 Losartan [Cozaar] 100 mg PO DAILY #60 tablet 09/10/20 10/01/20 Furosemide [Lasix] 20 mg PO DAILY #7 tablet 09/29/20 10/01/20 Insulin NPH Hum/Reg Insulin Hm 8 unit SUBQ BID #3 each 09/29/20 10/01/20 [Humulin 70/30 Kwikpen] hydrALAZINE [Apresoline] 25 mg PO QID 30 Days #120 tablet 09/29/20 10/01/20 Blood Sugar Diagnostic [Glucometer 1 each MC TID 10/01/20 10/01/20 Strips] Blood-Glucose Meter [Glucometer] 1 each TID 10/01/20 10/01/20 Metformin HCl [Metformin ER 500 mg PO BID 10/01/20 10/01/20 Gastric] Meclizine HCl [Motion Sickness] 25 mg PO Q6H PRN #20 tablet 06/13/21 - Allergies Allergies/Adverse Reactions: Allergies Allergy/AdvReac Type Severity Reaction Status Date / Time No Known Drug Allergies Allergy Verified 06/13/21 13:19 - Social History Does the pt smoke?: No Smoking Status: Never smoker Does the pt drink ETOH?: No Does the pt have substance abuse?: No - Immunizations Immunizations are current?: Yes - POLST Patient has POLST: No POLST Status: DNR PD ED PE NORMAL - Vitals Vital signs reviewed: Yes - General General: Alert and oriented X 3, No acute distress - HEENT HEENT: PERRL, EOMI - Neck Neck: Supple, no meningeal sign, No bony TTP - Cardiac Cardiac: RRR, No murmur - Respiratory Respiratory: No respiratory distress, Clear bilaterally - Abdomen Abdomen: Normal bowel sounds, Soft, Non tender - Back Back: No CVA TTP, No spinal TTP - Derm Derm: Normal color, Warm and dry - Extremities Extremities: No edema, No calf tenderness / cord - Neuro Neuro: Alert and oriented X 3, computer mechanic 2-12 intact, Normal speech Eye Opening: Spontaneous Motor: Obeys Commands Verbal: Oriented GCS Score: 15 NIHSS - Time Time: 13:15 - Level of Consciousness Level of consciousness: (0) Alert, Keenly responsive LOC Questions: (0) Answers both Q's correct LOC Commands: (0) Performs both correctly - Gaze Best Gaze: (0) Normal - Visual Visual: (1) Partial hemianopia (She has difficulty with peripheral vision in the left eye to the left side. She states this is chronic and due to an underlying eye issue.) - Facial Palsy Facial Palsy: (0) Normal, symmetrical movement - Motor Arms (both separate) Motor Arm (right): (0) No drift Motor Arm (left): (0) No drift - Motor Legs (both separate) Motor Leg (right): (0) No drift Motor Leg (left): (0) No drift - Limb Ataxia Limb Ataxia: (0) Absent - Sensory Sensory: (0) Normal - Best Language Best Language: (0) No aphasia - Dysarthria Dysarthria: (0) Normal - Extinction and Inattention (formally neg Extinction and inattention: (0) No abnormality - Total Score/Results Total Score/Result: 1 Results - Vitals Vitals: Vital Signs - 24 hr 06/13/21 06/13/21 13:16 13:21 Temperature 36.3 C L Heart Rate 78 74 Respiratory 16 16 Rate Blood Pressure 142/75 H 142/75 H O2 Saturation 100 100 Oxygen O2 Source Room air - EKG (time done) 1335 Rate: Rate (enter#) (74) Rhythm: NSR Intervals: Prolonged [place] QRS: LVH Ischemia: Non specific changes - Labs Labs: Laboratory Tests 06/13/21 06/13/21 14:05 14:05 WBC 10.1 RBC 4.03 L Hgb 11.6 L Hct 35.5 L MCV 88.1 MCH 28.8 MCHC 32.7 RDW 13.0 Plt Count MPV 11.8 H Neut # (Auto) 6.4 Lymph # (Auto) 2.4 [place] # (Auto) 0.9 Eos # (Auto) 0.3 Baso # (Auto) 0.1 Absolute Nucleated RBC 0.00 Nucleated RBC % 0.0 Manual Slide Review Indicated Platelet Estimate NORMAL (130-450,000) Platelet Morphology PLATELET CLUMPING RBC Morph Micro Appear NORMAL APPEARANCE Sodium 137 Potassium 3.0 L Chloride 102 Carbon Dioxide 26 Anion Gap 9.0 BUN 21 H Creatinine 1.9 H Estimated GFR (MDRD) 33 L Glucose 280 H Calcium 9.2 Magnesium 2.3 Total Bilirubin 0.9 AST 19 ALT 19 Alkaline Phosphatase 122 H Total Protein 7.5 Albumin 3.3 Globulin 4.2 Albumin/Globulin Ratio 0.8 L PD MEDICAL DECISION MAKING - ED course ED course: This is a 56-year-old woman with multiple risk factors for stroke who presents with vertigo not clearly peripheral more clearly central. Work-up demonstrates a normal MRI without evidence of recent stroke or insult or tumor. Labs are notable for slowly worsening renal function which I suspect is related to diabetic nephropathy more than an acute issue and close follow-up was advised and she was given a oral potassium supplement for her potassium of 3.0. She was feeling completely better after administration of oral meclizine for her vertigo here. Departure - Departure Disposition: 01 Home, Self Care Clinical Impression: Diabetes mellitus type 2, uncontrolled, with complications, Vertigo Condition: Good Record reviewed to determine appropriate education?: Yes Instructions: ED Vertigo Unspecified Prescriptions: Meclizine HCl [Motion Sickness] 25 mg PO Q6H PRN #20 tablet PRN Reason: Dizziness Comments: I sent your prescription electronically to [facility] in [place]. As discussed your MRI scan of your head did not show any evidence of recent stroke or tumor or anything of that ilk so suspect your vertigo is from an inner ear problem. Glad we are since feeling better after the meclizine. We did note today that your potassium was a bit low and gave you an oral potassium supplement for that and your kidney function is slowly declining which needs to be followed by your doctor, the most important thing there would be excellent blood glucose control. Return for new or worsening symptoms. Follow-up with your doctor, next available appointment.
[2021-06-13 14:13] LABS: BASOPHILS # (AUTO) 0.1 10^3/uL (0.0-0.1); BASOPHILS % (AUTO) 0.6 %; EOSINOPHILS # (AUTO) 0.3 10^3/uL (0.0-0.7); HCT - HEMATOCRIT 35.5 % (37.0-47.0); HGB - HEMOGLOBIN 11.6 g/dL (12.0-16.0); LYMPHOCYTES # (AUTO) 2.4 10^3/uL (1.5-3.5); MEAN CORPUSCULAR HEMOGLOBIN 28.8 pg (27.0-31.0); MEAN CORPUSCULAR HGB CONC 32.7 g/dL (32.0-36.0); MEAN CORPUSCULAR VOLUME 88.1 fL (81.0-99.0); MEAN PLATELET VOLUME 11.8 fL (7.9-10.8); MONOCYTES # (AUTO) 0.9 10^3/uL (0.0-1.0); NEUTROPHILS # (AUTO) 6.4 10^3/uL (1.5-6.6); NEUTROPHILS % (AUTO) 63.1 %; RED BLOOD COUNT 4.03 10^6/uL (4.20-5.40); WHITE BLOOD COUNT 10.1 x10^3/uL (4.8-10.8)
[2021-06-13 14:21] LABS: SLIDE REVIEW? Indicated
[2021-06-13 14:26] LABS: ALBUMIN 3.3 g/dL (3.2-5.5); ALBUMIN/GLOBULIN RATIO 0.8 (1.0-2.2); BILIRUBIN,TOTAL 0.9 mg/dL (0.2-1.0); CALCIUM 9.2 mg/dL (8.5-10.3); CREATININE 1.9 mg/dL (0.4-1.0); MAGNESIUM 2.3 mg/dL (1.7-2.8); TOTAL PROTEIN 7.5 g/dL (6.7-8.2)
[2021-06-13 14:35] LABS: PLATELET ESTIMATE, MANUAL NORMAL (130-450,000) (NORMAL); PLATELET MORPHOLOGY PLATELET CLUMPING (NORMAL); RBC MORPHOLOGY (MULTIPLE) NORMAL APPEARANCE (NORMAL)
--- NOTE | 2021-06-13 15:37 | MRI Report ---
PROCEDURE: Brain W/O INDICATIONS: vertigo, mult risk factors TECHNIQUE: Noncontrast axial T1 spin echo, axial T2 fast spin echo, sagittal and axial FLAIR, coronal T2 fast sp in echo, axial gradient echo, axial diffusion and ADC through the brain. COMPARISON: Correlation is made with head CT and head and neck CT angiograms, 12/09/2020 FINDINGS: Image quality: Motion artifact is noted. CSF Spaces: Basal cisterns are patent. No extra-axial fluid collections. Ventricles are normal in size and shape. Brain: No intracranial masses or hemorrhage. Tello/white matter interface is normal. Brainstem appe ars normal. Diffusion-weighted images demonstrate no acute ischemic insult. No chronic ischemic ins ults. Normal intravascular flow voids are present. Age-appropriate brain parenchymal volume loss an d chronic small vessel ischemic change can be seen. In this patient with this given history, scrutiny is given to the cerebellopontine angle cisterns and to the internal auditory canals. To the limits of this standard protocol study, no masses can be see n within these regions. Skull and face: Calvarium has normal marrow signal. Orbits appear normal. A right lens replacement can be seen. Sinuses: Sinuses and mastoids are clear. IMPRESSION: No imaging explanation is found for the patient's presenting symptoms. To the limits of this standard protocol study performed without contrast, no masses are seen within t he cerebellopontine angle cisterns or the internal auditory canals. Age-appropriate brain parenchymal volume loss and chronic small vessel ischemic change can be seen. Reviewed by: Amrit Mott MD on 06/13/2021 2:35 PM AK Approved by: Amrit Mott MD on 06/13/2021 2:35 PM AK Station ID: [id number]
[2021-06-13] MEDS ORDERED: POTASSIUM CHLORIDE 20 MEQ TABLET PO STA (15:44)
[2021-06-13 16:09] VITALS: BP 158/80
== END 2021-06-13 16:18 | disposition home or self-care (01) ==
LOC: EDUNIT# → ED 13:07
DX: H81.4 Vertigo of central origin (principal); E87.6 Hypokalemia; E11.65 Type 2 diabetes mellitus with hyperglycemia; E11.21 Type 2 diabetes mellitus with diabetic nephropathy; E11.42 Type 2 diabetes mellitus with diabetic polyneuropathy; Z79.4 Long term (current) use of insulin; Z79.84 Long term (current) use of oral hypoglycemic drugs; I10 Essential (primary) hypertension; E78.00 Pure hypercholesterolemia, unspecified; Z86.73 Personal history of transient ischemic attack (TIA), and cerebral infarction without residual deficits
CPT/HCPCS: 36415; 70551; 80053; 83735; 85025; 93005; 99284; A9270; J1815

== ENCOUNTER 2022-09-23 13:47 | Emergency (ER) | payer SELFPAY ==
--- NOTE | 2022-09-23 14:41 | ED Physician Documentation ---
PD HPI CHEST PAIN - Stated complaint Stated Complaint: SOA/SWEATING - Chief complaint Chief Complaint: Resp - History obtained from History obtained from: Patient - Additional information Additional information: 57-year-old woman with hypertension and diabetes presents with chest congestion and nonproductive cough for 4 days with shortness of breath. No measured fevers but feels hot and cold. She does note weight gain but over about 6 months. 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: Other : None HEENT: Other Psych: None Musculoskeletal: None Derm: None - Past Surgical History Past Surgical History: Yes General: Other /DIRECTOR OF PRODUCT MANAGEMENT: Other - Present Medications Home Medications: Ambulatory Orders Medication Instructions Recorded Confirmed Glimepiride [Amaryl] 2 mg PO DAILYWM #30 tablet 07/23/17 10/01/20 Gabapentin 1,200 mg PO BID 10/24/17 10/01/20 Simvastatin 40 mg PO QPM 10/24/17 10/01/20 Gabapentin [Neurontin] 600 mg PO 1200 08/18/20 10/01/20 Insulin Aspart [NovoLOG] 2 - 10 unit SUBQ 09/03/20 10/01/20 0800,1200,1700,2100 #10 Lancets 1 each QID #200 each 09/03/20 10/01/20 Losartan [Cozaar] 100 mg PO DAILY #60 tablet 09/10/20 10/01/20 Furosemide [Lasix] 20 mg PO DAILY #7 tablet 09/29/20 10/01/20 Insulin NPH Hum/Reg Insulin Hm 8 unit SUBQ BID #3 each 09/29/20 10/01/20 [Humulin 70/30 Kwikpen] hydrALAZINE [Apresoline] 25 mg PO QID 30 Days #120 tablet 09/29/20 10/01/20 Blood Sugar Diagnostic [Glucometer 1 each TID 10/01/20 10/01/20 Strips] Blood-Glucose Meter [Glucometer] 1 each TID 10/01/20 10/01/20 Metformin HCl [Metformin ER 500 mg PO BID 10/01/20 10/01/20 Gastric] Meclizine HCl [Motion Sickness] 25 mg PO Q6H PRN #20 tablet 06/13/21 Albuterol Sulf [Ventolin Hfa 1 - 2 puffs INH Q4HR PRN #1 each 09/23/22 Inhaler] Doxycycline [Vibramycin] 100 mg PO BID #14 tablet 09/23/22 guaiFENesin/CODEINE [Robitussin AC] 5 - 10 ml PO Q6H PRN #120 ml 09/23/22 - Allergies Allergies/Adverse Reactions: Allergies Allergy/AdvReac Type Severity Reaction Status Date / Time No Known Drug Allergies Allergy Verified 06/13/21 13:19 - Social History Does the pt smoke?: No Smoking Status: Never smoker Does the pt drink ETOH?: No Does the pt have substance abuse?: No - Immunizations Immunizations are current?: Yes - POLST Patient has POLST: No POLST Status: DNR PD ED PE NORMAL - Vitals Vital signs reviewed: Yes - General General: Alert and oriented X 3, No acute distress - Cardiac Cardiac: RRR, No murmur - Respiratory Respiratory: No respiratory distress, Clear bilaterally - Extremities Extremities: No edema, No calf tenderness / cord - Neuro Neuro: Alert and oriented X 3, Normal speech Results - Vitals Vitals: Vital Signs - 24 hr 09/23/22 09/23/22 09/23/22 14:05 14:59 15:38 Temperature 36.8 C Heart Rate 74 78 Respiratory 18 18 Rate Blood Pressure 200/78 H O2 Saturation 95 Oxygen O2 Source Room air - EKG (time done) 1448 EKG releavant findings:: EKG personally interpreted by author of this note. Relevant findings are: Rate: Rate (enter#) (76) Rhythm: NSR [place]: Normal Intervals: Normal MI, Prolonged QT (Borderline at 503 corrected) QRS: Normal Ischemia: Normal ST segments - Labs Labs: Laboratory Tests 09/23/22 09/23/22 09/23/22 14:56 14:56 14:56 WBC 9.1 RBC 3.85 L Hgb 10.8 L Hct 36.4 L MCV 94.5 MCH 28.1 MCHC 29.7 L RDW 15.3 H Plt Count 232 MPV 10.3 Neut # (Auto) 5.1 Lymph # (Auto) 2.6 [place] # (Auto) 0.7 Eos # (Auto) 0.7 Baso # (Auto) 0.1 Absolute Nucleated RBC 0.00 Nucleated RBC % 0.0 Sodium 141 Potassium 3.3 L Chloride 105 Carbon Dioxide 29 Anion Gap 7.0 BUN 15 Creatinine 1.1 H Estimated GFR (MDRD) 62 L Glucose 204 H Calcium 8.9 TSH 3.28 PD Medical Decision Making - ED course ED course: 57-year-old woman presents with cough, congestion, shortness of breath. On initial exam her lungs were clear, she did develop some wheezing while in the department was administered albuterol with partial relief. Her chest x-ray is suggestive of an atypical pneumonia which I am treating with doxycycline. Departure - Departure Disposition: Home, Self Care Clinical Impression: Atypical pneumonia Condition: Good Record reviewed to determine appropriate education?: Yes Instructions: Pneumonia Dc Prescriptions: Albuterol Sulf [Ventolin Hfa Inhaler] 1 - 2 puffs INH Q4HR PRN #1 each PRN Reason: Shortness Of Air/Wheezing guaiFENesin/CODEINE [Robitussin AC] 5 - 10 ml PO Q6H PRN #120 ml PRN Reason: Cough Doxycycline [Vibramycin] 100 mg PO BID #14 tablet Comments: I sent your prescription electronically to [facility] in [place]. Call your doctor to arrange a follow-up appointment, make the next available appointment. In the interim, return anytime if worse or if new symptoms develop. Forms: Activity restrictions
--- NOTE | 2022-09-23 14:49 | XRAY Report ---
PROCEDURE: Chest 1 View X-Ray INDICATIONS: SOA TECHNIQUE: One view of the chest was acquired. COMPARISON: 12/09/2020 FINDINGS: Surgical changes and devices: None. Lungs and pleura: Hazy bilateral infrahilar alveolar opacities. Possible small pleural effusions. No pneumothorax. Mediastinum: Heart size at the upper limits of normal. Mild central vascular prominence. Normal aort ic contour. Bones and chest wall: No suspicious bony lesions. Overlying soft tissues appear unremarkable. IMPRESSION: 1. Bibasilar alveolar opacities may be secondary to infection, aspiration, or edema. 2. Mild central vascular prominence may indicate mild CHF or volume overload. Reviewed by: Dian Joseph MD on 09/23/2022 1:47 PM JANET Approved by: Dian Joseph MD on 09/23/2022 1:47 PM AKDT Station ID: [id number]
[2022-09-23 15:01] LABS: BASOPHILS # (AUTO) 0.1 10^3/uL (0.0-0.1); BASOPHILS % (AUTO) 0.7 %; EOSINOPHILS # (AUTO) 0.7 10^3/uL (0.0-0.7); EOSINOPHILS % (AUTO) 7.5 %; HCT - HEMATOCRIT 36.4 % (37.0-47.0); HGB - HEMOGLOBIN 10.8 g/dL (12.0-16.0); LYMPHOCYTES # (AUTO) 2.6 10^3/uL (1.5-3.5); LYMPHOCYTES % (AUTO) 28.1 %; MEAN CORPUSCULAR HEMOGLOBIN 28.1 pg (27.0-31.0); MEAN CORPUSCULAR HGB CONC 29.7 g/dL (32.0-36.0); MEAN CORPUSCULAR VOLUME 94.5 fL (81.0-99.0); MEAN PLATELET VOLUME 10.3 fL (7.9-10.8); MONOCYTES # (AUTO) 0.7 10^3/uL (0.0-1.0); MONOCYTES % (AUTO) 7.2 %; NEUTROPHILS # (AUTO) 5.1 10^3/uL (1.5-6.6); NEUTROPHILS % (AUTO) 56.2 %; PLT - PLATELET COUNT 232 10^3/uL (130-450); RED BLOOD COUNT 3.85 10^6/uL (4.20-5.40); RED CELL DISTRIBUTION WIDTH 15.3 % (12.0-15.0); WHITE BLOOD COUNT 9.1 x10^3/uL (4.8-10.8)
[2022-09-23 15:12] LABS: CALCIUM 8.9 mg/dL (8.5-10.3); CREATININE 1.1 mg/dL (0.4-1.0); POTASSIUM 3.3 mmol/L (3.5-5.0)
[2022-09-23] MEDS ORDERED: ALBUTEROL NEB 2.5 MG/3 ML INH STA (15:28)
[2022-09-23] MEDS ORDERED: DOXYCYCLINE 100 MG TABLET PO STA (15:30)
[2022-09-23 15:58] VITALS: BP 209/87
== END 2022-09-23 15:57 | disposition home or self-care (01) ==
LOC: ED 13:47
DX: J18.9 Pneumonia, unspecified organism (principal); I10 Essential (primary) hypertension; E78.00 Pure hypercholesterolemia, unspecified; E11.42 Type 2 diabetes mellitus with diabetic polyneuropathy; Z79.4 Long term (current) use of insulin; Z79.84 Long term (current) use of oral hypoglycemic drugs; Z79.899 Other long term (current) drug therapy
CPT/HCPCS: 36415; 71045; 80048; 84443; 85025; 93005; 94640; 99284; A9270

== ENCOUNTER 2023-02-01 09:06 | Outpatient (CLI) | payer OTHER ==
[2023-02-01 11:33] LABS: BASOPHILS # (AUTO) 0.1 10^3/uL (0.0-0.1); BASOPHILS % (AUTO) 0.7 %; EOSINOPHILS # (AUTO) 0.4 10^3/uL (0.0-0.7); EOSINOPHILS % (AUTO) 4.7 %; HCT - HEMATOCRIT 38.3 % (37.0-47.0); LYMPHOCYTES # (AUTO) 2.4 10^3/uL (1.5-3.5); LYMPHOCYTES % (AUTO) 31.5 %; MEAN CORPUSCULAR HEMOGLOBIN 28.2 pg (27.0-31.0); MEAN CORPUSCULAR HGB CONC 31.3 g/dL (32.0-36.0); MEAN CORPUSCULAR VOLUME 90.1 fL (81.0-99.0); MEAN PLATELET VOLUME 12.2 fL (7.9-10.8); MONOCYTES # (AUTO) 0.5 10^3/uL (0.0-1.0); MONOCYTES % (AUTO) 6.3 %; NEUTROPHILS # (AUTO) 4.3 10^3/uL (1.5-6.6); NEUTROPHILS % (AUTO) 56.4 %; PLT - PLATELET COUNT 202 10^3/uL (130-450); RED BLOOD COUNT 4.25 10^6/uL (4.20-5.40); RED CELL DISTRIBUTION WIDTH 14.4 % (12.0-15.0); WHITE BLOOD COUNT 7.6 x10^3/uL (4.8-10.8)
[2023-02-01 11:44] LABS: ALKALINE PHOSPHATASE 163 IU/L (42-121); ALT ALANINE AMINOTRANSFERASE 16 IU/L (10-60); AST ASPARTATE AMINOTRANSFERASE 13 IU/L (10-42); BILIRUBIN,TOTAL 0.6 mg/dL (0.2-1.0); BUN - BLOOD UREA NITROGEN 14 mg/dL (6-20); CALCIUM 9.7 mg/dL (8.5-10.3); CARBON DIOXIDE - CO2 33 mmol/L (21-32); CHLORIDE 100 mmol/L (101-111); CHOL/HDL RATIO 6.5 (<4.4); CHOLESTEROL 297 mg/dL; CREATININE 0.8 mg/dL (0.6-1.3); CREATININE,URINE 34.2 mg/dL; GFR - MDRD 89 (>89); GLUCOSE 256 mg/dL (74-104); HDL CHOLESTEROL 46 mg/dL; LDL CHOLESTEROL,CALCULATED 199 mg/dL; LDL/HDL RATIO 4.3 (<4.4); MICROALBUM/CREATININE RATIO,UR 257.3 ug/mg (<30.0); MICROALBUMIN,URINE 8.8 mg/dL; POTASSIUM 3.4 mmol/L (3.5-4.5); SODIUM 139 mmol/L (135-145); TOTAL PROTEIN 7.9 g/dL (6.4-8.9); TRIGLYCERIDES 260 mg/dL (48-352); VLDL CHOLESTEROL 52 mg/dL
[2023-02-01 11:58] LABS: THYROID STIMULATING HORMONE 2.52 uIU/mL (0.34-5.60)
[2023-02-01 12:06] LABS: ESTIMATED AVERAGE GLUCOSE 352 mg/dL (70-100); HEMOGLOBIN A1c% 13.9 % (4.27-6.07)
== END 2023-02-01 09:07 | disposition home or self-care (01) ==
LOC: LAB.N 09:06
PROVIDERS: ATTEND Physician Assistant
DX: I10 Essential (primary) hypertension (principal); D64.9 Anemia, unspecified; E11.42 Type 2 diabetes mellitus with diabetic polyneuropathy; E78.5 Hyperlipidemia, unspecified
CPT/HCPCS: 36415; 80053; 80061; 82043; 82570; 83036; 83721; 84443; 85025